=== PATIENT | female | born 1935 | race Caucasian/White ===

== ENCOUNTER 2017-02-07 22:35 | Emergency (ER) | payer MEDICARE ==
--- NOTE | 2017-02-07 23:02 | EDM.PDOC ---
ED HPI GENERAL MEDICAL PROBLEM - General Chief Complaint: General Stated Complaint: DIZZINESS Time Seen by Provider: 02/07/17 22:56 Source of Information: Reports: Patient History Limitations: Reports: No limitations - History of Present Illness Onset: today Onset Date: 02/07/17 Duration: Hour(s): (12), Waxing/waning Location: Reports: head Quality: Reports: Other (Patient had dizzyness off and on all day since her significant other was put in hospital with a PE.) Severity: mild Improves with: Reports: Immobilization Worsens with: Reports: Movement Context: Reports: Activity Associated Symptoms: Reports: denies other symptoms Other Treatments [employer]ICIAN: None - Related Data Allergies Allergy/AdvReac Type Severity Reaction Status Date / Time allopurinol Allergy Cannot Verified 01/26/14 18:11 Remember caffeine Allergy Cannot Verified 01/26/14 18:11 Remember chocolate flavor Allergy Cannot Verified 01/26/14 18:11 Remember procaine HCl [From Novocain] Allergy Cannot Verified 01/26/14 18:11 Remember Home Meds: Home Meds Acetaminophen [Tylenol Arthritis Pain] 650 mg PO DAILY 01/26/14 [History] Acetaminophen/Diphenhydramine [Acetaminophen-Diphenhyd 500-25] 1 each PO DAILY 01/26/14 [History] Albuterol [Ventolin HFA] 2 puff INH BID 01/26/14 [History] Aspirin [Adult Low Dose Aspirin EC] 81 mg PO DAILY 01/26/14 [History] Calcium Carbonate/Vitamin D3 [Calcium 600 + Vit D 400] 1 each PO DAILY 01/26/14 [History] Carboxymethylcell/Hypromellose [GenTeal 0.25-0.3% Gel Drops] 25 ml ASDIRECTED [History] Clopidogrel [Plavix] 75 mg PO DAILY 01/26/14 [History] Cyanocobalamin (Vitamin B12) [Vitamin B12] 1,000 mcg IJ 01/26/14 [History] Darifenacin [Enablex] 15 mg PO DAILY 01/26/14 [History] Fenofibric Acid (Choline) [Fenofibric Acid] 135 mg PO DAILY 01/26/14 [History] Fluticasone Propionate [Flonase] 16 gm NS DAILY 01/26/14 [History] Furosemide [Lasix] 20 mg PO DAILY 01/26/14 [History] Glimepiride [Amaryl] 2 mg PO BRK 01/26/14 [History] Insulin Detemir [Levemir] 80 unit SQ BEDTIME 01/26/14 [History] Levothyroxine 125 mcg PO ACBRK 01/26/14 [History] Trolamine Salicylate [Aspercreme] 1 applic TP QID 01/26/14 [History] amLODIPine [Norvasc] 10 mg PO BEDTIME 01/26/14 [History] atorvaSTATin [Lipitor] 80 mg PO BEDTIME 01/26/14 [History] Meclizine [Antivert] 25 mg PO Q6H PRN #60 tab.chew 02/08/17 [Rx] Sulfamethoxazole/Trimethoprim [Bactrim Ds Tablet] 1 each PO BID #14 tablet 02/08 [Rx] Social & Family History - Caffeine Use Caffeine Use: Reports: Coffee - Recreational Drug Use Recreational Drug Use: No ED ROS GENERAL - Review of Systems Review Of Systems: See Below Constitutional: Reports: other (dizzyness) Respiratory: Reports: No Symptoms GI/Abdominal: Reports: No symptoms : Reports: no symptoms Musculoskeletal: Reports: no symptoms Skin: Reports: no symptoms Neurological: Reports: Dizziness ED EXAM, GENERAL - Physical Exam Exam: See Below Exam Limited By: No limitations General Appearance: alert, WD/WN, no apparent distress Eye Exam: right eye: nystagmus, bilateral eye: EOMI (Right lateral nystagmus), normal fundi, normal inspection, PERRL Ears: normal external exam, normal canal, hearing grossly normal, normal TMs Ear Exam: bilateral ear: auricle normal, canal normal, TM normal Nose: normal inspection, normal mucosa, no blood Throat/Mouth: Normal inspection, Normal lips, Normal teeth, Normal gums, Normal oropharynx, Normal voice, No airway compromise Head: atraumatic, normocephalic Neck: normal inspection, supple, non-tender, full range of motion Respiratory/Chest: no respiratory distress, lungs clear, normal breath sounds, no accessory muscle use, chest non-tender Cardiovascular: normal peripheral pulses, regular rate, rhythm, no edema, no gallop, no JVD, no murmur, no rub Peripheral Pulses: 2+: posterior tibial (L), posterior tibial (R), dorsalis pedis (L), dorsalis pedis (R) GI/Abdominal: soft, non tender, no organomegaly Extremities: normal inspection, normal range of motion, non-tender, normal capillary refill, no pedal edema Neurological: alert, oriented, CN II-XII intact, normal cognition, normal gait, normal reflexes, no motor/sensory deficits Psychiatric: normal affect, normal mood Skin Exam: Warm, Dry, Intact, Normal color, No rash Lymphatic: no adenopathy EKG INTERPRETATION EKG Date: 02/07/17 Rhythm: NSR Candor: normal P-wave: present QRS: normal 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 She had her symptoms go away with the Antivert and she felt normal. Her labs did show a UTI which we treated with Bactrim DS one po bid x 7 days. She will follow up with her PCP this week if symptoms changes or worsens. Last Recorded V/S: Last Vital Signs Temp 36.6 C 02/07/17 22:35 Pulse Resp 18 02/07/17 22:35 BP 185/79 H 02/07/17 22:35 Pulse Ox 96 02/07/17 22:35 - Orders/Labs/Meds Orders: Active Orders 24 hr Category Date Time Status Meclizine [Antivert] Med 02/07/17 23:03 Active 25 mg PO DAILY PRN Medication Orders Meclizine HCl (Antivert) 25 mg PO DAILY PRN PRN Reason: dizzy Last Admin: 02/07/17 23:22 Dose: 25 mg Labs: Laboratory Tests 02/07/17 02/07/17 02/07/17 Range/Units 23:15 23:15 23:50 WBC 10.2 (4.5-12.0) X10-3/uL RBC 4.34 (3.23-5.20) x10(6)uL Hgb 13.1 (11.5-15.5) g/dL Hct 39.1 (30.0-51.3) % MCV 90.0 (80-96) fL MCH 30.3 (27.7-33.6) pg MCHC 33.6 (32.2-35.4) g/dL RDW 12.3 (11.5-15.5) % Plt Count 261 (125-369) X10(3)uL MPV 8.7 (7.4-10.4) fL Neut % (Auto) 63.9 (46-82) % Lymph % (Auto) 21.0 (13-37) % [place] % (Auto) 9.7 (4-12) % Eos % (Auto) 4 (1.0-5.0) % Baso % (Auto) 2 (0-2) % Neut # (Auto) 6.5 (1.6-8.3) # Lymph # (Auto) 2.1 (0.6-5.0) # [place] # (Auto) 1.0 (0.0-1.3) # Eos # (Auto) 0.4 (0.0-0.8) # Baso # (Auto) 0.2 (0.0-0.2) # Sodium 139 (135-145) mmol/L Potassium 3.6 (3.5-5.3) mmol/L Chloride 102 (100-110) mmol/L Carbon Dioxide 28 (23-29) mmol/L BUN 31 H (8-23) mg/dL Creatinine 1.0 (0.6-1.3) mg/dL Est Cr Clr Drug Dosing 39.90 mL/min Estimated GFR (MDRD) 53 L (>60) BUN/Creatinine Ratio 31.0 H (9-20) Glucose 273 H (80-116) mg/dL Calcium 9.9 (8.6-10.2) mg/dL Total Bilirubin 0.4 (0.1-1.3) mg/dL AST 21 (5-27) IU/L ALT 27 H D (14-26) IU/L Alkaline Phosphatase 66 (56-112) IU/L Total Protein 7.5 (6.0-8.0) g/dL Albumin 3.9 (3.2-4.6) g/dL Globulin 3.6 g/dL Albumin/Globulin Ratio 1.1 Urine Color Yellow (YELLOW) Urine Appearance Clear (CLEAR) Urine pH 5.0 (5.0-6.5) Ur Specific [place] 1.015 (1.010-1.025) Urine Protein 500 H (NEGATIVE) mg/dL Urine Glucose (UA) 50 H (NEGATIVE) mg/dL Urine Ketones Negative (NEGATIVE) mg/dL Urine Occult Blood Moderate H (NEGATIVE) Urine Nitrite Negative (NEGATIVE) Urine Bilirubin Negative (NEGATIVE) Urine Urobilinogen Normal (NEGATIVE) mg/dL Ur Leukocyte Esterase Small H (NEGATIVE) Urine RBC 0-5 (0) Urine WBC 0-5 (0) Ur Squamous Epith Cells Few H (NS,R,O) Urine Bacteria Rare H (NS) Meds: Medications Generic Name Dose Route Start Last Admin Trade Name Freq PRN Reason Stop Dose Admin Meclizine HCl 25 mg 02/07/17 23:03 02/07/17 23:22 Antivert PO 25 mg DAILY PRN Administration dizzy Departure - Departure Time of Disposition: 00:46 Disposition: Home, Self-Care 01 Clinical Impression: Vertigo Prescriptions: Meclizine [Antivert] 25 mg PO Q6H PRN #60 tab.chew PRN Reason: dizzyness Sulfamethoxazole/Trimethoprim [Bactrim Ds Tablet] 1 each PO BID #14 tablet Instructions: Urinary Frequency, Adult, Benign Positional Vertigo Referrals: Maricel Baum [employer] [Primary Care Provider] - Forms: ED Department Discharge - My Orders Last 24 Hours: My Active Orders 02/07/17 23:03 Meclizine [Antivert] 25 mg PO DAILY PRN - Assessment/Plan Last 24 Hours: My Active Orders 02/07/17 23:03 Meclizine [Antivert] 25 mg PO DAILY PRN
[2017-02-07] MEDS ORDERED: Meclizine 25 MG Tab PO PRN (23:03)
[2017-02-08 00:42] VITALS: BP 165/69
== END 2017-02-08 00:45 | disposition home or self-care (01) ==
LOC: FB.ED 22:35
DX: R42 Dizziness and giddiness (principal); Z88.8 Allergy status to other drugs, medicaments and biological substances; Z79.82 Long term (current) use of aspirin; Z79.4 Long term (current) use of insulin; Z79.899 Other long term (current) drug therapy
CPT/HCPCS: 36415; 80053; 81001; 85025; 99284; A9270; 99283

== ENCOUNTER 2019-06-20 09:49 | Inpatient (IN) | payer MEDICARE ==
--- NOTE | 2019-06-20 15:53 | PCM.HP.2 ---
H&P History of Present Illness - General Date of Service: 06/20/19 Admit Problem/Dx: Admission Diagnosis/Problem Admission Diagnosis/Problem Tongue carcinoma Source of Information: Patient, Old Records History Limitations: Reports: No Limitations - History of Present Illness Initial Comments - Free Text/Narative: This is 84-year-old female patient with a tongue cancer had a glosectomy. As she was hospitalized the note states she did have a pleural effusion and a pneumonia and was treated in the hospital. She says she is doing well now. She denies fevers, chills. She has some neck pain from a node resection on the right. She has a little bit of a cough and has low oxygen when she walks. The daughter states she was off her Lasix and that was part of the problem according to her. She denies chest pain. She is overall weak and here for PT/OT. Back Pain Score (Numeric/FACES): 6 - Related Data Allergies/Adverse Reactions: Allergies Allergy/AdvReac Type Severity Reaction Status Date / Time allopurinol Allergy Cannot Verified 06/20/19 14:05 Remember chocolate flavor Allergy Cannot Verified 06/20/19 14:05 Remember procaine HCl [From Novocain] Allergy Cannot Verified 06/20/19 14:05 Remember Home Medications: Home Meds Albuterol [Ventolin HFA] 1 - 2 puff INH Q4H PRN 01/26/14 [History] Fluticasone Propionate [Flonase] 2 spray NASBOTH DAILY 01/26/14 [History] Levothyroxine 125 mcg PO ACBRK 01/26/14 [History] Trolamine Salicylate [Aspercreme] 1 applic TP TID PRN 01/26/14 [History] amLODIPine [Norvasc] 10 mg PO DAILY 01/26/14 [History] Acetaminophen [Tylenol Extra Strength] 1,000 mg PO TID 06/20/19 [History] Acetaminophen/HYDROcodone [[place] 325-5 MG] 1 tab PO Q6H PRN 06/20/19 [History] Albuterol Sulfate 1.25 mg PO TID PRN 06/20/19 [History] Calcium Carbonate/Vitamin D3 [Calcium 600 + Vit D 200] 1 tab PO BID 06/20/19 [ History] Carboxymethylcellulose Sodium [Refresh Liquigel 1%] 1 drop EYEBOTH QID 06/20/19 [History] Cephalexin [Keflex] 250 mg PO DAILY 06/20/19 [History] Diclofenac Sodium [Voltaren] 2 gm TOP QID 06/20/19 [History] Furosemide [Lasix] 20 mg PO BID@08,16 06/20/19 [History] Gabapentin [Neurontin] 100 mg PO BID 06/20/19 [History] Insulin Glargine,Hum.Rec.Anlog [Jonah French] 30 units SUBCUT BEDTIME [History] Insulin Lispro [Humalog Kwikpen U-200] 5 unit SUBCUT ASDIRECTED PRN 06/20/19 [ History] Insulin Lispro [Humalog Kwikpen U-200] 10 units SUBCUT TIDMEALS 06/20/19 [ History] Levofloxacin [Levaquin] 750 mg PO Q48H 06/20/19 [History] Lidocaine 5% [Lidoderm 5%] 700 mg TOP BEDTIME 06/20/19 [History] Loperamide [Imodium AD] 2 mg PO ASDIRECTED PRN 06/20/19 [History] Losartan [Cozaar] 100 mg PO DAILY 06/20/19 [History] Lutein 20 mg PO DAILY 06/20/19 [History] Magnesium Hydroxide [Milk of Magnesia] 30 ml PO BEDTIME PRN 06/20/19 [History] Mirabegron [Myrbetriq] 50 mg PO DAILY 06/20/19 [History] Montelukast [Singulair] 10 mg PO DAILY 06/20/19 [History] PNV95/Ferrous Fumarate/FA [ Tablet] 1 tab PO DAILY 06/20/19 [History] Polyethylene Glycol 3350 [MiraLAX] 17 gm PO Q72H 06/20/19 [History] Ranitidine HCl [Ranitidine] 150 mg PO BID 06/20/19 [History] Sennosides/Docusate Sodium [Senna-S] 1 tab PO DAILY PRN 06/20/19 [History] atorvaSTATin [Lipitor] 40 mg PO BEDTIME 06/20/19 [History] tiZANidine [Zanaflex] 2 mg PO BEDTIME 06/20/19 [History] Past Medical History Cardiovascular History: Reports: High Cholesterol, Hypertension Respiratory History: Reports: Sleep Apnea, Other (See Below) Other Respiratory History: PLEURAL EFFUSION, PNEUMONIA Gastrointestinal History: Reports: GERD [employer]CH[employer]ICIAN History: Reports: Musculoskeletal History: Reports: RA Other Musculoskeletal History: RT INDEX FRACTURE, SPINAL ARTHRITIS Psychiatric History: Reports: Depression Endocrine/Metabolic History: Reports: Diabetes, Type II, Hypothyroidism, Obesity /BMI 30+ Oncologic (Cancer) History: Reports: Other (See Below) Other Oncologic History: TONGUE - Infectious Disease History Infectious Disease History: Reports: Scarlet Fever - Past Surgical History HEENT Surgical History: Reports: Cataract Surgery, Other (See Below) Other HEENT Surgeries/Procedures: BOTH EYES CATARACT SURGERY, TOUNGUE SURGERY AND LYMPH NODES 06/13/19 GI Surgical History: Reports: Appendectomy, Cholecystectomy Female Surgical History: Reports: Hysterectomy Social & Family History - Family History Family Medical History: Unobtainable - Tobacco Use Smoking Status *Q: Never Smoker - Caffeine Use Caffeine Use: Reports: Coffee, Soda - Recreational Drug Use Recreational Drug Use: No H&P Review of Systems - Review of Systems: Review Of Systems: See Below General: Reports: Weakness. Denies: Fever, Chills HEENT: Reports: Other (Tongue pain) Pulmonary: Reports: Cough, Sputum Cardiovascular: Reports: No Symptoms Gastrointestinal: Reports: No Symptoms Genitourinary: Reports: No Symptoms Musculoskeletal: Reports: No Symptoms Skin: Reports: No Symptoms Psychiatric: Reports: No Symptoms Neurological: Reports: No Symptoms Hematologic/Lymphatic: Reports: No Symptoms Immunologic: Reports: No Symptoms Exam - Exam Exam: See Below - Vital Signs Vital Signs: Last Vital Signs Temp 97.9 F 06/20/19 14:00 Pulse 82 06/20/19 14:00 Resp 22 H 06/20/19 14:00 BP 174/69 H 06/20/19 14:00 Pulse Ox 94 L 06/20/19 14:10 Weight: 219 lb - Exam General: Alert, Oriented, Cooperative HEENT: Posterior Pharynx Clear, TMs Clear, Other (Right tongue glosectomy) Neck: Supple, Trachea Midline, Other (Swelling right neck secondary to node dissection) Lungs: Clear to Auscultation, Normal Respiratory Effort. No: Crackles, Rales, Rhonchi Cardiovascular: Regular Rate, Regular Rhythm. No: Systolic Murmur GI/Abdominal Exam: Normal Bowel Sounds, Soft, Non-Tender, No Distention Back Exam: Normal Inspection, Full Range of Motion Extremities: Normal Inspection, No Pedal Edema Skin: Warm, Dry Neurological: Normal Speech, Normal Tone Neuro Extensive - Mental Status: Alert, Oriented x3, Normal Mood/Affect, Normal Cognition Psychiatric: Alert, Normal Affect, Normal Mood - Problem List (1) S/P glossectomy SNOMED Code(s): 491961830, 72031814, 392268328 ICD Code: Z90.49 - ACQUIRED ABSENCE OF OTHER SPECIFIED PARTS OF DIGESTIVE TRACT Status: Acute Current Visit: Yes (2) Physical deconditioning SNOMED Code(s): 39754781130341 ICD Code: R53.81 - OTHER MAL[place]ISE Status: Acute Current Visit: Yes (3) Pneumonia SNOMED Code(s): 231371612 ICD Code: J18.9 - PNEUMONIA, UNSPECIFIED ORGANISM Status: Acute Current Visit: Yes (4) Pleural effusion SNOMED Code(s): 42463432 ICD Code: J90 - PLEURAL EFFUSION, NOT ELSEWHERE CLASSIFIED Status: Acute Current Visit: Yes Problem List Initiated/Reviewed/Updated: Yes Orders Last 24hrs: Active Orders 24 hr Category Date Time Status Patient Status [ADT] Routine ADT 06/20/19 14:40 Active Accu Check [Blood Glucose Check, Bedside] [RC] BIDAC Care 06/20/19 14:44 Active Height and Weight [RC] WEEKLY Care 06/20/19 14:40 Active May Shower [RC] ASDIRECTED Care 06/20/19 14:39 Active Oxygen Therapy [RC] PRN Care 06/20/19 14:40 Active Up With Assistance [RC] ASDIRECTED Care 06/20/19 14:39 Active VTE/DVT Education [RC] Per Unit Routine Care 06/20/19 14:40 Active Vital Signs [RC] PER UNIT ROUTINE Care 06/20/19 14:40 Active OT Evaluation and Treatment [CONS] Routine Cons 06/20/19 14:39 Active PT Evaluation and Treatment [CONS] Routine Cons 06/20/19 14:39 Active Consistent Carbohydrate Diet [DIET] Diet 06/20/19 Lunch Active Resuscitation Status Routine Resus Stat 06/20/19 14:39 Ordered Assessment/Plan Comment:: 1. Admit to swing bed. 2. PT/OT. 3. Diabetic diet. 4. Continue her medications from [facility]. 5. Up with assist. 6 . O2 to keep sats greater than 90% 7. No labs
[2019-06-20] MEDS ORDERED: Albuterol 8 GM Inhaler INH PRN (15:54)
[2019-06-20] MEDS ORDERED: Insulin Lispro 100 Unit/ML 3 ML KwikPen SUBCUT PRN (15:54)
[2019-06-20] MEDS ORDERED: Trolamine Salicylate/Aloe Vera 10% Crm 85 GM Tube TOP PRN (15:54)
[2019-06-20] MEDS ORDERED: Loperamide 2 MG Cap PO PRN (15:54)
[2019-06-20] MEDS ORDERED: Magnesium Hydroxide 400 MG/5 ML Susp 30 ML Cup PO PRN (15:54)
[2019-06-20] MEDS ORDERED: Albuterol 0.083% 2.5 MG/3 ML Neb Soln INH PRN (15:54)
[2019-06-20] MEDS: Furosemide 20 MG Tab PO SCH (16:58)
[2019-06-20] MEDS: Acetaminophen 500 MG Tab PO SCH ×2 (16:58→21:26)
[2019-06-20] MEDS: Carboxymethylcellulose Sodium 1% Ophth Gel 15 ML Bottle EYEBOTH SCH ×2 (16:59→21:26)
[2019-06-20] MEDS: Diclofenac Sodium 1% Gel 100 GM Tube TOP SCH ×2 (16:59→21:27)
[2019-06-20] MEDS: Insulin Lispro 100 Unit/ML 3 ML KwikPen SUBCUT SCH (17:22)
[2019-06-20] MEDS: Gabapentin 100 MG Cap PO SCH (21:24)
[2019-06-20] MEDS: atorvaSTATin 40 MG Tab PO SCH (21:25)
[2019-06-20] MEDS: Calcium Carbonate 500 MG Tablet PO SCH (21:26)
[2019-06-20] MEDS: tiZANidine 4 MG Tab PO SCH (21:27)
[2019-06-20] MEDS: Famotidine 20 MG Tab PO SCH (21:28)
[2019-06-20] MEDS: Insulin Glargine,Human Rec. Analog 100 Units/ML 3 ML Pen SUBCUT SCH (21:34)
[2019-06-20] MEDS: Lidocaine 5% 700 MG Patch TOP SCH (21:41)
[2019-06-21] MEDS: Levothyroxine 125 MCG Tab PO SCH (06:52)
[2019-06-21] MEDS: Acetaminophen 500 MG Tab PO SCH ×3 (08:08→20:59)
[2019-06-21] MEDS: Furosemide 20 MG Tab PO SCH ×2 (08:11→16:06)
[2019-06-21] MEDS: Fluticasone Propionate Nasal Spray 16 GM Bottle NASBOTH SCH (08:12)
[2019-06-21] MEDS: Calcium Carbonate 500 MG Tablet PO SCH ×2 (08:12→21:03)
[2019-06-21] MEDS: Losartan 100 MG Tab PO SCH (08:12)
[2019-06-21] MEDS: amLODIPine 10 MG Tab PO SCH (08:12)
[2019-06-21] MEDS: Prenatal Multivitamin with Calcium/Folic Acid/Fe Fumarate Cap PO SCH (08:13)
[2019-06-21] MEDS: Famotidine 20 MG Tab PO SCH ×2 (08:13→20:57)
[2019-06-21] MEDS: Montelukast 10 MG Tab PO SCH (08:13)
[2019-06-21] MEDS: Mirabegron 25 MG Tab Extended Release PO SCH (08:13)
[2019-06-21] MEDS: Diclofenac Sodium 1% Gel 100 GM Tube TOP SCH ×4 (08:16→21:05)
[2019-06-21] MEDS: Insulin Lispro 100 Unit/ML 3 ML KwikPen SUBCUT SCH ×4 (08:16→19:03)
[2019-06-21] MEDS: Carboxymethylcellulose Sodium 1% Ophth Gel 15 ML Bottle EYEBOTH SCH ×4 (08:24→20:58)
[2019-06-21] MEDS: Gabapentin 100 MG Cap PO SCH ×2 (08:29→20:57)
[2019-06-21] MEDS: Levofloxacin 750 MG Tab PO SCH (10:15)
[2019-06-21] MEDS: Acetaminophen/HYDROcodone 325-5 MG Tab PO PRN (18:10)
[2019-06-21] MEDS: Lidocaine 5% 700 MG Patch TOP SCH (20:54)
[2019-06-21] MEDS: atorvaSTATin 40 MG Tab PO SCH (20:57)
[2019-06-21] MEDS: tiZANidine 4 MG Tab PO SCH (21:04)
[2019-06-21] MEDS: Insulin Glargine,Human Rec. Analog 100 Units/ML 3 ML Pen SUBCUT SCH (21:09)
[2019-06-22] MEDS: Acetaminophen/HYDROcodone 325-5 MG Tab PO PRN (03:01)
[2019-06-22] MEDS: Levothyroxine 125 MCG Tab PO SCH ×2 (05:30→08:00)
[2019-06-22] MEDS ORDERED: Insulin Lispro 100 Unit/ML 3 ML KwikPen SUBCUT SCH (08:00)
[2019-06-22] MEDS: Gabapentin 100 MG Cap PO SCH ×2 (08:20→21:00)
[2019-06-22] MEDS: Calcium Carbonate 500 MG Tablet PO SCH ×2 (08:21→21:08)
[2019-06-22] MEDS: Mirabegron 25 MG Tab Extended Release PO SCH (08:26)
[2019-06-22] MEDS: Losartan 100 MG Tab PO SCH (08:26)
[2019-06-22] MEDS: Prenatal Multivitamin with Calcium/Folic Acid/Fe Fumarate Cap PO SCH (08:26)
[2019-06-22] MEDS: Famotidine 20 MG Tab PO SCH ×2 (08:26→21:08)
[2019-06-22] MEDS: Furosemide 20 MG Tab PO SCH ×2 (08:26→17:49)
[2019-06-22] MEDS: Fluticasone Propionate Nasal Spray 16 GM Bottle NASBOTH SCH (08:27)
[2019-06-22] MEDS: Carboxymethylcellulose Sodium 1% Ophth Gel 15 ML Bottle EYEBOTH SCH ×4 (08:27→21:09)
[2019-06-22] MEDS: Montelukast 10 MG Tab PO SCH (08:27)
[2019-06-22] MEDS: Acetaminophen 500 MG Tab PO SCH ×3 (08:27→21:09)
[2019-06-22] MEDS: amLODIPine 10 MG Tab PO SCH (08:28)
[2019-06-22] MEDS: Diclofenac Sodium 1% Gel 100 GM Tube TOP SCH ×4 (08:29→21:10)
[2019-06-22] MEDS: Insulin Lispro 100 Unit/ML 3 ML KwikPen SUBCUT SCH ×3 (08:37→17:52)
[2019-06-22] MEDS ORDERED: Melatonin 3 MG Tab PO PRN (09:29)
[2019-06-22] MEDS: Lidocaine 5% 700 MG Patch TOP SCH (21:07)
[2019-06-22] MEDS: atorvaSTATin 40 MG Tab PO SCH (21:08)
[2019-06-22] MEDS: Insulin Glargine,Human Rec. Analog 100 Units/ML 3 ML Pen SUBCUT SCH (21:11)
[2019-06-22] MEDS: tiZANidine 4 MG Tab PO SCH (21:14)
[2019-06-23] MEDS: Acetaminophen/HYDROcodone 325-5 MG Tab PO PRN ×2 (09:41→17:03)
[2019-06-23] MEDS: Diclofenac Sodium 1% Gel 100 GM Tube TOP SCH ×4 (09:43→20:51)
[2019-06-23] MEDS: Gabapentin 100 MG Cap PO SCH ×2 (09:43→20:48)
[2019-06-23] MEDS: Furosemide 20 MG Tab PO SCH ×2 (09:44→16:56)
[2019-06-23] MEDS: Montelukast 10 MG Tab PO SCH (09:44)
[2019-06-23] MEDS: Levofloxacin 750 MG Tab PO SCH (09:44)
[2019-06-23] MEDS: Calcium Carbonate 500 MG Tablet PO SCH ×2 (09:45→20:48)
[2019-06-23] MEDS: Mirabegron 25 MG Tab Extended Release PO SCH (09:45)
[2019-06-23] MEDS: amLODIPine 10 MG Tab PO SCH (09:45)
[2019-06-23] MEDS: Prenatal Multivitamin with Calcium/Folic Acid/Fe Fumarate Cap PO SCH (09:46)
[2019-06-23] MEDS: Famotidine 20 MG Tab PO SCH ×2 (09:46→20:51)
[2019-06-23] MEDS: Fluticasone Propionate Nasal Spray 16 GM Bottle NASBOTH SCH (09:46)
[2019-06-23] MEDS: Carboxymethylcellulose Sodium 1% Ophth Gel 15 ML Bottle EYEBOTH SCH ×4 (09:46→20:51)
[2019-06-23] MEDS: Acetaminophen 500 MG Tab PO SCH ×3 (09:47→20:51)
[2019-06-23] MEDS: Insulin Lispro 100 Unit/ML 3 ML KwikPen SUBCUT SCH ×3 (09:49→18:26)
[2019-06-23] MEDS: Levothyroxine 125 MCG Tab PO SCH (09:52)
[2019-06-23] MEDS: Polyethylene Glycol 3350 Powder 17 GM Packet PO SCH (09:52)
[2019-06-23] MEDS: Losartan 100 MG Tab PO SCH (09:53)
[2019-06-23] MEDS: Lidocaine 5% 700 MG Patch TOP SCH (20:47)
[2019-06-23] MEDS: Insulin Glargine,Human Rec. Analog 100 Units/ML 3 ML Pen SUBCUT SCH (20:47)
[2019-06-23] MEDS: atorvaSTATin 40 MG Tab PO SCH (20:47)
[2019-06-23] MEDS: tiZANidine 4 MG Tab PO SCH (20:54)
[2019-06-24] MEDS: Acetaminophen/HYDROcodone 325-5 MG Tab PO PRN (08:37)
[2019-06-24] MEDS: Gabapentin 100 MG Cap PO SCH ×2 (08:37→20:05)
[2019-06-24] MEDS: Fluticasone Propionate Nasal Spray 16 GM Bottle NASBOTH SCH (08:38)
[2019-06-24] MEDS: Diclofenac Sodium 1% Gel 100 GM Tube TOP SCH ×4 (08:38→20:07)
[2019-06-24] MEDS: Calcium Carbonate 500 MG Tablet PO SCH ×2 (08:39→20:05)
[2019-06-24] MEDS: Montelukast 10 MG Tab PO SCH (08:39)
[2019-06-24] MEDS: amLODIPine 10 MG Tab PO SCH (08:39)
[2019-06-24] MEDS: Furosemide 20 MG Tab PO SCH ×2 (08:39→15:19)
[2019-06-24] MEDS: Mirabegron 25 MG Tab Extended Release PO SCH (08:39)
[2019-06-24] MEDS: Carboxymethylcellulose Sodium 1% Ophth Gel 15 ML Bottle EYEBOTH SCH ×4 (08:40→20:06)
[2019-06-24] MEDS: Prenatal Multivitamin with Calcium/Folic Acid/Fe Fumarate Cap PO SCH (08:40)
[2019-06-24] MEDS: Famotidine 20 MG Tab PO SCH ×2 (08:41→20:07)
[2019-06-24] MEDS: Acetaminophen 500 MG Tab PO SCH ×3 (08:41→20:06)
[2019-06-24] MEDS: Levothyroxine 125 MCG Tab PO SCH (08:42)
[2019-06-24] MEDS: Insulin Lispro 100 Unit/ML 3 ML KwikPen SUBCUT SCH ×3 (08:42→17:43)
[2019-06-24] MEDS: Losartan 100 MG Tab PO SCH (08:43)
[2019-06-24] MEDS: Insulin Glargine,Human Rec. Analog 100 Units/ML 3 ML Pen SUBCUT SCH (20:03)
[2019-06-24] MEDS: Lidocaine 5% 700 MG Patch TOP SCH (20:04)
[2019-06-24] MEDS: atorvaSTATin 40 MG Tab PO SCH (20:05)
[2019-06-24] MEDS: tiZANidine 4 MG Tab PO SCH (20:06)
[2019-06-25] MEDS: Levothyroxine 125 MCG Tab PO SCH (08:15)
[2019-06-25] MEDS: Insulin Lispro 100 Unit/ML 3 ML KwikPen SUBCUT SCH ×3 (08:16→18:30)
[2019-06-25] MEDS: Losartan 100 MG Tab PO SCH (08:19)
[2019-06-25] MEDS: Furosemide 20 MG Tab PO SCH ×2 (08:19→15:35)
[2019-06-25] MEDS: Fluticasone Propionate Nasal Spray 16 GM Bottle NASBOTH SCH (08:20)
[2019-06-25] MEDS: amLODIPine 10 MG Tab PO SCH (08:21)
[2019-06-25] MEDS: Gabapentin 100 MG Cap PO SCH ×2 (08:21→21:15)
[2019-06-25] MEDS: Mirabegron 25 MG Tab Extended Release PO SCH (08:21)
[2019-06-25] MEDS: Carboxymethylcellulose Sodium 1% Ophth Gel 15 ML Bottle EYEBOTH SCH ×4 (08:22→21:12)
[2019-06-25] MEDS: Prenatal Multivitamin with Calcium/Folic Acid/Fe Fumarate Cap PO SCH (08:22)
[2019-06-25] MEDS: Calcium Carbonate 500 MG Tablet PO SCH ×2 (08:22→21:11)
[2019-06-25] MEDS: Famotidine 20 MG Tab PO SCH ×2 (08:22→21:12)
[2019-06-25] MEDS: Acetaminophen 500 MG Tab PO SCH ×3 (08:23→21:11)
[2019-06-25] MEDS: Montelukast 10 MG Tab PO SCH (08:23)
[2019-06-25] MEDS: Diclofenac Sodium 1% Gel 100 GM Tube TOP SCH ×4 (08:24→21:06)
[2019-06-25] MEDS: Levofloxacin 750 MG Tab PO SCH (11:29)
[2019-06-25] MEDS ORDERED: Diphtheria,Pertussis(Acell),Tetanus Vaccine 0.5 ML SDV IM ONE (17:39)
[2019-06-25] MEDS: Lidocaine 5% 700 MG Patch TOP SCH (21:05)
[2019-06-25] MEDS: tiZANidine 4 MG Tab PO SCH (21:11)
[2019-06-25] MEDS: atorvaSTATin 40 MG Tab PO SCH (21:12)
[2019-06-25] MEDS: Insulin Glargine,Human Rec. Analog 100 Units/ML 3 ML Pen SUBCUT SCH (21:18)
[2019-06-26] MEDS: Levothyroxine 125 MCG Tab PO SCH ×2 (05:27→07:11)
[2019-06-26] MEDS: Polyethylene Glycol 3350 Powder 17 GM Packet PO SCH (08:22)
[2019-06-26] MEDS: Insulin Lispro 100 Unit/ML 3 ML KwikPen SUBCUT SCH ×3 (08:23→17:28)
[2019-06-26] MEDS: Furosemide 20 MG Tab PO SCH ×2 (08:23→16:34)
[2019-06-26] MEDS: Losartan 100 MG Tab PO SCH (08:24)
[2019-06-26] MEDS: Fluticasone Propionate Nasal Spray 16 GM Bottle NASBOTH SCH (08:25)
[2019-06-26] MEDS: Famotidine 20 MG Tab PO SCH ×2 (08:26→20:02)
[2019-06-26] MEDS: amLODIPine 10 MG Tab PO SCH (08:26)
[2019-06-26] MEDS: Mirabegron 25 MG Tab Extended Release PO SCH (08:26)
[2019-06-26] MEDS: Calcium Carbonate 500 MG Tablet PO SCH ×2 (08:26→20:02)
[2019-06-26] MEDS: Prenatal Multivitamin with Calcium/Folic Acid/Fe Fumarate Cap PO SCH (08:27)
[2019-06-26] MEDS: Montelukast 10 MG Tab PO SCH (08:27)
[2019-06-26] MEDS: Carboxymethylcellulose Sodium 1% Ophth Gel 15 ML Bottle EYEBOTH SCH ×4 (08:27→20:02)
[2019-06-26] MEDS: Acetaminophen 500 MG Tab PO SCH ×3 (08:27→20:01)
[2019-06-26] MEDS: Diclofenac Sodium 1% Gel 100 GM Tube TOP SCH ×4 (08:28→20:03)
[2019-06-26] MEDS: Gabapentin 100 MG Cap PO SCH ×2 (08:36→20:11)
[2019-06-26] MEDS: Lidocaine 5% 700 MG Patch TOP SCH (20:00)
[2019-06-26] MEDS: atorvaSTATin 40 MG Tab PO SCH (20:01)
[2019-06-26] MEDS: tiZANidine 4 MG Tab PO SCH (20:04)
[2019-06-26] MEDS: Insulin Glargine,Human Rec. Analog 100 Units/ML 3 ML Pen SUBCUT SCH (20:12)
[2019-06-27] MEDS: Acetaminophen/HYDROcodone 325-5 MG Tab PO PRN (00:50)
[2019-06-27] MEDS: Levothyroxine 125 MCG Tab PO SCH (07:33)
[2019-06-27] MEDS: Furosemide 20 MG Tab PO SCH (07:34)
[2019-06-27] MEDS: Insulin Lispro 100 Unit/ML 3 ML KwikPen SUBCUT SCH ×2 (08:17→12:02)
[2019-06-27] MEDS: Gabapentin 100 MG Cap PO SCH (08:17)
[2019-06-27] MEDS: Losartan 100 MG Tab PO SCH (08:18)
[2019-06-27] MEDS: Fluticasone Propionate Nasal Spray 16 GM Bottle NASBOTH SCH (08:19)
[2019-06-27] MEDS: Mirabegron 25 MG Tab Extended Release PO SCH (08:19)
[2019-06-27] MEDS: amLODIPine 10 MG Tab PO SCH (08:20)
[2019-06-27] MEDS: Famotidine 20 MG Tab PO SCH (08:20)
[2019-06-27] MEDS: Carboxymethylcellulose Sodium 1% Ophth Gel 15 ML Bottle EYEBOTH SCH ×2 (08:20→12:04)
[2019-06-27] MEDS: Prenatal Multivitamin with Calcium/Folic Acid/Fe Fumarate Cap PO SCH (08:20)
[2019-06-27] MEDS: Calcium Carbonate 500 MG Tablet PO SCH (08:20)
[2019-06-27] MEDS: Montelukast 10 MG Tab PO SCH (08:20)
[2019-06-27] MEDS: Diclofenac Sodium 1% Gel 100 GM Tube TOP SCH ×2 (08:21→12:03)
[2019-06-27] MEDS: Acetaminophen 500 MG Tab PO SCH (08:21)
[2019-06-27] MEDS ORDERED: Cephalexin 250 MG Cap PO SCH (09:00)
--- NOTE | 2019-06-27 09:11 | PCM.DCSUM1 ---
Discharge Summary - Hospital Course HPI Initial Comments: A 84-year-old female patient with a tongue cancer had a glossectomy. As she was hospitalized the note states she did have a pleural effusion and a pneumonia and was treated in the hospital. She says she is doing well now. She denies fevers, chills. She has some neck pain from a node resection on the right. She has a little bit of a cough and has low oxygen when she walks. The daughter states she was off her Lasix and that was part of the problem according to her. She denies chest pain. She is overall weak and here for PT/OT. Diagnosis: Stroke: No - Discharge Data Discharge Date: 06/27/19 Discharge Disposition: Home, W Home Health Agency Condition: Good - Referral to Home Health Date of Face to Face Encounter: 06/27/19 Reason for Homebound Status: tongue carcinoma s/p glossectomy, DM Primary Care Physician: Maricel Baum NP Skilled Need: Home Health with PT/OT services - Patient Summary/Data Consults: Consultations 06/20/19 14:39 OT Evaluation and Treatment [CONS] Routine Please Evaluate and Treat. OT Reason for Consult: ADL's This query below is only for informational purposes and is not editable. PT Evaluation and Treatment [CONS] Routine Please Evaluate and Treat. PT Reason for Consult: Ambulation This query below is only for informational purposes and is not editable. Hospital Course: Patient admitted for PT/OT she tolerated well, and 2 day notice was given by PT/ OT yesterday. Patient is up in room independent, able to do car transfer. She was weaned off oxygen by Tuesday. Her sugars were elevated in 200s fasting, increased her insulin back to home dose of 30 units a day, sugars started trending down to below 200. Will go home today at 1230. - Patient Instructions Diet: Diabetic Diet Activity: As Tolerated Showering/Bathing: May Shower Notify Provider of: Fever, Increased Pain, Nausea and/or Vomiting Other/Special Instructions: Follow up with Maricel Baum in 1 week. - Discharge Plan *PRESCRIPTION DRUG MONITORING PROGRAM REVIEWED*: No *COPY OF PRESCRIPTION DRUG MONITORING REPORT IN PATIENT RONALD: No Home Medications: Home Meds Albuterol [Ventolin HFA] 1 - 2 puff INH Q4H PRN 01/26/14 [History] Fluticasone Propionate [Flonase] 2 spray NASBOTH DAILY 01/26/14 [History] Levothyroxine 125 mcg PO ACBRK 01/26/14 [History] Trolamine Salicylate [Aspercreme] 1 applic TP TID PRN 01/26/14 [History] amLODIPine [Norvasc] 10 mg PO DAILY 01/26/14 [History] Acetaminophen [Tylenol Extra Strength] 1,000 mg PO TID 06/20/19 [History] Acetaminophen/HYDROcodone [[place] 325-5 MG] 1 tab PO Q6H PRN 06/20/19 [History] Albuterol Sulfate 1.25 mg PO TID PRN 06/20/19 [History] Calcium Carbonate/Vitamin D3 [Calcium 600 + Vit D 200] 1 tab PO BID 06/20/19 [ History] Carboxymethylcellulose Sodium [Refresh Liquigel 1%] 1 drop EYEBOTH QID 06/20/19 [History] Cephalexin [Keflex] 250 mg PO DAILY 06/20/19 [History] Diclofenac Sodium [Voltaren] 2 gm TOP QID 06/20/19 [History] Furosemide [Lasix] 20 mg PO BID@08,16 06/20/19 [History] Gabapentin [Neurontin] 100 mg PO BID 06/20/19 [History] Insulin Glargine,Hum.Rec.Anlog [Jonah French] 30 units SUBCUT BEDTIME [History] Insulin Lispro [Humalog Kwikpen U-200] 5 unit SUBCUT ASDIRECTED PRN 06/20/19 [ History] Insulin Lispro [Humalog Kwikpen U-200] 10 units SUBCUT TIDMEALS 06/20/19 [ History] Levofloxacin [Levaquin] 750 mg PO Q48H 06/20/19 [History] Lidocaine 5% [Lidoderm 5%] 700 mg TOP BEDTIME 06/20/19 [History] Loperamide [Imodium AD] 2 mg PO ASDIRECTED PRN 06/20/19 [History] Losartan [Cozaar] 100 mg PO DAILY 06/20/19 [History] Lutein 20 mg PO DAILY 06/20/19 [History] Magnesium Hydroxide [Milk of Magnesia] 30 ml PO BEDTIME PRN 06/20/19 [History] Mirabegron [Myrbetriq] 50 mg PO DAILY 06/20/19 [History] Montelukast [Singulair] 10 mg PO DAILY 06/20/19 [History] PNV95/Ferrous Fumarate/FA [ Tablet] 1 tab PO DAILY 06/20/19 [History] Polyethylene Glycol 3350 [MiraLAX] 17 gm PO Q72H 06/20/19 [History] Ranitidine HCl [Ranitidine] 150 mg PO BID 06/20/19 [History] Sennosides/Docusate Sodium [Senna-S] 1 tab PO DAILY PRN 06/20/19 [History] atorvaSTATin [Lipitor] 40 mg PO BEDTIME 06/20/19 [History] tiZANidine [Zanaflex] 2 mg PO BEDTIME 06/20/19 [History] Oxygen Therapy Mode: Room Air Patient Handouts: Glossectomy, Care After - Discharge Summary/Plan Comment DC Time >30 min.: Yes - Patient Data Vitals - Most Recent: Last Vital Signs Temp 36.8 C 06/27/19 08:00 Pulse 73 06/27/19 08:00 Resp 18 06/27/19 08:00 BP 160/68 H 06/27/19 08:20 Pulse Ox 96 06/26/19 10:24 Weight - Most Recent: 98.067 kg Lab Results - Last 24 hrs: Laboratory Results - last 24 hr 06/26/19 06/27/19 Range/Units 16:37 06:38 POC Glucose 333 H D 193 H D (80-116) mg/dL Med Orders - Current: Current Medications Acetaminophen (Tylenol Extra Strength) 1,000 mg PO TID [facility] Last Admin: 06/27/19 08:21 Dose: 1,000 mg Hydrocodone Bitart/Acetaminophen ([place] 325-5 Mg) 1 tab PO Q6H PRN PRN Reason: Pain Last Admin: 06/27/19 00:50 Dose: 1 tab Albuterol (Ventolin Hfa) 0 gm INH Q4H PRN PRN Reason: Shortness of Breath Albuterol (Proventil Neb Soln) 1.25 mg INH TID PRN PRN Reason: Shortness of Breath Amlodipine Besylate (Norvasc) 10 mg PO DAILY [facility] Last Admin: 06/27/19 08:20 Dose: 10 mg Artificial Tears (Refresh Liquigel 1%) 0 ml EYEBOTH QID [facility] Last Admin: 06/27/19 08:20 Dose: 1 drop Atorvastatin Calcium (Lipitor) 40 mg PO BEDTIME [facility] Last Admin: 06/26/19 20:01 Dose: 40 mg Calcium Carbonate/Glycine (Oyster Shell Calcium) 500 mg PO BID [facility] Last Admin: 06/27/19 08:20 Dose: 500 mg Cephalexin (Keflex) 250 mg PO DAILY [facility] Last Admin: 06/27/19 08:19 Dose: 250 mg Diclofenac Sodium (Voltaren 1% Gel) 2 gm TOP QID [facility] Last Admin: 06/27/19 08:21 Dose: 1 applic Famotidine (Pepcid) 20 mg PO BID [facility] Last Admin: 06/27/19 08:20 Dose: 20 mg Fluticasone Propionate (Flonase) 0 gm NASBOTH DAILY [facility] Last Admin: 06/27/19 08:19 Dose: 2 spray Furosemide (Lasix) 20 mg PO BID@08,16 [facility] Last Admin: 06/27/19 07:34 Dose: 20 mg Gabapentin (Neurontin) 100 mg PO BID [facility] Last Admin: 06/27/19 08:17 Dose: 100 mg Insulin Glargine (Lantus Solostar) 30 units SUBCUT BEDTIME [facility] Last Admin: 06/26/19 20:12 Dose: 30 units Insulin Human Lispro (Humalog) 5 unit SUBCUT ASDIRECTED PRN PRN Reason: HIGH CARB SNACKS Last Admin: 06/25/19 17:37 Dose: 5 units Insulin Human Lispro (Humalog) 5 unit SUBCUT TIDMEALS [facility] Last Admin: 06/27/19 08:17 Dose: 5 units Levothyroxine Sodium (Levothyroxine) 125 mcg PO ACBRK [facility] Last Admin: 06/27/19 07:33 Dose: 125 mcg Lidocaine (Lidoderm 5%) 700 mg TOP BEDTIME [facility] Last Admin: 06/26/19 20:00 Dose: 700 mg Loperamide HCl (Imodium) 2 mg PO ASDIRECTED PRN PRN Reason: Diarrhea Losartan Potassium (Cozaar) 100 mg PO DAILY [facility] Last Admin: 06/27/19 08:18 Dose: 100 mg Lutein (Lutein) 20 mg PO DAILY [facility] Last Admin: 06/27/19 08:19 Dose: 20 mg Magnesium Hydroxide (Milk Of Magnesia) 30 ml PO BEDTIME PRN PRN Reason: Constipation Last Admin: 06/25/19 18:45 Dose: 30 ml Melatonin (Melatonin) 6 mg PO BEDTIME PRN PRN Reason: Insomnia Mirabegron (Myrbetriq) 50 mg PO DAILY [facility] Last Admin: 06/27/19 08:19 Dose: 50 mg Miscellaneous Information (Remove Patch) 1 ea TRDERM DAILY [facility] Last Admin: 06/26/19 08:45 Dose: 1 ea Montelukast Sodium (Singulair) 10 mg PO DAILY [facility] Last Admin: 06/27/19 08:20 Dose: 10 mg Polyethylene Glycol (Miralax) 17 gm PO Q72H [facility] Last Admin: 06/26/19 08:22 Dose: 17 gm Multivit/Folic Acid/Iron (-U) 1 each PO DAILY [facility] Last Admin: 06/27/19 08:20 Dose: 1 each Senna/Docusate Sodium (Senna Plus) 1 tab PO DAILY PRN PRN Reason: Constipation Tizanidine HCl (Zanaflex) 2 mg PO BEDTIME [facility] Last Admin: 06/26/19 20:04 Dose: 2 mg Trolamine Salicylate (Aspercreme 10%) 0 gm TOP TID PRN PRN Reason: JOINT PAIN Discontinued Medications Diphtheria/Tetanus/Acell Pertussis (Adacel) 0.5 ml IM .ONCE ONE Stop: 06/25/19 17:40 Last Admin: 06/25/19 18:41 Dose: 0.5 ml Insulin Glargine (Lantus Solostar) 24 units SUBCUT BEDTIME [facility] Last Admin: 06/24/19 20:03 Dose: 24 unit Insulin Human Lispro (Humalog) 10 unit SUBCUT TIDMEALS [facility] Last Admin: 06/21/19 19:03 Dose: Not Given Insulin Human Lispro (Humalog) 5 unit SUBCUT TIDMEALS [facility] Levofloxacin (Levaquin) 750 mg PO Q48H [facility] Stop: 06/25/19 10:01 Last Admin: 06/25/19 11:29 Dose: 750 mg - Exam General: Reports: Alert, Oriented, Cooperative Neck: Reports: Trachea Midline, Other (Hematoma along incision site, non-tender , ecchymosis, Incision C/D/I) Lungs: Reports: Clear to Auscultation, Normal Respiratory Effort Cardiovascular: Reports: Regular Rate, Regular Rhythm GI/Abdominal Exam: Normal Bowel Sounds, Soft, Non-Tender, No Distention Extremities: Pedal Edema (trace, BLE teds on)
[2019-06-27 11:04] VITALS: BP 151/60; PULSE 70
== END 2019-06-27 12:58 | disposition home health service (06) | DRG 947 ==
LOC: FB.MS 13:39
PROVIDERS: ADMIT Family Medicine; ATTEND Family Medicine
DX: R53.1 Weakness (principal); J18.9 Pneumonia, unspecified organism; I50.33 Acute on chronic diastolic (congestive) heart failure; J96.01 Acute respiratory failure with hypoxia; J90 Pleural effusion, not elsewhere classified; I13.0 Hypertensive heart and chronic kidney disease with heart failure and stage 1 through stage 4 chronic kidney disease, or unspecified chronic kidney disease; I38 Endocarditis, valve unspecified; Z51.5 Encounter for palliative care; R53.81 Other malaise; M54.2 Cervicalgia; G47.30 Sleep apnea, unspecified; E78.00 Pure hypercholesterolemia, unspecified; K21.9 Gastro-esophageal reflux disease without esophagitis; M06.9 Rheumatoid arthritis, unspecified; E66.9 Obesity, unspecified; F32.9 Major depressive disorder, single episode, unspecified; E03.9 Hypothyroidism, unspecified; M46.90 Unspecified inflammatory spondylopathy, site unspecified; E11.3551 Type 2 diabetes mellitus with stable proliferative diabetic retinopathy, right eye; N18.3 Chronic kidney disease, stage 3 (moderate); M19.042 Primary osteoarthritis, left hand; M19.041 Primary osteoarthritis, right hand; E11.51 Type 2 diabetes mellitus with diabetic peripheral angiopathy without gangrene; E78.5 Hyperlipidemia, unspecified; J45.909 Unspecified asthma, uncomplicated; Z98.42 Cataract extraction status, left eye; Z98.41 Cataract extraction status, right eye; Z98.890 Other specified postprocedural states; Z90.49 Acquired absence of other specified parts of digestive tract; Z90.710 Acquired absence of both cervix and uterus; Z85.810 Personal history of malignant neoplasm of tongue; Z88.8 Allergy status to other drugs, medicaments and biological substances; Z91.02 Food additives allergy status; Z79.4 Long term (current) use of insulin; Z79.899 Other long term (current) drug therapy; Z87.01 Personal history of pneumonia (recurrent); Z99.81 Dependence on supplemental oxygen; Z79.891 Long term (current) use of opiate analgesic; Z68.38 Body mass index [BMI] 38.0-38.9, adult
CPT/HCPCS: 82962; 90471; 90715; 94150; 94760; 97110-GO; 97116-GP; 97161-GP; 97165-GO; 97530-GO; 97530-GP; 97535-GO; A9270-GY; J1815; J1815-GY

== ENCOUNTER 2020-09-21 15:31 | Inpatient (IN) | payer OTHER, MEDICARE ==
--- NOTE | 2020-09-21 16:07 | EDM.PDOC ---
ED HPI GENERAL MEDICAL PROBLEM - General Chief Complaint: Head Injury Stated Complaint: HEAD LACERATION Time Seen by Provider: 09/21/20 16:02 Source of Information: Reports: Patient History Limitations: Reports: No Limitations - History of Present Illness INITIAL COMMENTS - FREE TEXT/NARRATIVE: [place], pt tells me she was at her bathroom whn she felt her legs giving out, she fell hitting her head at door nob , pt not sure if she had LOC, pt has a scalp lac , denies any other injuries and denies any acute resp/CV/ neuro sx or any other medical concerns. - Related Data Allergies Allergy/AdvReac Type Severity Reaction Status Date / Time allopurinol Allergy Cannot Verified 06/20/19 16:20 Remember procaine HCl [From Novocain] Allergy Cannot Verified 06/20/19 16:20 Remember Home Meds: Home Meds Albuterol [Ventolin HFA] 1 - 2 puff INH Q4H PRN 01/26/14 [History] Fluticasone Propionate [Flonase] 2 spray NASBOTH DAILY 01/26/14 [History] Levothyroxine 125 mcg PO ACBRK 01/26/14 [History] Trolamine Salicylate [Aspercreme] 1 applic TP TID PRN 01/26/14 [History] amLODIPine [Norvasc] 10 mg PO DAILY 01/26/14 [History] Acetaminophen [Tylenol Extra Strength] 1,000 mg PO TID 06/20/19 [History] Acetaminophen/HYDROcodone [[place] 325-5 MG] 1 tab PO Q6H PRN 06/20/19 [History] Albuterol Sulfate 1.25 mg PO TID PRN 06/20/19 [History] Calcium Carbonate/Vitamin D3 [Calcium 600 + Vit D 200] 1 tab PO BID 06/20/19 [History] Carboxymethylcellulose Sodium [Refresh Liquigel 1%] 1 drop EYEBOTH QID 06/20/19 [History] Diclofenac Sodium [Voltaren] 2 gm TOP QID 06/20/19 [History] Furosemide [Lasix] 20 mg PO BID@08,16 06/20/19 [History] Gabapentin [Neurontin] 100 mg PO BID 06/20/19 [History] Insulin Glargine,Hum.Rec.Anlog [Jonah Solostar] 30 units SUBCUT BEDTIME 06/20/19 [History] Insulin Lispro [Humalog Kwikpen U-200] 5 unit SUBCUT ASDIRECTED PRN 06/20/19 [ History] Insulin Lispro [Humalog Kwikpen U-200] 10 units SUBCUT TIDMEALS 06/20/19 [History] Lidocaine 5% [Lidoderm 5%] 700 mg TOP BEDTIME 06/20/19 [History] Loperamide [Imodium AD] 2 mg PO ASDIRECTED PRN 06/20/19 [History] Losartan [Cozaar] 100 mg PO DAILY 06/20/19 [History] Lutein 20 mg PO DAILY 06/20/19 [History] Magnesium Hydroxide [Milk of Magnesia] 30 ml PO BEDTIME PRN 06/20/19 [History] Mirabegron [Myrbetriq] 50 mg PO DAILY 06/20/19 [History] Montelukast [Singulair] 10 mg PO DAILY 06/20/19 [History] Pnv No.95/Ferrous Fum/Folic AC [ Tablet] 1 tab PO DAILY 06/20/19 [History] Ranitidine HCl [Ranitidine] 150 mg PO BID 06/20/19 [History] Sennosides/Docusate Sodium [Senna-S] 1 tab PO DAILY PRN 06/20/19 [History] atorvaSTATin [Lipitor] 40 mg PO BEDTIME 06/20/19 [History] cephALEXin [Keflex] 250 mg PO DAILY 06/20/19 [History] levoFLOXacin [Levaquin] 750 mg PO Q48H 06/20/19 [History] polyethylene glycoL 3350 [MiraLAX] 17 gm PO Q72H 06/20/19 [History] tiZANidine [Zanaflex] 2 mg PO BEDTIME 06/20/19 [History] Past Medical History Cardiovascular History: Reports: High Cholesterol, Hypertension Respiratory History: Reports: Sleep Apnea, Other (See Below) Other Respiratory History: PLEURAL EFFUSION, PNEUMONIA Gastrointestinal History: Reports: GERD 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: Reports: Musculoskeletal History: Reports: RA Other Musculoskeletal History: RT INDEX FRACTURE, SPINAL ARTHRITIS Psychiatric History: Reports: Depression Endocrine/Metabolic History: Reports: Diabetes, Type II, Hypothyroidism, Obesity/BMI 30+ Oncologic (Cancer) History: Reports: Other (See Below) Other Oncologic History: TONGUE - Infectious Disease History Infectious Disease History: Reports: Scarlet Fever - Past Surgical History HEENT Surgical History: Reports: Cataract Surgery, Other (See Below) Other HEENT Surgeries/Procedures: BOTH EYES CATARACT SURGERY, TOUNGUE SURGERY AND LYMPH NODES 06/13/19 GI Surgical History: Reports: Appendectomy, Cholecystectomy Female Surgical History: Reports: Hysterectomy Social & Family History - Family History Family Medical History: Unobtainable - Caffeine Use Caffeine Use: Reports: Coffee, Soda ED ROS GENERAL - Review of Systems Review Of Systems: See Below Constitutional: Reports: No Symptoms Respiratory: Reports: No Symptoms Cardiovascular: Reports: No Symptoms GI/Abdominal: Reports: No Symptoms Neurological: Reports: No Symptoms ED EXAM, HEAD INJURY - Physical Exam Exam: See Below Exam Limited By: No Limitations Head: Scalp Lacerations, Other (2 cm scalp lac noted. at posterior side of her head. 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 pt is mildly hypoglycemic and this was corrected her with feeding. pt has accidental fall resulting in head injury and scalp lac , work up revealed no provocation etiology to her fall or intracranial injuries. EKG shows afib with controlled rate. pt is tolerating PO diet and ambulatory. usual wound care was explained , F/U in 5-6 days for stable removal. Dx scalp laceration. accidental fall. head injury. hypoglycemia. Last Recorded V/S: Last Vital Signs Temp 36.7 C 09/21/20 15:50 Pulse 79 09/21/20 15:50 Resp 16 09/21/20 15:50 BP 164/71 H 09/21/20 15:50 Pulse Ox 96 09/21/20 15:50 - Orders/Labs/Meds Orders: Active Orders 24 hr Category Date Time Status Head wo Cont [CT] Stat Exams 09/21/20 16:11 Taken Labs: Laboratory Tests 09/21/20 09/21/20 09/21/20 Range/Units 16:11 17:15 17:15 WBC 12.2 H (3.0-10.3) x10-3/uL RBC 4.04 (3.60-5.20) x10(6)uL Hgb 12.1 (11.4-15.5) g/dL Hct 37.0 (34.2-48.2) % MCV 91.5 (76.7-100.5) fL MCH 30.0 (23.9-33.9) pg MCHC 32.7 (31.9-34.8) g/dL RDW 13.0 (12.3-16.5) % Plt Count 270 (151-488) x10(3)uL MPV 8.4 (7.1-12.4) fL Neut % (Auto) 68.5 (30.8-76.2) % Lymph % (Auto) 21.5 (18.4-52.1) % Preston % (Auto) 8.5 (4.4-15.7) % Eos % (Auto) 0.8 (0.6-8.1) % Baso % (Auto) 0.7 (0.2-1.5) % Neut # (Auto) 8.4 H (1.5-6.3) x10-3/uL Lymph # (Auto) 2.6 (1.0-4.4) x10-3/uL Preston # (Auto) 1.0 (0.3-1.0) x10-3/uL Eos # (Auto) 0.1 (0.0-0.8) x10-3/uL Baso # (Auto) 0.1 (0.0-0.1) x10-3/uL Sodium 147 H (135-145) mmol/L Potassium 3.9 (3.5-5.3) mmol/L Chloride 108 (100-110) mmol/L Carbon Dioxide 29 (21-32) mmol/L BUN 58 H D (7-18) mg/dL Creatinine 1.9 H (0.55-1.02) mg/dL Est Cr Clr Drug Dosing 18.77 mL/min Estimated GFR (MDRD) 25 L (>60) BUN/Creatinine Ratio 30.5 H (9-20) Glucose 54 L D (80-116) mg/dL POC Glucose (74-100) mg/dL Calcium 11.4 H (8.6-10.2) mg/dL Total Bilirubin 0.3 (0.1-1.3) mg/dL AST 19 (5-25) IU/L ALT 25 (12-36) U/L Alkaline Phosphatase 53 L (56-112) IU/L Total Protein 7.4 (6.0-8.0) g/dL Albumin 3.6 (3.2-4.6) g/dL Globulin 3.8 g/dL Albumin/Globulin Ratio 1.0 Urine Color Yellow (YELLOW) Urine Appearance Clear (CLEAR) Urine pH 5.0 (5.0-6.5) Ur Specific [place] 1.010 (1.010-1.025) Urine Protein 100 H (NEGATIVE) mg/dL Urine Glucose (UA) Normal (NORMAL) mg/dL Urine Ketones Negative (NEGATIVE) mg/dL Urine Occult Blood Negative (NEGATIVE) Urine Nitrite Negative (NEGATIVE) Urine Bilirubin Negative (NEGATIVE) Urine Urobilinogen Normal (NEGATIVE) mg/dL Ur Leukocyte Esterase Negative (NEGATIVE) U Hyaline Cast (Auto) Few H (NS) Urine RBC 0-5 (0-5) Urine WBC 0-5 (0-5) Ur Squamous Epith Cells Occasional (NS,R,O) Urine Bacteria Few H (NS) 09/21/20 Range/Units 19:01 WBC (3.0-10.3) x10-3/uL RBC (3.60-5.20) x10(6)uL Hgb (11.4-15.5) g/dL Hct (34.2-48.2) % MCV (76.7-100.5) fL MCH (23.9-33.9) pg MCHC (31.9-34.8) g/dL RDW (12.3-16.5) % Plt Count (151-488) x10(3)uL MPV (7.1-12.4) fL Neut % (Auto) (30.8-76.2) % Lymph % (Auto) (18.4-52.1) % Preston % (Auto) (4.4-15.7) % Eos % (Auto) (0.6-8.1) % Baso % (Auto) (0.2-1.5) % Neut # (Auto) (1.5-6.3) x10-3/uL Lymph # (Auto) (1.0-4.4) x10-3/uL Preston # (Auto) (0.3-1.0) x10-3/uL Eos # (Auto) (0.0-0.8) x10-3/uL Baso # (Auto) (0.0-0.1) x10-3/uL Sodium (135-145) mmol/L Potassium (3.5-5.3) mmol/L Chloride (100-110) mmol/L Carbon Dioxide (21-32) mmol/L BUN (7-18) mg/dL Creatinine (0.55-1.02) mg/dL Est Cr Clr Drug Dosing mL/min Estimated GFR (MDRD) (>60) BUN/Creatinine Ratio (9-20) Glucose (80-116) mg/dL POC Glucose 123 H (74-100) mg/dL Calcium (8.6-10.2) mg/dL Total Bilirubin (0.1-1.3) mg/dL AST (5-25) IU/L ALT (12-36) U/L Alkaline Phosphatase (56-112) IU/L Total Protein (6.0-8.0) g/dL Albumin (3.2-4.6) g/dL Globulin g/dL Albumin/Globulin Ratio Urine Color (YELLOW) Urine Appearance (CLEAR) Urine pH (5.0-6.5) Ur Specific [place] (1.010-1.025) Urine Protein (NEGATIVE) mg/dL Urine Glucose (UA) (NORMAL) mg/dL Urine Ketones (NEGATIVE) mg/dL Urine Occult Blood (NEGATIVE) Urine Nitrite (NEGATIVE) Urine Bilirubin (NEGATIVE) Urine Urobilinogen (NEGATIVE) mg/dL Ur Leukocyte Esterase (NEGATIVE) U Hyaline Cast (Auto) (NS) Urine RBC (0-5) Urine WBC (0-5) Ur Squamous Epith Cells (NS,R,O) Urine Bacteria (NS) Departure - Departure Time of Disposition: 19:10 Disposition: Home, Self-Care 01 Clinical Impression: Scalp laceration - Discharge Information Referrals: Maricel Baum, DESIGN ENGINEERING SPECIALIST [Primary Care Provider] - Forms: ED Department Discharge Sepsis Event Note (ED) - Evaluation Sepsis Screening Result: No Definite Risk - Focused Exam Vital Signs: Vital Signs Temp Pulse Resp BP Pulse Ox 09/21/20 15:50 36.7 C 79 16 164/71 H 96 - My Orders Last 24 Hours: My Active Orders 09/21/20 16:11 Head wo Cont [CT] Stat - Assessment/Plan Last 24 Hours: My Active Orders 09/21/20 16:11 Head wo Cont [CT] Stat
[2020-09-21] MEDS ORDERED: Ondansetron 4 MG/2 ML SDV IV PRN (19:53)
[2020-09-21] MEDS ORDERED: 50% Dextrose in Water 50 ML Syringe IVPUSH PRN ×2 (20:11→21:03)
[2020-09-21] MEDS ORDERED: Glucagon,Human Recombinant 1 MG Vial IM PRN ×2 (20:11→21:03)
[2020-09-21] MEDS ORDERED: Enoxaparin 40 MG/0.4 ML Syringe SUBCUT SCH (20:15)
[2020-09-21] MEDS ORDERED: SENNOSIDES PO PRN (20:54)
[2020-09-21] MEDS ORDERED: Magnesium Hydroxide 400 MG/5 ML Susp 30 ML Cup PO PRN (20:54)
[2020-09-21] MEDS ORDERED: Loperamide 2 MG Cap PO PRN (20:54)
[2020-09-21] MEDS ORDERED: Meclizine 25 MG Tab PO PRN (20:54)
[2020-09-21] MEDS ORDERED: ALBUTEROL SULFATE INH PRN (20:54)
[2020-09-21] MEDS ORDERED: INSULIN GLARGINE HUM REC ANLOG 65 UNIT SQ SCH (21:00)
[2020-09-21] MEDS ORDERED: VITAMIN D3 PO SCH (21:00)
[2020-09-21] MEDS ORDERED: Polyethylene Glycol 3350 Powder 17 GM Packet PO SCH (21:00)
[2020-09-21] MEDS ORDERED: [UNRECOGNIZED DRUG - OTHER] SQ SCH (21:00)
[2020-09-21] MEDS ORDERED: HYPROMELLOSE EYEBOTH SCH (21:00)
[2020-09-21] MEDS ORDERED: Insulin Lispro 100 Unit/ML 3 ML KwikPen SUBCUT SCH ×2 (21:00→21:15)
[2020-09-21] MEDS ORDERED: CALCIUM CARBONATE PO SCH (21:00)
[2020-09-21] MEDS ORDERED: Famotidine 20 MG Tab PO SCH (21:00)
[2020-09-21] MEDS ORDERED: [UNRECOGNIZED DRUG - OTHER] PO SCH (21:00)
[2020-09-21] MEDS ORDERED: Albuterol 8 GM Inhaler INH PRN (21:18)
[2020-09-21] MEDS ORDERED: Sennosides 8.6 MG Tab PO PRN ×2 (21:33→21:34)
[2020-09-21] MEDS: Acetaminophen 500 MG Tab PO SCH (21:39)
[2020-09-21] MEDS: Sodium Chloride 0.9% 1,000 ML IV SCH (21:39)
[2020-09-21] MEDS: Calcium Carbonate 500 MG Tablet PO SCH (21:39)
[2020-09-21] MEDS: Gabapentin 100 MG Cap PO SCH (21:39)
[2020-09-21] MEDS ORDERED: Lidocaine 4% 1 each Patch TOP SCH ×2 (22:15→22:30)
[2020-09-21] MEDS: Cephalexin 250 MG Cap PO SCH (22:31)
[2020-09-21] MEDS ORDERED: Sodium Chloride 0.9% 10 ML Syringe FLUSH PRN (22:40)
[2020-09-22] MEDS: Sodium Chloride 0.9% 1,000 ML IV SCH ×2 (05:21→14:33)
[2020-09-22] MEDS ORDERED: Levothyroxine 125 MCG Tab ONE (05:29)
[2020-09-22] MEDS ORDERED: Insulin Glargine,Human Rec. Analog 100 Units/ML 3 ML Pen SUBCUT SCH ×3 (06:00→09:00)
[2020-09-22] MEDS ORDERED: Levothyroxine 125 MCG Tab PO SCH ×2 (07:30→09:00)
[2020-09-22] MEDS ORDERED: Hypromellose 0.3% Ophth Soln 15 ML Bottle EYEBOTH SCH (09:00)
[2020-09-22] MEDS ORDERED: Non-Formulary Medication 1 Each (Lidocaine 5% [Lidoderm 5%] 1 PATCH) TRDERM SCH (09:00)
[2020-09-22] MEDS ORDERED: Hypromellose 0.3% Ophth Soln 15 ML Bottle EYEBOTH ONE (09:00)
[2020-09-22] MEDS ORDERED: Non-Formulary Medication 1 Each (Lutein [Lutein] 20 MG) PO SCH (09:00)
[2020-09-22] MEDS ORDERED: Trolamine Salicylate/Aloe Vera 10% Crm 85 GM Tube TOP SCH (09:00)
[2020-09-22] MEDS ORDERED: [UNRECOGNIZED DRUG - REMARK] PO SCH (09:00)
--- NOTE | 2020-09-22 09:12 | PCM.HP.2 ---
H&P History of Present Illness - General Date of Service: 09/22/20 Admit Problem/Dx: Admission Diagnosis/Problem Admission Diagnosis/Problem Acute kidney injury Source of Information: Patient, EMS Notes Reviewed - History of Present Illness Initial Comments - Free Text/Narative: Vania presented to ER yesterday after fall in her bathroom at [facility], went down and hit her head on doorknob, doesn't know if she lost consciousness or not, just went down. Doesn't remember if she lost her balance. This is her second fall. She sustained a laceration to left parietal scalp that was repaired with jaren in ER. She has been having decreased appetite and drinking at [facility], progressive weakness, she has been taking her usual insulin doses, her sugar was 56 last night here. She takes 65 units of Toujeo at bedtime, Humalog 27 units at breakfast & lunch and 25 units at dinner per her medication list at [facility]. Normally she uses her front wheel walker, is independent in her room, goes to dining room for meals, does her own ADLs per patient. Denies any fevers, chills, cough, shortness of breath, chest pain, nausea, vomiting or diarrhea. She has been a little constipated and states her back hurts from laying in the bed this morning. Her CT head in ER showed no acute fracture, acute brain injury or hemorrhage. Labs WBC was 12.2, BUN & Cr elevated at 58, 1.9 respectively. Covid was negative. She has required standing lift here to get her up. Left Mid-Anterior Knee Pain Score (Numeric/FACES): 5 - Related Data Allergies/Adverse Reactions: Allergies Allergy/AdvReac Type Severity Reaction Status Date / Time allopurinol Allergy Cannot Verified 06/20/19 16:20 Remember procaine HCl [From Novocain] Allergy Cannot Verified 06/20/19 16:20 Remember Home Medications: Home Meds Acetaminophen [Tylenol Extra Strength] 500 mg PO TID 09/21/20 [History] Albuterol Sulfate [Proair Digihaler] 1 puff INH DAILY PRN 09/21/20 [History] Calcium Carbonate/Vitamin D3 [Calcium 500 mg-Vit D3 600 Unit] 1 tab PO BID 09/21/20 [History] Diclofenac Sodium [Voltaren 1% Gel] 1 applic TOP QID 09/21/20 [History] Famotidine [Pepcid] 20 mg PO BID 09/21/20 [History] Furosemide [Lasix] 40 mg PO BID 09/21/20 [History] Gabapentin [Neurontin] 1 cap PO BID 09/21/20 [History] Insulin Glargine,Hum.Rec.Anlog [Toujeo Solostar] 65 unit SQ BEDTIME 09/21/20 [History] Lidocaine 5% [Lidoderm 5%] 1 patch TRDERM DAILY 09/21/20 [History] Loperamide [Imodium] 2 mg PO QID PRN 09/21/20 [History] Losartan Potassium 100 mg PO DAILY 09/21/20 [History] Lutein 20 mg PO DAILY 09/21/20 [History] Magnesium Hydroxide [Milk of Magnesia] 15 ml PO DAILY PRN 09/21/20 [History] Meclizine [Antivert] 25 mg PO Q6H PRN 09/21/20 [History] Mirabegron [Myrbetriq] 25 mg PO DAILY 09/21/20 [History] Montelukast Sodium 10 mg PO DAILY 09/21/20 [History] Pnv No.95/Ferrous Fum/Folic AC [ Caplet] 1 each PO DAILY 09/21/20 [History] amLODIPine Besylate [Norvasc] 10 mg PO DAILY 09/21/20 [History] cephALEXin [Keflex] 250 mg PO DAILY@20 09/21/20 [History] polyethylene glycoL 3350 [MiraLAX] 17 gm PO Q72H 09/21/20 [History] Carboxymethylcell/Hypromellose [GenTeal Moderate to Severe Ophth Gel] 1 drop EYEBOTH QID 09/22/20 [History] Insulin Lispro [Humalog Kwikpen U-200] 25 units SQ DAILY@1700 09/22/20 [History] Insulin Lispro [Humalog Kwikpen U-200] 27 units SQ DAILY@0800,1100 09/22/20 [History] Isosorbide Mononitrate [Imdur] 30 mg PO BEDTIME 09/22/20 [History] Levothyroxine 125 mcg PO DAILY@1200 09/22/20 [History] Sennosides/Docusate Sodium [Senna-S 8.6-50 mg Tablet] 1 tab PO DAILY PRN 09/22/20 [History] Trolamine Salicylate/Aloe Vera [Aspercreme 10% Cream] 1 applic TOP DAILY 09/22/20 [History] Past Medical History Cardiovascular History: Reports: High Cholesterol, Hypertension Respiratory History: Reports: Sleep Apnea, Other (See Below) Other Respiratory History: PLEURAL EFFUSION, PNEUMONIA Gastrointestinal History: Reports: GERD 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 Psychiatric History: Reports: Depression Endocrine/Metabolic History: Reports: Diabetes, Type II, Hypothyroidism, Obesity/BMI 30+ Oncologic (Cancer) History: Reports: Other (See Below) Other Oncologic History: TONGUE - Infectious Disease History Infectious Disease History: Reports: Scarlet Fever - Past Surgical History HEENT Surgical History: Reports: Cataract Surgery, Other (See Below) Other HEENT Surgeries/Procedures: BOTH EYES CATARACT SURGERY, TOUNGUE SURGERY AND LYMPH NODES 06/13/19 GI Surgical History: Reports: Appendectomy, Cholecystectomy Female Surgical History: Reports: Hysterectomy Social & Family History - Family History Family Medical History: No Pertinent Family History - Tobacco Use Tobacco Use Status *Q: Unknown Ever Used Tobacco Used Tobacco, but Quit: Yes Month/Year Tobacco Last Used: unable to remember. Tobacco Use Comment: states that she smoked when she was on her teenage years. Second Hand Smoke Exposure: No - Caffeine Use Caffeine Use: Reports: Coffee - Recreational Drug Use Recreational Drug Use: No H&P Review of Systems - Review of Systems: Review Of Systems: Comprehensive ROS is negative, except as noted in HPI. Exam - Exam Exam: See Below - Vital Signs Vital Signs: Last Vital Signs Temp 98.0 F 09/22/20 04:00 Pulse 66 09/22/20 04:00 Resp 16 09/22/20 04:00 BP 161/53 H 09/22/20 04:00 Pulse Ox 95 09/22/20 04:00 Weight: 209 lb 2 oz - Exam General: Alert, Oriented, Cooperative. No: Mild Distress HEENT: PERRLA, Conjunctiva Clear, EOMI, Mucosa Moist & [place], Other (Laceration with jaren to left parietal scalp). No: Hearing Intact (decreased) Neck: Trachea Midline Lungs: Clear to Auscultation, Normal Respiratory Effort, Decreased Breath Sounds (bases). No: Crackles, Wheezing Cardiovascular: Regular Rate, Irregular Rhythm GI/Abdominal Exam: Normal Bowel Sounds, Soft, Non-Tender, No Distention (Female) Exam: Deferred Rectal (Female) Exam: Deferred Extremities: Pedal Edema (trace up to bilateral shins) Peripheral Pulses: 2+: Radial (L), Radial (R) Skin: Wound (Left parietal scalp) Neurological: Normal Speech Neuro Extensive - Mental Status: Normal Mood/Affect - Patient Data Lab Results Last 24 hrs: Laboratory Results - last 24 hr 09/21/20 09/21/20 09/21/20 Range/Units 16:11 17:15 17:15 WBC 12.2 H (3.0-10.3) x10-3/uL RBC 4.04 (3.60-5.20) x10(6)uL Hgb 12.1 (11.4-15.5) g/dL Hct 37.0 (34.2-48.2) % MCV 91.5 (76.7-100.5) fL MCH 30.0 (23.9-33.9) pg MCHC 32.7 (31.9-34.8) g/dL RDW 13.0 (12.3-16.5) % Plt Count 270 (151-488) x10(3)uL MPV 8.4 (7.1-12.4) fL Neut % (Auto) 68.5 (30.8-76.2) % Lymph % (Auto) 21.5 (18.4-52.1) % Kaufman % (Auto) 8.5 (4.4-15.7) % Eos % (Auto) 0.8 (0.6-8.1) % Baso % (Auto) 0.7 (0.2-1.5) % Neut # (Auto) 8.4 H (1.5-6.3) x10-3/uL Lymph # (Auto) 2.6 (1.0-4.4) x10-3/uL Kaufman # (Auto) 1.0 (0.3-1.0) x10-3/uL Eos # (Auto) 0.1 (0.0-0.8) x10-3/uL Baso # (Auto) 0.1 (0.0-0.1) x10-3/uL Sodium 147 H (135-145) mmol/L Potassium 3.9 (3.5-5.3) mmol/L Chloride 108 (100-110) mmol/L Carbon Dioxide 29 (21-32) mmol/L BUN 58 H D (7-18) mg/dL Creatinine 1.9 H (0.55-1.02) mg/dL Est Cr Clr Drug Dosing 18.77 mL/min Estimated GFR (MDRD) 25 L (>60) BUN/Creatinine Ratio 30.5 H (9-20) Glucose 54 L D (80-116) mg/dL POC Glucose (74-100) mg/dL Calcium 11.4 H (8.6-10.2) mg/dL Total Bilirubin 0.3 (0.1-1.3) mg/dL AST 19 (5-25) IU/L ALT 25 (12-36) U/L Alkaline Phosphatase 53 L (56-112) IU/L Total Protein 7.4 (6.0-8.0) g/dL Albumin 3.6 (3.2-4.6) g/dL Globulin 3.8 g/dL Albumin/Globulin Ratio 1.0 TSH, Ultra Sensitive (0.36-3.74) IU/mL Urine Color Yellow (YELLOW) Urine Appearance Clear (CLEAR) Urine pH 5.0 (5.0-6.5) Ur Specific [place] 1.010 (1.010-1.025) Urine Protein 100 H (NEGATIVE) mg/dL Urine Glucose (UA) Normal (NORMAL) mg/dL Urine Ketones Negative (NEGATIVE) mg/dL Urine Occult Blood Negative (NEGATIVE) Urine Nitrite Negative (NEGATIVE) Urine Bilirubin Negative (NEGATIVE) Urine Urobilinogen Normal (NEGATIVE) mg/dL Ur Leukocyte Esterase Negative (NEGATIVE) U Hyaline Cast (Auto) Few H (NS) Urine RBC 0-5 (0-5) Urine WBC 0-5 (0-5) Ur Squamous Epith Cells Occasional (NS,R,O) Urine Bacteria Few H (NS) SARS-CoV-2 RNA (MARK) (NEGATIVE) 09/21/20 09/21/20 09/22/20 Range/Units 19:01 19:49 06:30 WBC (3.0-10.3) x10-3/uL RBC (3.60-5.20) x10(6)uL Hgb (11.4-15.5) g/dL Hct (34.2-48.2) % MCV (76.7-100.5) fL MCH (23.9-33.9) pg MCHC (31.9-34.8) g/dL RDW (12.3-16.5) % Plt Count (151-488) x10(3)uL MPV (7.1-12.4) fL Neut % (Auto) (30.8-76.2) % Lymph % (Auto) (18.4-52.1) % Kaufman % (Auto) (4.4-15.7) % Eos % (Auto) (0.6-8.1) % Baso % (Auto) (0.2-1.5) % Neut # (Auto) (1.5-6.3) x10-3/uL Lymph # (Auto) (1.0-4.4) x10-3/uL Kaufman # (Auto) (0.3-1.0) x10-3/uL Eos # (Auto) (0.0-0.8) x10-3/uL Baso # (Auto) (0.0-0.1) x10-3/uL Sodium 145 (135-145) mmol/L Potassium 3.8 (3.5-5.3) mmol/L Chloride 109 (100-110) mmol/L Carbon Dioxide 28 (21-32) mmol/L BUN 52 H (7-18) mg/dL Creatinine 1.5 H (0.55-1.02) mg/dL Est Cr Clr Drug Dosing 24.74 mL/min Estimated GFR (MDRD) 33 L (>60) BUN/Creatinine Ratio 34.7 H (9-20) Glucose 118 H (80-116) mg/dL POC Glucose 123 H (74-100) mg/dL Calcium 10.3 H (8.6-10.2) mg/dL Total Bilirubin (0.1-1.3) mg/dL AST (5-25) IU/L ALT (12-36) U/L Alkaline Phosphatase (56-112) IU/L Total Protein (6.0-8.0) g/dL Albumin (3.2-4.6) g/dL Globulin g/dL Albumin/Globulin Ratio TSH, Ultra Sensitive (0.36-3.74) IU/mL Urine Color (YELLOW) Urine Appearance (CLEAR) Urine pH (5.0-6.5) Ur Specific [place] (1.010-1.025) Urine Protein (NEGATIVE) mg/dL Urine Glucose (UA) (NORMAL) mg/dL Urine Ketones (NEGATIVE) mg/dL Urine Occult Blood (NEGATIVE) Urine Nitrite (NEGATIVE) Urine Bilirubin (NEGATIVE) Urine Urobilinogen (NEGATIVE) mg/dL Ur Leukocyte Esterase (NEGATIVE) U Hyaline Cast (Auto) (NS) Urine RBC (0-5) Urine WBC (0-5) Ur Squamous Epith Cells (NS,R,O) Urine Bacteria (NS) SARS-CoV-2 RNA (MARK) Negative (NEGATIVE) 09/22/20 09/22/20 Range/Units 06:30 06:30 WBC (3.0-10.3) x10-3/uL RBC (3.60-5.20) x10(6)uL Hgb (11.4-15.5) g/dL Hct (34.2-48.2) % MCV (76.7-100.5) fL MCH (23.9-33.9) pg MCHC (31.9-34.8) g/dL RDW (12.3-16.5) % Plt Count (151-488) x10(3)uL MPV (7.1-12.4) fL Neut % (Auto) (30.8-76.2) % Lymph % (Auto) (18.4-52.1) % Kaufman % (Auto) (4.4-15.7) % Eos % (Auto) (0.6-8.1) % Baso % (Auto) (0.2-1.5) % Neut # (Auto) (1.5-6.3) x10-3/uL Lymph # (Auto) (1.0-4.4) x10-3/uL Kaufman # (Auto) (0.3-1.0) x10-3/uL Eos # (Auto) (0.0-0.8) x10-3/uL Baso # (Auto) (0.0-0.1) x10-3/uL Sodium (135-145) mmol/L Potassium (3.5-5.3) mmol/L Chloride (100-110) mmol/L Carbon Dioxide (21-32) mmol/L BUN (7-18) mg/dL Creatinine (0.55-1.02) mg/dL Est Cr Clr Drug Dosing mL/min Estimated GFR (MDRD) (>60) BUN/Creatinine Ratio (9-20) Glucose (80-116) mg/dL POC Glucose 106 H (74-100) mg/dL Calcium (8.6-10.2) mg/dL Total Bilirubin (0.1-1.3) mg/dL AST (5-25) IU/L ALT (12-36) U/L Alkaline Phosphatase (56-112) IU/L Total Protein (6.0-8.0) g/dL Albumin (3.2-4.6) g/dL Globulin g/dL Albumin/Globulin Ratio TSH, Ultra Sensitive 0.44 (0.36-3.74) IU/mL Urine Color (YELLOW) Urine Appearance (CLEAR) Urine pH (5.0-6.5) Ur Specific [place] (1.010-1.025) Urine Protein (NEGATIVE) mg/dL Urine Glucose (UA) (NORMAL) mg/dL Urine Ketones (NEGATIVE) mg/dL Urine Occult Blood (NEGATIVE) Urine Nitrite (NEGATIVE) Urine Bilirubin (NEGATIVE) Urine Urobilinogen (NEGATIVE) mg/dL Ur Leukocyte Esterase (NEGATIVE) U Hyaline Cast (Auto) (NS) Urine RBC (0-5) Urine WBC (0-5) Ur Squamous Epith Cells (NS,R,O) Urine Bacteria (NS) SARS-CoV-2 RNA (MARK) (NEGATIVE) Result Diagrams: 09/21/20 17:15 09/22/20 06:30 Sepsis Event Note - Evaluation Sepsis Screening Result: No Definite Risk - Focused Exam Vital Signs: Vital Signs Temp Pulse Resp BP Pulse Ox 09/22/20 04:00 98.0 F 66 16 161/53 H 95 09/22/20 01:00 99.3 F 66 16 161/51 H 100 09/21/20 21:10 97.6 F 75 16 180/58 H 99 *Q Meaningful Use (ADM) - VTE *Q VTE Mechanical Contraindications *Q: At Risk for Falls - VTE Risk Assess *Q Each Risk Factor Represents 1 Point: Obesity ( BMI > 25 kg/m2) Total Score 1 Point Risk Factors: 1 Each Risk Factor Represents 2 Points: None Total Score 2 Point Risk Factors: 0 Each Risk Factor Represents 3 Points: Age 75 Years or Greater Total Score 3 Point Risk Factors: 3 Each Risk Factor Represents 5 Points: None Total Score 5 Point Risk Factors: 0 Venous Thromboembolism Risk Factor Score *Q: 4 - Problem List (1) Scalp laceration SNOMED Code(s): 884780000 ICD Code: S01.01XA - LACERATION WITHOUT FOREIGN BODY OF SCALP, INITIAL ENCOUNTER Status: Acute Current Visit: Yes (2) Falls frequently SNOMED Code(s): 177272058 ICD Code: R29.6 - REPEATED FALLS Status: Acute Current Visit: Yes (3) Generalized weakness SNOMED Code(s): 38361271 ICD Code: R53.1 - WEAKNESS Status: Acute Current Visit: Yes (4) Physical deconditioning SNOMED Code(s): 40049047249217 ICD Code: R53.81 - OTHER MALAISE Status: Acute Current Visit: No (5) Dehydration SNOMED Code(s): 05608386 ICD Code: E86.0 - DEHYDRATION Status: Acute Current Visit: Yes (6) Diabetes SNOMED Code(s): 97684715 ICD Code: E11.9 - TYPE 2 DIABETES MELLITUS WITHOUT COMPLICATIONS Status: Chronic Current Visit: Yes Qualifiers: Diabetes mellitus type: type 2 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 (7) Atrial fibrillation SNOMED Code(s): 56632015 ICD Code: I48.91 - UNSPECIFIED ATRIAL FIBRILLATION Status: Chronic Current Visit: Yes Problem List Initiated/Reviewed/Updated: Yes Orders Last 24hrs: Active Orders 24 hr Category Date Time Status Patient Status [ADT] Routine ADT 09/21/20 19:53 Active Blood Glucose Check, Bedside [RC] 07,11,17 Care 09/21/20 19:53 Active Oxygen Therapy [RC] PRN Care 09/21/20 19:53 Active Pulse Oximetry [RC] PRN Care 09/21/20 19:57 Active Up With Assistance [RC] ASDIRECTED Care 09/21/20 19:53 Active VTE/DVT Education [RC] Per Unit Routine Care 09/21/20 19:53 Active Vital Signs [RC] 08,12,16,20,00,04 Care 09/21/20 19:53 Active OT Evaluation and Treatment [CONS] Routine Cons 09/22/20 08:55 Ordered PT Evaluation and Treatment [CONS] Routine Cons 09/21/20 19:53 Active Consistent Carbohydrate Diet [DIET] Diet 09/22/20 Breakfast Active Heart Healthy Diet [DIET] Diet 09/22/20 Breakfast Ordered Head wo Cont [CT] Stat Exams 09/21/20 16:11 Taken Acetaminophen [Tylenol Extra Strength] Med 09/21/20 21:00 Active 500 mg PO TID Albuterol [Ventolin HFA] Med 09/21/20 21:18 Active 0 gm INH DAILY PRN Calcium Carbonate [Oyster Shell Calcium] Med 09/21/20 21:30 Active 500 mg PO BID Carboxymethylcell/Hypromellose [GenTeal Moderate to Med 09/22/20 09:00 Ordered Severe Ophth Gel] 1 drop EYEBOTH QID Dextrose 50% in Water Med 09/21/20 21:03 Active 50 ml IVPUSH ASDIRECTED PRN Docusate Sodium/Sennosides [Senna Plus] Med 09/22/20 08:31 Active 1 tab PO DAILY PRN Enoxaparin [Lovenox] Med 09/22/20 21:00 Active 30 mg SUBCUT Q24H Famotidine [Pepcid] Med 09/23/20 21:00 Active 20 mg PO Q48H Gabapentin [Neurontin] Med 09/21/20 21:00 Active 100 mg PO BID Glucagon,Human Recombinant [GlucaGen] Med 09/21/20 21:03 Active 1 mg IM ASDIRECTED PRN Hypromellose [GenTeal Mild to Moderate Ophth Soln] Med 09/22/20 09:00 Active 0 ml EYEBOTH QID Insulin Glarg,Human.Rec.Analog [LantUS Solostar] Med 09/22/20 21:00 Hold 35 units SUBCUT BEDTIME Insulin Lispro [HumaLOG] Med 09/22/20 12:00 Hold See Protocol SUBCUT TIDMEALS Isosorbide Mononitrate [Imdur] Med 09/22/20 21:00 Active 30 mg PO BEDTIME Levothyroxine Med 09/23/20 12:00 Active 125 mcg PO DAILY@1200 Lidocaine 4% [Aspercreme 4%] Med 09/21/20 22:30 Active 1 each TOP DAILY@1999 Loperamide [Imodium] Med 09/21/20 20:54 Active 2 mg PO QID PRN Losartan [Cozaar] Med 09/22/20 09:00 Active 100 mg PO DAILY Lutein Med 09/22/20 09:00 Active 20 mg PO DAILY Magnesium Hydroxide [Milk of Magnesia] Med 09/21/20 20:54 Active 15 ml PO DAILY PRN Meclizine [Antivert] Med 09/21/20 20:54 Active 25 mg PO Q6H PRN Mirabegron [Myrbetriq] Med 09/22/20 09:00 Active 25 mg PO DAILY Montelukast [Singulair] Med 09/22/20 09:00 Active 10 mg PO DAILY Ondansetron [Zofran] Med 09/21/20 19:53 Active 4 mg IV Q4H PRN Vit/FA/Fe Fumarate [-U] Med 09/22/20 09:00 Active 1 each PO DAILY Remove Patch Med 09/22/20 08:00 Active 1 ea TRDERM DAILY@0800 Sodium Chloride 0.9% [Normal Saline] 1,000 ml Med 09/21/20 20:30 Active IV ASDIRECTED Sodium Chloride 0.9% [Saline Flush] Med 09/21/20 22:40 Active 10 ml FLUSH ASDIRECTED PRN Trolamine Salicylate/Aloe Vera [Aspercreme 10%] Med 09/22/20 09:00 Active 0 gm TOP DAILY amLODIPine [Norvasc] Med 09/22/20 09:00 Active 10 mg PO DAILY cephALEXin [Keflex] Med 09/21/20 22:02 Active 250 mg PO DAILY@20 polyethylene glycoL 3350 [MiraLAX] Med 09/21/20 21:00 Active 17 gm PO Q72H Sequential Compression Device [OM.PC] Per Unit Routine Oth 09/21/20 19:58 Ordered Resuscitation Status Routine Resus Stat 09/21/20 19:53 Ordered Medication Orders Acetaminophen (Tylenol Extra Strength) 500 mg PO TID [facility] Last Admin: 09/21/20 21:39 Dose: 500 mg Documented by: FREDERIC Albuterol (Ventolin Hfa) 0 gm INH DAILY PRN PRN Reason: Wheezing Amlodipine Besylate (Norvasc) 10 mg PO DAILY [facility] Artificial Tears (Genteal Mild To Moderate Ophth Soln) 0 ml EYEBOTH QID [facility] Calcium Carbonate/Glycine (Oyster Shell Calcium) 500 mg PO BID [facility] Last Admin: 09/21/20 21:39 Dose: 500 mg Documented by: FREDERIC Carboxymethylcellu Sod/Hypromellose (Genteal Moderate To Severe Ophth Gel) 0 ml EYEBOTH QID [facility] Cephalexin (Keflex) 250 mg PO DAILY@20 [facility] Last Admin: 09/21/20 22:31 Dose: 250 mg Documented by: FREDERIC Dextrose/Water (Dextrose 50% In Water) 50 ml IVPUSH ASDIRECTED PRN PRN Reason: Hypoglycemia Enoxaparin Sodium (Lovenox) 30 mg SUBCUT Q24H [facility] Famotidine (Pepcid) 20 mg PO Q48H [facility] Gabapentin (Neurontin) 100 mg PO BID [facility] Last Admin: 09/21/20 21:39 Dose: 100 mg Documented by: FREDERIC Glucagon (Glucagen) 1 mg IM ASDIRECTED PRN PRN Reason: Hypoglycemia Sodium Chloride (Normal Saline) 1,000 mls @ 100 mls/hr IV ASDIRECTED [facility] Last Admin: 09/22/20 05:21 Dose: 125 mls/hr Documented by: Infusion: 09/22/20 05:21 Dose: 125 mls/hr Documented by: Admin: 09/21/20 21:39 Dose: 125 mls/hr Documented by: FREDERIC Insulin Glargine (Lantus Solostar) 35 units SUBCUT BEDTIME [facility] Insulin Human Lispro (Humalog) 0 unit SUBCUT TIDMEALS [facility]; Protocol Isosorbide Mononitrate (Imdur) 30 mg PO BEDTIME [facility] Levothyroxine Sodium (Levothyroxine) 125 mcg PO DAILY@1200 [facility] Lidocaine (Aspercreme 4%) 1 each TOP DAILY@1999 [facility] Last Admin: 09/21/20 22:36 Dose: 1 each Documented by: FREDERIC Loperamide HCl (Imodium) 2 mg PO QID PRN PRN Reason: Diarrhea Losartan Potassium (Cozaar) 100 mg PO DAILY [facility] Lutein (Lutein) 20 mg PO DAILY [facility] Magnesium Hydroxide (Milk Of Magnesia) 15 ml PO DAILY PRN PRN Reason: Constipation Meclizine HCl (Antivert) 25 mg PO Q6H PRN PRN Reason: Dizziness Mirabegron (Myrbetriq) 25 mg PO DAILY [facility] Miscellaneous Information (Remove Patch) 1 ea TRDERM DAILY@0800 [facility] Montelukast Sodium (Singulair) 10 mg PO DAILY [facility] Ondansetron HCl (Zofran) 4 mg IV Q4H PRN PRN Reason: Nausea/Vomiting Polyethylene Glycol (Miralax) 17 gm PO Q72H [facility] Last Admin: 09/21/20 21:44 Dose: 17 gm Documented by: FREDERIC Multivit/Folic Acid/Iron (-U) 1 each PO DAILY [facility] Senna/Docusate Sodium (Senna Plus) 1 tab PO DAILY PRN PRN Reason: CONSTIPATION Sodium Chloride (Saline Flush) 10 ml FLUSH ASDIRECTED PRN PRN Reason: flush Last Admin: 09/21/20 21:39 Dose: 10 ml Documented by: FREDERIC Trolamine Salicylate (Aspercreme 10%) 0 gm TOP DAILY [facility] Assessment/Plan Comment:: 1. Admit for dehydration, fall, ALFRED, DM, Atrial fib, weakness. 2. Dehydration/ALFRED: NS at 100 ml/hr. Recheck labs tomorrow. 3. DM: she had hypoglycemic episode on arrival, only 118 this morning, will half her Lantus(formulary substitution for Toujeo) to 35 units at bedtime and do low dose sliding scale for meals until we can see her daily insulin requirements and adjust accordingly. 4. Diet: Consistent carb diet. Accuchecks qid&ac. 5. Continue home medications. 6. Weakness/falls: PT/OT evaluate & treat. 7. CODE STATUS: DNR/DNI. 8. Discharge planning: she is requiring standing lift at this time, she was independent in her room, [facility] does not have lifts so would need to get her stronger and back to her baseline so she would have a safe discharge. - Mortality Measure Prognosis:: Good
[2020-09-22] MEDS: Montelukast 10 MG Tab PO SCH (09:17)
[2020-09-22] MEDS: Mirabegron 25 MG Tab Extended Release PO SCH (09:17)
[2020-09-22] MEDS: Calcium Carbonate 500 MG Tablet PO SCH ×2 (09:17→20:01)
[2020-09-22] MEDS: Prenatal Multivitamin with Calcium/Folic Acid/Fe Fumarate Cap PO SCH (09:18)
[2020-09-22] MEDS: amLODIPine 10 MG Tab PO SCH (09:18)
[2020-09-22] MEDS: Losartan 100 MG Tab PO SCH (09:18)
[2020-09-22] MEDS: Acetaminophen 500 MG Tab PO SCH ×3 (09:19→20:01)
[2020-09-22] MEDS: Carboxymethylcellulose/Hypromellose Ophth Gel 15 ML Bottle EYEBOTH SCH ×4 (09:36→20:01)
[2020-09-22] MEDS: Gabapentin 100 MG Cap PO SCH ×2 (09:39→20:01)
[2020-09-22] MEDS: Trolamine Salicylate/Aloe Vera 10% Crm 85 GM Tube TOP SCH (09:56)
[2020-09-22] MEDS ORDERED: Nystatin Topical Powder 15 GM Bottle TOP SCH (10:15)
[2020-09-22] MEDS ORDERED: Insulin Lispro 100 Unit/ML 3 ML KwikPen SUBCUT ONE (12:48)
[2020-09-22] MEDS: Insulin Lispro 100 Unit/ML 3 ML KwikPen SUBCUT SCH ×2 (12:53→17:38)
[2020-09-22] MEDS ORDERED: Insulin Glargine,Human Rec. Analog 100 Units/ML 3 ML Pen SUBCUT ONE (19:56)
[2020-09-22] MEDS ORDERED: Cephalexin 250 MG Cap PO SCH (20:00)
[2020-09-22] MEDS: Isosorbide Mononitrate 30 MG Tab.ER PO SCH (20:01)
[2020-09-22] MEDS: Cephalexin 250 MG Cap PO SCH (20:01)
[2020-09-22] MEDS: Lidocaine 4% 1 each Patch TOP SCH (20:02)
[2020-09-22] MEDS: Enoxaparin 30 MG/0.3 ML Syringe SUBCUT SCH (20:02)
[2020-09-22] MEDS: Nystatin Topical Powder 15 GM Bottle TOP SCH (20:03)
[2020-09-22] MEDS: Insulin Glargine,Human Rec. Analog 100 Units/ML 3 ML Pen SUBCUT SCH (20:03)
[2020-09-22] MEDS ORDERED: Lidocaine 4% 1 each Patch TOP SCH (21:00)
[2020-09-23] MEDS: Sodium Chloride 0.9% 1,000 ML IV SCH (00:36)
[2020-09-23] MEDS: Insulin Lispro 100 Unit/ML 3 ML KwikPen SUBCUT SCH ×3 (08:50→17:21)
[2020-09-23] MEDS: Trolamine Salicylate/Aloe Vera 10% Crm 85 GM Tube TOP SCH (09:11)
[2020-09-23] MEDS: Losartan 100 MG Tab PO SCH (09:12)
[2020-09-23] MEDS: Carboxymethylcellulose/Hypromellose Ophth Gel 15 ML Bottle EYEBOTH SCH ×4 (09:13→20:39)
[2020-09-23] MEDS: Mirabegron 25 MG Tab Extended Release PO SCH (09:13)
[2020-09-23] MEDS: Prenatal Multivitamin with Calcium/Folic Acid/Fe Fumarate Cap PO SCH (09:14)
[2020-09-23] MEDS: amLODIPine 10 MG Tab PO SCH (09:14)
[2020-09-23] MEDS: Gabapentin 100 MG Cap PO SCH ×2 (09:14→20:39)
[2020-09-23] MEDS: Calcium Carbonate 500 MG Tablet PO SCH ×2 (09:14→20:39)
[2020-09-23] MEDS: Nystatin Topical Powder 15 GM Bottle TOP SCH ×2 (09:14→20:43)
[2020-09-23] MEDS: Acetaminophen 500 MG Tab PO SCH ×3 (09:15→20:39)
[2020-09-23] MEDS: Montelukast 10 MG Tab PO SCH (09:15)
--- NOTE | 2020-09-23 09:55 | PCM.PN ---
- General Info Date of Service: 09/23/20 Subjective Update: Vania confused today, doesn't remember if she ate all her supper last night or not. Ate 100% yesterday for breakfast & dinner but only 5% for lunch. Blood sugars 123, 106, 234, 156, 98. Had 3 units of Sliding scale yesterday total with 30 units of Lantus at bedtime, this morning did not have any sliding scale given with BS 98. Her home dose of daily insulin was 144 units with meals & bedtime not counting any sliding scale. Drinking and eating well. No complaints of knee or back pain. Denies any headaches. - Patient Data Vitals - Most Recent: Last Vital Signs Temp 97.8 F 09/23/20 04:00 Pulse 62 09/23/20 04:00 Resp 17 09/23/20 04:00 BP 150/54 H 09/23/20 09:14 Pulse Ox 96 09/23/20 04:00 Weight - Most Recent: 209 lb 2 oz I&O - Last 24 Hours: Intake & Output 09/22/20 09/23/20 09/23/20 22:59 06:59 14:59 Intake Total 790 795 Balance 790 795 Lab Results Last 24 Hours: Laboratory Results - last 24 hr 09/22/20 09/22/20 09/23/20 Range/Units 11:29 17:26 05:56 POC Glucose 234 H 156 H 98 (74-100) mg/dL Med Orders - Current: Current Medications Acetaminophen (Tylenol Extra Strength) 500 mg PO TID [facility] Last Admin: 09/23/20 09:15 Dose: 500 mg Documented by: Albuterol (Ventolin Hfa) 0 gm INH DAILY PRN PRN Reason: Wheezing Amlodipine Besylate (Norvasc) 10 mg PO DAILY [facility] Last Admin: 09/23/20 09:14 Dose: 10 mg Documented by: Calcium Carbonate/Glycine (Oyster Shell Calcium) 500 mg PO BID [facility] Last Admin: 09/23/20 09:14 Dose: 500 mg Documented by: Carboxymethylcellu Sod/Hypromellose (Genteal Moderate To Severe Ophth Gel) 0 ml EYEBOTH QID [facility] Last Admin: 09/23/20 09:13 Dose: 1 drop Documented by: Cephalexin (Keflex) 250 mg PO DAILY@20 [facility] Last Admin: 09/22/20 20:01 Dose: 250 mg Documented by: Dextrose/Water (Dextrose 50% In Water) 50 ml IVPUSH ASDIRECTED PRN PRN Reason: Hypoglycemia Enoxaparin Sodium (Lovenox) 30 mg SUBCUT Q24H [facility] Last Admin: 09/22/20 20:02 Dose: 30 mg Documented by: Famotidine (Pepcid) 20 mg PO Q48H [facility] Gabapentin (Neurontin) 100 mg PO BID [facility] Last Admin: 09/23/20 09:14 Dose: 100 mg Documented by: Glucagon (Glucagen) 1 mg IM ASDIRECTED PRN PRN Reason: Hypoglycemia Insulin Glargine (Lantus Solostar) 30 units SUBCUT BEDTIME [facility] Last Admin: 09/22/20 20:03 Dose: 30 units Documented by: Insulin Human Lispro (Humalog) 0 unit SUBCUT TIDMEALS [facility]; Protocol Last Admin: 09/23/20 08:50 Dose: Not Given Documented by: Isosorbide Mononitrate (Imdur) 30 mg PO BEDTIME [facility] Last Admin: 09/22/20 20:01 Dose: 30 mg Documented by: Levothyroxine Sodium (Levothyroxine) 125 mcg PO DAILY@1200 [facility] Lidocaine (Aspercreme 4%) 1 each TOP DAILY@2100 [facility] Last Admin: 09/22/20 20:02 Dose: 1 each Documented by: Loperamide HCl (Imodium) 2 mg PO QID PRN PRN Reason: Diarrhea Losartan Potassium (Cozaar) 100 mg PO DAILY [facility] Last Admin: 09/23/20 09:12 Dose: 100 mg Documented by: Lutein (Lutein) 20 mg PO DAILY [facility] Last Admin: 09/23/20 09:13 Dose: 20 mg Documented by: Magnesium Hydroxide (Milk Of Magnesia) 15 ml PO DAILY PRN PRN Reason: Constipation Meclizine HCl (Antivert) 25 mg PO Q6H PRN PRN Reason: Dizziness Mirabegron (Myrbetriq) 25 mg PO DAILY [facility] Last Admin: 09/23/20 09:13 Dose: 25 mg Documented by: Miscellaneous Information (Remove Patch) 1 ea TRDERM DAILY@0800 [facility] Last Admin: 09/23/20 08:10 Dose: 1 ea Documented by: Montelukast Sodium (Singulair) 10 mg PO DAILY [facility] Last Admin: 09/23/20 09:15 Dose: 10 mg Documented by: Nystatin (Nystop) 1 gm TOP BID [facility] Last Admin: 09/23/20 09:14 Dose: 1 applic Documented by: Ondansetron HCl (Zofran) 4 mg IV Q4H PRN PRN Reason: Nausea/Vomiting Polyethylene Glycol (Miralax) 17 gm PO Q72H [facility] Last Admin: 09/21/20 21:44 Dose: 17 gm Documented by: Multivit/Folic Acid/Iron (-U) 1 each PO DAILY [facility] Last Admin: 09/23/20 09:14 Dose: 1 each Documented by: Senna/Docusate Sodium (Senna Plus) 1 tab PO DAILY PRN PRN Reason: CONSTIPATION Sodium Chloride (Saline Flush) 10 ml FLUSH ASDIRECTED PRN PRN Reason: flush Last Admin: 09/21/20 21:39 Dose: 10 ml Documented by: Trolamine Salicylate (Aspercreme 10%) 0 gm TOP DAILY [facility] Last Admin: 09/23/20 09:11 Dose: 1 applic Documented by: Discontinued Medications Artificial Tears (Genteal Mild To Moderate Ophth Soln) 0 ml EYEBOTH QID [facility] Last Admin: 09/22/20 15:01 Dose: Not Given Documented by: Cephalexin (Keflex) 250 mg PO DAILY@20 [facility] Dextrose/Water (Dextrose 50% In Water) 50 ml IVPUSH ASDIRECTED PRN PRN Reason: Hypoglycemia Enoxaparin Sodium (Lovenox) 40 mg SUBCUT Q24H [facility] Last Admin: 09/21/20 21:38 Dose: 40 mg Documented by: Famotidine (Pepcid) 20 mg PO BID [facility] Last Admin: 09/21/20 21:39 Dose: 20 mg Documented by: Glucagon (Glucagen) 1 mg IM ASDIRECTED PRN PRN Reason: Hypoglycemia Sodium Chloride (Normal Saline) 1,000 mls @ 100 mls/hr IV ASDIRECTED [facility] Last Admin: 09/23/20 00:36 Dose: 100 mls/hr Documented by: Insulin Glargine (Lantus Solostar) 65 units SUBCUT QAM [facility] Insulin Glargine (Lantus Solostar) 65 units SUBCUT DAILY [facility] Insulin Human Lispro (Humalog) 27 unit SUBCUT TID [facility]; Protocol Last Admin: 09/22/20 01:57 Dose: Not Given Documented by: Insulin Human Lispro (Humalog) 27 unit SUBCUT TIDMEALS [facility]; Protocol Last Admin: 09/21/20 21:40 Dose: Not Given Documented by: Levothyroxine Sodium (Levothyroxine) 125 mcg PO DAILY [facility] Levothyroxine Sodium (Levothyroxine) 125 mcg PO ACBREAKFAST [facility] Last Admin: 09/22/20 06:32 Dose: 125 mcg Documented by: Levothyroxine Sodium (Levothyroxine) Confirm Administered Dose 125 mcg .ROUTE .STK-MED ONE Stop: 09/22/20 05:30 Last Admin: 09/22/20 06:23 Dose: Not Given Documented by: Lidocaine (Aspercreme 4%) 1 each TOP DAILY [facility] Lidocaine (Aspercreme 4%) 1 each TOP DAILY@1999 [facility] Last Admin: 09/21/20 22:36 Dose: 1 each Documented by: Lidocaine (Aspercreme 4%) 2 each TOP DAILY@2099 [facility] Non-Formulary Medication (Albuterol Sulfate [Proair Digihaler]) 1 puff INH DAILY PRN PRN Reason: Wheezing Non-Formulary Medication (Calcium Carbonate/Vitamin D3 [Calcium 500 Mg-Vit D3 600 Unit]) 1 tab PO BID [facility] Last Admin: 09/22/20 01:56 Dose: Not Given Documented by: Non-Formulary Medication (Hypromellose [Genteal Mild]) 25 ml EYEBOTH QID [facility] Last Admin: 09/22/20 01:58 Dose: Not Given Documented by: Non-Formulary Medication (Insulin Glargine,Hum.Rec.Anlog [Jonah French]) 65 unit SQ BEDTIME [facility] Last Admin: 09/21/20 21:38 Dose: Not Given Documented by: Non-Formulary Medication (Lidocaine 5% [Lidoderm 5%]) 1 patch TRDERM DAILY [facility] Non-Formulary Medication (Lutein [Lutein]) 20 mg PO DAILY [facility] Non-Formulary Medication (Pnv No.95/Ferrous Fum/Folic Ac [ Caplet]) 1 each PO DAILY [facility] Non-Formulary Medication (Sennosides [Senna]) 1 cap PO DAILY PRN PRN Reason: Constipation Nystatin (Nystop) 1 gm TOP BID [facility] Last Admin: 09/22/20 13:00 Dose: 1 applic Documented by: Senbailee (Senna) 8.6 mg PO DAILY PRN PRN Reason: Constipation - Exam General: Alert, Oriented (person, place but not time), Cooperative, No Acute Distress Lungs: Clear to Auscultation, Normal Respiratory Effort, Decreased Breath Sounds (bases). No: Crackles, Wheezing Cardiovascular: Regular Rate, Irregular Rhythm GI/Abdominal Exam: Normal Bowel Sounds, Soft, Non-Tender, No Distention Sepsis Event Note - Evaluation Sepsis Screening Result: No Definite Risk - Focused Exam Vital Signs: Vital Signs Temp Pulse Resp BP BP Pulse Ox 09/23/20 09:14 150/54 H 09/23/20 09:12 150/54 H 09/23/20 04:00 97.8 F 62 17 156/63 H 96 09/23/20 00:00 98.1 F 62 16 162/60 H 96 - Problem List & Annotations (1) Scalp laceration SNOMED Code(s): 529420453 Code(s): S01.01XA - LACERATION WITHOUT FOREIGN BODY OF SCALP, INITIAL ENCOUNTER Status: Acute Current Visit: Yes (2) Falls frequently SNOMED Code(s): 030631626 Code(s): R29.6 - REPEATED FALLS Status: Acute Current Visit: Yes (3) Generalized weakness SNOMED Code(s): 81341882 Code(s): R53.1 - WEAKNESS Status: Acute Current Visit: Yes (4) Physical deconditioning SNOMED Code(s): 74239981192814 Code(s): R53.81 - OTHER MALAISE Status: Acute Current Visit: No (5) Dehydration SNOMED Code(s): 16681150 Code(s): E86.0 - DEHYDRATION Status: Resolved Current Visit: Yes (6) Diabetes SNOMED Code(s): 81525444 Code(s): E11.9 - TYPE 2 DIABETES MELLITUS WITHOUT COMPLICATIONS Status: Chronic Current Visit: Yes Qualifiers: Diabetes mellitus type: type 2 Diabetes mellitus 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 (7) Atrial fibrillation SNOMED Code(s): 83410486 Code(s): I48.91 - UNSPECIFIED ATRIAL FIBRILLATION Status: Chronic Current Visit: Yes - Problem List Review Problem List Initiated/Reviewed/Updated: Yes - My Orders Last 24 Hours: My Active Orders 09/22/20 08:55 OT Evaluation and Treatment [CONS] Routine 09/22/20 09:00 Carboxymethylcell/Hypromellose [GenTeal Moderate to Severe Ophth Gel] 0 ml EYEBOTH QID 09/22/20 09:16 TAMARA Hose [Antiembolic Hose] [OM.PC] Routine 09/22/20 10:43 Nystatin [Nystop] 1 gm TOP BID 09/22/20 12:00 Insulin Lispro [HumaLOG] See Protocol SUBCUT TIDMEALS 09/22/20 21:00 Insulin Glarg,Human.Rec.Analog [LantUS Solostar] 30 units SUBCUT BEDTIME Lidocaine 4% [Aspercreme 4%] 1 each TOP DAILY@2100 09/23/20 09:16 Convert IV to Peripheral Lock [Convert IV to Saline Lock] [OM.PC] Routine 09/23/20 12:00 Levothyroxine 125 mcg PO DAILY@1200 09/24/20 06:00 BASIC METABOLIC PANEL,BMP [CHEM] Routine CBC WITH AUTO DIFF [HEME] Routine - Plan Plan:: 1. Dehydration/ALFRED: Saline lock. Recheck labs tomorrow. 2. DM: Lantus 30 units at bedtime, sliding scale insulin for meals. Will adjust her home dose based on her average requirements here. 3. Diet: Consistent carb diet. Accuchecks qid&ac. 4. Continue home medications. 5. Weakness/falls: PT/OT recommended swing bed for further strengthening.
[2020-09-23] MEDS: Levothyroxine 125 MCG Tab PO SCH (12:10)
[2020-09-23] MEDS: Isosorbide Mononitrate 30 MG Tab.ER PO SCH (20:39)
[2020-09-23] MEDS: Cephalexin 250 MG Cap PO SCH (20:39)
[2020-09-23] MEDS: Lidocaine 4% 1 each Patch TOP SCH (20:40)
[2020-09-23] MEDS: Enoxaparin 30 MG/0.3 ML Syringe SUBCUT SCH (20:40)
[2020-09-23] MEDS: Insulin Glargine,Human Rec. Analog 100 Units/ML 3 ML Pen SUBCUT SCH (20:41)
[2020-09-23] MEDS ORDERED: Famotidine 20 MG Tab PO SCH (21:00)
[2020-09-24] MEDS ORDERED: Lactated Ringers 1,000 ML IV SCH (07:45)
[2020-09-24] MEDS: Insulin Lispro 100 Unit/ML 3 ML KwikPen SUBCUT SCH ×2 (08:16→12:10)
[2020-09-24] MEDS: Nystatin Topical Powder 15 GM Bottle TOP SCH (08:17)
[2020-09-24] MEDS: Carboxymethylcellulose/Hypromellose Ophth Gel 15 ML Bottle EYEBOTH SCH ×2 (08:17→12:12)
[2020-09-24] MEDS: Trolamine Salicylate/Aloe Vera 10% Crm 85 GM Tube TOP SCH (08:17)
[2020-09-24] MEDS: Calcium Carbonate 500 MG Tablet PO SCH (08:18)
[2020-09-24] MEDS: Montelukast 10 MG Tab PO SCH (08:18)
[2020-09-24] MEDS: Prenatal Multivitamin with Calcium/Folic Acid/Fe Fumarate Cap PO SCH (08:18)
[2020-09-24] MEDS: Gabapentin 100 MG Cap PO SCH (08:18)
[2020-09-24] MEDS: Mirabegron 25 MG Tab Extended Release PO SCH (08:18)
[2020-09-24] MEDS: Losartan 100 MG Tab PO SCH (08:18)
[2020-09-24] MEDS: amLODIPine 10 MG Tab PO SCH (08:18)
[2020-09-24] MEDS: Acetaminophen 500 MG Tab PO SCH ×2 (08:18→13:09)
[2020-09-24] MEDS: Levothyroxine 125 MCG Tab PO SCH (12:10)
[2020-09-24 13:09] VITALS: BP 150/47; PULSE 72
--- NOTE | 2020-09-24 14:02 | PCM.DCSUM1 ---
Discharge Summary - Hospital Course HPI Initial Comments: Vania presented to ER yesterday after fall in her bathroom at [facility], went down and hit her head on doorknob, doesn't know if she lost consciousness or not, just went down. Doesn't remember if she lost her balance. This is her second fall. She sustained a laceration to left parietal scalp that was repaired with jaren in ER. She has been having decreased appetite and drinking at [facility], progressive weakness, she has been taking her usual insulin doses, her sugar was 56 last night here. She takes 65 units of Toujeo at bedtime, Humalog 27 units at breakfast & lunch and 25 units at dinner per her medication list at [facility]. Normally she uses her front wheel walker, is independent in her room, goes to dining room for meals, does her own ADLs per patient. Denies any fevers, chills, cough, shortness of breath, chest pain, nausea, vomiting or diarrhea. She has been a little constipated and states her back hurts from laying in the bed this morning. Her CT head in ER showed no acute fracture, acute brain injury or hemorrhage. Labs WBC was 12.2, BUN & Cr elevated at 58, 1.9 respectively. Covid was negative. She has required standing lift here to get her up. - Discharge Data Discharge Date: 09/24/20 Discharge Disposition: DC/Tfer W/I Hosp To Swing 61 Condition: Fair - Referral to Home Health Primary Care Physician: Maricel Baum NP - Discharge Diagnosis/Problem(s) (1) Scalp laceration SNOMED Code(s): 692917570 ICD Code: S01.01XA - LACERATION WITHOUT FOREIGN BODY OF SCALP, INITIAL ENCOUNTER Status: Acute (2) Falls frequently SNOMED Code(s): 625793511 ICD Code: R29.6 - REPEATED FALLS Status: Acute (3) Generalized weakness SNOMED Code(s): 01273171 ICD Code: R53.1 - WEAKNESS Status: Acute (4) Physical deconditioning SNOMED Code(s): 47298211893720 ICD Code: R53.81 - OTHER MALAISE Status: Acute (5) Dehydration SNOMED Code(s): 53931314 ICD Code: E86.0 - DEHYDRATION Status: Resolved (6) Diabetes SNOMED Code(s): 43590578 ICD Code: E11.9 - TYPE 2 DIABETES MELLITUS WITHOUT COMPLICATIONS Status: Chronic Qualifiers: Diabetes mellitus type: type 2 Diabetes mellitus terminal operations manager insulin use: with detention use (7) Atrial fibrillation SNOMED Code(s): 66212744 ICD Code: I48.91 - UNSPECIFIED ATRIAL FIBRILLATION Status: Chronic - Patient Summary/Data Consults: Consultations 09/21/20 19:53 PT Evaluation and Treatment [CONS] Routine Please Evaluate and Treat. PT Reason for Consult: Ambulation This query below is only for informational purposes and is not editable. 09/22/20 08:55 OT Evaluation and Treatment [CONS] Routine Please Evaluate and Treat. OT Reason for Consult: ADL's This query below is only for informational purposes and is not editable. Admission Diagnosis/Problem: Acute kidney injury Hospital Course: Vania admitted for head trauma, fall, ALFRED and dehydration. Started on IV fluids at admission, discontinue yesterday as she was eating and drinking well. Labs this morning sodium is elevated and WBC with no source of infection. Received 1 liter of LR today. Her blood sugars are well controlled on Lantus 30 units at bedtime and low dose sliding scale Humalog. PT/OT evaluated and recommended swing bed admission for strengthening and ADLs. Family did report that they have noticed more cognitive decline over the past year. [facility] memory unit admission is on hold due to Covid infections in their residents. - Patient Instructions Diet: Diabetic Diet Other/Special Instructions: swingbed transfer - Discharge Plan *PRESCRIPTION DRUG MONITORING PROGRAM REVIEWED*: Not Applicable *COPY OF PRESCRIPTION DRUG MONITORING REPORT IN PATIENT RONALD: Not Applicable Home Medications: Home Meds Acetaminophen [Tylenol Extra Strength] 500 mg PO TID 09/21/20 [History] Albuterol Sulfate [Proair Digihaler] 1 puff INH DAILY PRN 09/21/20 [History] Calcium Carbonate/Vitamin D3 [Calcium 500 mg-Vit D3 600 Unit] 1 tab PO BID 09/21/20 [History] Diclofenac Sodium [Voltaren 1% Gel] 1 applic TOP QID 09/21/20 [History] Famotidine [Pepcid] 20 mg PO BID 09/21/20 [History] Furosemide [Lasix] 40 mg PO BID 09/21/20 [History] Gabapentin [Neurontin] 1 cap PO BID 09/21/20 [History] Insulin Glargine,Hum.Rec.Anlog [Jonah Villaltabebalidia] 65 unit SQ BEDTIME 09/21/20 [History] Lidocaine 5% [Lidoderm 5%] 2 patch TRDERM BEDTIME 09/21/20 [History] Loperamide [Imodium] 2 mg PO QID PRN 09/21/20 [History] Losartan Potassium 100 mg PO DAILY 09/21/20 [History] Lutein 20 mg PO DAILY 09/21/20 [History] Magnesium Hydroxide [Milk of Magnesia] 15 ml PO DAILY PRN 09/21/20 [History] Meclizine [Antivert] 25 mg PO Q6H PRN 09/21/20 [History] Mirabegron [Myrbetriq] 25 mg PO DAILY 09/21/20 [History] Montelukast Sodium 10 mg PO DAILY 09/21/20 [History] Pnv No.95/Ferrous Fum/Folic AC [ Caplet] 1 each PO DAILY 09/21/20 [History] amLODIPine Besylate [Norvasc] 10 mg PO DAILY 09/21/20 [History] cephALEXin [Keflex] 250 mg PO DAILY@20 09/21/20 [History] polyethylene glycoL 3350 [MiraLAX] 17 gm PO Q72H 09/21/20 [History] Carboxymethylcell/Hypromellose [GenTeal Moderate to Severe Ophth Gel] 1 drop EYEBOTH QID 09/22/20 [History] Insulin Lispro [Humalog Kwikpen U-200] 25 units SQ DAILY@1700 09/22/20 [History] Insulin Lispro [Humalog Kwikpen U-200] 27 units SQ DAILY@0800,1100 09/22/20 [History] Isosorbide Mononitrate [Imdur] 30 mg PO BEDTIME 09/22/20 [History] Levothyroxine 125 mcg PO DAILY@1200 09/22/20 [History] Sennosides/Docusate Sodium [Senna-S 8.6-50 mg Tablet] 1 tab PO DAILY PRN 09/22/20 [History] Trolamine Salicylate/Aloe Vera [Aspercreme 10% Cream] 1 applic TOP DAILY 09/22/20 [History] Oxygen Therapy Mode: Room Air Patient Handouts: Fall Prevention in Hospitals, Adult, Venous Thromboembolism Prevention, Diabetes Mellitus and Nutrition, Adult Forms: ED Department Discharge Referrals: Maricel Baum RECORD CLERK [Primary Care Provider] - - Discharge Summary/Plan Comment DC Time >30 min.: No - General Info Date of Service: 09/24/20 Subjective Update: Feeling okay this morning, eating her breakfast. No complaints of pain anywhere. Her blood sugars yesterday were 156, 98, 178, 117, 108. No sliding scale insulin given yesterday, 2 units today. No cough, shortness of breath, diarrhea, dysuria. No fevers. - Patient Data Vitals - Most Recent: Last Vital Signs Temp 98.2 F 09/24/20 12:00 Pulse 72 09/24/20 12:00 Resp 16 09/24/20 12:00 BP 150/47 H 09/24/20 12:00 Pulse Ox 100 09/24/20 12:00 Weight - Most Recent: 209 lb 2 oz Lab Results - Last 24 hrs: Laboratory Results - last 24 hr 09/23/20 09/24/20 09/24/20 Range/Units 17:19 06:20 06:20 WBC 12.8 H (3.0-10.3) x10-3/uL RBC 3.47 L (3.60-5.20) x10(6)uL Hgb 10.2 L (11.4-15.5) g/dL Hct 31.5 L (34.2-48.2) % MCV 90.7 (76.7-100.5) fL MCH 29.4 (23.9-33.9) pg MCHC 32.4 (31.9-34.8) g/dL RDW 12.8 (12.3-16.5) % Plt Count 240 (151-488) x10(3)uL MPV 8.4 (7.1-12.4) fL Neut % (Auto) 64.2 (30.8-76.2) % Lymph % (Auto) 22.4 (18.4-52.1) % Dougherty % (Auto) 9.6 (4.4-15.7) % Eos % (Auto) 3.1 (0.6-8.1) % Baso % (Auto) 0.7 (0.2-1.5) % Neut # (Auto) 8.2 H (1.5-6.3) x10-3/uL Lymph # (Auto) 2.9 (1.0-4.4) x10-3/uL Dougherty # (Auto) 1.2 H (0.3-1.0) x10-3/uL Eos # (Auto) 0.4 (0.0-0.8) x10-3/uL Baso # (Auto) 0.1 (0.0-0.1) x10-3/uL Sodium 146 H (135-145) mmol/L Potassium 3.7 (3.5-5.3) mmol/L Chloride 110 (100-110) mmol/L Carbon Dioxide 25 (21-32) mmol/L BUN 29 H D (7-18) mg/dL Creatinine 1.1 H (0.55-1.02) mg/dL Est Cr Clr Drug Dosing 33.73 mL/min Estimated GFR (MDRD) 47 L (>60) BUN/Creatinine Ratio 26.4 H (9-20) Glucose 108 (80-116) mg/dL POC Glucose 117 H (74-100) mg/dL Calcium 9.8 (8.6-10.2) mg/dL Med Orders - Current: Current Medications Discontinued Medications Acetaminophen (Tylenol Extra Strength) 500 mg PO TID [facility] Last Admin: 09/24/20 13:09 Dose: 500 mg Documented by: Albuterol (Ventolin Hfa) 0 gm INH DAILY PRN PRN Reason: Wheezing Amlodipine Besylate (Norvasc) 10 mg PO DAILY [facility] Last Admin: 09/24/20 08:18 Dose: 10 mg Documented by: Artificial Tears (Genteal Mild To Moderate Ophth Soln) 0 ml EYEBOTH QID [facility] Last Admin: 09/22/20 15:01 Dose: Not Given Documented by: Calcium Carbonate/Glycine (Oyster Shell Calcium) 500 mg PO BID [facility] Last Admin: 09/24/20 08:18 Dose: 500 mg Documented by: Carboxymethylcellu Sod/Hypromellose (Genteal Moderate To Severe Ophth Gel) 0 ml EYEBOTH QID [facility] Last Admin: 09/24/20 12:12 Dose: 1 drop Documented by: Cephalexin (Keflex) 250 mg PO DAILY@20 [facility] Cephalexin (Keflex) 250 mg PO DAILY@20 [facility] Last Admin: 12/15/20 20:39 Dose: 250 mg Documented by: Dextrose/Water (Dextrose 50% In Water) 50 ml IVPUSH ASDIRECTED PRN PRN Reason: Hypoglycemia Dextrose/Water (Dextrose 50% In Water) 50 ml IVPUSH ASDIRECTED PRN PRN Reason: Hypoglycemia Enoxaparin Sodium (Lovenox) 40 mg SUBCUT Q24H [facility] Last Admin: 09/21/20 21:38 Dose: 40 mg Documented by: Enoxaparin Sodium (Lovenox) 30 mg SUBCUT Q24H [facility] Last Admin: 09/23/20 20:40 Dose: 30 mg Documented by: Famotidine (Pepcid) 20 mg PO BID [facility] Last Admin: 09/21/20 21:39 Dose: 20 mg Documented by: Famotidine (Pepcid) 20 mg PO Q48H [facility] Last Admin: 09/23/20 20:39 Dose: 20 mg Documented by: Gabapentin (Neurontin) 100 mg PO BID [facility] Last Admin: 09/24/20 08:18 Dose: 100 mg Documented by: Glucagon (Glucagen) 1 mg IM ASDIRECTED PRN PRN Reason: Hypoglycemia Glucagon (Glucagen) 1 mg IM ASDIRECTED PRN PRN Reason: Hypoglycemia Sodium Chloride (Normal Saline) 1,000 mls @ 100 mls/hr IV ASDIRECTED [facility] Last Admin: 09/23/20 00:36 Dose: 100 mls/hr Documented by: Lactated Ringer's (Ringers, Lactated) 1,000 mls @ 100 mls/hr IV ASDIRECTED [facility] Stop: 09/24/20 17:44 Last Admin: 09/24/20 08:16 Dose: 100 mls/hr Documented by: Insulin Glargine (Lantus Solostar) 65 units SUBCUT QAM [facility] Insulin Glargine (Lantus Solostar) 65 units SUBCUT DAILY [facility] Insulin Glargine (Lantus Solostar) 30 units SUBCUT BEDTIME [facility] Last Admin: 09/23/20 20:41 Dose: 30 units Documented by: Insulin Human Lispro (Humalog) 27 unit SUBCUT TID [facility]; Protocol Last Admin: 09/22/20 01:57 Dose: Not Given Documented by: Insulin Human Lispro (Humalog) 27 unit SUBCUT TIDMEALS [facility]; Protocol Last Admin: 09/21/20 21:40 Dose: Not Given Documented by: Insulin Human Lispro (Humalog) 0 unit SUBCUT TIDMEALS [facility]; Protocol Last Admin: 09/24/20 12:10 Dose: 2 units Documented by: Isosorbide Mononitrate (Imdur) 30 mg PO BEDTIME [facility] Last Admin: 09/23/20 20:39 Dose: 30 mg Documented by: Levothyroxine Sodium (Levothyroxine) 125 mcg PO DAILY [facility] Levothyroxine Sodium (Levothyroxine) 125 mcg PO ACBREAKFAST [facility] Last Admin: 09/22/20 06:32 Dose: 125 mcg Documented by: Levothyroxine Sodium (Levothyroxine) Confirm Administered Dose 125 mcg .ROUTE .[facility] Stop: 09/22/20 05:30 Last Admin: 09/22/20 06:23 Dose: Not Given Documented by: Levothyroxine Sodium (Levothyroxine) 125 mcg PO DAILY@1200 [facility] Last Admin: 09/24/20 12:10 Dose: 125 mcg Documented by: Lidocaine (Aspercreme 4%) 1 each TOP DAILY [facility] Lidocaine (Aspercreme 4%) 1 each TOP DAILY@1999 [facility] Last Admin: 09/21/20 22:36 Dose: 1 each Documented by: Lidocaine (Aspercreme 4%) 2 each TOP DAILY@2100 [facility] Lidocaine (Aspercreme 4%) 1 each TOP DAILY@2100 [facility] Last Admin: 09/23/20 20:40 Dose: 1 each Documented by: Loperamide HCl (Imodium) 2 mg PO QID PRN PRN Reason: Diarrhea Losartan Potassium (Cozaar) 100 mg PO DAILY [facility] Last Admin: 09/24/20 08:18 Dose: 100 mg Documented by: Lutein (Lutein) 20 mg PO DAILY [facility] Last Admin: 09/24/20 08:18 Dose: 20 mg Documented by: Magnesium Hydroxide (Milk Of Magnesia) 15 ml PO DAILY PRN PRN Reason: Constipation Meclizine HCl (Antivert) 25 mg PO Q6H PRN PRN Reason: Dizziness Mirabegron (Myrbetriq) 25 mg PO DAILY [facility] Last Admin: 09/24/20 08:18 Dose: 25 mg Documented by: Miscellaneous Information (Remove Patch) 1 ea TRDERM DAILY@0800 [facility] Last Admin: 09/24/20 08:16 Dose: 1 ea Documented by: Montelukast Sodium (Singulair) 10 mg PO DAILY [facility] Last Admin: 09/24/20 08:18 Dose: 10 mg Documented by: Non-Formulary Medication (Albuterol Sulfate [Proair Digihaler]) 1 puff INH DAILY PRN PRN Reason: Wheezing Non-Formulary Medication (Calcium Carbonate/Vitamin D3 [Calcium 500 Mg-Vit D3 600 Unit]) 1 tab PO BID [facility] Last Admin: 09/22/20 01:56 Dose: Not Given Documented by: Non-Formulary Medication (Hypromellose [Genteal Mild]) 25 ml EYEBOTH QID [facility] Last Admin: 09/22/20 01:58 Dose: Not Given Documented by: Non-Formulary Medication (Insulin Glargine,Hum.Rec.Anlog [Jonah French]) 65 unit SQ BEDTIME [facility] Last Admin: 09/21/20 21:38 Dose: Not Given Documented by: Non-Formulary Medication (Lidocaine 5% [Lidoderm 5%]) 1 patch TRDERM DAILY [facility] Non-Formulary Medication (Lutein [Lutein]) 20 mg PO DAILY [facility] Non-Formulary Medication (Pnv No.95/Ferrous Fum/Folic Ac [ Caplet]) 1 each PO DAILY [facility] Non-Formulary Medication (Sennosides [Senna]) 1 cap PO DAILY PRN PRN Reason: Constipation Nystatin (Nystop) 1 gm TOP BID [facility] Last Admin: 09/22/20 13:00 Dose: 1 applic Documented by: Nystatin (Nystop) 1 gm TOP BID [facility] Last Admin: 09/24/20 08:17 Dose: 1 applic Documented by: Ondansetron HCl (Zofran) 4 mg IV Q4H PRN PRN Reason: Nausea/Vomiting Polyethylene Glycol (Miralax) 17 gm PO Q72H [facility] Last Admin: 09/21/20 21:44 Dose: 17 gm Documented by: Multivit/Folic Acid/Iron (-U) 1 each PO DAILY [facility] Last Admin: 09/24/20 08:18 Dose: 1 each Documented by: Senna (Senna) 8.6 mg PO DAILY PRN PRN Reason: Constipation Senna/Docusate Sodium (Senna Plus) 1 tab PO DAILY PRN PRN Reason: CONSTIPATION Sodium Chloride (Saline Flush) 10 ml FLUSH ASDIRECTED PRN PRN Reason: flush Last Admin: 09/21/20 21:39 Dose: 10 ml Documented by: Trolamine Salicylate (Aspercreme 10%) 0 gm TOP DAILY [facility] Last Admin: 09/24/20 08:17 Dose: 1 applic Documented by: - Exam General: Reports: Alert, Oriented (person, place), Cooperative, No Acute Distress Lungs: Reports: Clear to Auscultation, Normal Respiratory Effort, Decreased Breath Sounds (bases) Cardiovascular: Reports: Regular Rate, Regular Rhythm, Murmurs (4th Intercostal space left sternal border.) GI/Abdominal Exam: Normal Bowel Sounds, Soft, Non-Tender, No Distention *Q Meaningful Use (DIS) - VTE *Q VTE Mechanical Contraindications *Q: At Risk for Falls
== END 2020-09-24 13:45 | disposition swing bed (61) | DRG 683 ==
LOC: FB.ED 15:31 → FB.MS 20:35
PROVIDERS: ADMIT Emergency Medicine; ATTEND Family Medicine
DX: N17.9 Acute kidney failure, unspecified (principal); I48.20 Chronic atrial fibrillation, unspecified; S01.01XA Laceration without foreign body of scalp, initial encounter; E86.0 Dehydration; G47.30 Sleep apnea, unspecified; E78.00 Pure hypercholesterolemia, unspecified; I10 Essential (primary) hypertension; Z66 Do not resuscitate; K21.9 Gastro-esophageal reflux disease without esophagitis; E66.9 Obesity, unspecified; E03.9 Hypothyroidism, unspecified; F32.9 Major depressive disorder, single episode, unspecified; E11.649 Type 2 diabetes mellitus with hypoglycemia without coma; Z20.828 Contact with and (suspected) exposure to other viral communicable diseases; Z88.8 Allergy status to other drugs, medicaments and biological substances; Z79.4 Long term (current) use of insulin; Z79.890 Hormone replacement therapy; Z79.899 Other long term (current) drug therapy; Z87.01 Personal history of pneumonia (recurrent); Z90.49 Acquired absence of other specified parts of digestive tract; Z90.710 Acquired absence of both cervix and uterus; Z98.49 Cataract extraction status, unspecified eye; W01.10XA Fall on same level from slipping, tripping and stumbling with subsequent striking against unspecified object, initial encounter; Y92.002 Bathroom of unspecified non-institutional (private) residence as the place of occurrence of the external cause
CPT/HCPCS: 12001; 12011; 36415; 70450; 80048; 80053; 81001; 82962; 84443; 85025; 93005; 93010; 97116-GP; 97161-GP; 97165-GO; 97530-GO; 97530-GP; 97535-GO; 99282; 99284-25; A9270-GY; J1650; J1815; J1815-GY; J7030; J7120; U0002

== ENCOUNTER 2020-09-24 08:15 | Inpatient (IN) | payer MEDICARE ==
[2020-09-24] MEDS ORDERED: Loperamide 2 MG Cap PO PRN (14:07)
[2020-09-24] MEDS ORDERED: Magnesium Hydroxide 400 MG/5 ML Susp 30 ML Cup PO PRN (14:07)
[2020-09-24] MEDS ORDERED: Meclizine 25 MG Tab PO PRN (14:07)
[2020-09-24] MEDS ORDERED: Glucagon,Human Recombinant 1 MG Vial IM PRN (14:10)
--- NOTE | 2020-09-24 14:13 | PCM.HP.2 ---
H&P History of Present Illness - General Date of Service: 09/24/20 Admit Problem/Dx: Admission Diagnosis/Problem Admission Diagnosis/Problem Fall - History of Present Illness Initial Comments - Free Text/Narative: ACUTE CARE HPI: Vania presented to ER yesterday after fall [facility], went down and hit her head on doorknob, doesn't know if she lost consciousness or not, just went down. Doesn't remember if she lost her balance. This is her second fall. She sustained a laceration to left parietal scalp that was repaired with jaren in ER. She has been having decreased appetite and drinking at [facility], progressive weakness, she has been taking her usual insulin doses, her sugar was 56 last night here. She takes 65 units of Toujeo at bedtime, Humalog 27 units at breakfast & lunch and 25 units at dinner per her medication list at [facility]. Normally she uses her front wheel walker, is independent in her room, goes to dining room for meals, does her own ADLs per patient. Denies any fevers, chills, cough, shortness of breath, chest pain, nausea, vomiting or diarrhea. She has been a little constipated and states her back hurts from laying in the bed this morning. Her CT head in ER showed no acute fracture, acute brain injury or hemorrhage. Labs WBC was 12.2, BUN & Cr elevated at 58, 1.9 respectively. Covid was negative. She has required standing lift here to get her up. ACUTE CARE COURSE: Vania admitted for head trauma, fall, ALFRED and dehydration. Started on IV fluids at admission, discontinue yesterday as she was eating and drinking well. Labs this morning sodium is elevated and WBC with no source of infection. Received 1 liter of LR today. Her blood sugars are well controlled on Lantus 30 units at bedtime and low dose sliding scale Humalog. PT/OT evaluated and recommended swing bed admission for strengthening and ADLs. Family did report that they have noticed more cognitive decline over the past year. [facility] memory unit admission is on hold due to Covid infections in their residents. - Related Data Allergies/Adverse Reactions: Allergies Allergy/AdvReac Type Severity Reaction Status Date / Time allopurinol Allergy Cannot Verified 06/20/19 16:20 Remember procaine HCl [From Novocain] Allergy Cannot Verified 06/20/19 16:20 Remember Home Medications: Home Meds Acetaminophen [Tylenol Extra Strength] 500 mg PO TID 09/21/20 [History] Albuterol Sulfate [Proair Digihaler] 1 puff INH DAILY PRN 09/21/20 [History] Calcium Carbonate/Vitamin D3 [Calcium 500 mg-Vit D3 600 Unit] 1 tab PO BID 09/21/20 [History] Diclofenac Sodium [Voltaren 1% Gel] 1 applic TOP QID 09/21/20 [History] Famotidine [Pepcid] 20 mg PO BID 09/21/20 [History] Furosemide [Lasix] 40 mg PO BID 09/21/20 [History] Gabapentin [Neurontin] 1 cap PO BID 09/21/20 [History] Insulin Glargine,Hum.Rec.Anlog [Toualtaf Solostlidia] 65 unit SQ BEDTIME 09/21/20 [History] Lidocaine 5% [Lidoderm 5%] 2 patch TRDERM BEDTIME 09/21/20 [History] Loperamide [Imodium] 2 mg PO QID PRN 09/21/20 [History] Losartan Potassium 100 mg PO DAILY 09/21/20 [History] Lutein 20 mg PO DAILY 09/21/20 [History] Magnesium Hydroxide [Milk of Magnesia] 15 ml PO DAILY PRN 09/21/20 [History] Meclizine [Antivert] 25 mg PO Q6H PRN 09/21/20 [History] Mirabegron [Myrbetriq] 25 mg PO DAILY 09/21/20 [History] Montelukast Sodium 10 mg PO DAILY 09/21/20 [History] Pnv No.95/Ferrous Fum/Folic AC [ Caplet] 1 each PO DAILY 09/21/20 [History] amLODIPine Besylate [Norvasc] 10 mg PO DAILY 09/21/20 [History] cephALEXin [Keflex] 250 mg PO DAILY@20 09/21/20 [History] polyethylene glycoL 3350 [MiraLAX] 17 gm PO Q72H 09/21/20 [History] Carboxymethylcell/Hypromellose [GenTeal Moderate to Severe Ophth Gel] 1 drop EYEBOTH QID 09/22/20 [History] Insulin Lispro [Humalog Kwikpen U-200] 25 units SQ DAILY@1700 09/22/20 [History] Insulin Lispro [Humalog Kwikpen U-200] 27 units SQ DAILY@0800,1100 09/22/20 [History] Isosorbide Mononitrate [Imdur] 30 mg PO BEDTIME 09/22/20 [History] Levothyroxine 125 mcg PO DAILY@1200 09/22/20 [History] Sennosides/Docusate Sodium [Senna-S 8.6-50 mg Tablet] 1 tab PO DAILY PRN 09/22/20 [History] Trolamine Salicylate/Aloe Vera [Aspercreme 10% Cream] 1 applic TOP DAILY 09/22/20 [History] Past Medical History Cardiovascular History: Reports: High Cholesterol, Hypertension Respiratory History: Reports: Sleep Apnea, Other (See Below) Other Respiratory History: PLEURAL EFFUSION, PNEUMONIA Gastrointestinal History: Reports: GERD 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 Psychiatric History: Reports: Depression Endocrine/Metabolic History: Reports: Diabetes, Type II, Hypothyroidism, Obesity/BMI 30+ Oncologic (Cancer) History: Reports: Other (See Below) Other Oncologic History: TONGUE - Infectious Disease History Infectious Disease History: Reports: Scarlet Fever - Past Surgical History HEENT Surgical History: Reports: Cataract Surgery, Other (See Below) Other HEENT Surgeries/Procedures: BOTH EYES CATARACT SURGERY, TOUNGUE SURGERY AND LYMPH NODES 06/13/19 GI Surgical History: Reports: Appendectomy, Cholecystectomy Female Surgical History: Reports: Hysterectomy Social & Family History - Family History Family Medical History: No Pertinent Family History - Tobacco Use Tobacco Use Status *Q: Former Tobacco User Used Tobacco, but Quit: Yes Month/Year Tobacco Last Used: 1949 - Caffeine Use Caffeine Use: Reports: Coffee - Recreational Drug Use Recreational Drug Use: No H&P Review of Systems - Review of Systems: Review Of Systems: See Below General: Reports: Weakness. Denies: Fever, Chills HEENT: Reports: No Symptoms Pulmonary: Reports: No Symptoms Cardiovascular: Reports: No Symptoms Gastrointestinal: Reports: No Symptoms Genitourinary: Reports: No Symptoms Musculoskeletal: Reports: No Symptoms Skin: Reports: Wound Psychiatric: Reports: Confusion Neurological: Denies: Trouble Speaking Hematologic/Lymphatic: Reports: No Symptoms Immunologic: Reports: No Symptoms Exam - Exam Exam: See Below - Vital Signs Vital Signs: Last Vital Signs Temp 98.8 F 09/24/20 14:03 Pulse 70 09/24/20 14:03 Resp 16 09/24/20 14:03 BP 153/57 H 09/24/20 14:03 Pulse Ox 96 09/24/20 14:03 Weight: 209 lb - Exam General: Alert, Oriented (person, place), Cooperative HEENT: PERRLA, Conjunctiva Clear, EACs Clear, Mucosa Moist & [place] Lungs: Clear to Auscultation, Normal Respiratory Effort, Decreased Breath Sounds (in bases). No: Crackles, Wheezing Cardiovascular: Regular Rate, Regular Rhythm, Diastolic Murmur (4th Intercostal space left sternal border) GI/Abdominal Exam: Normal Bowel Sounds, Soft, Non-Tender, No Distention Sepsis Event Note - Focused Exam Vital Signs: Vital Signs Temp Pulse Resp BP Pulse Ox 09/24/20 14:03 98.8 F 70 16 153/57 H 96 *Q Meaningful Use (ADM) - VTE *Q VTE Mechanical Contraindications *Q: At Risk for Falls - VTE Risk Assess *Q Each Risk Factor Represents 1 Point: Obesity ( BMI > 25 kg/m2) Total Score 1 Point Risk Factors: 1 - Problem List (1) Falls frequently SNOMED Code(s): 358212215 ICD Code: R29.6 - REPEATED FALLS Status: Acute Current Visit: No (2) Generalized weakness SNOMED Code(s): 24640123 ICD Code: R53.1 - WEAKNESS Status: Acute Current Visit: No (3) Physical deconditioning SNOMED Code(s): 54176862597004 ICD Code: R53.81 - OTHER MALAISE Status: Acute Current Visit: No (4) Scalp laceration SNOMED Code(s): 607797323 ICD Code: S01.01XA - LACERATION WITHOUT FOREIGN BODY OF SCALP, INITIAL ENCOUNTER Status: Acute Current Visit: No (5) Atrial fibrillation SNOMED Code(s): 83103183 ICD Code: I48.91 - UNSPECIFIED ATRIAL FIBRILLATION Status: Chronic Current Visit: No (6) Diabetes SNOMED Code(s): 52052863 ICD Code: E11.9 - TYPE 2 DIABETES MELLITUS WITHOUT COMPLICATIONS Status: Chronic Current Visit: No Qualifiers: Diabetes mellitus type: type 2 Diabetes mellitus mcc insulin use: 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 Problem List Initiated/Reviewed/Updated: Yes Orders Last 24hrs: Active Orders 24 hr Category Date Time Status Patient Status [ADT] Routine ADT 09/24/20 14:03 Active Blood Glucose Check, Bedside [RC] QIDACANDBED Care 09/24/20 14:03 Active Height and Weight [RC] WEEKLY Care 09/24/20 14:03 Active Oxygen Therapy [RC] .PRN Care 09/24/20 14:03 Active Up With Assistance [RC] ASDIRECTED Care 09/24/20 14:03 Active Up to Chair [RC] ASDIRECTED Care 09/24/20 14:03 Active VTE/DVT Education [RC] Per Unit Routine Care 09/24/20 14:03 Active Vital Signs [RC] 08 Care 09/24/20 14:03 Active OT Evaluation and Treatment [CONS] Routine Cons 09/24/20 14:03 Active PT Evaluation and Treatment [CONS] Routine Cons 09/24/20 14:03 Active Consistent Carbohydrate Diet [DIET] Diet 09/24/20 Dinner Active Acetaminophen [Tylenol Extra Strength] Med 09/24/20 21:00 Ordered 500 mg PO TID Albuterol Sulfate [Proair Digihaler] Med 09/24/20 14:07 Ordered 1 puff INH DAILY PRN Calcium Carbonate/Vitamin D3 [Calcium 500 mg-Vit D3 600 Med 09/24/20 21:00 O rdered Unit] 1 tab PO BID Carboxymethylcell/Hypromellose [GenTeal Moderate to Med 09/24/20 17:00 Ordered Severe Ophth Gel] DOSE ml EYEBOTH QID Diclofenac Sodium [Voltaren 1% Gel] Med 09/24/20 17:00 Ordered DOSE gm TOP QID Docusate Sodium/Sennosides [Senna Plus] Med 09/24/20 14:07 Ordered 1 tab PO DAILY PRN Enoxaparin [Lovenox] Med 09/24/20 14:15 Ordered 40 mg SUBCUT Q24H Famotidine [Pepcid] Med 09/24/20 21:00 Ordered 20 mg PO BID Furosemide [Lasix] Med 09/24/20 21:00 Ordered 40 mg PO BID Gabapentin [Neurontin] Med 09/24/20 21:00 Ordered DOSE mg PO BID Glucagon,Human Recombinant [GlucaGen] Med 09/24/20 14:10 Ordered 1 mg IM ASDIRECTED PRN Insulin Glarg,Human.Rec.Analog [LantUS Solostar] Med 09/24/20 21:00 Ordered 30 units SUBCUT BEDTIME Insulin Lispro [HumaLOG] Med 09/24/20 14:10 Ordered See Protocol SUBCUT TIDMEALS PRN Isosorbide Mononitrate [Imdur] Med 09/24/20 21:00 Ordered 30 mg PO BEDTIME Levothyroxine Med 09/25/20 12:00 Ordered 125 mcg PO DAILY@1200 Lidocaine 5% [Lidoderm 5%] Med 09/24/20 21:00 Ordered 2 patch TRDERM BEDTIME Loperamide [Imodium] Med 09/24/20 14:07 Ordered 2 mg PO QID PRN Losartan [Cozaar] Med 09/25/20 09:00 Ordered 100 mg PO DAILY Lutein [Lutein] Med 09/25/20 09:00 Ordered 20 mg PO DAILY Magnesium Hydroxide [Milk of Magnesia] Med 09/24/20 14:07 Ordered 15 ml PO DAILY PRN Meclizine [Antivert] Med 09/24/20 14:07 Ordered 25 mg PO Q6H PRN Mirabegron [Myrbetriq] Med 09/25/20 09:00 Ordered 25 mg PO DAILY Montelukast [Singulair] Med 09/25/20 09:00 Ordered 10 mg PO DAILY Pnv No.95/Ferrous Fum/Folic AC [ Caplet] Med 09/25/20 09:00 Ordered 1 each PO DAILY Trolamine Salicylate/Aloe Vera [Aspercreme 10% Cream] Med 09/25/20 09:00 Ordered 1 applic TOP DAILY amLODIPine [Norvasc] Med 09/25/20 09:00 Ordered 10 mg PO DAILY cephALEXin [Keflex] Med 09/24/20 20:00 Ordered 250 mg PO DAILY@20 polyethylene glycoL 3350 [MiraLAX] Med 09/24/20 14:15 Ordered 17 gm PO Q72H Antiembolic Hose [OM.PC] Per Unit Routine Oth 09/24/20 14:06 Ordered Resuscitation Status Routine Resus Stat 09/24/20 14:03 Ordered Medication Orders Acetaminophen (Tylenol Extra Strength) 500 mg PO TID [facility] Amlodipine Besylate (Norvasc) 10 mg PO DAILY [facility] Carboxymethylcellu Sod/Hypromellose (Genteal Moderate To Severe Ophth Gel) ml EYEBOTH QID [facility] Cephalexin (Keflex) 250 mg PO DAILY@20 [facility] Diclofenac Sodium (Voltaren 1% Gel) gm TOP QID [facility] Enoxaparin Sodium (Lovenox) 40 mg SUBCUT Q24H [facility] Famotidine (Pepcid) 20 mg PO BID [facility] Furosemide (Lasix) 40 mg PO BID [facility] Gabapentin (Neurontin) mg PO BID [facility] Glucagon (Glucagen) 1 mg IM ASDIRECTED PRN PRN Reason: Hypoglycemia Insulin Glargine (Lantus Solostar) 30 units SUBCUT BEDTIME [facility] Insulin Human Lispro (Humalog) 0 unit SUBCUT TIDMEALS PRN; Protocol PRN Reason: Hypoglycemia Isosorbide Mononitrate (Imdur) 30 mg PO BEDTIME [facility] Levothyroxine Sodium (Levothyroxine) 125 mcg PO DAILY@1200 [facility] Loperamide HCl (Imodium) 2 mg PO QID PRN PRN Reason: Diarrhea Losartan Potassium (Cozaar) 100 mg PO DAILY [facility] Magnesium Hydroxide (Milk Of Magnesia) 15 ml PO DAILY PRN PRN Reason: Constipation Meclizine HCl (Antivert) 25 mg PO Q6H PRN PRN Reason: Dizziness Mirabegron (Myrbetriq) 25 mg PO DAILY [facility] Montelukast Sodium (Singulair) 10 mg PO DAILY [facility] Non-Formulary Medication (Albuterol Sulfate [Proair Digihaler]) 1 puff INH DAILY PRN PRN Reason: Wheezing Non-Formulary Medication (Calcium Carbonate/Vitamin D3 [Calcium 500 Mg-Vit D3 600 Unit]) 1 tab PO BID [facility] Non-Formulary Medication (Lidocaine 5% [Lidoderm 5%]) 2 patch TRDERM BEDTIME [facility] Non-Formulary Medication (Lutein [Lutein]) 20 mg PO DAILY [facility] Non-Formulary Medication (Pnv No.95/Ferrous Fum/Folic Ac [ Caplet]) 1 each PO DAILY [facility] Non-Formulary Medication (Trolamine Salicylate/Aloe Vera [Aspercreme 10% Cream]) 1 applic TOP DAILY [facility] Polyethylene Glycol (Miralax) 17 gm PO Q72H [facility] Senna/Docusate Sodium (Senna Plus) 1 tab PO DAILY PRN PRN Reason: Constipation Assessment/Plan Comment:: 1. Admit to swing bed for PT/OT services. 2. DM: Lantus 30 units at bedtime, Humalog low dose sliding scale TID. Accuchecks qidac&bed 3. DIET: Consistent carb. 4. Resume home medications. 5. DVT: Lovenox 40 SQ daily, TEDs on BLE 6. CODE STATUS: DNR/DNI - Mortality Measure Prognosis:: Good
[2020-09-24] MEDS ORDERED: Albuterol 8 GM Inhaler INH PRN (14:24)
[2020-09-24] MEDS ORDERED: Trolamine Salicylate/Aloe Vera 10% Crm 85 GM Tube TOP PRN (14:42)
[2020-09-24] MEDS ORDERED: Aluminum Hydroxide/Magnesium Hydroxide Susp 30 ML Cup PO PRN (16:54)
[2020-09-24] MEDS ORDERED: Diclofenac Sodium 1% Gel 100 GM Tube TOP SCH (17:00)
[2020-09-24] MEDS: Hypromellose 0.3% Ophth Soln 15 ML Bottle EYEBOTH SCH ×2 (17:04→21:10)
[2020-09-24] MEDS: Insulin Lispro 100 Unit/ML 3 ML KwikPen SUBCUT SCH (17:51)
[2020-09-24] MEDS ORDERED: Lactated Ringers 1,000 ML IV SCH (18:30)
[2020-09-24] MEDS ORDERED: Furosemide 40 MG/4 ML VIAL IVPUSH ONE (20:30)
[2020-09-24] MEDS: Ondansetron 4 MG Tab.DIS PO PRN (20:48)
[2020-09-24] MEDS: Isosorbide Mononitrate 30 MG Tab.ER PO SCH (20:50)
[2020-09-24] MEDS: Sodium Chloride 0.9% 10 ML Syringe FLUSH PRN ×2 (20:55→20:59)
[2020-09-24] MEDS: Insulin Glargine,Human Rec. Analog 100 Units/ML 3 ML Pen SUBCUT SCH (20:55)
[2020-09-24] MEDS ORDERED: Polyethylene Glycol 3350 Powder 17 GM Packet PO SCH (21:00)
[2020-09-24] MEDS: Cephalexin 250 MG Cap PO SCH (21:06)
[2020-09-24] MEDS: Lidocaine 4% 1 each Patch TOP SCH (21:09)
[2020-09-24] MEDS: Gabapentin 100 MG Cap PO SCH (21:11)
[2020-09-24] MEDS: Calcium Carbonate 500 MG Tablet PO SCH (21:12)
[2020-09-24] MEDS: Acetaminophen 500 MG Tab PO SCH (21:13)
[2020-09-24] MEDS: Famotidine 20 MG Tab PO SCH (21:14)
[2020-09-24] MEDS: Nystatin Topical Powder 15 GM Bottle TOP SCH (21:15)
[2020-09-24] MEDS: Enoxaparin 40 MG/0.4 ML Syringe SUBCUT SCH (21:16)
--- NOTE | 2020-09-25 08:31 | PCM.PN ---
- General Info Date of Service: 09/25/20 Subjective Update: Yesterday afternoon after she was changed to swing bed, she had episode of vomiting, then around 1999 she desaturated down to 79%, blood pressure was elevated. IVF were discontinued, Lasix given, Oxygen weaned down to 2L this morning, at 99%. WBC for this morning showed elevated at 16.0. Most likely aspirated yesterday with vomiting episode. No nausea or vomiting since. States she does not have any abdominal pain, a little short of breath. Wants breakfast this morning. - Patient Data Vitals - Most Recent: Last Vital Signs Temp 98.8 F 09/25/20 04:00 Pulse 67 09/25/20 04:00 Resp 24 H 09/25/20 04:00 BP 156/56 H 09/25/20 04:00 Pulse Ox 99 09/25/20 04:00 Weight - Most Recent: 209 lb I&O - Last 24 Hours: Intake & Output 09/24/20 09/25/20 09/25/20 22:59 06:59 14:59 Intake Total 1140 Balance 1140 Lab Results Last 24 Hours: Laboratory Results - last 24 hr 09/24/20 09/25/20 09/25/20 Range/Units 20:37 06:35 06:35 WBC 16.0 H (3.0-10.3) x10-3/uL RBC 3.51 L (3.60-5.20) x10(6)uL Hgb 10.5 L (11.4-15.5) g/dL Hct 31.8 L (34.2-48.2) % MCV 90.5 (76.7-100.5) fL MCH 29.8 (23.9-33.9) pg MCHC 32.9 (31.9-34.8) g/dL RDW 13.2 (12.3-16.5) % Plt Count 271 (151-488) x10(3)uL MPV 8.3 (7.1-12.4) fL Neut % (Auto) 69.8 (30.8-76.2) % Lymph % (Auto) 17.6 L (18.4-52.1) % [place] % (Auto) 11.4 (4.4-15.7) % Eos % (Auto) 0.3 L (0.6-8.1) % Baso % (Auto) 0.9 (0.2-1.5) % Neut # (Auto) 11.2 H (1.5-6.3) x10-3/uL Lymph # (Auto) 2.8 (1.0-4.4) x10-3/uL [place] # (Auto) 1.8 H (0.3-1.0) x10-3/uL Eos # (Auto) 0.0 (0.0-0.8) x10-3/uL Baso # (Auto) 0.1 (0.0-0.1) x10-3/uL Sodium 147 H (135-145) mmol/L Potassium 4.0 (3.5-5.3) mmol/L Chloride 109 (100-110) mmol/L Carbon Dioxide 28 (21-32) mmol/L BUN 30 H (7-18) mg/dL Creatinine 1.6 H (0.55-1.02) mg/dL Est Cr Clr Drug Dosing 22.29 mL/min Estimated GFR (MDRD) 30 L (>60) BUN/Creatinine Ratio 18.8 (9-20) Glucose 152 H (80-116) mg/dL POC Glucose 196 H (74-100) mg/dL Calcium 10.1 (8.6-10.2) mg/dL Med Orders - Current: Current Medications Acetaminophen (Tylenol Extra Strength) 500 mg PO TID [facility] Last Admin: 09/24/20 21:13 Dose: 500 mg Documented by: Al Hydroxide/Mg Hydroxide (Mag-Al Susp) 30 ml PO Q4H PRN PRN Reason: Dyspepsia Last Admin: 09/24/20 17:04 Dose: 30 ml Documented by: Albuterol (Ventolin Hfa) 1 gm INH DAILY PRN PRN Reason: Wheezing Amlodipine Besylate (Norvasc) 10 mg PO DAILY [facility] Artificial Tears (Genteal Mild To Moderate Ophth Soln) 0 ml EYEBOTH QID [facility] Last Admin: 09/24/20 21:10 Dose: 1 drop Documented by: Calcium Carbonate/Glycine (Oyster Shell Calcium) 500 mg PO BID [facility] Last Admin: 09/24/20 21:12 Dose: Not Given Documented by: Cephalexin (Keflex) 250 mg PO DAILY@20 [facility] Last Admin: 09/24/20 21:06 Dose: 250 mg Documented by: Enoxaparin Sodium (Lovenox) 40 mg SUBCUT Q24H [facility] Last Admin: 09/24/20 21:16 Dose: 40 mg Documented by: Famotidine (Pepcid) 20 mg PO BEDTIME [facility] Last Admin: 09/24/20 21:14 Dose: 20 mg Documented by: Furosemide (Lasix) 40 mg PO BIDDIURETIC [facility] Gabapentin (Neurontin) 100 mg PO BID [facility] Last Admin: 09/24/20 21:11 Dose: 100 mg Documented by: Glucagon (Glucagen) 1 mg IM ASDIRECTED PRN PRN Reason: Hypoglycemia Insulin Glargine (Lantus Solostar) 30 units SUBCUT BEDTIME [facility] Last Admin: 09/24/20 20:55 Dose: 30 units Documented by: Insulin Human Lispro (Humalog) 0 unit SUBCUT TIDMEALS [facility]; Protocol Last Admin: 09/24/20 17:51 Dose: 1 unit Documented by: Isosorbide Mononitrate (Imdur) 30 mg PO BEDTIME [facility] Last Admin: 09/24/20 20:50 Dose: 30 mg Documented by: Levothyroxine Sodium (Levothyroxine) 125 mcg PO DAILY@1200 [facility] Lidocaine (Aspercreme 4%) 1 each TOP BEDTIME [facility] Last Admin: 09/24/20 21:09 Dose: 1 each Documented by: Loperamide HCl (Imodium) 2 mg PO QID PRN PRN Reason: Diarrhea Losartan Potassium (Cozaar) 100 mg PO DAILY [facility] Lutein (Lutein) 20 mg PO DAILY [facility] Magnesium Hydroxide (Milk Of Magnesia) 15 ml PO DAILY PRN PRN Reason: Constipation Meclizine HCl (Antivert) 25 mg PO Q6H PRN PRN Reason: Dizziness Mirabegron (Myrbetriq) 25 mg PO DAILY [facility] Miscellaneous Information (Remove Patch) 1 ea TRDERM DAILY [facility] Montelukast Sodium (Singulair) 10 mg PO DAILY [facility] Nystatin (Nystop) 0 gm TOP BID [facility] Last Admin: 09/24/20 21:15 Dose: 1 applic Documented by: Ondansetron HCl (Zofran Odt) 4 mg PO Q6H PRN PRN Reason: Nausea/Vomiting Last Admin: 09/24/20 20:48 Dose: 4 mg Documented by: Polyethylene Glycol (Miralax) 17 gm PO Q72H [facility] Last Admin: 09/24/20 21:11 Dose: Not Given Documented by: Multivit/Folic Acid/Iron (-U) 1 each PO DAILY [facility] Senna/Docusate Sodium (Senna Plus) 1 tab PO DAILY PRN PRN Reason: Constipation Sodium Chloride (Saline Flush) 10 ml FLUSH ASDIRECTED PRN PRN Reason: Keep Vein Open Last Admin: 09/24/20 20:59 Dose: 10 ml Documented by: Trolamine Salicylate (Aspercreme 10%) 0 gm TOP DAILY PRN PRN Reason: JOINT PAIN Discontinued Medications Furosemide (Lasix) 40 mg PO DAILY [facility] Furosemide (Lasix) 40 mg IVPUSH NOW ONE Stop: 09/24/20 20:31 Last Admin: 09/24/20 20:54 Dose: 40 mg Documented by: Lactated Ringer's (Ringers, Lactated) 1,000 mls @ 75 mls/hr IV ASDIRECTED [facility] Last Admin: 09/24/20 18:32 Dose: 75 mls/hr Documented by: - Exam Quality Assessment: Supplemental Oxygen General: Alert, Oriented (person, place), Cooperative, No Acute Distress Lungs: Normal Respiratory Effort, Decreased Breath Sounds (bibasilar), Crackles (occasional fine crackles on right). No: Wheezing Cardiovascular: Regular Rate, Irregular Rhythm, Murmurs GI/Abdominal Exam: Normal Bowel Sounds, Soft, Non-Tender, No Distention Sepsis Event Note - Evaluation Sepsis Screening Result: No Definite Risk - Focused Exam Vital Signs: Vital Signs Temp Pulse Resp BP BP Pulse Ox 09/25/20 04:00 98.8 F 67 24 H 156/56 H 99 09/25/20 02:00 24 H 09/25/20 00:00 98.9 F 75 155/53 H 09/24/20 21:30 80 32 H 172/37 H 91 L 09/24/20 21:15 91 198/55 H 92 L 09/24/20 21:10 80 186/70 H 94 L 09/24/20 21:00 79 201/49 H 95 09/24/20 20:55 96 09/24/20 20:50 197/67 H 09/24/20 20:40 85 36 H 197/67 H 91 L - Problem List & Annotations (1) Hypoxia SNOMED Code(s): 521831225 Code(s): R09.02 - HYPOXEMIA Status: Acute Current Visit: Yes Annota tion/Comment:: episode of vomiting, elevated wbc today, CXR ordered. Possible aspiration. (2) Falls frequently SNOMED Code(s): 501790669 Code(s): R29.6 - REPEATED FALLS Status: Acute Current Visit: No (3) Generalized weakness SNOMED Code(s): 28395151 Code(s): R53.1 - WEAKNESS Status: Acute Current Visit: No (4) Physical deconditioning SNOMED Code(s): 41830874797455 Code(s): R53.81 - OTHER MALAISE Status: Acute Current Visit: No (5) Scalp laceration SNOMED Code(s): 560615799 Code(s): S01.01XA - LACERATION WITHOUT FOREIGN BODY OF SCALP, INITIAL ENCOUNTER Status: Acute Current Visit: No (6) Atrial fibrillation SNOMED Code(s): 99200824 Code(s): I48.91 - UNSPECIFIED ATRIAL FIBRILLATION Status: Chronic Current Visit: No (7) Diabetes SNOMED Code(s): 36407095 Code(s): E11.9 - TYPE 2 DIABETES MELLITUS WITHOUT COMPLICATIONS Status: Chronic Current Visit: No Qualifiers: Diabetes mellitus type: type 2 Diabetes mellitus custodial insulin 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 - Problem List Review Problem List Initiated/Reviewed/Updated: Yes - My Orders Last 24 Hours: My Active Orders 09/24/20 14:03 Patient Status [ADT] Routine Blood Glucose Check, Bedside [RC] QIDACANDBED Height and Weight [RC] .tue Oxygen Therapy [RC] .PRN Up With Assistance [RC] ASDIRECTED Up to Chair [RC] ASDIRECTED VTE/DVT Education [RC] Per Unit Routine Vital Signs [RC] 08 OT Evaluation and Treatment [CONS] Routine PT Evaluation and Treatment [CONS] Routine Resuscitation Status Routine 09/24/20 14:06 Antiembolic Hose [OM.PC] Per Unit Routine 09/24/20 14:07 Docusate Sodium/Sennosides [Senna Plus] 1 tab PO DAILY PRN Loperamide [Imodium] 2 mg PO QID PRN Magnesium Hydroxide [Milk of Magnesia] 15 ml PO DAILY PRN Meclizine [Antivert] 25 mg PO Q6H PRN 09/24/20 14:10 Glucagon,Human Recombinant [GlucaGen] 1 mg IM ASDIRECTED PRN 09/24/20 14:24 Albuterol [Ventolin HFA] 1 gm INH DAILY PRN 09/24/20 14:42 Trolamine Salicylate/Aloe Vera [Aspercreme 10%] 0 gm TOP DAILY PRN 09/24/20 Dinner Consistent Carbohydrate Diet [DIET] 09/24/20 16:54 Alum Hydroxide/Mag Hydroxide [Mag-Al Susp] 30 ml PO Q4H PRN 09/24/20 17:00 Hypromellose [GenTeal Mild to Moderate Ophth Soln] 0 ml EYEBOTH QID 09/24/20 18:00 Insulin Lispro [HumaLOG] See Protocol SUBCUT TIDMEALS 09/24/20 18:27 Sodium Chloride 0.9% [Saline Flush] 10 ml FLUSH ASDIRECTED PRN Saline Lock Insert [OM.PC] Routine 09/24/20 20:00 cephALEXin [Keflex] 250 mg PO DAILY@20 09/24/20 20:15 Ondansetron [Zofran ODT] 4 mg PO Q6H PRN 09/24/20 21:00 Acetaminophen [Tylenol Extra Strength] 500 mg PO TID Calcium Carbonate [Oyster Shell Calcium] 500 mg PO BID Enoxaparin [Lovenox] 40 mg SUBCUT Q24H Famotidine [Pepcid] 20 mg PO BEDTIME Gabapentin [Neurontin] 100 mg PO BID Insulin Glarg,Human.Rec.Analog [LantUS Solostar] 30 units SUBCUT BEDTIME Isosorbide Mononitrate [Imdur] 30 mg PO BEDTIME Lidocaine 4% [Aspercreme 4%] 1 each TOP BEDTIME Nystatin [Nystop] 0 gm TOP BID polyethylene glycoL 3350 [MiraLAX] 17 gm PO Q72H 09/25/20 07:54 CXR [Chest 2V] [CR] Routine 09/25/20 08:00 Furosemide [Lasix] 40 mg PO BIDDIURETIC 09/25/20 09:00 Losartan [Cozaar] 100 mg PO DAILY Lutein 20 mg PO DAILY Mirabegron [Myrbetriq] 25 mg PO DAILY Montelukast [Singulair] 10 mg PO DAILY Vit/FA/Fe Fumarate [-U] 1 each PO DAILY Remove Patch 1 ea TRDERM DAILY amLODIPine [Norvasc] 10 mg PO DAILY 09/25/20 12:00 Levothyroxine 125 mcg PO DAILY@1200 - Plan Plan:: 1. Possible aspiration event yesterday with hypoxia: CXR this am, WBC 16.0, given Lasix 40 extra dose last night, changed Lasix back to bid dosing. 2. DM: Lantus 30 units at bedtime, Humalog low dose sliding scale TID. Accuchecks qidac&bed 3. Weakness/falls: PT/OT.
[2020-09-25] MEDS: Insulin Lispro 100 Unit/ML 3 ML KwikPen SUBCUT SCH ×3 (08:46→18:36)
[2020-09-25] MEDS: Losartan 100 MG Tab PO SCH (08:48)
[2020-09-25] MEDS: Furosemide 40 MG Tab PO SCH ×2 (08:48→14:01)
[2020-09-25] MEDS: Hypromellose 0.3% Ophth Soln 15 ML Bottle EYEBOTH SCH ×4 (08:49→21:23)
[2020-09-25] MEDS: Mirabegron 25 MG Tab Extended Release PO SCH (08:50)
[2020-09-25] MEDS: amLODIPine 10 MG Tab PO SCH (08:50)
[2020-09-25] MEDS: Prenatal Multivitamin with Calcium/Folic Acid/Fe Fumarate Cap PO SCH (08:50)
[2020-09-25] MEDS: Calcium Carbonate 500 MG Tablet PO SCH ×2 (08:50→21:20)
[2020-09-25] MEDS: Montelukast 10 MG Tab PO SCH (08:51)
[2020-09-25] MEDS: Acetaminophen 500 MG Tab PO SCH ×3 (08:52→21:20)
[2020-09-25] MEDS: Nystatin Topical Powder 15 GM Bottle TOP SCH ×2 (08:52→21:20)
[2020-09-25] MEDS: Gabapentin 100 MG Cap PO SCH ×2 (08:53→21:23)
[2020-09-25] MEDS ORDERED: Furosemide 40 MG Tab PO SCH (09:00)
[2020-09-25] MEDS: Ondansetron 4 MG Tab.DIS PO PRN (10:07)
[2020-09-25] MEDS ORDERED: Furosemide 40 MG/4 ML VIAL IVPUSH ONE (10:14)
[2020-09-25] MEDS: Amoxicillin/Clavulanate K 500-125 MG Tab PO SCH ×2 (10:45→21:19)
--- NOTE | 2020-09-25 10:48 | CR ---
INDICATION: Elevated white blood count, hypoxia, question pneumonia versus CHF. CHEST ONE VIEW: An AP upright view of the chest was obtained 09/25/20 and compared with 12/10/12 and 06/21/13. The heart appears to be near the upper limits of normal in size. The aorta is tortuous with calcification in the arch. Fairly extensive infiltration is noted in the right upper and lower lung field, more prominent in the mid lung field area, also suggested to some degree on the left in the lower lung field infrahilar and basilar areas. Findings may be on the basis of pneumonia. No definite evidence of CHF is identified. Would suggest full inspiration PA and lateral views of the chest for further evaluation, when clinically possible. MTDD
[2020-09-25] MEDS: Levothyroxine 125 MCG Tab PO SCH (12:05)
[2020-09-25] MEDS: Isosorbide Mononitrate 30 MG Tab.ER PO SCH (21:19)
[2020-09-25] MEDS: Cephalexin 250 MG Cap PO SCH (21:19)
[2020-09-25] MEDS: Lidocaine 4% 1 each Patch TOP SCH (21:20)
[2020-09-25] MEDS: Famotidine 20 MG Tab PO SCH (21:20)
[2020-09-25] MEDS: Enoxaparin 40 MG/0.4 ML Syringe SUBCUT SCH (21:21)
[2020-09-25] MEDS: Insulin Glargine,Human Rec. Analog 100 Units/ML 3 ML Pen SUBCUT SCH (21:25)
[2020-09-26] MEDS: Montelukast 10 MG Tab PO SCH (08:06)
[2020-09-26] MEDS: Prenatal Multivitamin with Calcium/Folic Acid/Fe Fumarate Cap PO SCH (08:06)
[2020-09-26] MEDS: Amoxicillin/Clavulanate K 500-125 MG Tab PO SCH ×2 (08:06→20:00)
[2020-09-26] MEDS: Furosemide 40 MG Tab PO SCH ×2 (08:08→14:29)
[2020-09-26] MEDS: Mirabegron 25 MG Tab Extended Release PO SCH (08:08)
[2020-09-26] MEDS: Losartan 100 MG Tab PO SCH (08:08)
[2020-09-26] MEDS: amLODIPine 10 MG Tab PO SCH (08:09)
[2020-09-26] MEDS: Hypromellose 0.3% Ophth Soln 15 ML Bottle EYEBOTH SCH ×4 (08:09→20:01)
[2020-09-26] MEDS: Nystatin Topical Powder 15 GM Bottle TOP SCH ×2 (08:10→20:02)
[2020-09-26] MEDS: Calcium Carbonate 500 MG Tablet PO SCH ×2 (08:10→20:04)
[2020-09-26] MEDS: Acetaminophen 500 MG Tab PO SCH ×3 (08:11→20:05)
[2020-09-26] MEDS: Gabapentin 100 MG Cap PO SCH ×2 (08:13→20:07)
[2020-09-26] MEDS: Insulin Lispro 100 Unit/ML 3 ML KwikPen SUBCUT SCH ×3 (08:14→18:14)
[2020-09-26] MEDS: Levothyroxine 125 MCG Tab PO SCH (12:48)
[2020-09-26] MEDS: Cephalexin 250 MG Cap PO SCH (19:57)
[2020-09-26] MEDS: Lidocaine 4% 1 each Patch TOP SCH (19:59)
[2020-09-26] MEDS: Enoxaparin 40 MG/0.4 ML Syringe SUBCUT SCH (20:02)
[2020-09-26] MEDS: Isosorbide Mononitrate 30 MG Tab.ER PO SCH (20:04)
[2020-09-26] MEDS: Famotidine 20 MG Tab PO SCH (20:04)
[2020-09-26] MEDS: Insulin Glargine,Human Rec. Analog 100 Units/ML 3 ML Pen SUBCUT SCH (20:07)
[2020-09-27] MEDS ORDERED: Furosemide 40 MG/4 ML VIAL IVPUSH ONE (05:22)
[2020-09-27] MEDS: Sodium Chloride 0.9% 10 ML Syringe FLUSH PRN ×3 (05:28→06:20)
[2020-09-27] MEDS ORDERED: Aspirin 81 MG Tab.Chew PO STA (05:41)
[2020-09-27] MEDS ORDERED: Morphine 2 MG/ML SYRINGE IVPUSH ONE (05:41)
[2020-09-27] MEDS ORDERED: Diltiazem 25 MG/5 ML SDV IVPUSH ONE ×2 (05:45→06:13)
[2020-09-27] MEDS ORDERED: Metolazone 5 MG Tab PO ONE (06:07)
[2020-09-27 08:20] VITALS: BP 137/47; PULSE 87
--- NOTE | 2020-09-29 09:05 | DISCH ---
DISCHARGE DATE: 09/27/2020 REASON FOR ADMISSION: Weakness, frequent falls, physical deconditioning, atrial fibrillation, type 2 diabetes. DISCHARGE DIAGNOSES: Congestive heart failure, possible pneumonia, acute renal failure. BRIEF HISTORY: This is an 85-year-old who was admitted to swing bed for strengthening. Over the last 2 days however, she became hypoxic, short of breath. Initially given some Lasix, but did not seem to improve. This morning, she went into acute respiratory failure and was admitted to ICU. take care of in the ICU. I spent less than 30 minutes in the discharge of the patient. /[id number] LUNA/ALLIE
--- NOTE | 2020-09-29 10:58 | CR ---
INDICATION: Chest pain. CHEST ONE VIEW: Portable AP upright view of the chest was obtained 09/27/20 and compared with 06/21/13 and 09/25/20. Increasing infiltration is noted bilaterally, most severe in the upper middle lung field on the right and throughout the left lung including the left lung base. The appearance could be on the basis of acute pulmonary edema, although a process such as COVID-19 pneumonia would be a consideration. This is especially true since the heart did not appear enlarged. The aorta is calcified and tortuous. Exogenous obesity is noted. IMPRESSION: Increasing severity of bilateral pneumonia process such as COVID-19 would be a consideration. Acute pulmonary edema could be present in a patient with an acute MN and CHF or noncardiac cause of pulmonary edema. MTDD
== END 2020-09-27 08:59 | disposition critical access hospital (66) | DRG 947 ==
LOC: FB.MS 13:46 → UNDODISIN 09-27 05:59
PROVIDERS: ADMIT Family Medicine; ATTEND Family Medicine
DX: R53.81 Other malaise (principal); J18.9 Pneumonia, unspecified organism; J96.01 Acute respiratory failure with hypoxia; N17.9 Acute kidney failure, unspecified; R53.1 Weakness; I11.0 Hypertensive heart disease with heart failure; I50.9 Heart failure, unspecified; I48.91 Unspecified atrial fibrillation; Z66 Do not resuscitate; E78.00 Pure hypercholesterolemia, unspecified; G47.30 Sleep apnea, unspecified; K21.9 Gastro-esophageal reflux disease without esophagitis; F32.9 Major depressive disorder, single episode, unspecified; E66.9 Obesity, unspecified; E11.9 Type 2 diabetes mellitus without complications; E03.9 Hypothyroidism, unspecified; Z88.8 Allergy status to other drugs, medicaments and biological substances; Z79.4 Long term (current) use of insulin; Z79.890 Hormone replacement therapy; Z79.899 Other long term (current) drug therapy; Z87.891 Personal history of nicotine dependence; Z98.49 Cataract extraction status, unspecified eye; Z90.49 Acquired absence of other specified parts of digestive tract; Z68.35 Body mass index [BMI] 35.0-35.9, adult
CPT/HCPCS: 36415; 71045; 80048; 82962; 83880; 84484; 85025; 93005; 94760; 97110-GP; 97116-GP; 97530-GO; 97530-GP; 97535-GO; A9270-GY; J1650; J1815; J1815-GY; J1940; J2270; J3490; J7120

== ENCOUNTER 2020-09-27 06:00 | Inpatient (IN) | payer MEDICARE ==
[2020-09-27] MEDS ORDERED: 50% Dextrose in Water 50 ML Syringe IVPUSH PRN (09:15)
[2020-09-27] MEDS ORDERED: Glucagon,Human Recombinant 1 MG Vial IM PRN (09:15)
[2020-09-27] MEDS ORDERED: Albuterol/Ipratropium 3.0-0.5 MG/3 ML Neb Soln INH PRN (09:15)
[2020-09-27] MEDS: Furosemide 40 MG/4 ML VIAL IVPUSH SCH ×2 (09:27→21:03)
--- NOTE | 2020-09-27 09:30 | PCM.HP.2 ---
H&P History of Present Illness - General Date of Service: 09/27/20 Admit Problem/Dx: Admission Diagnosis/Problem Admission Diagnosis/Problem CHF, Congestive heart failure Source of Information: Patient History Limitations: Reports: Respiratory Distress - History of Present Illness Initial Comments - Free Text/Narative: Vania was admitted to ICU last night because of respiratory failure. She needed non-invasive ventilatory support, after having shortness of breath and hypoxia. She had presented to the ER. Days ago with dehydration, falls and UTI. She was treated with IV fluids and went into failure needing some Lasix. She had improved enough to go to swing bed but while in swing bed she developed difficulty breathing needing initially oxygenation now ventilatory support. She did not complain of any chest pain fever or cough. No nausea or vomiting. She has a history of type 2 DM, congestive heart failure atrial fibrillation, previously stable. - Related Data Allergies/Adverse Reactions: Allergies Allergy/AdvReac Type Severity Reaction Status Date / Time allopurinol Allergy Cannot Verified 06/20/19 16:20 Remember procaine HCl [From Novocain] Allergy Cannot Verified 06/20/19 16:20 Remember Home Medications: Home Meds Acetaminophen [Tylenol Extra Strength] 500 mg PO TID 09/21/20 [History] Albuterol Sulfate [Proair Digihaler] 1 puff INH DAILY PRN 09/21/20 [History] Calcium Carbonate/Vitamin D3 [Calcium 500 mg-Vit D3 600 Unit] 1 tab PO BID 09/21/20 [History] Diclofenac Sodium [Voltaren 1% Gel] 1 applic TOP QID 09/21/20 [History] Famotidine [Pepcid] 20 mg PO BID 09/21/20 [History] Furosemide [Lasix] 40 mg PO BID 09/21/20 [History] Gabapentin [Neurontin] 1 cap PO BID 09/21/20 [History] Insulin Glargine,Hum.Rec.Anlog [Jonah French] 65 unit SQ BEDTIME 09/21/20 [History] Lidocaine 5% [Lidoderm 5%] 2 patch TRDERM BEDTIME 09/21/20 [History] Loperamide [Imodium] 2 mg PO QID PRN 09/21/20 [History] Losartan Potassium 100 mg PO DAILY 09/21/20 [History] Lutein 20 mg PO DAILY 09/21/20 [History] Magnesium Hydroxide [Milk of Magnesia] 15 ml PO DAILY PRN 09/21/20 [History] Meclizine [Antivert] 25 mg PO Q6H PRN 09/21/20 [History] Mirabegron [Myrbetriq] 25 mg PO DAILY 09/21/20 [History] Montelukast Sodium 10 mg PO DAILY 09/21/20 [History] Pnv No.95/Ferrous Fum/Folic AC [ Caplet] 1 each PO DAILY 09/21/20 [History] amLODIPine Besylate [Norvasc] 10 mg PO DAILY 09/21/20 [History] cephALEXin [Keflex] 250 mg PO DAILY@20 09/21/20 [History] polyethylene glycoL 3350 [MiraLAX] 17 gm PO Q72H 09/21/20 [History] Carboxymethylcell/Hypromellose [GenTeal Moderate to Severe Ophth Gel] 1 drop EYEBOTH QID 09/22/20 [History] Insulin Lispro [Humalog Kwikpen U-200] 25 units SQ DAILY@1700 09/22/20 [History] Insulin Lispro [Humalog Kwikpen U-200] 27 units SQ DAILY@0800,1100 09/22/20 [History] Isosorbide Mononitrate [Imdur] 30 mg PO BEDTIME 09/22/20 [History] Levothyroxine 125 mcg PO DAILY@1200 09/22/20 [History] Sennosides/Docusate Sodium [Senna-S 8.6-50 mg Tablet] 1 tab PO DAILY PRN 09/22/20 [History] Trolamine Salicylate/Aloe Vera [Aspercreme 10% Cream] 1 applic TOP DAILY 09/22/20 [History] Past Medical History Cardiovascular History: Reports: High Cholesterol, Hypertension Respiratory History: Reports: Sleep Apnea, Other (See Below) Other Respiratory History: PLEURAL EFFUSION, PNEUMONIA Gastrointestinal History: Reports: GERD 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 Psychiatric History: Reports: Depression Endocrine/Metabolic History: Reports: Diabetes, Type II, Hypothyroidism, Obesity/BMI 30+ Oncologic (Cancer) History: Reports: Other (See Below) Other Oncologic History: TONGUE - Infectious Disease History Infectious Disease History: Reports: Scarlet Fever - Past Surgical History HEENT Surgical History: Reports: Cataract Surgery, Other (See Below) Other HEENT Surgeries/Procedures: BOTH EYES CATARACT SURGERY, TOUNGUE SURGERY AND LYMPH NODES 06/13/19 GI Surgical History: Reports: Appendectomy, Cholecystectomy Female Surgical History: Reports: Hysterectomy Social & Family History - Family History Family Medical History: No Pertinent Family History - Caffeine Use Caffeine Use: Reports: Coffee H&P Review of Systems - Review of Systems: Review Of Systems: Comprehensive ROS is negative, except as noted in HPI. Exam - Exam Exam: See Below - Exam Quality Assessment: Supplemental Oxygen General: Alert, Cooperative, Mild Distress HEENT: PERRLA Neck: Supple Lungs: Crackles, Rales Cardiovascular: Irregular Rhythm, Tachycardia GI/Abdominal Exam: Normal Bowel Sounds, Soft Extremities: Normal Inspection, No Pedal Edema Skin: Warm Neurological: Cranial Nerves Intact Neuro Extensive - Mental Status: Alert Neuro Extensive - Motor, Sensory, Reflexes: CN II-XII Intact Psychiatric: Alert #1 Interpretation Rhythm: A-Fib - Problem List (1) CHF (congestive heart failure) SNOMED Code(s): 79829655 ICD Code: I50.9 - HEART FAILURE, UNSPECIFIED Status: Acute Current Visit: Yes Qualifiers: Heart failure type: combined systolic and diastolic (2) NSTEMI (non-ST elevated myocardial infarction) SNOMED Code(s): 85881716 ICD Code: I21.4 - NON-ST ELEVATION (NSTEMI) MYOCARDIAL INFARCTION Status: Acute Current Visit: Yes (3) CKD (chronic kidney disease) SNOMED Code(s): 080472259 ICD Code: N18.9 - CHRONIC KIDNEY DISEASE, UNSPECIFIED Status: Chronic Current Visit: Yes Qualifiers: Chronic kidney disease stage: stage 3 (moderate) (4) Falls frequently SNOMED Code(s): 644526137 ICD Code: R29.6 - REPEATED FALLS Status: Acute Current Visit: No (5) Generalized weakness SNOMED Code(s): 36537440 ICD Code: R53.1 - WEAKNESS Status: Acute Current Visit: No (6) Physical deconditioning SNOMED Code(s): 31056370453314 ICD Code: R53.81 - OTHER MALAISE Status: Acute Current Visit: No (7) Atrial fibrillation SNOMED Code(s): 82265095 ICD Code: I48.91 - UNSPECIFIED ATRIAL FIBRILLATION Status: Chronic Current Visit: No Qualifiers: Atrial fibrillation type: paroxysmal Qualified Code(s): I48.0 - Paroxysmal atrial fibrillation (8) Diabetes SNOMED Code(s): 93380651 ICD Code: E11.9 - TYPE 2 DIABETES MELLITUS WITHOUT COMPLICATIONS Status: Chronic Current Visit: No Qualifiers: Diabetes mellitus type: type 2 Problem List Initiated/Reviewed/Updated: Yes Orders Last 24hrs: Active Orders 24 hr Category Date Time Status Patient Status [ADT] Routine ADT 09/27/20 09:15 Ordered Blood Glucose Check, Bedside [RC] TIDMEALS Care 09/27/20 09:15 Ordered Cardiac Monitoring [RC] CONTINUOUS Care 09/27/20 09:16 Ordered EKG Documentation Completion [RC] ASDIRECTED Care 09/27/20 09:18 Ordered Height and Weight [RC] DAILY Care 09/27/20 09:15 Ordered Intake and Output [RC] QSHIFT Care 09/27/20 09:16 Ordered Oxygen Therapy [RC] PRN Care 09/27/20 09:15 Ordered RT Aerosol Therapy [RC] ASDIRECTED Care 09/27/20 09:18 Ordered Up With Assistance [RC] ASDIRECTED Care 09/27/20 09:15 Ordered VTE/DVT Education [RC] Per Unit Routine Care 09/27/20 09:15 Ordered Vital Signs [RC] Q4H Care 09/27/20 09:15 Ordered Consistent Carbohydrate Diet [DIET] Diet 09/27/20 Breakfast Ordered CBC WITH AUTO DIFF [HEME] AM Lab 09/28/20 05:11 Ordered COMPREHENSIVE METABOLIC PN,CMP [CHEM] AM Lab 09/28/20 05:11 Ordered PRO B-TYPE NATRIUR PEPT,BNPPRO [CHEM] DAILY Lab 09/28/20 05:11 Ordered PRO B-TYPE NATRIUR PEPT,BNPPRO [CHEM] DAILY Lab 09/29/20 05:11 Ordered PRO B-TYPE NATRIUR PEPT,BNPPRO [CHEM] DAILY Lab 09/30/20 05:11 Ordered TROPONIN I [CHEM] AM Lab 09/28/20 05:11 Ordered Albuterol/Ipratropium [DuoNeb 3.0-0.5 MG/3 ML] Med 09/27/20 09:15 Ordered 3 ml INH ONETIME PRN Dextrose 50% in Water Med 09/27/20 09:15 Ordered 50 ml IVPUSH ASDIRECTED PRN Enoxaparin [Lovenox] Med 09/27/20 09:15 Ordered 30 mg SUBCUT Q24H Furosemide [Lasix] Med 09/27/20 09:15 Ordered 40 mg IVPUSH BID Glucagon,Human Recombinant [GlucaGen] Med 09/27/20 09:15 Ordered 1 mg IM ASDIRECTED PRN Insulin Lispro [HumaLOG] Med 09/27/20 12:00 Ordered See Protocol SUBCUT TIDMEALS Morphine Med 09/27/20 09:15 Ordered 2 mg IVPUSH Q2H PRN Piperacillin/Tazobactam [Zosyn] 3.375 gm Med 09/27/20 09:30 Ordered Sodium Chloride 0.9% [Normal Saline] 50 ml IV Q6H Resuscitation Status Routine Resus Stat 09/27/20 09:15 Ordered EKG 12 Lead [EK] Routine Ther 09/27/20 09:15 Ordered Medication Orders Albuterol/Ipratropium (Duoneb 3.0-0.5 Mg/3 Ml) 3 ml INH ONETIME PRN PRN Reason: Shortness Of Breath/wheezing Dextrose/Water (Dextrose 50% In Water) 50 ml IVPUSH ASDIRECTED PRN PRN Reason: Hypoglycemia Enoxaparin Sodium (Lovenox) 30 mg SUBCUT Q24H [facility] Furosemide (Lasix) 40 mg IVPUSH BID [facility] Glucagon (Glucagen) 1 mg IM ASDIRECTED PRN PRN Reason: Hypoglycemia Piperacillin Sod/Tazobactam (Sod 3.375 gm/ Sodium Chloride) 50 mls @ 100 mls/hr IV Q6H [facility] Insulin Human Lispro (Humalog) 0 unit SUBCUT TIDMEALS [facility]; Protocol Morphine Sulfate (Morphine) 2 mg IVPUSH Q2H PRN PRN Reason: Pain (severe 7-10) Assessment/Plan Comment:: Admit to ICU on BiPaP. Lasix 40 mg IV BID. IV Zosyn empirically. ASA. Labs in AM
[2020-09-27] MEDS: Enoxaparin 30 MG/0.3 ML Syringe SUBCUT SCH (09:53)
[2020-09-27] MEDS ORDERED: Piperacillin/Tazobactam 3.375 GM in Sodium Chloride 0.9% 50 ML IV ONE (10:00)
[2020-09-27] MEDS: Insulin Lispro 100 Unit/ML 3 ML KwikPen SUBCUT SCH ×2 (12:05→18:28)
[2020-09-27] MEDS: Piperacillin/Tazobactam 3.375 GM in Sodium Chloride 0.9% 50 ML IV SCH ×2 (17:04→22:36)
[2020-09-27] MEDS: Acetaminophen 325 MG Tab PO PRN (17:16)
[2020-09-27] MEDS: Sodium Chloride 0.9% 10 ML Syringe FLUSH PRN (17:45)
[2020-09-27] MEDS ORDERED: Vancomycin/Dextrose 5%-Water 1 GM in Premix Bag 1 BAG IV SCH (18:45)
[2020-09-27] MEDS: Nitroglycerin/D5W 25 MG/250 ML BOTTLE IV SCH (18:49)
[2020-09-27] MEDS ORDERED: Sodium Chloride 0.9% 1,000 ML IV SCH (19:00)
[2020-09-27] MEDS ORDERED: Magnesium Hydroxide 400 MG/5 ML Susp 30 ML Cup PO PRN (20:44)
[2020-09-27] MEDS ORDERED: Sodium Chloride 0.9% 250 ML IV SCH (20:45)
[2020-09-27] MEDS: Morphine 2 MG/ML SYRINGE IVPUSH PRN (20:59)
[2020-09-28] MEDS: Morphine 2 MG/ML SYRINGE IVPUSH PRN ×2 (02:55→08:34)
[2020-09-28] MEDS: Sodium Chloride 0.9% 10 ML Syringe FLUSH PRN ×2 (02:56→08:55)
[2020-09-28] MEDS: Piperacillin/Tazobactam 3.375 GM in Sodium Chloride 0.9% 50 ML IV SCH ×2 (03:22→09:44)
[2020-09-28] MEDS: Insulin Lispro 100 Unit/ML 3 ML KwikPen SUBCUT SCH ×2 (08:30→13:12)
[2020-09-28] MEDS: Furosemide 40 MG/4 ML VIAL IVPUSH SCH (08:51)
[2020-09-28] MEDS: Enoxaparin 30 MG/0.3 ML Syringe SUBCUT SCH (08:52)
[2020-09-28] MEDS: Acetaminophen 325 MG Tab PO PRN (08:54)
[2020-09-28] MEDS ORDERED: Metoprolol Tartrate 5 MG/5 ML SDV IVPUSH ONE (09:02)
[2020-09-28] MEDS ORDERED: Metolazone 5 MG Tab PO ONE (09:03)
[2020-09-28] MEDS ORDERED: Ticagrelor 90 MG Tab PO ONE (09:03)
--- NOTE | 2020-09-28 09:03 | PCM.PN ---
- General Info Date of Service: 09/28/20 Subjective Update: Over night,patient remained on non-rebreather mask. Still running a low grade fever.Good urine output over night on Nitro drip. Functional Status: Reports: Tolerating Diet. Denies: Pain Controlled - Review of Systems HEENT: Reports: No Symptoms Pulmonary: Reports: Shortness of Breath Cardiovascular: Reports: No Symptoms Gastrointestinal: Reports: No Symptoms Genitourinary: Reports: No Symptoms - Patient Data Vitals - Most Recent: Last Vital Signs Temp 99 F 09/28/20 04:00 Pulse 79 09/28/20 06:05 Resp 26 H 09/28/20 06:05 BP 154/55 H 09/28/20 06:05 Pulse Ox 94 L 09/28/20 06:05 Weight - Most Recent: 97.069 kg I&O - Last 24 Hours: Intake & Output 09/27/20 09/28/20 09/28/20 22:59 06:59 14:59 Intake Total 480 305 273 Output Total 275 925 Balance 205 -620 273 Lab Results Last 24 Hours: Laboratory Results - last 24 hr 09/27/20 09/27/20 09/27/20 Range/Units 11:33 13:45 13:45 WBC (3.0-10.3) x10-3/uL RBC (3.60-5.20) x10(6)uL Hgb (11.4-15.5) g/dL Hct (34.2-48.2) % MCV (76.7-100.5) fL MCH (23.9-33.9) pg MCHC (31.9-34.8) g/dL RDW (12.3-16.5) % Plt Count (151-488) x10(3)uL MPV (7.1-12.4) fL Add Manual Diff Neutrophils % (Manual) (46-82) % Band Neutrophils % (0-6) % Lymphocytes % (Manual) (13-37) % Monocytes % (Manual) (4-12) % Eosinophils % (Manual) (0-5) % Sodium (135-145) mmol/L Potassium (3.5-5.3) mmol/L Chloride (100-110) mmol/L Carbon Dioxide (21-32) mmol/L BUN (7-18) mg/dL Creatinine (0.55-1.02) mg/dL Est Cr Clr Drug Dosing mL/min Estimated GFR (MDRD) (>60) BUN/Creatinine Ratio (9-20) Glucose (80-116) mg/dL POC Glucose 214 H (74-100) mg/dL Lactic Acid 2.0 (0.4-2.0) mmol/L Calcium (8.6-10.2) mg/dL Total Bilirubin (0.1-1.3) mg/dL AST (5-25) IU/L ALT (12-36) U/L Alkaline Phosphatase (56-112) IU/L Troponin I (4.0-60.3) pg/mL C-Reactive Protein 35.2 H* (0.5-0.9) mg/dL NT-Pro-B Natriuret Pep (<=450) pg/mL Total Protein (6.0-8.0) g/dL Albumin (3.2-4.6) g/dL Globulin g/dL Albumin/Globulin Ratio SARS-CoV-2 RNA (MARK) (NEGATIVE) 09/27/20 09/27/20 09/28/20 Range/Units 17:15 19:19 05:46 WBC (3.0-10.3) x10-3/uL RBC (3.60-5.20) x10(6)uL Hgb (11.4-15.5) g/dL Hct (34.2-48.2) % MCV (76.7-100.5) fL MCH (23.9-33.9) pg MCHC (31.9-34.8) g/dL RDW (12.3-16.5) % Plt Count (151-488) x10(3)uL MPV (7.1-12.4) fL Add Manual Diff Neutrophils % (Manual) (46-82) % Band Neutrophils % (0-6) % Lymphocytes % (Manual) (13-37) % Monocytes % (Manual) (4-12) % Eosinophils % (Manual) (0-5) % Sodium (135-145) mmol/L Potassium (3.5-5.3) mmol/L Chloride (100-110) mmol/L Carbon Dioxide (21-32) mmol/L BUN (7-18) mg/dL Creatinine (0.55-1.02) mg/dL Est Cr Clr Drug Dosing mL/min Estimated GFR (MDRD) (>60) BUN/Creatinine Ratio (9-20) Glucose (80-116) mg/dL POC Glucose 197 H 210 H (74-100) mg/dL Lactic Acid (0.4-2.0) mmol/L Calcium (8.6-10.2) mg/dL Total Bilirubin (0.1-1.3) mg/dL AST (5-25) IU/L ALT (12-36) U/L Alkaline Phosphatase (56-112) IU/L Troponin I (4.0-60.3) pg/mL C-Reactive Protein (0.5-0.9) mg/dL NT-Pro-B Natriuret Pep (<=450) pg/mL Total Protein (6.0-8.0) g/dL Albumin (3.2-4.6) g/dL Globulin g/dL Albumin/Globulin Ratio SARS-CoV-2 RNA (MARK) Negative (NEGATIVE) 09/28/20 09/28/20 09/28/20 Range/Units 06:30 06:30 06:30 WBC 17.3 H (3.0-10.3) x10-3/uL RBC 3.22 L (3.60-5.20) x10(6)uL Hgb 9.4 L (11.4-15.5) g/dL Hct 29.4 L (34.2-48.2) % MCV 91.2 (76.7-100.5) fL MCH 29.1 (23.9-33.9) pg MCHC 31.9 (31.9-34.8) g/dL RDW 12.8 (12.3-16.5) % Plt Count 266 (151-488) x10(3)uL MPV 8.8 (7.1-12.4) fL Add Manual Diff Yes Neutrophils % (Manual) 78 (46-82) % Band Neutrophils % 1 (0-6) % Lymphocytes % (Manual) 12 L (13-37) % Monocytes % (Manual) 8 (4-12) % Eosinophils % (Manual) 1 (0-5) % Sodium 144 (135-145) mmol/L Potassium 3.7 (3.5-5.3) mmol/L Chloride 105 (100-110) mmol/L Carbon Dioxide 27 (21-32) mmol/L BUN 49 H D (7-18) mg/dL Creatinine 2.3 H* (0.55-1.02) mg/dL Est Cr Clr Drug Dosing 15.51 mL/min Estimated GFR (MDRD) 20 L (>60) BUN/Creatinine Ratio 21.3 H (9-20) Glucose 220 H D (80-116) mg/dL POC Glucose (74-100) mg/dL Lactic Acid (0.4-2.0) mmol/L Calcium 9.3 (8.6-10.2) mg/dL Total Bilirubin 0.7 (0.1-1.3) mg/dL AST 76 H D (5-25) IU/L ALT 36 D (12-36) U/L Alkaline Phosphatase 55 L (56-112) IU/L Troponin I 13803.7 H* (4.0-60.3) pg/mL C-Reactive Protein (0.5-0.9) mg/dL NT-Pro-B Natriuret Pep 16779 H* (<=450) pg/mL Total Protein 6.2 (6.0-8.0) g/dL Albumin 2.1 L (3.2-4.6) g/dL Globulin 4.1 g/dL Albumin/Globulin Ratio 0.5 SARS-CoV-2 RNA (MARK) (NEGATIVE) Med Orders - Current: Current Medications Acetaminophen (Tylenol) 650 mg PO Q4H PRN PRN Reason: Fever Last Admin: 09/28/20 08:54 Dose: 650 mg Documented by: Albuterol/Ipratropium (Duoneb 3.0-0.5 Mg/3 Ml) 3 ml INH ONETIME PRN PRN Reason: Shortness Of Breath/wheezing Last Admin: 09/27/20 09:53 Dose: 3 ml Documented by: Dextrose/Water (Dextrose 50% In Water) 50 ml IVPUSH ASDIRECTED PRN PRN Reason: Hypoglycemia Enoxaparin Sodium (Lovenox) 30 mg SUBCUT Q24H [facility] Last Admin: 09/28/20 08:52 Dose: 30 mg Documented by: Furosemide (Lasix) 40 mg IVPUSH BID [facility] Last Admin: 09/28/20 08:51 Dose: 40 mg Documented by: Glucagon (Glucagen) 1 mg IM ASDIRECTED PRN PRN Reason: Hypoglycemia Piperacillin Sod/Tazobactam (Sod 3.375 gm/ Sodium Chloride) 50 mls @ 100 mls/hr IV Q6H [facility] Last Admin: 09/28/20 03:22 Dose: 100 mls/hr Documented by: Nitroglycerin/Dextrose (Nitroglycerin 25 Mg/D5w 250 Ml) 25 mg in 250 mls @ 6 mls/hr IV TITRATE [facility]; Protocol Last Titration: 09/28/20 03:06 Dose: 10 mcg/min, 6 mls/hr Documented by: Vancomycin HCl 1 gm/ Premix 200 mls @ 200 mls/hr IV Q12H [facility] Sodium Chloride (Normal Saline) 1,000 mls @ 20 mls/hr IV ASDIRECTED [facility] Last Admin: 09/27/20 18:50 Dose: 20 mls/hr Documented by: Sodium Chloride (Normal Saline) 250 mls @ 30 mls/hr IV ASDIRECTED [facility] Last Admin: 09/27/20 20:54 Dose: 30 mls/hr Documented by: Insulin Human Lispro (Humalog) 0 unit SUBCUT TIDMEALS [facility]; Protocol Last Admin: 09/28/20 08:30 Dose: 2 units Documented by: Magnesium Hydroxide (Milk Of Magnesia) 30 ml PO DAILY PRN PRN Reason: Constipation Last Admin: 09/27/20 21:28 Dose: 30 ml Documented by: Morphine Sulfate (Morphine) 2 mg IVPUSH Q2H PRN PRN Reason: Pain (severe 7-10) Last Admin: 09/28/20 08:34 Dose: 2 mg Documented by: Sodium Chloride (Saline Flush) 10 ml FLUSH ASDIRECTED PRN PRN Reason: Keep Vein Open Last Admin: 09/28/20 08:55 Dose: 10 ml Documented by: Discontinued Medications Piperacillin Sod/Tazobactam (Sod 3.375 gm/ Sodium Chloride) 50 mls @ 100 mls/hr IV ONETIME ONE Stop: 09/27/20 10:29 Last Admin: 09/27/20 09:54 Dose: 100 mls/hr Documented by: Vancomycin HCl 1.5 gm/ Premix 300 mls @ 300 mls/hr IV ONETIME ONE Stop: 09/27/20 20:29 Last Admin: 09/27/20 20:49 Dose: 300 mls/hr Documented by: - Exam Quality Assessment: Supplemental Oxygen General: Alert, Oriented HEENT: Pupils Equal Neck: Supple Lungs: Crackles, Rales. No: Normal Respiratory Effort GI/Abdominal Exam: Soft Sepsis Event Note - Evaluation Sepsis Screening Result: Severe Sepsis Risk - Focused Exam Vital Signs: Vital Signs Temp Pulse Resp BP Pulse Ox 09/28/20 06:05 79 26 H 154/55 H 94 L 09/28/20 05:00 81 26 H 154/52 H 92 L 09/28/20 04:00 99 F 81 26 H 158/53 H 92 L 09/28/20 03:00 83 26 H 167/64 H 94 L 09/28/20 02:00 99 F 81 26 H 148/48 H 93 L 09/28/20 01:00 76 28 H 152/53 H 94 L 09/28/20 00:00 99 F 78 28 H 150/53 H 91 L 09/27/20 23:00 79 20 143/52 H 96 09/27/20 22:00 99.4 F 78 20 150/54 H 93 L - Problem List & Annotations (1) NSTEMI (non-ST elevated myocardial infarction) SNOMED Code(s): 21913405 Code(s): I21.4 - NON-ST ELEVATION (NSTEMI) MYOCARDIAL INFARCTION Status: Acute Current Visit: Yes (2) CHF (congestive heart failure) SNOMED Code(s): 24244309 Code(s): I50.9 - HEART FAILURE, UNSPECIFIED Status: Acute Current Visit: Yes Qualifiers: Heart failure type: combined systolic and diastolic (3) CKD (chronic kidney disease) SNOMED Code(s): 807695083 Code(s): N18.9 - CHRONIC KIDNEY DISEASE, UNSPECIFIED Status: Chronic Current Visit: Yes Qualifiers: Chronic kidney disease stage: stage 3 (moderate) (4) Falls frequently SNOMED Code(s): 774266535 Code(s): R29.6 - REPEATED FALLS Status: Acute Current Visit: No (5) Generalized weakness SNOMED Code(s): 97263555 Code(s): R53.1 - WEAKNESS Status: Acute Current Visit: No (6) Physical deconditioning SNOMED Code(s): 79015979120071 Code(s): R53.81 - OTHER MALAISE Status: Acute Current Visit: No (7) Atrial fibrillation SNOMED Code(s): 76825932 Code(s): I48.91 - UNSPECIFIED ATRIAL FIBRILLATION Status: Chronic Current Visit: No Qualifiers: Atrial fibrillation type: paroxysmal Qualified Code(s): I48.0 - Paroxysmal atrial fibrillation (8) Diabetes SNOMED Code(s): 19981041 Code(s): E11.9 - TYPE 2 DIABETES MELLITUS WITHOUT COMPLICATIONS Status: Chronic Current Visit: No Qualifiers: Diabetes mellitus type: type 2 (9) Fever SNOMED Code(s): 944876623 Code(s): R50.9 - FEVER, UNSPECIFIED Status: Acute Current Visit: Yes Qualifiers: Fever type: unspecified Qualified Code(s): R50.9 - Fever, unspecified - Problem List Review Problem List Initiated/Reviewed/Updated: Yes - My Orders Last 24 Hours: My Active Orders 09/27/20 09:00 BIPAP Adult [RT BiPAP/CPAP] [RC] ASDIRECTED 09/27/20 09:15 Patient Status [ADT] Routine Blood Glucose Check, Bedside [RC] TIDMEALS Height and Weight [RC] DAILY Oxygen Therapy [RC] PRN Up With Assistance [RC] ASDIRECTED VTE/DVT Education [RC] Per Unit Routine Vital Signs [RC] Q4H Albuterol/Ipratropium [DuoNeb 3.0-0.5 MG/3 ML] 3 ml INH ONETIME PRN Dextrose 50% in Water 50 ml IVPUSH ASDIRECTED PRN Enoxaparin [Lovenox] 30 mg SUBCUT Q24H Furosemide [Lasix] 40 mg IVPUSH BID Glucagon,Human Recombinant [GlucaGen] 1 mg IM ASDIRECTED PRN Morphine 2 mg IVPUSH Q2H PRN Resuscitation Status Routine EKG 12 Lead [EK] Routine 09/27/20 09:16 Cardiac Monitoring [RC] CONTINUOUS Intake and Output [RC] 06,14,22 09/27/20 09:18 RT Aerosol Therapy [RC] ASDIRECTED 09/27/20 11:43 Sodium Chloride 0.9% [Saline Flush] 10 ml FLUSH ASDIRECTED PRN 09/27/20 12:00 Insulin Lispro [HumaLOG] See Protocol SUBCUT TIDMEALS 09/27/20 13:45 CULTURE BLOOD [BC] Routine 09/27/20 16:00 Piperacillin/Tazobactam [Zosyn] 3.375 gm Sodium Chloride 0.9% [Normal Saline] 50 ml IV Q6H 09/27/20 16:59 Acetaminophen [TylenoL] 650 mg PO Q4H PRN 09/27/20 18:30 Nitroglycerin/D5W [Nitroglycerin 25 MG/D5W 250 ML] 25 mg in 250 ml IV TITRATE 09/27/20 18:45 Vancomycin/Dextrose 5%-Water [Vancomycin 1 GM/200 ML in D5W] 1 gm Premix Bag 1 bag IV Q12H 09/27/20 19:00 Sodium Chloride 0.9% [Normal Saline] 1,000 ml IV ASDIRECTED 09/27/20 20:44 Magnesium Hydroxide [Milk of Magnesia] 30 ml PO DAILY PRN 09/27/20 20:45 Sodium Chloride 0.9% [Normal Saline] 250 ml IV ASDIRECTED 09/29/20 05:11 PRO B-TYPE NATRIUR PEPT,BNPPRO [CHEM] DAILY 09/30/20 05:11 PRO B-TYPE NATRIUR PEPT,BNPPRO [CHEM] DAILY - Plan Plan:: Patient is stable,but needing high oxygen support. On two antibiotics,Zosyn and Vanco. Kidney showing some failure. Trop very high. I spoke with daughter about option of transfer,and will discuss with family.
[2020-09-28] MEDS: Nitroglycerin/D5W 25 MG/250 ML BOTTLE IV SCH (11:06)
--- NOTE | 2020-09-29 09:05 | DISCH ---
DISCHARGE DATE: 09/28/2020 REASON FOR ADMISSION: Respiratory failure. DISCHARGE DIAGNOSES: 1. Congestive heart failure. 2. [id number] myocardial infarction. 3. Pneumonia. BRIEF HISTORY: This is an 85-year-old female admitted in respiratory failure to ICU, initially on BiPAP. The x-ray showed fluid overload and she was treated for pulmonary edema. EKG was nondiagnostic, but BNP and troponin were markedly elevated. She also started running a fever and accordingly we started some empiric antibiotics as we waited for blood cultures. The family after discussion would like to be transferred to a higher level facility for cardiology consultation and this was completed today. I spent more than 35 minutes in the transfer process and Dr. Donato accepted her for admission at [facility]. /[id number] LUNA/ALLIE
[2020-09-30 04:44] VITALS: BP 142/45; PULSE 80
== END 2020-09-28 10:58 | DRG 280 ==
LOC: FB.ICU 06:00
PROVIDERS: ADMIT Family Medicine; ATTEND Family Medicine
PROC: 5A09457 Assistance with Respiratory Ventilation, 24-96 Consecutive Hours, Continuous Positive Airway Pressure (ICD-10-PCS; principal; 2020-09-27)
DX: I13.0 Hypertensive heart and chronic kidney disease with heart failure and stage 1 through stage 4 chronic kidney disease, or unspecified chronic kidney disease (principal); I21.4 Non-ST elevation (NSTEMI) myocardial infarction; J18.9 Pneumonia, unspecified organism; I50.41 Acute combined systolic (congestive) and diastolic (congestive) heart failure; I48.91 Unspecified atrial fibrillation; E78.00 Pure hypercholesterolemia, unspecified; G47.30 Sleep apnea, unspecified; K21.9 Gastro-esophageal reflux disease without esophagitis; M47.9 Spondylosis, unspecified; F32.9 Major depressive disorder, single episode, unspecified; R41.3 Other amnesia; E03.9 Hypothyroidism, unspecified; E66.9 Obesity, unspecified; I11.0 Hypertensive heart disease with heart failure; E11.22 Type 2 diabetes mellitus with diabetic chronic kidney disease; N18.30 Chronic kidney disease, stage 3 unspecified; R29.6 Repeated falls; I48.0 Paroxysmal atrial fibrillation; Z88.8 Allergy status to other drugs, medicaments and biological substances; Z79.4 Long term (current) use of insulin; Z79.899 Other long term (current) drug therapy; Z79.890 Hormone replacement therapy; Z87.01 Personal history of pneumonia (recurrent); Z85.810 Personal history of malignant neoplasm of tongue; Z90.49 Acquired absence of other specified parts of digestive tract; Z98.41 Cataract extraction status, right eye; Z98.42 Cataract extraction status, left eye; Z98.890 Other specified postprocedural states; Z79.82 Long term (current) use of aspirin; Z20.828 Contact with and (suspected) exposure to other viral communicable diseases
CPT/HCPCS: 36415; 80053; 82962; 83605; 83880; 84484; 85025; 86140; 87040; 93005; 94640; 94660; A9270-GY; J1650; J1815; J1940; J2270; J2543; J3370; J3490; J7030; J7050; J7620-GY; U0002

== ENCOUNTER 2020-10-07 08:00 | Inpatient (IN) | payer MEDICARE ==
[2020-10-07] MEDS ORDERED: Meclizine 25 MG Tab PO PRN (14:30)
[2020-10-07] MEDS ORDERED: Magnesium Hydroxide 400 MG/5 ML Susp 30 ML Cup PO PRN (14:30)
[2020-10-07] MEDS ORDERED: Glucagon,Human Recombinant 1 MG Vial IM PRN (14:30)
[2020-10-07] MEDS ORDERED: Loperamide 2 MG Cap PO PRN (14:30)
[2020-10-07] MEDS ORDERED: 50% Dextrose in Water 50 ML Syringe IVPUSH PRN (14:30)
[2020-10-07] MEDS ORDERED: Albuterol 8 GM Inhaler INH PRN (14:30)
[2020-10-07] MEDS ORDERED: Albuterol 0.083% 2.5 MG/3 ML Neb Soln INH PRN (15:07)
[2020-10-07] MEDS ORDERED: Trolamine Salicylate/Aloe Vera 10% Crm 85 GM Tube TOP PRN (15:16)
--- NOTE | 2020-10-07 15:25 | PCM.HP.2 ---
H&P History of Present Illness - General Date of Service: 10/07/20 Admit Problem/Dx: Admission Diagnosis/Problem Admission Diagnosis/Problem Weakness Source of Information: Patient, Old Records History Limitations: Reports: No Limitations - History of Present Illness Initial Comments - Free Text/Narative: Vania is a 85-year-old female admitted today from [facility]. She was sent over there a few days ago,from here, due to non-ST elevation [place], acute systolic congestive heart failure, pneumonia, chronic atrial fibrillation, and essential hypertension. She also has type 2 diabetes and stage III chronic kidney disease. She was treated with IV antibiotics, Lasix and medically managed for a acute coronary syndrome. She still too weak to return home, and is being admitted 38 and physical therapy. - Related Data Allergies/Adverse Reactions: Allergies Allergy/AdvReac Type Severity Reaction Status Date / Time allopurinol Allergy Cannot Verified 06/20/19 16:20 Remember procaine HCl [From Novocain] Allergy Cannot Verified 06/20/19 16:20 Remember Home Medications: Home Meds Calcium Carbonate/Vitamin D3 [Calcium 500 mg-Vit D3 600 Unit] 1 tab PO BID 09/21/20 [History] Famotidine [Pepcid] 20 mg PO BID 09/21/20 [History] Gabapentin [Neurontin] 1 cap PO BID 09/21/20 [History] Loperamide [Imodium] 2 mg PO QID PRN 09/21/20 [History] Losartan Potassium 100 mg PO DAILY 09/21/20 [History] Meclizine [Antivert] 25 mg PO Q6H PRN 09/21/20 [History] Mirabegron [Myrbetriq] 25 mg PO DAILY 09/21/20 [History] Pnv No.95/Ferrous Fum/Folic AC [ Caplet] 1 each PO DAILY 09/21/20 [History] amLODIPine Besylate [Norvasc] 10 mg PO DAILY 09/21/20 [History] Isosorbide Mononitrate [Imdur] 30 mg PO BEDTIME 09/22/20 [History] Levothyroxine 125 mcg PO DAILY@1200 09/22/20 [History] Sennosides/Docusate Sodium [Senna-S 8.6-50 mg Tablet] 1 tab PO DAILY PRN 09/22/20 [History] Albuterol Sulfate 3 ml PO TID PRN 10/07/20 [History] Albuterol Sulfate [Albuterol Sulfate Hfa] 1 - 2 puff PO Q4H PRN 10/07/20 [History] Allopurinol [Zyloprim] 50 mg PO DAILY 10/07/20 [History] Aspirin 81 mg PO DAILY 10/07/20 [History] Carboxymethylcellulose Sodium [Refresh Liquigel 1%] 1 drop EYEBOTH QID 10/07/20 [History] Diclofenac Sodium [Voltaren 1% Gel] 4 g TOP QID PRN 10/07/20 [History] Furosemide 40 mg PO DAILY 10/07/20 [History] Insulin Aspart [NovoLOG] 15 units SQ TIDMEALS 10/07/20 [History] Insulin Glarg,Human.Rec.Analog [Lantus Solostar] 45 units SQ BEDTIME 10/07/20 [History] Lidocaine 5% [Lidoderm 5%] 700 mg TOP BEDTIME 10/07/20 [History] Magnesium Hydroxide [Milk of Magnesia] 30 ml PO BEDTIME PRN 10/07/20 [History] Metoprolol Succinate 25 mg PO DAILY 10/07/20 [History] Montelukast [Singulair] 10 mg PO BEDTIME 10/07/20 [History] Trolamine Salicylate/Aloe Vera [Aspercreme 10% Cream] 1 applic TOP QID PRN 10/07/20 [History] atorvaSTATin [Lipitor] 10 mg PO WITHDINNER 10/07/20 [History] polyethylene glycoL 3350 [Miralax] 17 g PO DAILY 10/07/20 [History] predniSONE 40 mg PO DAILY 10/07/20 [History] Past Medical History Cardiovascular History: Reports: High Cholesterol, Hypertension Respiratory History: Reports: Sleep Apnea, Other (See Below) Other Respiratory History: PLEURAL EFFUSION, PNEUMONIA Gastrointestinal History: Reports: GERD [employer] History: Reports: Musculoskeletal History: Reports: RA Other Musculoskeletal History: RT INDEX FRACTURE, SPINAL ARTHRITIS Neurological History: Reports: Other (See Below) Other Neuro History: hx of memory loss. Psychiatric History: Reports: Depression Endocrine/Metabolic History: Reports: Diabetes, Type II, Hypothyroidism, Obesity/BMI 30+ Oncologic (Cancer) History: Reports: Other (See Below) Other Oncologic History: TONGUE - Infectious Disease History Infectious Disease History: Reports: Scarlet Fever - Past Surgical History HEENT Surgical History: Reports: Cataract Surgery, Other (See Below) Other HEENT Surgeries/Procedures: BOTH EYES CATARACT SURGERY, TOUNGUE SURGERY AND LYMPH NODES 06/13/19 GI Surgical History: Reports: Appendectomy, Cholecystectomy Female Surgical History: Reports: Hysterectomy Social & Family History - Family History Family Medical History: No Pertinent Family History - Caffeine Use Caffeine Use: Reports: Coffee - Recreational Drug Use Recreational Drug Use: No H&P Review of Systems - Review of Systems: Review Of Systems: Comprehensive ROS is negative, except as noted in HPI. Exam - Exam Exam: See Below - Vital Signs Vital Signs: Last Vital Signs Temp Pulse 59 L 10/07/20 13:39 Resp BP 140/42 L 10/07/20 13:39 Pulse Ox 99 10/07/20 13:39 Weight: 90.809 kg - Exam General: Alert, Oriented, 4 HEENT: PERRLA, Hearing Intact, Mucosa Moist & [place], Nares Patent, Normal Nasal Septum, Posterior Pharynx Clear, Conjunctiva Clear, EOMI, EACs Clear, TMs Clear Neck: Supple, Trachea Midline, 2 Lungs: Clear to Auscultation, Normal Respiratory Effort Cardiovascular: Regular Rate, Regular Rhythm GI/Abdominal Exam: Normal Bowel Sounds, Soft, Non-Tender, No Organomegaly, No Distention, No Abnormal Bruit, No Mass, Pelvis Stable (Female) Exam: Deferred Rectal (Female) Exam: Deferred Back Exam: Normal Inspection, Full Range of Motion, NT Extremities: Normal Inspection, Normal Range of Motion, Non-Tender, No Pedal Edema, Normal Capillary Refill Skin: Warm, Dry, Intact Neurological: Cranial Nerves Intact, Reflexes Equal Bilateral Neuro Extensive - Mental Status: Alert, Oriented x3, Normal Mood/Affect, Normal Cognition Neuro Extensive - Motor, Sensory, Reflexes: CN II-XII Intact, Normal Gait, Normal Reflexes Psychiatric: Alert, Normal Affect, Normal Mood Sepsis Event Note - Focused Exam Vital Signs: Vital Signs Pulse BP Pulse Ox 10/07/20 13:39 59 L 140/42 L 99 - Problem List (1) Generalized weakness SNOMED Code(s): 26188239 ICD Code: R53.1 - WEAKNESS Status: Acute Current Visit: No (2) CAD (coronary artery disease) SNOMED Code(s): 54930516 ICD Code: I25.10 - ATHSCL HEART DISEASE OF [place] CORONARY ARTERY W/O ANG PCTRS Status: Acute Current Visit: Yes Qualifiers: Coronary Disease-Associated Artery/Lesion type: [place] artery [place] vs. t ransplanted heart: [place] heart (3) Pneumonia SNOMED Code(s): 178452415 ICD Code: J18.9 - PNEUMONIA, UNSPECIFIED ORGANISM Status: Acute Current Visit: Yes Qualifiers: Pneumonia type: due to unspecified organism (4) GERD (gastroesophageal reflux disease) SNOMED Code(s): 806755110 ICD Code: K21.9 - GASTRO-ESOPHAGEAL REFLUX DISEASE WITHOUT ESOPHAGITIS Status: Acute Current Visit: Yes Qualifiers: Esophagitis presence: without esophagitis Qualified Code(s): K21.9 - Gastro-esophageal reflux disease without esophagitis (5) Hypothyroidism SNOMED Code(s): 37310678 ICD Code: E03.9 - HYPOTHYROIDISM, UNSPECIFIED Status: Acute Current Visit: Yes Qualifiers: Hypothyroidism type: due to medication Qualified Code(s): E03.2 - Hypothyroidism due to medicaments and other exogenous substances (6) Falls frequently SNOMED Code(s): 265921362 ICD Code: R29.6 - REPEATED FALLS Status: Acute Current Visit: No (7) Atrial fibrillation SNOMED Code(s): 78295596 ICD Code: I48.91 - UNSPECIFIED ATRIAL FIBRILLATION Status: Chronic Current Visit: No Qualifiers: (8) CKD (chronic kidney disease) SNOMED Code(s): 535902282 ICD Code: N18.9 - CHRONIC KIDNEY DISEASE, UNSPECIFIED Status: Chronic Current Visit: No Qualifiers: Chronic kidney disease stage: stage 3 (moderate) (9) Diabetes SNOMED Code(s): 09791603 ICD Code: E11.9 - TYPE 2 DIABETES MELLITUS WITHOUT COMPLICATIONS Status: Chronic Current Visit: No Qualifiers: Chronic kidney disease stage: stage 3 (moderate) (10) Memory disturbance SNOMED Code(s): 901011191 ICD Code: R41.3 - OTHER AMNESIA Status: Acute Current Visit: Yes Problem List Initiated/Reviewed/Updated: Yes Orders Last 24hrs: Active Orders 24 hr Category Date Time Status Patient Status [ADT] Routine ADT 10/07/20 14:28 Active Accu Check [Blood Glucose Check, Bedside] [RC] TIDMEALS Care 10/07/20 15:20 Ordered Height and Weight [RC] WEEKLY Care 10/07/20 14:28 Active Oxygen Therapy [RC] PRN Care 10/07/20 14:28 Active RT Post Treatment Assessment [RC] Click to Edit Care 10/07/20 14:33 Active Up With Assistance [RC] ASDIRECTED Care 10/07/20 14:28 Active VTE/DVT Education [RC] Per Unit Routine Care 10/07/20 14:28 Active Vital Signs [RC] PER UNIT ROUTINE Care 10/07/20 14:28 Active OT Evaluation and Treatment [CONS] Routine Cons 10/07/20 14:28 Active PT Evaluation and Treatment [CONS] Routine Cons 10/07/20 14:28 Active Regular Diet [DIET] Diet 10/07/20 Breakfast Active Albuterol [Proventil Neb Soln] Med 10/07/20 15:07 Active 2.5 mg INH TID PRN Albuterol [Ventolin HFA] Med 10/07/20 14:30 Active 0 gm INH Q4H PRN Aspirin Med 10/08/20 09:00 Active 81 mg PO DAILY Calcium Carbonate [Oyster Shell Calcium] Med 10/07/20 21:00 Active 500 mg PO BID Carboxymethylcellulose Sodium [Refresh Liquigel 1%] Med 10/07/20 17:00 Active 0 ml EYEBOTH QID Dextrose 50% in Water Med 10/07/20 14:30 Active 50 ml IVPUSH ASDIRECTED PRN Diclofenac Sodium [Voltaren 1% Gel] Med 10/07/20 17:00 Active 4 gm TOP QID PRN Docusate Sodium/Sennosides [Senna Plus] Med 10/07/20 14:30 Active 1 tab PO DAILY PRN Famotidine [Pepcid] Med 10/07/20 21:00 Active 20 mg PO BID Furosemide [Lasix] Med 10/08/20 09:00 Active 40 mg PO DAILY Gabapentin [Neurontin] Med 10/07/20 21:00 Active 100 mg PO BID Glucagon,Human Recombinant [GlucaGen] Med 10/07/20 14:30 Active 1 mg IM ASDIRECTED PRN Insulin Glarg,Human.Rec.Analog [LantUS Solostar] Med 10/07/20 21:00 Active 45 units SUBCUT BEDTIME Insulin Lispro [HumaLOG] Med 10/07/20 18:00 Active 15 unit SUBCUT TIDMEALS Isosorbide Mononitrate [Imdur] Med 10/07/20 21:00 Active 30 mg PO BEDTIME Levothyroxine Med 10/08/20 12:00 Active 125 mcg PO DAILY@1200 Lidocaine 4% [Aspercreme 4%] Med 10/07/20 21:00 Active 1 each TOP BEDTIME Loperamide [Imodium] Med 10/07/20 14:30 Active 2 mg PO QID PRN Losartan [Cozaar] Med 10/08/20 09:00 Active 100 mg PO DAILY Magnesium Hydroxide [Milk of Magnesia] Med 10/07/20 14:30 Active 30 ml PO BEDTIME PRN Meclizine [Antivert] Med 10/07/20 14:30 Active 25 mg PO Q6H PRN Metoprolol Succinate [Toprol XL] Med 10/08/20 09:00 Active 25 mg PO DAILY Mirabegron [Myrbetriq] Med 10/08/20 09:00 Active 25 mg PO DAILY Montelukast [Singulair] Med 10/07/20 21:00 Active 10 mg PO BEDTIME Vit/FA/Fe Fumarate [-U] Med 10/08/20 09:00 Active 1 each PO DAILY Remove Patch Med 10/08/20 09:00 Active 1 ea TRDERM DAILY Trolamine Salicylate/Aloe Vera [Aspercreme 10%] Med 10/07/20 15:16 Active 0 gm TOP QID PRN allopurinoL [Zyloprim] Med 10/08/20 09:00 Active 50 mg PO DAILY amLODIPine [Norvasc] Med 10/08/20 09:00 Active 10 mg PO DAILY atorvaSTATin [Lipitor] Med 10/07/20 18:00 Active 10 mg PO WITHDINNER polyethylene glycoL 3350 [MiraLAX] Med 10/08/20 09:00 Active 17 gm PO DAILY predniSONE Med 10/08/20 09:00 Active 40 mg PO DAILY Resuscitation Status Routine Resus Stat 10/07/20 14:28 Ordered Medication Orders Albuterol (Proventil Neb Soln) 2.5 mg INH TID PRN PRN Reason: Shortness of Breath Albuterol (Ventolin Hfa) 0 gm INH Q4H PRN PRN Reason: Shortness of Breath Allopurinol (Zyloprim) 50 mg PO DAILY [facility] Amlodipine Besylate (Norvasc) 10 mg PO DAILY [facility] Artificial Tears (Refresh Liquigel 1%) 0 ml EYEBOTH QID [facility] Aspirin (Aspirin) 81 mg PO DAILY [facility] Atorvastatin Calcium (Lipitor) 10 mg PO WITHDINNER [facility] Calcium Carbonate/Glycine (Oyster Shell Calcium) 500 mg PO BID [facility] Dextrose/Water (Dextrose 50% In Water) 50 ml IVPUSH ASDIRECTED PRN PRN Reason: Hypoglycemia Diclofenac Sodium (Voltaren 1% Gel) 4 gm TOP QID PRN PRN Reason: PAIN Famotidine (Pepcid) 20 mg PO BID [facility] Furosemide (Lasix) 40 mg PO DAILY [facility] Gabapentin (Neurontin) 100 mg PO BID [facility] Glucagon (Glucagen) 1 mg IM ASDIRECTED PRN PRN Reason: Hypoglycemia Insulin Glargine (Lantus Solostar) 45 units SUBCUT BEDTIME [facility] Insulin Human Lispro (Humalog) 15 unit SUBCUT TIDMEALS [facility] Isosorbide Mononitrate (Imdur) 30 mg PO BEDTIME [facility] Levothyroxine Sodium (Levothyroxine) 125 mcg PO DAILY@1200 [facility] Lidocaine (Aspercreme 4%) 1 each TOP BEDTIME [facility] Loperamide HCl (Imodium) 2 mg PO QID PRN PRN Reason: Diarrhea Losartan Potassium (Cozaar) 100 mg PO DAILY [facility] Magnesium Hydroxide (Milk Of Magnesia) 30 ml PO BEDTIME PRN PRN Reason: Constipation Meclizine HCl (Antivert) 25 mg PO Q6H PRN PRN Reason: Dizziness Metoprolol Succinate (Toprol Xl) 25 mg PO DAILY [facility] Mirabegron (Myrbetriq) 25 mg PO DAILY [facility] Miscellaneous Information (Remove Patch) 1 ea TRDERM DAILY [facility] Montelukast Sodium (Singulair) 10 mg PO BEDTIME [facility] Polyethylene Glycol (Miralax) 17 gm PO DAILY [facility] Prednisone (Prednisone) 40 mg PO DAILY [facility] Stop: 10/08/20 10:59 Multivit/Folic Acid/Iron (-U) 1 each PO DAILY [facility] Senna/Docusate Sodium (Senna Plus) 1 tab PO DAILY PRN PRN Reason: Constipation Trolamine Salicylate (Aspercreme 10%) 0 gm TOP QID PRN PRN Reason: PAIN Assessment/Plan Comment:: Admit to swing bed, consult with physical and occupational therapy. Resume home medications. Manage hyperglycemia with sliding scale insulin.
[2020-10-07] MEDS ORDERED: Diclofenac Sodium 1% Gel 100 GM Tube TOP PRN (17:00)
[2020-10-07] MEDS: atorvaSTATin 10 MG Tab PO SCH (17:19)
[2020-10-07] MEDS: Carboxymethylcellulose Sodium 1% Ophth Gel 15 ML Bottle EYEBOTH SCH ×2 (17:19→20:45)
[2020-10-07] MEDS ORDERED: Insulin Lispro 100 Unit/ML 3 ML KwikPen SUBCUT ONE (18:16)
[2020-10-07] MEDS: Insulin Lispro 100 Unit/ML 3 ML KwikPen SUBCUT SCH (18:21)
[2020-10-07] MEDS: Gabapentin 100 MG Cap PO SCH (20:43)
[2020-10-07] MEDS: Lidocaine 4% 1 each Patch TOP SCH (20:43)
[2020-10-07] MEDS: Famotidine 20 MG Tab PO SCH (20:44)
[2020-10-07] MEDS: Calcium Carbonate 500 MG Tablet PO SCH (20:44)
[2020-10-07] MEDS: Montelukast 10 MG Tab PO SCH (20:46)
[2020-10-07] MEDS: Isosorbide Mononitrate 30 MG Tab.ER PO SCH (20:48)
[2020-10-07] MEDS ORDERED: Insulin Glargine,Human Rec. Analog 100 Units/ML 3 ML Pen SUBCUT ONE (20:51)
[2020-10-07] MEDS: Insulin Glargine,Human Rec. Analog 100 Units/ML 3 ML Pen SUBCUT SCH (20:53)
[2020-10-08] MEDS: Insulin Lispro 100 Unit/ML 3 ML KwikPen SUBCUT SCH ×3 (07:50→18:14)
[2020-10-08] MEDS: Allopurinol 100 MG Tab PO SCH (08:35)
[2020-10-08] MEDS: Aspirin 81 MG Tab.Chew PO SCH (08:35)
[2020-10-08] MEDS: Mirabegron 25 MG Tab Extended Release PO SCH (08:35)
[2020-10-08] MEDS: Furosemide 40 MG Tab PO SCH (08:36)
[2020-10-08] MEDS: Famotidine 20 MG Tab PO SCH ×2 (08:36→20:30)
[2020-10-08] MEDS: Polyethylene Glycol 3350 Powder 17 GM Packet PO SCH (08:36)
[2020-10-08] MEDS: Metoprolol Succinate 25 MG Tab.ER PO SCH (08:36)
[2020-10-08] MEDS: Calcium Carbonate 500 MG Tablet PO SCH ×2 (08:36→20:30)
[2020-10-08] MEDS: amLODIPine 10 MG Tab PO SCH (08:36)
[2020-10-08] MEDS: Losartan 100 MG Tab PO SCH (08:37)
[2020-10-08] MEDS: Prenatal Multivitamin with Calcium/Folic Acid/Fe Fumarate Cap PO SCH (08:37)
[2020-10-08] MEDS: Carboxymethylcellulose Sodium 1% Ophth Gel 15 ML Bottle EYEBOTH SCH ×4 (08:38→20:31)
[2020-10-08] MEDS: Gabapentin 100 MG Cap PO SCH ×2 (08:39→20:30)
[2020-10-08] MEDS ORDERED: predniSONE 20 MG Tab PO SCH (09:00)
[2020-10-08] MEDS: Levothyroxine 125 MCG Tab PO SCH (12:12)
[2020-10-08] MEDS: atorvaSTATin 10 MG Tab PO SCH (18:13)
[2020-10-08] MEDS: Lidocaine 4% 1 each Patch TOP SCH (20:29)
[2020-10-08] MEDS: Melatonin 3 MG Tab PO SCH (20:30)
[2020-10-08] MEDS: Isosorbide Mononitrate 30 MG Tab.ER PO SCH (20:31)
[2020-10-08] MEDS: Montelukast 10 MG Tab PO SCH (20:31)
[2020-10-08] MEDS: Insulin Glargine,Human Rec. Analog 100 Units/ML 3 ML Pen SUBCUT SCH (20:32)
[2020-10-09] MEDS: Insulin Lispro 100 Unit/ML 3 ML KwikPen SUBCUT SCH ×3 (08:46→17:56)
[2020-10-09] MEDS: Gabapentin 100 MG Cap PO SCH ×2 (08:52→20:06)
[2020-10-09] MEDS: Furosemide 40 MG Tab PO SCH (08:52)
[2020-10-09] MEDS: Prenatal Multivitamin with Calcium/Folic Acid/Fe Fumarate Cap PO SCH (08:52)
[2020-10-09] MEDS: Aspirin 81 MG Tab.Chew PO SCH (08:52)
[2020-10-09] MEDS: Calcium Carbonate 500 MG Tablet PO SCH ×2 (08:52→20:02)
[2020-10-09] MEDS: amLODIPine 10 MG Tab PO SCH (08:53)
[2020-10-09] MEDS: Carboxymethylcellulose Sodium 1% Ophth Gel 15 ML Bottle EYEBOTH SCH ×6 (08:53→20:01)
[2020-10-09] MEDS: Famotidine 20 MG Tab PO SCH ×2 (08:53→20:03)
[2020-10-09] MEDS: Polyethylene Glycol 3350 Powder 17 GM Packet PO SCH (08:53)
[2020-10-09] MEDS: Mirabegron 25 MG Tab Extended Release PO SCH (08:53)
[2020-10-09] MEDS: Allopurinol 100 MG Tab PO SCH (08:54)
[2020-10-09] MEDS: Metoprolol Succinate 25 MG Tab.ER PO SCH (08:54)
[2020-10-09] MEDS: Losartan 100 MG Tab PO SCH (08:54)
[2020-10-09] MEDS: Levothyroxine 125 MCG Tab PO SCH (11:55)
[2020-10-09] MEDS: atorvaSTATin 10 MG Tab PO SCH (18:00)
[2020-10-09] MEDS: Lidocaine 4% 1 each Patch TOP SCH (19:59)
[2020-10-09] MEDS: Melatonin 3 MG Tab PO SCH (20:00)
[2020-10-09] MEDS: Montelukast 10 MG Tab PO SCH (20:01)
[2020-10-09] MEDS: Insulin Glargine,Human Rec. Analog 100 Units/ML 3 ML Pen SUBCUT SCH (20:07)
[2020-10-09] MEDS: Isosorbide Mononitrate 30 MG Tab.ER PO SCH (20:11)
[2020-10-10] MEDS: Insulin Lispro 100 Unit/ML 3 ML KwikPen SUBCUT SCH ×3 (09:11→18:10)
[2020-10-10] MEDS: amLODIPine 10 MG Tab PO SCH (09:16)
[2020-10-10] MEDS: Furosemide 40 MG Tab PO SCH (09:16)
[2020-10-10] MEDS: Aspirin 81 MG Tab.Chew PO SCH (09:16)
[2020-10-10] MEDS: Losartan 100 MG Tab PO SCH (09:16)
[2020-10-10] MEDS: Mirabegron 25 MG Tab Extended Release PO SCH (09:16)
[2020-10-10] MEDS: Metoprolol Succinate 25 MG Tab.ER PO SCH (09:16)
[2020-10-10] MEDS: Prenatal Multivitamin with Calcium/Folic Acid/Fe Fumarate Cap PO SCH (09:16)
[2020-10-10] MEDS: Calcium Carbonate 500 MG Tablet PO SCH ×2 (09:16→20:08)
[2020-10-10] MEDS: Polyethylene Glycol 3350 Powder 17 GM Packet PO SCH (09:16)
[2020-10-10] MEDS: Famotidine 20 MG Tab PO SCH ×2 (09:16→20:08)
[2020-10-10] MEDS: Allopurinol 100 MG Tab PO SCH (09:17)
[2020-10-10] MEDS: Carboxymethylcellulose Sodium 1% Ophth Gel 15 ML Bottle EYEBOTH SCH ×4 (09:17→20:06)
[2020-10-10] MEDS: Gabapentin 100 MG Cap PO SCH ×2 (09:23→20:14)
[2020-10-10] MEDS: Levothyroxine 125 MCG Tab PO SCH (11:50)
[2020-10-10] MEDS: atorvaSTATin 10 MG Tab PO SCH (18:10)
[2020-10-10] MEDS: Isosorbide Mononitrate 30 MG Tab.ER PO SCH (20:07)
[2020-10-10] MEDS: Melatonin 3 MG Tab PO SCH (20:08)
[2020-10-10] MEDS: Montelukast 10 MG Tab PO SCH (20:08)
[2020-10-10] MEDS: Lidocaine 4% 1 each Patch TOP SCH (20:09)
[2020-10-10] MEDS: Insulin Glargine,Human Rec. Analog 100 Units/ML 3 ML Pen SUBCUT SCH (20:14)
[2020-10-11] MEDS: Insulin Lispro 100 Unit/ML 3 ML KwikPen SUBCUT SCH ×3 (08:55→17:01)
[2020-10-11] MEDS: Aspirin 81 MG Tab.Chew PO SCH (08:58)
[2020-10-11] MEDS: Losartan 100 MG Tab PO SCH (08:58)
[2020-10-11] MEDS: Furosemide 40 MG Tab PO SCH (08:59)
[2020-10-11] MEDS: Mirabegron 25 MG Tab Extended Release PO SCH (08:59)
[2020-10-11] MEDS: Gabapentin 100 MG Cap PO SCH ×2 (09:02→20:36)
[2020-10-11] MEDS: Polyethylene Glycol 3350 Powder 17 GM Packet PO SCH (09:03)
[2020-10-11] MEDS: Calcium Carbonate 500 MG Tablet PO SCH ×2 (09:03→20:36)
[2020-10-11] MEDS: Famotidine 20 MG Tab PO SCH ×2 (09:03→20:36)
[2020-10-11] MEDS: amLODIPine 10 MG Tab PO SCH (09:03)
[2020-10-11] MEDS: Carboxymethylcellulose Sodium 1% Ophth Gel 15 ML Bottle EYEBOTH SCH ×4 (09:04→20:41)
[2020-10-11] MEDS: Prenatal Multivitamin with Calcium/Folic Acid/Fe Fumarate Cap PO SCH (09:04)
[2020-10-11] MEDS: Metoprolol Succinate 25 MG Tab.ER PO SCH (09:05)
[2020-10-11] MEDS: Allopurinol 100 MG Tab PO SCH (09:05)
[2020-10-11] MEDS: Levothyroxine 125 MCG Tab PO SCH (12:13)
[2020-10-11] MEDS: atorvaSTATin 10 MG Tab PO SCH (17:00)
[2020-10-11] MEDS: Isosorbide Mononitrate 30 MG Tab.ER PO SCH (20:36)
[2020-10-11] MEDS: Melatonin 3 MG Tab PO SCH (20:37)
[2020-10-11] MEDS: Montelukast 10 MG Tab PO SCH (20:37)
[2020-10-11] MEDS: Insulin Glargine,Human Rec. Analog 100 Units/ML 3 ML Pen SUBCUT SCH (20:37)
[2020-10-11] MEDS: Lidocaine 4% 1 each Patch TOP SCH (20:41)
[2020-10-12] MEDS: Allopurinol 100 MG Tab PO SCH (08:04)
[2020-10-12] MEDS: Aspirin 81 MG Tab.Chew PO SCH (08:06)
[2020-10-12] MEDS: Insulin Lispro 100 Unit/ML 3 ML KwikPen SUBCUT SCH ×3 (08:07→17:07)
[2020-10-12] MEDS: Losartan 100 MG Tab PO SCH (08:14)
[2020-10-12] MEDS: amLODIPine 10 MG Tab PO SCH (08:14)
[2020-10-12] MEDS: Mirabegron 25 MG Tab Extended Release PO SCH (08:15)
[2020-10-12] MEDS: Polyethylene Glycol 3350 Powder 17 GM Packet PO SCH (08:16)
[2020-10-12] MEDS: Carboxymethylcellulose Sodium 1% Ophth Gel 15 ML Bottle EYEBOTH SCH ×4 (08:16→20:06)
[2020-10-12] MEDS: Furosemide 40 MG Tab PO SCH (08:17)
[2020-10-12] MEDS: Calcium Carbonate 500 MG Tablet PO SCH ×2 (08:17→20:05)
[2020-10-12] MEDS: Famotidine 20 MG Tab PO SCH ×2 (08:18→20:05)
[2020-10-12] MEDS: Prenatal Multivitamin with Calcium/Folic Acid/Fe Fumarate Cap PO SCH (08:18)
[2020-10-12] MEDS: Metoprolol Succinate 25 MG Tab.ER PO SCH (08:19)
--- NOTE | 2020-10-12 08:24 | PCM.PN ---
- General Info Date of Service: 10/12/20 Admission Dx/Problem (Free Text): This 85-year-old female patient has no concerns. She denies fevers, chills, sore throat, chest pain, shortness breath or leg swelling. - Patient Data Vitals - Most Recent: Last Vital Signs Temp 98.8 F 10/11/20 08:00 Pulse 63 10/11/20 09:05 Resp 18 10/11/20 08:00 BP 149/56 H 10/12/20 08:14 Pulse Ox 98 10/11/20 08:00 Orthostatic Blood Pressure [ 152/57 Sitting] Orthostatic Blood Pressure [ 140/46 Supine] Weight - Most Recent: 199 lb 3.2 oz Lab Results Last 24 Hours: Laboratory Results - last 24 hr 10/11/20 10/11/20 Range/Units 11:26 15:35 POC Glucose 242 H 155 H (74-100) mg/dL Med Orders - Current: Current Medications Albuterol (Proventil Neb Soln) 2.5 mg INH TID PRN PRN Reason: Shortness of Breath Albuterol (Ventolin Hfa) 0 gm INH Q4H PRN PRN Reason: Shortness of Breath Allopurinol (Zyloprim) 50 mg PO DAILY [facility] Last Admin: 10/12/20 08:04 Dose: 50 mg Documented by: Amlodipine Besylate (Norvasc) 10 mg PO DAILY [facility] Last Admin: 10/12/20 08:14 Dose: 10 mg Documented by: Artificial Tears (Refresh Liquigel 1%) 0 ml EYEBOTH QID [facility] Last Admin: 10/12/20 08:16 Dose: 1 drop Documented by: Aspirin (Aspirin) 81 mg PO DAILY [facility] Last Admin: 10/12/20 08:06 Dose: 81 mg Documented by: Atorvastatin Calcium (Lipitor) 10 mg PO WITHDINNER [facility] Last Admin: 10/11/20 17:00 Dose: 10 mg Documented by: Calcium Carbonate/Glycine (Oyster Shell Calcium) 500 mg PO BID [facility] Last Admin: 10/12/20 08:17 Dose: 500 mg Documented by: Dextrose/Water (Dextrose 50% In Water) 50 ml IVPUSH ASDIRECTED PRN PRN Reason: Hypoglycemia Diclofenac Sodium (Voltaren 1% Gel) 4 gm TOP QID PRN PRN Reason: PAIN Famotidine (Pepcid) 20 mg PO BID [facility] Last Admin: 10/12/20 08:18 Dose: 20 mg Documented by: Furosemide (Lasix) 40 mg PO DAILY [facility] Last Admin: 10/12/20 08:17 Dose: 40 mg Documented by: Gabapentin (Neurontin) 100 mg PO BID [facility] Last Admin: 10/11/20 20:36 Dose: 100 mg Documented by: Glucagon (Glucagen) 1 mg IM ASDIRECTED PRN PRN Reason: Hypoglycemia Insulin Glargine (Lantus Solostar) 45 units SUBCUT BEDTIME [facility] Last Admin: 10/11/20 20:37 Dose: 45 units Documented by: Insulin Human Lispro (Humalog) 15 unit SUBCUT TIDMEALS [facility] Last Admin: 10/12/20 08:07 Dose: 15 units Documented by: Isosorbide Mononitrate (Imdur) 30 mg PO BEDTIME [facility] Last Admin: 10/11/20 20:36 Dose: 30 mg Documented by: Levothyroxine Sodium (Levothyroxine) 125 mcg PO DAILY@1200 [facility] Last Admin: 10/11/20 12:13 Dose: 125 mcg Documented by: Lidocaine (Aspercreme 4%) 1 each TOP BEDTIME [facility] Last Admin: 10/11/20 20:41 Dose: 1 each Documented by: Loperamide HCl (Imodium) 2 mg PO QID PRN PRN Reason: Diarrhea Losartan Potassium (Cozaar) 100 mg PO DAILY [facility] Last Admin: 10/12/20 08:14 Dose: 100 mg Documented by: Magnesium Hydroxide (Milk Of Magnesia) 30 ml PO BEDTIME PRN PRN Reason: Constipation Meclizine HCl (Antivert) 25 mg PO Q6H PRN PRN Reason: Dizziness Melatonin (Melatonin) 9 mg PO BEDTIME [facility] Last Admin: 10/11/20 20:37 Dose: 9 mg Documented by: Metoprolol Succinate (Toprol Xl) 25 mg PO DAILY [facility] Last Admin: 10/11/20 09:05 Dose: 25 mg Documented by: Mirabegron (Myrbetriq) 25 mg PO DAILY [facility] Last Admin: 10/12/20 08:15 Dose: 25 mg Documented by: Miscellaneous Information (Remove Patch) 1 ea TRDERM DAILY [facility] Last Admin: 10/12/20 08:04 Dose: 1 ea Documented by: Montelukast Sodium (Singulair) 10 mg PO BEDTIME [facility] Last Admin: 10/11/20 20:37 Dose: 10 mg Documented by: Polyethylene Glycol (Miralax) 17 gm PO DAILY [facility] Last Admin: 10/12/20 08:16 Dose: 17 gm Documented by: Multivit/Folic Acid/Iron (-U) 1 each PO DAILY [facility] Last Admin: 10/12/20 08:18 Dose: 1 each Documented by: Senna/Docusate Sodium (Senna Plus) 1 tab PO DAILY PRN PRN Reason: Constipation Trolamine Salicylate (Aspercreme 10%) 0 gm TOP QID PRN PRN Reason: PAIN Discontinued Medications Calcium Carbonate/Glycine (Oyster Shell Calcium) 500 mg PO BID [facility] Last Admin: 10/08/20 08:36 Dose: 500 mg Documented by: Prednisone (Prednisone) 40 mg PO DAILY [facility] Stop: 10/08/20 10:59 Last Admin: 10/08/20 08:37 Dose: 40 mg Documented by: - Exam General: Alert, Cooperative Lungs: Clear to Auscultation, Normal Respiratory Effort Cardiovascular: Regular Rate, Regular Rhythm, No Murmurs Extremities: No Pedal Edema Psy/Mental Status: Alert, Normal Mood Sepsis Event Note - Evaluation Sepsis Screening Result: No Definite Risk - Focused Exam Vital Signs: Vital Signs BP 10/12/20 08:14 149/56 H 10/11/20 20:36 159/59 H - Problem List & Annotations (1) CAD (coronary artery disease) SNOMED Code(s): 13109463 Code(s): I25.10 - ATHSCL HEART DISEASE OF [place] CORONARY ARTERY W/O ANG PCTRS Status: Acute Current Visit: Yes Qualifiers: Coronary Disease-Associated Artery/Lesion type: [place] artery [place] vs. transplanted heart: [place] heart (2) GERD (gastroesophageal reflux disease) SNOMED Code(s): 519875191 Code(s): K21.9 - GASTRO-ESOPHAGEAL REFLUX DISEASE WITHOUT ESOPHAGITIS Status: Acute Current Visit: Yes Qualifiers: Esophagitis presence: without esophagitis Qualified Code(s): K21.9 - Gastro-esophageal reflux disease without esophagitis (3) CHF (congestive heart failure) SNOMED Code(s): 25586486 Code(s): I50.9 - HEART FAILURE, UNSPECIFIED Status: Acute Current Visit: No Qualifiers: Heart failure type: combined systolic and diastolic (4) Falls frequently SNOMED Code(s): 838984994 Code(s): R29.6 - REPEATED FALLS Status: Acute Current Visit: No (5) Generalized weakness SNOMED Code(s): 15658092 Code(s): R53.1 - WEAKNESS Status: Acute Current Visit: No (6) NSTEMI (non-ST elevated myocardial infarction) SNOMED Code(s): 16672930 Code(s): I21.4 - NON-ST ELEVATION (NSTEMI) MYOCARDIAL INFARCTION Status: Acute Current Visit: No (7) Atrial fibrillation SNOMED Code(s): 48303117 Code(s): I48.91 - UNSPECIFIED ATRIAL FIBRILLATION Status: Chronic Current Visit: No Qualifiers: (8) CKD (chronic kidney disease) SNOMED Code(s): 868095354 Code(s): N18.9 - CHRONIC KIDNEY DISEASE, UNSPECIFIED Status: Chronic Current Visit: No Qualifiers: Chronic kidney disease stage: stage 3 (moderate) (9) Diabetes SNOMED Code(s): 61282131 Code(s): E11.9 - TYPE 2 DIABETES MELLITUS WITHOUT COMPLICATIONS Status: Chronic Current Visit: No Qualifiers: Chronic kidney disease stage: stage 3 (moderate) - Problem List Review Problem List Initiated/Reviewed/Updated: Yes - Plan Plan:: Continue current care. In the orders states she was placed on a sliding scale insulin but in the orders she was place on insulin 3 times a day and her blood sugars are doing well so no changes.
[2020-10-12] MEDS: Gabapentin 100 MG Cap PO SCH ×2 (08:27→20:06)
[2020-10-12] MEDS: Levothyroxine 125 MCG Tab PO SCH (12:45)
[2020-10-12] MEDS: atorvaSTATin 10 MG Tab PO SCH (17:04)
[2020-10-12] MEDS: Isosorbide Mononitrate 30 MG Tab.ER PO SCH (20:05)
[2020-10-12] MEDS: Melatonin 3 MG Tab PO SCH (20:05)
[2020-10-12] MEDS: Lidocaine 4% 1 each Patch TOP SCH (20:06)
[2020-10-12] MEDS: Montelukast 10 MG Tab PO SCH (20:06)
[2020-10-12] MEDS: Insulin Glargine,Human Rec. Analog 100 Units/ML 3 ML Pen SUBCUT SCH (20:08)
[2020-10-13] MEDS: Insulin Lispro 100 Unit/ML 3 ML KwikPen SUBCUT SCH ×3 (08:24→17:28)
[2020-10-13] MEDS: Losartan 100 MG Tab PO SCH (08:24)
[2020-10-13] MEDS: Aspirin 81 MG Tab.Chew PO SCH (08:24)
[2020-10-13] MEDS: Furosemide 40 MG Tab PO SCH (08:25)
[2020-10-13] MEDS: Prenatal Multivitamin with Calcium/Folic Acid/Fe Fumarate Cap PO SCH (08:26)
[2020-10-13] MEDS: Mirabegron 25 MG Tab Extended Release PO SCH (08:26)
[2020-10-13] MEDS: Calcium Carbonate 500 MG Tablet PO SCH ×2 (08:26→20:28)
[2020-10-13] MEDS: amLODIPine 10 MG Tab PO SCH (08:26)
[2020-10-13] MEDS: Allopurinol 100 MG Tab PO SCH (08:26)
[2020-10-13] MEDS: Carboxymethylcellulose Sodium 1% Ophth Gel 15 ML Bottle EYEBOTH SCH ×4 (08:27→20:28)
[2020-10-13] MEDS: Metoprolol Succinate 25 MG Tab.ER PO SCH (08:27)
[2020-10-13] MEDS: Famotidine 20 MG Tab PO SCH ×2 (08:27→20:28)
[2020-10-13] MEDS: Polyethylene Glycol 3350 Powder 17 GM Packet PO SCH (08:28)
[2020-10-13] MEDS: Gabapentin 100 MG Cap PO SCH ×2 (08:30→20:26)
[2020-10-13] MEDS: Levothyroxine 125 MCG Tab PO SCH (11:31)
[2020-10-13] MEDS: atorvaSTATin 10 MG Tab PO SCH (17:28)
[2020-10-13] MEDS ORDERED: Insulin Glargine,Human Rec. Analog 100 Units/ML 3 ML Pen SUBCUT ONE (20:21)
[2020-10-13] MEDS: Lidocaine 4% 1 each Patch TOP SCH (20:26)
[2020-10-13] MEDS: Melatonin 3 MG Tab PO SCH (20:27)
[2020-10-13] MEDS: Isosorbide Mononitrate 30 MG Tab.ER PO SCH (20:27)
[2020-10-13] MEDS: Montelukast 10 MG Tab PO SCH (20:29)
[2020-10-13] MEDS: Insulin Glargine,Human Rec. Analog 100 Units/ML 3 ML Pen SUBCUT SCH (20:30)
[2020-10-14] MEDS: Aspirin 81 MG Tab.Chew PO SCH (08:01)
[2020-10-14] MEDS: Gabapentin 100 MG Cap PO SCH ×2 (08:01→20:46)
[2020-10-14] MEDS: Insulin Lispro 100 Unit/ML 3 ML KwikPen SUBCUT SCH ×3 (08:01→17:36)
[2020-10-14] MEDS: Carboxymethylcellulose Sodium 1% Ophth Gel 15 ML Bottle EYEBOTH SCH ×4 (08:01→20:47)
[2020-10-14] MEDS: Losartan 100 MG Tab PO SCH (08:02)
[2020-10-14] MEDS: Furosemide 40 MG Tab PO SCH (08:02)
[2020-10-14] MEDS: Polyethylene Glycol 3350 Powder 17 GM Packet PO SCH (08:03)
[2020-10-14] MEDS: Calcium Carbonate 500 MG Tablet PO SCH ×2 (08:04→20:47)
[2020-10-14] MEDS: Mirabegron 25 MG Tab Extended Release PO SCH (08:04)
[2020-10-14] MEDS: amLODIPine 10 MG Tab PO SCH (08:04)
[2020-10-14] MEDS: Famotidine 20 MG Tab PO SCH ×2 (08:05→20:47)
[2020-10-14] MEDS: Prenatal Multivitamin with Calcium/Folic Acid/Fe Fumarate Cap PO SCH (08:05)
[2020-10-14] MEDS: Metoprolol Succinate 25 MG Tab.ER PO SCH (08:06)
[2020-10-14] MEDS: Allopurinol 100 MG Tab PO SCH (08:06)
[2020-10-14] MEDS: Levothyroxine 125 MCG Tab PO SCH (11:25)
[2020-10-14] MEDS: atorvaSTATin 10 MG Tab PO SCH (17:36)
[2020-10-14] MEDS: Montelukast 10 MG Tab PO SCH (20:46)
[2020-10-14] MEDS: Isosorbide Mononitrate 30 MG Tab.ER PO SCH (20:47)
[2020-10-14] MEDS: Melatonin 3 MG Tab PO SCH (20:47)
[2020-10-14] MEDS: Lidocaine 4% 1 each Patch TOP SCH (20:48)
[2020-10-14] MEDS: Insulin Glargine,Human Rec. Analog 100 Units/ML 3 ML Pen SUBCUT SCH (21:28)
[2020-10-15] MEDS: Insulin Lispro 100 Unit/ML 3 ML KwikPen SUBCUT SCH ×3 (08:06→17:58)
[2020-10-15] MEDS: Aspirin 81 MG Tab.Chew PO SCH (09:03)
[2020-10-15] MEDS: Losartan 100 MG Tab PO SCH (09:04)
[2020-10-15] MEDS: Furosemide 40 MG Tab PO SCH (09:05)
[2020-10-15] MEDS: Gabapentin 100 MG Cap PO SCH ×2 (09:05→20:05)
[2020-10-15] MEDS: amLODIPine 10 MG Tab PO SCH (09:05)
[2020-10-15] MEDS: Mirabegron 25 MG Tab Extended Release PO SCH (09:05)
[2020-10-15] MEDS: Polyethylene Glycol 3350 Powder 17 GM Packet PO SCH (09:05)
[2020-10-15] MEDS: Calcium Carbonate 500 MG Tablet PO SCH ×2 (09:06→20:05)
[2020-10-15] MEDS: Metoprolol Succinate 25 MG Tab.ER PO SCH (09:06)
[2020-10-15] MEDS: Prenatal Multivitamin with Calcium/Folic Acid/Fe Fumarate Cap PO SCH (09:06)
[2020-10-15] MEDS: Carboxymethylcellulose Sodium 1% Ophth Gel 15 ML Bottle EYEBOTH SCH ×4 (09:06→20:05)
[2020-10-15] MEDS: Famotidine 20 MG Tab PO SCH ×2 (09:06→20:05)
[2020-10-15] MEDS: Allopurinol 100 MG Tab PO SCH (09:07)
[2020-10-15] MEDS: Levothyroxine 125 MCG Tab PO SCH (11:41)
[2020-10-15] MEDS: atorvaSTATin 10 MG Tab PO SCH (18:00)
[2020-10-15] MEDS: Lidocaine 4% 1 each Patch TOP SCH (20:04)
[2020-10-15] MEDS: Melatonin 3 MG Tab PO SCH (20:05)
[2020-10-15] MEDS: Montelukast 10 MG Tab PO SCH (20:05)
[2020-10-15] MEDS: Isosorbide Mononitrate 30 MG Tab.ER PO SCH (20:05)
[2020-10-15] MEDS: Insulin Glargine,Human Rec. Analog 100 Units/ML 3 ML Pen SUBCUT SCH (20:09)
[2020-10-16] MEDS: Insulin Lispro 100 Unit/ML 3 ML KwikPen SUBCUT SCH ×3 (08:32→17:21)
[2020-10-16] MEDS: Losartan 100 MG Tab PO SCH (10:02)
[2020-10-16] MEDS: Aspirin 81 MG Tab.Chew PO SCH (10:02)
[2020-10-16] MEDS: Gabapentin 100 MG Cap PO SCH ×2 (10:03→20:04)
[2020-10-16] MEDS: Furosemide 40 MG Tab PO SCH (10:03)
[2020-10-16] MEDS: amLODIPine 10 MG Tab PO SCH (10:03)
[2020-10-16] MEDS: Mirabegron 25 MG Tab Extended Release PO SCH (10:03)
[2020-10-16] MEDS: Allopurinol 100 MG Tab PO SCH (10:04)
[2020-10-16] MEDS: Calcium Carbonate 500 MG Tablet PO SCH ×2 (10:04→20:03)
[2020-10-16] MEDS: Metoprolol Succinate 25 MG Tab.ER PO SCH (10:04)
[2020-10-16] MEDS: Famotidine 20 MG Tab PO SCH ×2 (10:04→20:03)
[2020-10-16] MEDS: Prenatal Multivitamin with Calcium/Folic Acid/Fe Fumarate Cap PO SCH (10:04)
[2020-10-16] MEDS: Carboxymethylcellulose Sodium 1% Ophth Gel 15 ML Bottle EYEBOTH SCH ×4 (10:04→20:04)
[2020-10-16] MEDS: Polyethylene Glycol 3350 Powder 17 GM Packet PO SCH (10:06)
[2020-10-16] MEDS: Levothyroxine 125 MCG Tab PO SCH (11:58)
[2020-10-16] MEDS: atorvaSTATin 10 MG Tab PO SCH (17:20)
[2020-10-16] MEDS: Lidocaine 4% 1 each Patch TOP SCH (20:00)
[2020-10-16] MEDS: Insulin Glargine,Human Rec. Analog 100 Units/ML 3 ML Pen SUBCUT SCH (20:00)
[2020-10-16] MEDS: Isosorbide Mononitrate 30 MG Tab.ER PO SCH (20:01)
[2020-10-16] MEDS: Melatonin 3 MG Tab PO SCH (20:03)
[2020-10-16] MEDS: Montelukast 10 MG Tab PO SCH (20:04)
[2020-10-17] MEDS: Insulin Lispro 100 Unit/ML 3 ML KwikPen SUBCUT SCH ×3 (08:37→18:01)
[2020-10-17] MEDS: Polyethylene Glycol 3350 Powder 17 GM Packet PO SCH (08:38)
[2020-10-17] MEDS: Gabapentin 100 MG Cap PO SCH ×2 (08:38→20:02)
[2020-10-17] MEDS: Mirabegron 25 MG Tab Extended Release PO SCH (08:38)
[2020-10-17] MEDS: Prenatal Multivitamin with Calcium/Folic Acid/Fe Fumarate Cap PO SCH (08:39)
[2020-10-17] MEDS: Calcium Carbonate 500 MG Tablet PO SCH ×2 (08:39→20:04)
[2020-10-17] MEDS: Famotidine 20 MG Tab PO SCH ×2 (08:39→20:03)
[2020-10-17] MEDS: Aspirin 81 MG Tab.Chew PO SCH (08:40)
[2020-10-17] MEDS: Metoprolol Succinate 25 MG Tab.ER PO SCH (08:42)
[2020-10-17] MEDS: Carboxymethylcellulose Sodium 1% Ophth Gel 15 ML Bottle EYEBOTH SCH ×4 (08:43→20:09)
[2020-10-17] MEDS: Allopurinol 100 MG Tab PO SCH (08:43)
[2020-10-17] MEDS: Furosemide 40 MG Tab PO SCH (08:44)
[2020-10-17] MEDS: Losartan 100 MG Tab PO SCH (08:44)
[2020-10-17] MEDS: amLODIPine 10 MG Tab PO SCH (08:44)
[2020-10-17] MEDS: Levothyroxine 125 MCG Tab PO SCH (11:39)
[2020-10-17] MEDS: atorvaSTATin 10 MG Tab PO SCH (18:02)
[2020-10-17] MEDS: Lidocaine 4% 1 each Patch TOP SCH (20:01)
[2020-10-17] MEDS: Montelukast 10 MG Tab PO SCH (20:02)
[2020-10-17] MEDS: Isosorbide Mononitrate 30 MG Tab.ER PO SCH (20:03)
[2020-10-17] MEDS: Melatonin 3 MG Tab PO SCH (20:04)
[2020-10-17] MEDS: Insulin Glargine,Human Rec. Analog 100 Units/ML 3 ML Pen SUBCUT SCH (20:05)
[2020-10-18] MEDS: Insulin Lispro 100 Unit/ML 3 ML KwikPen SUBCUT SCH ×3 (08:09→17:58)
[2020-10-18] MEDS: Aspirin 81 MG Tab.Chew PO SCH (08:09)
[2020-10-18] MEDS: Calcium Carbonate 500 MG Tablet PO SCH ×2 (08:09→20:47)
[2020-10-18] MEDS: Gabapentin 100 MG Cap PO SCH ×2 (08:09→20:50)
[2020-10-18] MEDS: Mirabegron 25 MG Tab Extended Release PO SCH (08:11)
[2020-10-18] MEDS: Carboxymethylcellulose Sodium 1% Ophth Gel 15 ML Bottle EYEBOTH SCH ×4 (08:11→20:42)
[2020-10-18] MEDS: Famotidine 20 MG Tab PO SCH ×2 (08:11→20:46)
[2020-10-18] MEDS: Prenatal Multivitamin with Calcium/Folic Acid/Fe Fumarate Cap PO SCH (08:11)
[2020-10-18] MEDS: Allopurinol 100 MG Tab PO SCH (08:11)
[2020-10-18] MEDS: Polyethylene Glycol 3350 Powder 17 GM Packet PO SCH (08:13)
[2020-10-18] MEDS: Losartan 100 MG Tab PO SCH (09:21)
[2020-10-18] MEDS: Metoprolol Succinate 25 MG Tab.ER PO SCH (09:21)
[2020-10-18] MEDS: Furosemide 40 MG Tab PO SCH (09:21)
[2020-10-18] MEDS: amLODIPine 5 MG Tab PO SCH (09:21)
[2020-10-18] MEDS: Levothyroxine 125 MCG Tab PO SCH (12:55)
[2020-10-18] MEDS ORDERED: Insulin Lispro 100 Unit/ML 3 ML KwikPen SUBCUT ONE (17:57)
[2020-10-18] MEDS: atorvaSTATin 10 MG Tab PO SCH (18:00)
[2020-10-18] MEDS: Lidocaine 4% 1 each Patch TOP SCH (20:44)
[2020-10-18] MEDS: Isosorbide Mononitrate 30 MG Tab.ER PO SCH (20:46)
[2020-10-18] MEDS: Montelukast 10 MG Tab PO SCH (20:46)
[2020-10-18] MEDS: Melatonin 3 MG Tab PO SCH (20:47)
[2020-10-18] MEDS: Insulin Glargine,Human Rec. Analog 100 Units/ML 3 ML Pen SUBCUT SCH (20:52)
[2020-10-19] MEDS: Polyethylene Glycol 3350 Powder 17 GM Packet PO SCH (08:31)
[2020-10-19] MEDS: Insulin Lispro 100 Unit/ML 3 ML KwikPen SUBCUT SCH ×3 (08:31→18:26)
[2020-10-19] MEDS: Aspirin 81 MG Tab.Chew PO SCH (08:31)
[2020-10-19] MEDS: Prenatal Multivitamin with Calcium/Folic Acid/Fe Fumarate Cap PO SCH (08:32)
[2020-10-19] MEDS: Mirabegron 25 MG Tab Extended Release PO SCH (08:32)
[2020-10-19] MEDS: Carboxymethylcellulose Sodium 1% Ophth Gel 15 ML Bottle EYEBOTH SCH ×4 (08:32→21:11)
[2020-10-19] MEDS: Gabapentin 100 MG Cap PO SCH ×2 (08:32→21:13)
[2020-10-19] MEDS: Allopurinol 100 MG Tab PO SCH (08:32)
[2020-10-19] MEDS: Famotidine 20 MG Tab PO SCH ×2 (08:33→21:11)
[2020-10-19] MEDS: Calcium Carbonate 500 MG Tablet PO SCH ×2 (08:33→21:11)
[2020-10-19] MEDS: Metoprolol Succinate 25 MG Tab.ER PO SCH (09:28)
[2020-10-19] MEDS: Furosemide 40 MG Tab PO SCH (09:28)
[2020-10-19] MEDS: amLODIPine 5 MG Tab PO SCH (09:29)
[2020-10-19] MEDS: Losartan 50 MG Tab PO SCH (11:32)
[2020-10-19] MEDS: Levothyroxine 125 MCG Tab PO SCH (11:33)
[2020-10-19] MEDS: Losartan 100 MG Tab PO SCH (13:22)
[2020-10-19] MEDS: atorvaSTATin 10 MG Tab PO SCH (18:27)
[2020-10-19] MEDS ORDERED: Glucagon,Human Recombinant 1 MG Vial IM PRN (20:07)
[2020-10-19] MEDS ORDERED: 50% Dextrose in Water 50 ML Syringe IVPUSH PRN (20:07)
[2020-10-19] MEDS ORDERED: Insulin Glargine,Human Rec. Analog 100 Units/ML 3 ML Pen SUBCUT SCH (21:00)
[2020-10-19] MEDS ORDERED: Isosorbide Mononitrate 30 MG Tab.ER PO SCH (21:00)
[2020-10-19] MEDS: Lidocaine 4% 1 each Patch TOP SCH (21:10)
[2020-10-19] MEDS: Montelukast 10 MG Tab PO SCH (21:13)
[2020-10-19] MEDS: Melatonin 3 MG Tab PO SCH (21:13)
[2020-10-20] MEDS: Polyethylene Glycol 3350 Powder 17 GM Packet PO SCH (08:36)
[2020-10-20] MEDS: Insulin Lispro 100 Unit/ML 3 ML KwikPen SUBCUT SCH (08:36)
[2020-10-20] MEDS: Gabapentin 100 MG Cap PO SCH (08:37)
[2020-10-20] MEDS: amLODIPine 5 MG Tab PO SCH (08:37)
[2020-10-20] MEDS: Losartan 50 MG Tab PO SCH (08:37)
[2020-10-20] MEDS: Famotidine 20 MG Tab PO SCH (08:37)
[2020-10-20] MEDS: Prenatal Multivitamin with Calcium/Folic Acid/Fe Fumarate Cap PO SCH (08:37)
[2020-10-20] MEDS: Aspirin 81 MG Tab.Chew PO SCH (08:37)
[2020-10-20] MEDS: Mirabegron 25 MG Tab Extended Release PO SCH (08:38)
[2020-10-20] MEDS: Calcium Carbonate 500 MG Tablet PO SCH (08:38)
[2020-10-20] MEDS: Carboxymethylcellulose Sodium 1% Ophth Gel 15 ML Bottle EYEBOTH SCH (08:38)
[2020-10-20] MEDS: Allopurinol 100 MG Tab PO SCH (08:38)
[2020-10-20] MEDS: Furosemide 40 MG Tab PO SCH (08:38)
[2020-10-20 08:39] VITALS: BP 133/47
[2020-10-20] MEDS ORDERED: Losartan 50 MG Tab PO SCH (09:00)
[2020-10-20] MEDS ORDERED: Tuberculin, PPD 5 Units/0.1 ML 1 ML MDV IDERM ONE (09:00)
--- NOTE | 2020-10-20 09:10 | PCM.DCSUM1 ---
Discharge Summary - Hospital Course HPI Initial Comments: Vania is a 85-year-old female admitted today from [facility]. She was sent over there a few days ago,from here, due to non-ST elevation VT, acute systolic congestive heart failure, pneumonia, chronic atrial fibrillation, and essential hypertension. She also has type 2 diabetes and stage III chronic kidney disease. She was treated with IV antibiotics, Lasix and medically managed for a acute coronary syndrome. She still too weak to return home, and is being admitted 40 and physical therapy Diagnosis: Stroke: No - Discharge Data Discharge Date: 10/20/20 Discharge Disposition: DC/Tfer to SNF 03 Condition: Good - Referral to Home Health Date of Face to Face Encounter: 10/20/20 Reason for Homebound Status: halfway Primary Care Physician: Maricel Baum NP Skilled Need: restorative therapy, cardiac rehab, [place] [facility] - Patient Summary/Data Consults: Consultations 10/07/20 14:28 OT Evaluation and Treatment [CONS] Routine Please Evaluate and Treat. OT Reason for Consult: Strengthening This query below is only for informational purposes and is not editable. PT Evaluation and Treatment [CONS] Routine Please Evaluate and Treat. PT Reason for Consult: Strengthening This query below is only for informational purposes and is not editable. Hospital Course: Vania has been progressing well with therapy, please see their notes for details. She was changed from sliding scale to tid mealtime insulin, Lantus decreased to 25 units at bedtime, sugars have been well controlled, 139 this morning. Her diastolic blood pressure has been low in the 30s, with systolic in the 130s, amlodipine was decreased to 5 mg, Metoprolol and Imdur was decreased to 12.5 mg and 15 mg respectively which brought her pulse up to 50s and diastolic up into the 40s so these two medications were both discontinued. PCP will need to continue to monitor and adjust as needed. Will be discharged to [facility] with [place] [facility], restorative therapy, cardiac rehab. Prednisone 40 mg was discontinued on Oct 08. - Patient Instructions Diet: Diabetic Diet Activity: As Tolerated Notify Provider of: Fever, Increased Pain, Nausea and/or Vomiting Other/Special Instructions: Transfer to [facility]. Follow up with PCP in 1-2 weeks. - Discharge Plan *PRESCRIPTION DRUG MONITORING PROGRAM REVIEWED*: Not Applicable *COPY OF PRESCRIPTION DRUG MONITORING REPORT IN PATIENT RONALD: Not Applicable Prescriptions/Med Rec: Insulin Glarg,Human.Rec.Analog [Lantus Solostar] 25 units SUBCUT BEDTIME #1 box Melatonin 9 mg PO BEDTIME #30 tablet amLODIPine [Norvasc] 5 mg PO DAILY 30 Days #30 tablet Home Medications: Home Meds Calcium Carbonate/Vitamin D3 [Calcium 500 mg-Vit D3 600 Unit] 1 tab PO BID 09/21/20 [History] Famotidine [Pepcid] 20 mg PO BID 09/21/20 [History] Gabapentin [Neurontin] 1 cap PO BID 09/21/20 [History] Loperamide [Imodium] 2 mg PO QID PRN 09/21/20 [History] Losartan Potassium 100 mg PO DAILY 09/21/20 [History] Meclizine [Antivert] 25 mg PO Q6H PRN 09/21/20 [History] Mirabegron [Myrbetriq] 25 mg PO DAILY 09/21/20 [History] Pnv No.95/Ferrous Fum/Folic AC [ Caplet] 1 each PO DAILY 09/21/20 [History] Levothyroxine 125 mcg PO DAILY@1200 09/22/20 [History] Sennosides/Docusate Sodium [Senna-S 8.6-50 mg Tablet] 1 tab PO DAILY PRN 09/22/20 [History] Albuterol Sulfate 3 ml PO TID PRN 10/07/20 [History] Albuterol Sulfate [Albuterol Sulfate Hfa] 1 - 2 puff PO Q4H PRN 10/07/20 [History] Allopurinol [Zyloprim] 50 mg PO DAILY 10/07/20 [History] Aspirin 81 mg PO DAILY 10/07/20 [History] Carboxymethylcellulose Sodium [Refresh Liquigel 1%] 1 drop EYEBOTH QID 10/07/20 [History] Diclofenac Sodium [Voltaren 1% Gel] 4 g TOP QID PRN 10/07/20 [History] Furosemide 40 mg PO DAILY 10/07/20 [History] Insulin Aspart [NovoLOG] 15 units SQ TIDMEALS 10/07/20 [History] Lidocaine 5% [Lidoderm 5%] 700 mg TOP BEDTIME 10/07/20 [History] Magnesium Hydroxide [Milk of Magnesia] 30 ml PO BEDTIME PRN 10/07/20 [History] Montelukast [Singulair] 10 mg PO BEDTIME 10/07/20 [History] Trolamine Salicylate/Aloe Vera [Aspercreme 10% Cream] 1 applic TOP QID PRN 10/07/20 [History] atorvaSTATin [Lipitor] 10 mg PO WITHDINNER 10/07/20 [History] polyethylene glycoL 3350 [Miralax] 17 g PO DAILY 10/07/20 [History] Insulin Glarg,Human.Rec.Analog [Lantus Solostar] 25 units SUBCUT BEDTIME #1 box 10/20/20 [Rx] Melatonin 9 mg PO BEDTIME #30 tablet 10/20/20 [Rx] Remove Patch 1 ea TRDERM DAILY each 10/20/20 [Rx] amLODIPine [Norvasc] 5 mg PO DAILY 30 Days #30 tablet 10/20/20 [Rx] Oxygen Therapy Mode: Room Air - Discharge Summary/Plan Comment DC Time >30 min.: No - General Info Date of Service: 10/20/20 Subjective Update: Vania states she feels fine, not sure if she had a bowel movement or not. No fevers, dizziness, chest pain, shortness of breath or edema. Lantus was decreased to 25 units last night, BS this morning was 139. Blood pressure and pulse improved but still diastolic is low and pulse in 50s. - Patient Data Vitals - Most Recent: Last Vital Signs Temp 97.5 F 10/19/20 07:58 Pulse 65 10/19/20 09:28 Resp 18 10/19/20 07:58 BP 133/47 L 10/20/20 08:37 Pulse Ox 96 10/19/20 07:58 Orthostatic Blood Pressure [ 152/57 Sitting] Orthostatic Blood Pressure [ 140/46 Supine] Weight - Most Recent: 201 lb 6.4 oz Lab Results - Last 24 hrs: Laboratory Results - last 24 hr 10/19/20 10/19/20 10/19/20 Range/Units 05:06 11:28 17:35 POC Glucose 161 H 180 H 134 H (74-100) mg/dL 10/20/20 Range/Units 05:16 POC Glucose 139 H (74-100) mg/dL Med Orders - Current: Current Medications Albuterol (Proventil Neb Soln) 2.5 mg INH TID PRN PRN Reason: Shortness of Breath Albuterol (Ventolin Hfa) 0 gm INH Q4H PRN PRN Reason: Shortness of Breath Allopurinol (Zyloprim) 50 mg PO DAILY [facility] Last Admin: 10/20/20 08:38 Dose: 50 mg Documented by: Amlodipine Besylate (Norvasc) 5 mg PO DAILY [facility] Last Admin: 10/20/20 08:37 Dose: 5 mg Documented by: Artificial Tears (Refresh Liquigel 1%) 0 ml EYEBOTH QID [facility] Last Admin: 10/20/20 08:38 Dose: 1 drop Documented by: Aspirin (Aspirin) 81 mg PO DAILY [facility] Last Admin: 10/20/20 08:37 Dose: 81 mg Documented by: Atorvastatin Calcium (Lipitor) 10 mg PO WITHDINNER [facility] Last Admin: 10/19/20 18:27 Dose: 10 mg Documented by: Calcium Carbonate/Glycine (Oyster Shell Calcium) 500 mg PO BID [facility] Last Admin: 10/20/20 08:38 Dose: 500 mg Documented by: Dextrose/Water (Dextrose 50% In Water) 50 ml IVPUSH ASDIRECTED PRN PRN Reason: Hypoglycemia Diclofenac Sodium (Voltaren 1% Gel) 4 gm TOP QID PRN PRN Reason: PAIN Famotidine (Pepcid) 20 mg PO BID [facility] Last Admin: 10/20/20 08:37 Dose: 20 mg Documented by: Furosemide (Lasix) 40 mg PO DAILY [facility] Last Admin: 10/20/20 08:38 Dose: 40 mg Documented by: Gabapentin (Neurontin) 100 mg PO BID [facility] Last Admin: 10/20/20 08:37 Dose: 100 mg Documented by: Glucagon (Glucagen) 1 mg IM ASDIRECTED PRN PRN Reason: Hypoglycemia Insulin Glargine (Lantus Solostar) 25 units SUBCUT BEDTIME [facility] Insulin Human Lispro (Humalog) 15 unit SUBCUT TIDMEALS [facility] Last Admin: 10/20/20 08:36 Dose: 15 units Documented by: Levothyroxine Sodium (Levothyroxine) 125 mcg PO DAILY@1200 [facility] Last Admin: 10/19/20 11:33 Dose: 125 mcg Documented by: Lidocaine (Aspercreme 4%) 1 each TOP BEDTIME [facility] Last Admin: 10/19/20 21:10 Dose: 1 each Documented by: Loperamide HCl (Imodium) 2 mg PO QID PRN PRN Reason: Diarrhea Losartan Potassium (Cozaar) 50 mg PO DAILY [facility] Last Admin: 10/20/20 08:37 Dose: 50 mg Documented by: Magnesium Hydroxide (Milk Of Magnesia) 30 ml PO BEDTIME PRN PRN Reason: Constipation Last Admin: 10/12/20 12:45 Dose: 30 ml Documented by: Meclizine HCl (Antivert) 25 mg PO Q6H PRN PRN Reason: Dizziness Melatonin (Melatonin) 9 mg PO BEDTIME [facility] Last Admin: 10/19/20 21:13 Dose: 9 mg Documented by: Mirabegron (Myrbetriq) 25 mg PO DAILY [facility] Last Admin: 10/20/20 08:38 Dose: 25 mg Documented by: Miscellaneous Information (Remove Patch) 1 ea TRDERM DAILY [facility] Last Admin: 10/20/20 08:38 Dose: 1 ea Documented by: Montelukast Sodium (Singulair) 10 mg PO BEDTIME [facility] Last Admin: 10/19/20 21:13 Dose: 10 mg Documented by: Polyethylene Glycol (Miralax) 17 gm PO DAILY [facility] Last Admin: 10/20/20 08:36 Dose: 17 gm Documented by: Multivit/Folic Acid/Iron (-U) 1 each PO DAILY [facility] Last Admin: 10/20/20 08:37 Dose: 1 each Documented by: Senna/Docusate Sodium (Senna Plus) 1 tab PO DAILY PRN PRN Reason: Constipation Trolamine Salicylate (Aspercreme 10%) 0 gm TOP QID PRN PRN Reason: PAIN Discontinued Medications Amlodipine Besylate (Norvasc) 10 mg PO DAILY [facility] Last Admin: 10/17/20 08:44 Dose: Not Given Documented by: Calcium Carbonate/Glycine (Oyster Shell Calcium) 500 mg PO BID [facility] Last Admin: 10/08/20 08:36 Dose: 500 mg Documented by: Dextrose/Water (Dextrose 50% In Water) 50 ml IVPUSH ASDIRECTED PRN PRN Reason: Hypoglycemia Glucagon (Glucagen) 1 mg IM ASDIRECTED PRN PRN Reason: Hypoglycemia Insulin Glargine (Lantus Solostar) 45 units SUBCUT BEDTIME [facility] Last Admin: 10/18/20 20:52 Dose: 45 units Documented by: Insulin Glargine (Lantus Solostar) 300 units SUBCUT .STK-MED ONE Stop: 10/07/20 20:52 Insulin Glargine (Lantus Solostar) 25 units SUBCUT BEDTIME [facility] Stop: 10/19/20 23:59 Last Admin: 10/19/20 21:15 Dose: 25 units Documented by: Insulin Glargine (Lantus Solostar) 45 units SUBCUT BEDTIME [facility] Insulin Human Lispro (Humalog) 300 unit SUBCUT .STK-MED ONE Stop: 10/07/20 18:17 Isosorbide Mononitrate (Imdur) 30 mg PO BEDTIME [facility] Last Admin: 10/18/20 20:46 Dose: 30 mg Documented by: Isosorbide Mononitrate (Imdur) 15 mg PO BEDTIME [facility] Last Admin: 10/19/20 21:19 Dose: 15 mg Documented by: Losartan Potassium (Cozaar) 100 mg PO DAILY [facility] Last Admin: 10/19/20 13:22 Dose: Not Given Documented by: Losartan Potassium (Cozaar) 50 mg PO DAILY [facility] Metoprolol Succinate (Toprol Xl) 25 mg PO DAILY [facility] Last Admin: 10/17/20 08:42 Dose: Not Given Documented by: Metoprolol Succinate (Toprol Xl) 12.5 mg PO DAILY [facility] Last Admin: 10/19/20 09:28 Dose: 12.5 mg Documented by: Prednisone (Prednisone) 40 mg PO DAILY [facility] Stop: 10/08/20 10:59 Last Admin: 10/08/20 08:37 Dose: 40 mg Documented by: Tuberculin PPD (Aplisol) 5 unit IDERM ONETIME ONE Stop: 10/20/20 09:01 - Exam General: Reports: Alert, Oriented, Cooperative, No Acute Distress Lungs: Reports: Clear to Auscultation, Normal Respiratory Effort Cardiovascular: Reports: Regular Rate, Regular Rhythm GI/Abdominal Exam: Normal Bowel Sounds, Soft, Non-Tender, No Distention Extremities: No Pedal Edema Skin: Reports: Warm, Dry, Intact
[2020-10-20 09:25] VITALS: PULSE 55
[2020-10-20] MEDS ORDERED: Insulin Glargine,Human Rec. Analog 100 Units/ML 3 ML Pen SUBCUT SCH ×3 (21:00)
== END 2020-10-20 10:50 | DRG 947 ==
LOC: FB.MS 12:21
PROVIDERS: ADMIT Family Medicine; ATTEND Family Medicine
DX: R53.1 Weakness (principal); I21.4 Non-ST elevation (NSTEMI) myocardial infarction; J18.9 Pneumonia, unspecified organism; I48.20 Chronic atrial fibrillation, unspecified; I13.0 Hypertensive heart and chronic kidney disease with heart failure and stage 1 through stage 4 chronic kidney disease, or unspecified chronic kidney disease; I50.42 Chronic combined systolic (congestive) and diastolic (congestive) heart failure; E78.00 Pure hypercholesterolemia, unspecified; G47.30 Sleep apnea, unspecified; K21.9 Gastro-esophageal reflux disease without esophagitis; M06.9 Rheumatoid arthritis, unspecified; F32.9 Major depressive disorder, single episode, unspecified; E66.9 Obesity, unspecified; I25.10 Atherosclerotic heart disease of native coronary artery without angina pectoris; E03.2 Hypothyroidism due to medicaments and other exogenous substances; R29.6 Repeated falls; N18.30 Chronic kidney disease, stage 3 unspecified; R41.3 Other amnesia; E11.22 Type 2 diabetes mellitus with diabetic chronic kidney disease; Z88.8 Allergy status to other drugs, medicaments and biological substances; Z79.890 Hormone replacement therapy; Z79.4 Long term (current) use of insulin; Z79.82 Long term (current) use of aspirin; Z79.899 Other long term (current) drug therapy; Z90.49 Acquired absence of other specified parts of digestive tract; Z90.710 Acquired absence of both cervix and uterus; Z98.49 Cataract extraction status, unspecified eye; Z68.33 Body mass index [BMI] 33.0-33.9, adult
CPT/HCPCS: 36415; 82947; 82962; 86580; 94150; 97110-GO; 97112-GP; 97116-GP; 97161-GP; 97165-GO; 97530-GO; 97530-GP; 97535-GO; 97542-GO; A9270-GY; J1815; J1815-GY; J7512

== ENCOUNTER 2020-11-12 13:55 | Emergency (ER) | payer MEDICARE ==
[2020-11-12] MEDS ORDERED: Sodium Chloride 0.9% 10 ML Syringe FLUSH PRN (14:05)
[2020-11-12] MEDS ORDERED: Sodium Chloride 0.9% 1,000 ML IV SCH ×2 (14:15→14:30)
--- NOTE | 2020-11-12 16:13 | CR ---
CHEST ONE VIEW INDICATION: Dyspnea. An AP upright portable view of the chest 11/12/2020 was compared with 09/27/2020 and 09/25/2020. The heart remains normal in size allowing for the AP positioning. The aorta is tortuous with calcification in the arch and descending portion. A definite active infiltrate or effusion was not identified. Findings do not strongly suggest COPD. There is evidence of exogenous obesity. IMPRESSION: 1. No definite acute process. 2. ASD aorta. 3. Exogenous obesity. MTDD
--- NOTE | 2020-11-12 17:08 | EDM.PDOC ---
ED HPI GENERAL MEDICAL PROBLEM - General Chief Complaint: Neuro Symptoms/Deficits Stated Complaint: [facility]S Time Seen by Provider: 11/12/20 14:00 Source of Information: Reports: Patient History Limitations: Reports: No Limitations - History of Present Illness INITIAL COMMENTS - FREE TEXT/NARRATIVE: Patient presented to the ED from the [facility] because of weakness, lethargy. Labs were drawn yesterday and today which showed hypercalcemia. There is no N/V/D, no changes in bowel movements or urinary symptoms.Denies having fever,chills, cough or cold. 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 - Related Data Allergies Allergy/AdvReac Type Severity Reaction Status Date / Time procaine HCl [From Novocain] Allergy Cannot Verified 10/17/20 10:41 Remember Home Meds: Home Meds Calcium Carbonate/Vitamin D3 [Calcium 500 mg-Vit D3 600 Unit] 1 tab PO BID 09/21/20 [History] Famotidine [Pepcid] 20 mg PO BID 09/21/20 [History] Gabapentin [Neurontin] 1 cap PO BID 09/21/20 [History] Loperamide [Imodium] 2 mg PO QID PRN 09/21/20 [History] Losartan Potassium 100 mg PO DAILY 09/21/20 [History] Meclizine [Antivert] 25 mg PO Q6H PRN 09/21/20 [History] Mirabegron [Myrbetriq] 25 mg PO DAILY 09/21/20 [History] Pnv No.95/Ferrous Fum/Folic AC [ Caplet] 1 each PO DAILY 09/21/20 [History] Levothyroxine 125 mcg PO DAILY@1200 09/22/20 [History] Sennosides/Docusate Sodium [Senna-S 8.6-50 mg Tablet] 1 tab PO DAILY PRN [History] Albuterol Sulfate 3 ml PO TID PRN 10/07/20 [History] Albuterol Sulfate [Albuterol Sulfate Hfa] 1 - 2 puff PO Q4H PRN 10/07/20 [History] Allopurinol [Zyloprim] 50 mg PO DAILY 10/07/20 [History] Aspirin 81 mg PO DAILY 10/07/20 [History] Carboxymethylcellulose Sodium [Refresh Liquigel 1%] 1 drop EYEBOTH QID 10/07/20 [History] Diclofenac Sodium [Voltaren 1% Gel] 4 g TOP QID PRN 10/07/20 [History] Furosemide 40 mg PO DAILY 10/07/20 [History] Insulin Aspart [NovoLOG] 15 units SQ TIDMEALS 10/07/20 [History] Lidocaine 5% [Lidoderm 5%] 700 mg TOP BEDTIME 10/07/20 [History] Magnesium Hydroxide [Milk of Magnesia] 30 ml PO BEDTIME PRN 10/07/20 [History] Montelukast [Singulair] 10 mg PO BEDTIME 10/07/20 [History] Trolamine Salicylate/Aloe Vera [Aspercreme 10% Cream] 1 applic TOP QID PRN 10/07/20 [History] atorvaSTATin [Lipitor] 10 mg PO WITHDINNER 10/07/20 [History] polyethylene glycoL 3350 [Miralax] 17 g PO DAILY 10/07/20 [History] Insulin Glarg,Human.Rec.Analog [Lantus Solostar] 25 units SUBCUT BEDTIME #1 box 10/20/20 [Rx] Melatonin 9 mg PO BEDTIME #30 tablet 10/20/20 [Rx] Remove Patch 1 ea TRDERM DAILY each 10/20/20 [Rx] amLODIPine [Norvasc] 5 mg PO DAILY 30 Days #30 tablet 10/20/20 [Rx] Past Medical History HEENT History: Reports: Other (See Below) Other HEENT History: dry eye syndrome Cardiovascular History: Reports: Afib, Heart Failure, High Cholesterol, Hypertension, [place], Pulmonary Hypertension Respiratory History: Reports: Asthma, Sleep Apnea, Other (See Below) Other Respiratory History: Pleural effusion. Pneumonia. 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 Spinal arthritis. Neurological History: Reports: Other (See Below) Other Neuro History: History of memory loss. Psychiatric History: Reports: Dementia, Depression Endocrine/Metabolic History: Reports: Diabetes, Type II, Hypothyroidism, Obesity/BMI 30+ Oncologic (Cancer) History: Reports: Other (See Below) Other Oncologic History: Tongue. Dermatologic History: Reports: Decubitus Ulcer Other Dermatologic History: stage II ulcer to L heel & coccyx - Infectious Disease History Infectious Disease History: Reports: Scarlet Fever - Past Surgical History Head Surgeries/Procedures: Reports: None HEENT Surgical History: Reports: Cataract Surgery, Other (See Below) Other HEENT Surgeries/Procedures: BOTH EYES CATARACT SURGERY, TOUNGUE SURGERY AND LYMPH NODES 06/13/19 GI Surgical History: Reports: Appendectomy, Cholecystectomy Female Surgical History: Reports: Hysterectomy Social & Family History - Family History Family Medical History: No Pertinent Family History - Tobacco Use Tobacco Use Status *Q: Unknown Ever Used Tobacco - Caffeine Use Caffeine Use: Reports: Coffee - Recreational Drug Use Recreational Drug Use: No ED ROS GENERAL - Review of Systems Review Of Systems: See Below Constitutional: Reports: No Symptoms HEENT: Reports: No Symptoms Respiratory: Reports: No Symptoms Cardiovascular: Reports: No Symptoms Endocrine: Reports: No Symptoms GI/Abdominal: Reports: No Symptoms : Reports: No Symptoms Musculoskeletal: Reports: No Symptoms Skin: Reports: No Symptoms Psychiatric: Reports: No Symptoms Hematologic/Lymphatic: Reports: No Symptoms ED EXAM, GENERAL - Physical Exam Exam: See Below Exam Limited By: No Limitations General Appearance: Alert, No Apparent Distress Ears: Normal External Exam, Normal Canal Nose: Normal Inspection, Normal Mucosa Throat/Mouth: Normal Inspection, Normal Lips, Normal Teeth Head: Atraumatic, Normocephalic Neck: Normal Inspection, Supple, Non-Tender, Full Range of Motion Respiratory/Chest: No Respiratory Distress, Lungs Clear, Normal Breath Sounds Cardiovascular: Normal Peripheral Pulses, Regular Rate, Rhythm, No Edema, No Gallop GI/Abdominal: Normal Bowel Sounds, Soft, Non-Tender, No Organomegaly Back Exam: Normal Inspection, Full Range of Motion Extremities: Normal Inspection, Normal Range of Motion, Non-Tender Neurological: Alert, Oriented, CN II-XII Intact, Normal Cognition Psychiatric: Normal Affect, Normal Mood Skin Exam: Warm, Dry, Intact Course - Vital Signs Text/Narrative:: Labs/EKG/Head CT from the [place] was reviewed. All labs are within her baseline except the Calcium. CXR-neg NS 1 L in 2 hours Last Recorded V/S: Last Vital Signs Temp 35.7 C L 11/12/20 13:55 Pulse 64 11/12/20 16:21 Resp 18 11/12/20 16:21 BP 171/70 H 11/12/20 16:21 Pulse Ox 96 11/12/20 16:21 - Orders/Labs/Meds Orders: Active Orders 24 hr Category Date Time Status BASIC METABOLIC PANEL,BMP [CHEM] Stat Lab 11/12/20 16:45 Ordered Sodium Chloride 0.9% [Normal Saline] 1,000 ml Med 11/12/20 14:30 Active IV ASDIRECTED Sodium Chloride 0.9% [Saline Flush] Med 11/12/20 14:05 Active 10 ml FLUSH ASDIRECTED PRN Saline Lock Insert [OM.PC] Routine Oth 11/12/20 14:05 Ordered EKG 12 Lead [EK] Routine Ther 11/12/20 14:05 Stop Req Medication Orders Sodium Chloride (Normal Saline) 1,000 mls @ 500 mls/hr IV ASDIRECTED BENITO Last Admin: 11/12/20 14:40 Dose: 500 mls/hr Documented by: SURJIT Sodium Chloride (Saline Flush) 10 ml FLUSH ASDIRECTED PRN PRN Reason: Keep Vein Open Last Admin: 11/12/20 14:40 Dose: 10 ml Documented by: SURJIT Labs: Laboratory Tests 11/12/20 11/12/20 11/12/20 Range/Units 14:25 14:25 14:25 WBC 10.1 (3.0-10.3) x10-3/uL RBC 3.81 (3.60-5.20) x10(6)uL Hgb 11.3 L (11.4-15.5) g/dL Hct 35.0 (34.2-48.2) % MCV 92.0 (76.7-100.5) fL MCH 29.6 (23.9-33.9) pg MCHC 32.2 (31.9-34.8) g/dL RDW 13.2 (12.3-16.5) % Plt Count 335 (151-488) x10(3)uL MPV 8.2 (7.1-12.4) fL Neut % (Auto) 57.0 (30.8-76.2) % Lymph % (Auto) 27.0 (18.4-52.1) % [place] % (Auto) 9.9 (4.4-15.7) % Eos % (Auto) 5.1 (0.6-8.1) % Baso % (Auto) 1.0 (0.2-1.5) % Neut # (Auto) 5.8 (1.5-6.3) x10-3/uL Lymph # (Auto) 2.7 (1.0-4.4) x10-3/uL [place] # (Auto) 1.0 (0.3-1.0) x10-3/uL Eos # (Auto) 0.5 (0.0-0.8) x10-3/uL Baso # (Auto) 0.1 (0.0-0.1) x10-3/uL Sodium 140 (135-145) mmol/L Potassium 3.8 (3.5-5.3) mmol/L Chloride 101 (100-110) mmol/L Carbon Dioxide 31 (21-32) mmol/L BUN 54 H (7-18) mg/dL Creatinine 2.0 H* (0.55-1.02) mg/dL Est Cr Clr Drug Dosing TNP Estimated GFR (MDRD) 24 L (>60) BUN/Creatinine Ratio 27.0 H (9-20) Glucose 331 H D (80-116) mg/dL Calcium 12.1 H (8.6-10.2) mg/dL Total Bilirubin 0.2 (0.1-1.3) mg/dL AST 13 (5-25) IU/L ALT 21 (12-36) U/L Alkaline Phosphatase 95 (56-112) IU/L Troponin I 44.6 (4.0-60.3) pg/mL NT-Pro-B Natriuret Pep 1209 H* (<=450) pg/mL Total Protein 6.8 (6.0-8.0) g/dL Albumin 3.0 L (3.2-4.6) g/dL Globulin 3.8 g/dL Albumin/Globulin Ratio 0.8 TSH, Ultra Sensitive (0.36-3.74) IU/mL 11/12/20 Range/Units 14:25 WBC (3.0-10.3) x10-3/uL RBC (3.60-5.20) x10(6)uL Hgb (11.4-15.5) g/dL Hct (34.2-48.2) % MCV (76.7-100.5) fL MCH (23.9-33.9) pg MCHC (31.9-34.8) g/dL RDW (12.3-16.5) % Plt Count (151-488) x10(3)uL MPV (7.1-12.4) fL Neut % (Auto) (30.8-76.2) % Lymph % (Auto) (18.4-52.1) % [place] % (Auto) (4.4-15.7) % Eos % (Auto) (0.6-8.1) % Baso % (Auto) (0.2-1.5) % Neut # (Auto) (1.5-6.3) x10-3/uL Lymph # (Auto) (1.0-4.4) x10-3/uL [place] # (Auto) (0.3-1.0) x10-3/uL Eos # (Auto) (0.0-0.8) x10-3/uL Baso # (Auto) (0.0-0.1) x10-3/uL Sodium (135-145) mmol/L Potassium (3.5-5.3) mmol/L Chloride (100-110) mmol/L Carbon Dioxide (21-32) mmol/L BUN (7-18) mg/dL Creatinine (0.55-1.02) mg/dL Est Cr Clr Drug Dosing Estimated GFR (MDRD) (>60) BUN/Creatinine Ratio (9-20) Glucose (80-116) mg/dL Calcium (8.6-10.2) mg/dL Total Bilirubin (0.1-1.3) mg/dL AST (5-25) IU/L ALT (12-36) U/L Alkaline Phosphatase (56-112) IU/L Troponin I (4.0-60.3) pg/mL NT-Pro-B Natriuret Pep (<=450) pg/mL Total Protein (6.0-8.0) g/dL Albumin (3.2-4.6) g/dL Globulin g/dL Albumin/Globulin Ratio TSH, Ultra Sensitive 5.11 H (0.36-3.74) IU/mL Meds: Medications Generic Name Dose Route Start Last Admin Trade Name Freq PRN Reason Stop Dose Admin Sodium Chloride 1,000 mls @ 500 mls/hr 11/12/20 14:30 11/12/20 14:40 Normal Saline IV 500 mls/hr ASDIRECTED BENITO Administration Sodium Chloride 10 ml 11/12/20 14:05 11/12/20 14:40 Saline Flush FLUSH 10 ml ASDIRECTED PRN Administration Keep Vein Open Discontinued Medications Generic Name Dose Route Start Last Admin Trade Name Stephenie PRN Reason Stop Dose Admin Sodium Chloride 1,000 mls @ 100 mls/hr 11/12/20 14:15 Normal Saline IV ASDIRECTED BENITO Departure - Departure Time of Disposition: 17:30 Disposition: Home, Self-Care 01 Condition: Good Clinical Impression: Dehydration, Hypercalcemia - Discharge Information Instructions: Hypercalcemia, Dehydration, Elderly, [id number] 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] - Forms: ED Department Discharge Additional Instructions: Please read discharge instructions on dehydration and hypercalcemia Do not take you furosemide for 3 days(-Tuesday) then resume on Tuesday Drink at least a liter of fluid a day Follow up as needed Sepsis Event Note (ED) - Evaluation Sepsis Screening Result: No Definite Risk - Focused Exam Vital Signs: Vital Signs Temp Pulse Resp BP Pulse Ox 11/12/20 16:21 64 18 171/70 H 96 11/12/20 15:21 62 18 151/71 H 99 11/12/20 14:20 60 18 144/61 H 99 11/12/20 13:55 35.7 C L 61 20 149/54 H 99 - My Orders Last 24 Hours: My Active Orders 11/12/20 14:05 Sodium Chloride 0.9% [Saline Flush] 10 ml FLUSH ASDIRECTED PRN Saline Lock Insert [OM.PC] Routine EKG 12 Lead [EK] Routine 11/12/20 14:30 Sodium Chloride 0.9% [Normal Saline] 1,000 ml IV ASDIRECTED 11/12/20 16:45 BASIC METABOLIC PANEL,BMP [CHEM] Stat - Assessment/Plan Last 24 Hours: My Active Orders 11/12/20 14:05 Sodium Chloride 0.9% [Saline Flush] 10 ml FLUSH ASDIRECTED PRN Saline Lock Insert [OM.PC] Routine EKG 12 Lead [EK] Routine 11/12/20 14:30 Sodium Chloride 0.9% [Normal Saline] 1,000 ml IV ASDIRECTED 11/12/20 16:45 BASIC METABOLIC PANEL,BMP [CHEM] Stat
[2020-11-12 19:28] VITALS: BP 162/72; PULSE 62
== END 2020-11-12 17:33 | disposition home or self-care (01) ==
LOC: FB.ED 13:55
DX: E86.0 Dehydration (principal); E83.52 Hypercalcemia; I13.0 Hypertensive heart and chronic kidney disease with heart failure and stage 1 through stage 4 chronic kidney disease, or unspecified chronic kidney disease; E11.22 Type 2 diabetes mellitus with diabetic chronic kidney disease; N18.9 Chronic kidney disease, unspecified; I50.9 Heart failure, unspecified; I48.91 Unspecified atrial fibrillation; E78.00 Pure hypercholesterolemia, unspecified; J45.909 Unspecified asthma, uncomplicated; K21.9 Gastro-esophageal reflux disease without esophagitis; M06.9 Rheumatoid arthritis, unspecified; E03.9 Hypothyroidism, unspecified; E66.9 Obesity, unspecified; Z68.34 Body mass index [BMI] 34.0-34.9, adult; Z88.8 Allergy status to other drugs, medicaments and biological substances; Z79.899 Other long term (current) drug therapy; Z79.82 Long term (current) use of aspirin; Z79.4 Long term (current) use of insulin
CPT/HCPCS: 36415; 71045; 80048; 80053; 83880; 84443; 84484; 85025; 99284; 99285; J7030

== ENCOUNTER 2021-03-06 03:42 | Inpatient (IN) | payer MEDICARE ==
--- NOTE | 2021-03-06 04:38 | EDM.PDOC ---
ED HPI GENERAL MEDICAL PROBLEM - General Chief Complaint: Chest Pain Stated Complaint: CHEST PAIN Time Seen by Provider: 03/06/21 04:00 Source of Information: Reports: Patient, Jail Records History Limitations: Reports: Altered Mental Status - History of Present Illness INITIAL COMMENTS - FREE TEXT/NARRATIVE: c/o abd and chest and neck pain pt awoke in night 24h ago and had nonspecific chest discomfort that resolved with milk she awoke again during the night at 2:30a this morning, had c/o discomfort in abd under ribs on left and right, again given milk, belched, abd pain went away, then had brief c/o pain in mid chest, on 3rd assessment pt had c/o neck pain prompting nurse at [facility] to send pt to ED pt with h/o NSTEMI 4m ago is DNR/DNI, w/c bound, nonambulatory pleasant and talkative here, no c/o in ED EKG on arrival with SR, rate 83, LVH that is old, AWMI that is old, o acute ST or ischemic changes later pt was in afib on monitor with same rate SH: says she has 6 children, 2 living prior labs: A1C 8.7 from 8d ago, up from 7.6 from 4m ago CRP 35.2 from 5m ago BNP 1142 from 3m ago, baseline BUN/creat 53/1.0 with GFR 25 from 3m ago, baseline 29/1.1 with GFR 33 from 5m ago hgb 11.3 from 3m ago, baseline alb 3.0 from 3m ago, was 3.6 from 5m ago WBC 25.8 from 5m ago, was 10.1 from 3m ago vaccines: has had COVID vax, neg COVID test 4d ago PMH: CV: NSTEMI, hyperlipidemia, afib, hf, pul htn GI: GERD NEURO: mild cognitive impairmet ORTHO: nonambulatory, gout RENQAL: CKD PUL: JULIA ENDOC: hypothyroid, DM2 mid chest Pain Score (Numeric/FACES): 2 - Related Data Allergies Allergy/AdvReac Type Severity Reaction Status Date / Time procaine HCl [From Novocain] Allergy Cannot Verified 10/17/20 10:41 Remember Home Meds: Home Meds Famotidine [Pepcid] 20 mg PO BID 09/21/20 [History] Gabapentin [Neurontin] 100 mg PO BID 09/21/20 [History] Losartan Potassium 100 mg PO DAILY 09/21/20 [History] Levothyroxine 125 mcg PO DAILY@1200 09/22/20 [History] Aspirin 81 mg PO DAILY 10/07/20 [History] Carboxymethylcellulose Sodium [Refresh Liquigel 1%] 1 drop EYEBOTH QID 10/07/20 [History] Diclofenac Sodium [Voltaren 1% Gel] 4 g TOP QID PRN 10/07/20 [History] allopurinoL [Zyloprim] 50 mg PO DAILY 10/07/20 [History] atorvaSTATin [Lipitor] 10 mg PO WITHDINNER 10/07/20 [History] polyethylene glycoL 3350 [Miralax] 17 g PO DAILY 10/07/20 [History] amLODIPine [Norvasc] 5 mg PO DAILY 30 Days #30 tablet 10/20/20 [Rx] Acetaminophen [Tylenol Extra Strength] 1,000 mg PO BID 03/06/21 [History] Estradiol Acetate [Femring] 10 mcg VG BEDTIME 03/06/21 [History] Ferrous Sulfate 324 mg PO DAILY 03/06/21 [History] Furosemide [Lasix] 20 mg PO DAILY 03/06/21 [History] Insulin Glarg,Human.Rec.Analog [Lantus Solostar] 25 unit SUBCUT BEDTIME 03/06/21 [History] Insulin Lispro [HumaLOG] 10 unit SQ ASDIRECTED PRN 03/06/21 [History] Insulin Lispro [HumaLOG] 28 unit SQ 1700 03/06/21 [History] Insulin Lispro [HumaLOG] 30 unit SQ 1100 03/06/21 [History] Insulin Lispro [HumaLOG] 44 unit SQ 0800 03/06/21 [History] Past Medical History HEENT History: Reports: Other (See Below) Other HEENT History: dry eye syndrome Cardiovascular History: Reports: Afib, Heart Failure, High Cholesterol, Hypertension, NC Respiratory History: Reports: Sleep Apnea, Other (See Below) Other Respiratory History: Pleural effusion. Pneumonia. Gastrointestinal History: Reports: GERD Genitourinary History: Reports: Chronic Renal Insuffiency, Urinary Incontinence HISTOPATH TECH History: Reports: Musculoskeletal History: Reports: RA Other Musculoskeletal History: Right index finger fracture. Spinal arthritis. Neurological History: Reports: Other (See Below) Other Neuro History: History of memory loss. Psychiatric History: Reports: Depression Endocrine/Metabolic History: Reports: Diabetes, Type II, Hypothyroidism, Obesity/BMI 30+ Oncologic (Cancer) History: Reports: Other (See Below) Other Oncologic History: Tongue. Dermatologic History: Reports: Decubitus Ulcer Other Dermatologic History: stage II ulcer to L heel & coccyx - Infectious Disease History Infectious Disease History: Reports: Scarlet Fever - Past Surgical History Head Surgeries/Procedures: Reports: None HEENT Surgical History: Reports: Cataract Surgery, Other (See Below) Other HEENT Surgeries/Procedures: BOTH EYES CATARACT SURGERY, TOUNGUE SURGERY AND LYMPH NODES 06/13/19 GI Surgical History: Reports: Appendectomy, Cholecystectomy Female Surgical History: Reports: Hysterectomy Social & Family History - Family History Family Medical History: No Pertinent Family History - Tobacco Use Tobacco Use Status *Q: Never Tobacco User - Caffeine Use Caffeine Use: Reports: Coffee ED ROS GENERAL - Review of Systems Review Of Systems: See Below Constitutional: Reports: No Symptoms HEENT: Reports: No Symptoms Respiratory: Reports: No Symptoms. Denies: Shortness of Breath, Cough Cardiovascular: Reports: Chest Pain Endocrine: Reports: No Symptoms GI/Abdominal: Reports: Abdominal Pain. Denies: Nausea, Vomiting : Reports: No Symptoms Musculoskeletal: Reports: No Symptoms Skin: Reports: No Symptoms Neurological: Reports: Other (memory issues). Denies: Dizziness, Headache, Change in Speech Psychiatric: Reports: No Symptoms Hematologic/Lymphatic: Reports: No Symptoms Immunologic: Reports: No Symptoms ED EXAM, GENERAL - Physical Exam Exam: See Below Exam Limited By: No Limitations General Appearance: Alert, WD/WN, No Apparent Distress, Other (pleasant, alert, talkative, good eye contact, cheerful, nonill, NAD, not sure if she is in [place] or [place], knows she is at the [facility], not sure of president, says it is not Obama) Eye Exam: Bilateral Eye: EOMI Ears: Hearing Grossly Normal Nose: Normal Inspection Throat/Mouth: Normal Inspection Head: Atraumatic Neck: Normal Inspection, Supple. No: Lymphadenopathy (R), Lymphadenopathy (L) Respiratory/Chest: Lungs Clear, Normal Breath Sounds, No Accessory Muscle Use Cardiovascular: Regular Rate, Rhythm, Other (2/6 SAVANNA at [facility], quiet precordium) GI/Abdominal: Normal Bowel Sounds, Soft, Non-Tender, No Distention Back Exam: Normal Inspection, Full Range of Motion Extremities: Other (dec'd turgor UEs b/l, 2+ pretib edema, 1+ thigh edema) Neurological: Alert, CN II-XII Intact, No Motor/Sensory Deficits Psychiatric: Normal Affect, Normal Mood Skin Exam: Warm, Dry, Intact, Normal Color, No Rash Lymphatic: No Adenopathy #1 Interpretation EKG Date: 03/06/21 Time: 03:46 Rhythm: NSR P-Wave: Present ST-T: Normal Comparison: No Change (c/w 09-27-20, no change, no ischemia, no ST changes) Course - Vital Signs Last Recorded V/S: Last Vital Signs Temp 36.6 C 03/06/21 03:42 Pulse 83 03/06/21 03:42 Resp 22 H 03/06/21 03:42 BP 157/55 H 03/06/21 03:42 Pulse Ox 90 L 03/06/21 03:42 - Orders/Labs/Meds Orders: Active Orders 24 hr Category Date Time Status Admission Status [Patient Status] [ADT] Routine ADT 03/06/21 05:51 Ordered EKG Documentation Completion [RC] ASDIRECTED Care 03/06/21 04:28 Active Insert Urinary Catheter [OM.PC] Q24H Care 03/06/21 05:00 Ordered Chest 1V Frontal [CR] Stat Exams 03/06/21 04:27 Ordered CULTURE URINE [RM] Stat Lab 03/06/21 04:35 Received EKG 12 Lead [EK] Routine Ther 03/06/21 04:27 Ordered Labs: Laboratory Tests 03/06/21 03/06/21 03/06/21 Range/Units 04:35 04:45 04:45 WBC 20.4 H (3.0-10.3) x10-3/uL RBC 3.75 (3.60-5.20) x10(6)uL Hgb 11.1 L (11.4-15.5) g/dL Hct 34.7 (34.2-48.2) % MCV 92.3 (76.7-100.5) fL MCH 29.6 (23.9-33.9) pg MCHC 32.0 (31.9-34.8) g/dL RDW 13.5 (12.3-16.5) % Plt Count 340 (151-488) x10(3)uL MPV 8.0 (7.1-12.4) fL Neut % (Auto) 76.6 H (30.8-76.2) % Lymph % (Auto) 12.0 L (18.4-52.1) % [place] % (Auto) 8.3 (4.4-15.7) % Eos % (Auto) 2.4 (0.6-8.1) % Baso % (Auto) 0.7 (0.2-1.5) % Neut # (Auto) 15.6 H (1.5-6.3) x10-3/uL Lymph # (Auto) 2.5 (1.0-4.4) x10-3/uL [place] # (Auto) 1.7 H (0.3-1.0) x10-3/uL Eos # (Auto) 0.5 (0.0-0.8) x10-3/uL Baso # (Auto) 0.1 (0.0-0.1) x10-3/uL Sodium 141 (135-145) mmol/L Potassium 4.9 (3.5-5.3) mmol/L Chloride 105 (100-110) mmol/L Carbon Dioxide 24 (21-32) mmol/L BUN 49 H (7-18) mg/dL Creatinine 1.8 H (0.55-1.02) mg/dL Est Cr Clr Drug Dosing 19.81 mL/min Estimated GFR (MDRD) 27 L (>60) BUN/Creatinine Ratio 27.2 H (9-20) Glucose 280 H (80-116) mg/dL Calcium 8.4 L D (8.6-10.2) mg/dL Total Bilirubin 0.3 (0.1-1.3) mg/dL AST 16 D (5-25) IU/L ALT 34 D (12-36) U/L Alkaline Phosphatase 96 (56-112) IU/L Troponin I (4.0-60.3) pg/mL C-Reactive Protein (0.5-0.9) mg/dL NT-Pro-B Natriuret Pep (<=450) pg/mL Total Protein 7.0 (6.0-8.0) g/dL Albumin 2.9 L (3.2-4.6) g/dL Globulin 4.1 g/dL Albumin/Globulin Ratio 0.7 Urine Color Yellow (YELLOW) Urine Appearance Cloudy (CLEAR) Urine pH 5.0 (5.0-6.5) Ur Specific [place] 1.015 (1.010-1.025) Urine Protein 500 H (NEGATIVE) mg/dL Urine Glucose (UA) 250 H (NORMAL) mg/dL Urine Ketones 15 H (NEGATIVE) mg/dL Urine Occult Blood Large H (NEGATIVE) Urine Nitrite Negative (NEGATIVE) Urine Bilirubin Negative (NEGATIVE) Urine Urobilinogen Normal (NEGATIVE) mg/dL Ur Leukocyte Esterase Large H (NEGATIVE) Urine RBC 10-20 H (0-5) Urine WBC >100 H (0-5) Ur Squamous Epith Cells Rare (NS,R,O) Urine Bacteria Moderate H (NS) 03/06/21 Range/Units 04:45 WBC (3.0-10.3) x10-3/uL RBC (3.60-5.20) x10(6)uL Hgb (11.4-15.5) g/dL Hct (34.2-48.2) % MCV (76.7-100.5) fL MCH (23.9-33.9) pg MCHC (31.9-34.8) g/dL RDW (12.3-16.5) % Plt Count (151-488) x10(3)uL MPV (7.1-12.4) fL Neut % (Auto) (30.8-76.2) % Lymph % (Auto) (18.4-52.1) % [place] % (Auto) (4.4-15.7) % Eos % (Auto) (0.6-8.1) % Baso % (Auto) (0.2-1.5) % Neut # (Auto) (1.5-6.3) x10-3/uL Lymph # (Auto) (1.0-4.4) x10-3/uL [place] # (Auto) (0.3-1.0) x10-3/uL Eos # (Auto) (0.0-0.8) x10-3/uL Baso # (Auto) (0.0-0.1) x10-3/uL Sodium (135-145) mmol/L Potassium (3.5-5.3) mmol/L Chloride (100-110) mmol/L Carbon Dioxide (21-32) mmol/L BUN (7-18) mg/dL Creatinine (0.55-1.02) mg/dL Est Cr Clr Drug Dosing mL/min Estimated GFR (MDRD) (>60) BUN/Creatinine Ratio (9-20) Glucose (80-116) mg/dL Calcium (8.6-10.2) mg/dL Total Bilirubin (0.1-1.3) mg/dL AST (5-25) IU/L ALT (12-36) U/L Alkaline Phosphatase (56-112) IU/L Troponin I 36.2 (4.0-60.3) pg/mL C-Reactive Protein 0.9 (0.5-0.9) mg/dL NT-Pro-B Natriuret Pep 1494 H* (<=450) pg/mL Total Protein (6.0-8.0) g/dL Albumin (3.2-4.6) g/dL Globulin g/dL Albumin/Globulin Ratio Urine Color (YELLOW) Urine Appearance (CLEAR) Urine pH (5.0-6.5) Ur Specific [place] (1.010-1.025) Urine Protein (NEGATIVE) mg/dL Urine Glucose (UA) (NORMAL) mg/dL Urine Ketones (NEGATIVE) mg/dL Urine Occult Blood (NEGATIVE) Urine Nitrite (NEGATIVE) Urine Bilirubin (NEGATIVE) Urine Urobilinogen (NEGATIVE) mg/dL Ur Leukocyte Esterase (NEGATIVE) Urine RBC (0-5) Urine WBC (0-5) Ur Squamous Epith Cells (NS,R,O) Urine Bacteria (NS) - Re-Assessments/Exams Free Text/Narrative Re-Assessment/Exam: 03/06/21 06:00 CxR 1v on prelim ED read with pul edema b/l that is new c/w 3m ago, fluid in fissure on R that is new, small b/ll pleural effusions, no discrete infiltrate pt reports that she has been coughing CPAP mask is broken and pt has declined to use it, d/w dtr who prefers pt to use it (if willing, which pt has not been in the past), d/w Jam[facility] nurse at [facility], pt was 92% on RA on arrival, did improve to 100% on RA when she was talking and animated, however probably is declining into mid to upper 80s at night in the care home, contributing to her restless and sxs at night will increase furosemide from 20 mg/d to 40 mg/d, however it may be a challenge to mobilize fluid as her skin turgor is dec'd while her LE and pul edema is inc'd, BUN/creat/BNP are all unchanged, fortunately with normal LFTs and no evidence of passive liver congestion glu 280 and A1C has been increasing, may do better with fluid balance with improved controlled of DM pt and dtr agreeable for admission UC pending BC not obtained as CRP is wnl and pt without evidence of sepsis Departure - Departure Time of Disposition: 05:53 Disposition: Admitted As Inpatient 66 Condition: Good Clinical Impression: Acute exacerbation of congestive heart failure, Pulmonary edema, Chest pain, rule out acute myocardial infarction, Urinary tract infection, Leukocytosis, Left shift, Diabetes mellitus with hyperglycemia, DNR (do not resuscitate), Hypoalbuminemia, Chronic renal failure Referrals: Eron Petersen MD [Primary Care Provider] - Forms: ED Department Discharge Sepsis Event Note (ED) - Evaluation Sepsis Screening Result: No Definite Risk - Focused Exam Vital Signs: Vital Signs Temp Pulse Resp BP Pulse Ox 03/06/21 03:42 36.6 C 83 22 H 157/55 H 90 L - My Orders Last 24 Hours: My Active Orders 03/06/21 04:27 Chest 1V Frontal [CR] Stat EKG 12 Lead [EK] Routine 03/06/21 04:28 EKG Documentation Completion [RC] ASDIRECTED 03/06/21 04:35 CULTURE URINE [RM] Stat 03/06/21 05:00 Insert Urinary Catheter [OM.PC] Q24H 03/06/21 05:51 Admission Status [Patient Status] [ADT] Routine - Assessment/Plan Last 24 Hours: My Active Orders 03/06/21 04:27 Chest 1V Frontal [CR] Stat EKG 12 Lead [EK] Routine 03/06/21 04:28 EKG Documentation Completion [RC] ASDIRECTED 03/06/21 04:35 CULTURE URINE [RM] Stat 03/06/21 05:00 Insert Urinary Catheter [OM.PC] Q24H 03/06/21 05:51 Admission Status [Patient Status] [ADT] Routine
[2021-03-06] MEDS ORDERED: cefTRIAXone 2 GM Vial IVPUSH ONE (06:00)
[2021-03-06] MEDS ORDERED: Acetaminophen 325 MG Tab PO PRN (06:08)
[2021-03-06] MEDS ORDERED: Ondansetron 4 MG/2 ML SDV IV PRN (06:08)
[2021-03-06] MEDS ORDERED: Magnesium Hydroxide 400 MG/5 ML Susp 30 ML Cup PO PRN (06:08)
[2021-03-06] MEDS ORDERED: Furosemide 20 MG/2 ML VIAL IVPUSH ONE (06:15)
[2021-03-06] MEDS ORDERED: 50% Dextrose in Water 50 ML Syringe IVPUSH PRN (06:21)
[2021-03-06] MEDS ORDERED: Glucagon,Human Recombinant 1 MG Vial IM PRN (06:21)
[2021-03-06] MEDS: Enoxaparin 30 MG/0.3 ML Syringe SUBCUT SCH (06:36)
[2021-03-06] MEDS: Aspirin 81 MG Tab.Chew PO SCH (08:38)
[2021-03-06] MEDS: Polyethylene Glycol 3350 Powder 17 GM Packet PO SCH (08:39)
[2021-03-06] MEDS: amLODIPine 5 MG Tab PO SCH (08:39)
[2021-03-06] MEDS: Ferrous Sulfate 325 MG Tab PO SCH (08:39)
[2021-03-06] MEDS: Gabapentin 100 MG Cap PO SCH ×2 (08:39→22:28)
[2021-03-06] MEDS: Furosemide 40 MG Tab PO SCH (08:39)
[2021-03-06] MEDS: Losartan 100 MG Tab PO SCH (08:39)
[2021-03-06] MEDS: Acetaminophen 500 MG Tab PO SCH ×2 (08:40→22:20)
[2021-03-06] MEDS: Allopurinol 100 MG Tab PO SCH (08:40)
[2021-03-06] MEDS: Carboxymethylcellulose Sodium 1% Ophth Gel 15 ML Bottle EYEBOTH SCH ×4 (08:40→22:19)
--- NOTE | 2021-03-06 08:55 | PCM.HP.2 ---
H&P History of Present Illness - General Date of Service: 03/06/21 Admit Problem/Dx: Admission Diagnosis/Problem Admission Diagnosis/Problem Heart failure Source of Information: Patient, Provider History Limitations: Reports: No Limitations - History of Present Illness Initial Comments - Free Text/Narative: 85-year-old female from the snf. She presented to the ED with nonspecific chest pain, dysuria and frequency. She has a history of a non-ST elevation VA 3 months ago. She also has type 2 diabetes, and a history of congestive heart failure. She denies any systemic symptoms of fever chills or shortness of breath. This morning she appears comfortable and denies any chest pain. In the ED, a chest x-ray revealed mild pulmonary edema, and UA was positive for a urinary tract infection. She is admitted for treatment of the same. Middle Back Pain Score (Numeric/FACES): 5 mid chest Pain Score (Numeric/FACES): 2 - Related Data Allergies/Adverse Reactions: Allergies Allergy/AdvReac Type Severity Reaction Status Date / Time procaine HCl [From Novocain] Allergy Cannot Verified 10/17/20 10:41 Remember Home Medications: Home Meds Famotidine [Pepcid] 20 mg PO BID 09/21/20 [History] Gabapentin [Neurontin] 100 mg PO BID 09/21/20 [History] Losartan Potassium 100 mg PO DAILY 09/21/20 [History] Levothyroxine 125 mcg PO DAILY 09/22/20 [History] Aspirin 81 mg PO DAILY 10/07/20 [History] Carboxymethylcellulose Sodium [Refresh Liquigel 1%] 1 drop EYEBOTH QID 10/07/20 [History] Diclofenac Sodium [Voltaren 1% Gel] 2 g TOP TID PRN 10/07/20 [History] allopurinoL [Zyloprim] 50 mg PO DAILY 10/07/20 [History] atorvaSTATin [Lipitor] 10 mg PO WITHDINNER 10/07/20 [History] polyethylene glycoL 3350 [Miralax] 17 g PO DAILY 10/07/20 [History] amLODIPine [Norvasc] 5 mg PO DAILY 30 Days #30 tablet 10/20/20 [Rx] Acetaminophen [Tylenol Extra Strength] 1,000 mg PO BID 03/06/21 [History] Estradiol Acetate [Femring] 10 mcg TUT@2100 03/06/21 [History] Ferrous Sulfate 324 mg PO DAILY 03/06/21 [History] Furosemide [Lasix] 20 mg PO DAILY 03/06/21 [History] Insulin Glarg,Human.Rec.Analog [Lantus Solostar] 25 unit SUBCUT BEDTIME 03/06/21 [History] Insulin Lispro [HumaLOG] 10 unit SQ ASDIRECTED PRN 03/06/21 [History] Insulin Lispro [HumaLOG] 28 unit SQ 1700 03/06/21 [History] Insulin Lispro [HumaLOG] 30 unit SQ 1100 03/06/21 [History] Insulin Lispro [HumaLOG] 44 unit SQ 0800 03/06/21 [History] Past Medical History HEENT History: Reports: Other (See Below) Other HEENT History: dry eye syndrome Cardiovascular History: Reports: Afib, Heart Failure, High Cholesterol, Hypertension, [place] Respiratory History: Reports: Sleep Apnea, Other (See Below) Other Respiratory History: Pleural effusion. Pneumonia. 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 Spinal arthritis. Neurological History: Reports: Other (See Below) Other Neuro History: History of memory loss. Psychiatric History: Reports: Depression Endocrine/Metabolic History: Reports: Diabetes, Type II, Hypothyroidism, Obesity/BMI 30+ Oncologic (Cancer) History: Reports: Other (See Below) Other Oncologic History: Tongue. Dermatologic History: Reports: Decubitus Ulcer Other Dermatologic History: stage II ulcer to L heel & coccyx - Infectious Disease History Infectious Disease History: Reports: Scarlet Fever - Past Surgical History Head Surgeries/Procedures: Reports: None HEENT Surgical History: Reports: Cataract Surgery, Other (See Below) Other HEENT Surgeries/Procedures: BOTH EYES CATARACT SURGERY, TOUNGUE SURGERY AND LYMPH NODES 06/13/19 GI Surgical History: Reports: Appendectomy, Cholecystectomy Female Surgical History: Reports: Hysterectomy Social & Family History - Family History Family Medical History: No Pertinent Family History - Tobacco Use Tobacco Use Status *Q: Former Tobacco User Used Tobacco, but Quit: No Second Hand Smoke Exposure: No - Caffeine Use Caffeine Use: Reports: None - Recreational Drug Use Recreational Drug Use: No H&P Review of Systems - Review of Systems: Review Of Systems: Comprehensive ROS is negative, except as noted in HPI. Exam - Exam Exam: See Below - Vital Signs Vital Signs: Last Vital Signs Temp 97.2 F 03/06/21 08:00 Pulse 72 03/06/21 08:00 Resp 18 03/06/21 08:00 BP 170/51 H 03/06/21 08:39 Pulse Ox 99 03/06/21 08:00 Weight: 96.417 kg - Exam Quality Assessment: No: Supplemental Oxygen General: Alert, Oriented HEENT: PERRLA Neck: Supple Lungs: Rales Cardiovascular: Regular Rate GI/Abdominal Exam: Normal Bowel Sounds, Soft, Non-Tender (Female) Exam: Normal External Exam Rectal (Female) Exam: Deferred Back Exam: Normal Inspection Extremities: Normal Inspection, No Pedal Edema Skin: Warm Neurological: Cranial Nerves Intact Neuro Extensive - Mental Status: Alert, Oriented x3 Psychiatric: Alert, Normal Affect - Patient Data Lab Results Last 24 hrs: Laboratory Results - last 24 hr 03/06/21 03/06/21 03/06/21 Range/Units 04:35 04:45 04:45 WBC 20.4 H (3.0-10.3) x10-3/uL RBC 3.75 (3.60-5.20) x10(6)uL Hgb 11.1 L (11.4-15.5) g/dL Hct 34.7 (34.2-48.2) % MCV 92.3 (76.7-100.5) fL MCH 29.6 (23.9-33.9) pg MCHC 32.0 (31.9-34.8) g/dL RDW 13.5 (12.3-16.5) % Plt Count 340 (151-488) x10(3)uL MPV 8.0 (7.1-12.4) fL Neut % (Auto) 76.6 H (30.8-76.2) % Lymph % (Auto) 12.0 L (18.4-52.1) % [place] % (Auto) 8.3 (4.4-15.7) % Eos % (Auto) 2.4 (0.6-8.1) % Baso % (Auto) 0.7 (0.2-1.5) % Neut # (Auto) 15.6 H (1.5-6.3) x10-3/uL Lymph # (Auto) 2.5 (1.0-4.4) x10-3/uL [place] # (Auto) 1.7 H (0.3-1.0) x10-3/uL Eos # (Auto) 0.5 (0.0-0.8) x10-3/uL Baso # (Auto) 0.1 (0.0-0.1) x10-3/uL Sodium 141 (135-145) mmol/L Potassium 4.9 (3.5-5.3) mmol/L Chloride 105 (100-110) mmol/L Carbon Dioxide 24 (21-32) mmol/L BUN 49 H (7-18) mg/dL Creatinine 1.8 H (0.55-1.02) mg/dL Est Cr Clr Drug Dosing 19.81 mL/min Estimated GFR (MDRD) 27 L (>60) BUN/Creatinine Ratio 27.2 H (9-20) Glucose 280 H (80-116) mg/dL Calcium 8.4 L D (8.6-10.2) mg/dL Total Bilirubin 0.3 (0.1-1.3) mg/dL AST 16 D (5-25) IU/L ALT 34 D (12-36) U/L Alkaline Phosphatase 96 (56-112) IU/L Troponin I (4.0-60.3) pg/mL C-Reactive Protein (0.5-0.9) mg/dL NT-Pro-B Natriuret Pep (<=450) pg/mL Total Protein 7.0 (6.0-8.0) g/dL Albumin 2.9 L (3.2-4.6) g/dL Globulin 4.1 g/dL Albumin/Globulin Ratio 0.7 Urine Color Yellow (YELLOW) Urine Appearance Cloudy (CLEAR) Urine pH 5.0 (5.0-6.5) Ur Specific [place] 1.015 (1.010-1.025) Urine Protein 500 H (NEGATIVE) mg/dL Urine Glucose (UA) 250 H (NORMAL) mg/dL Urine Ketones 15 H (NEGATIVE) mg/dL Urine Occult Blood Large H (NEGATIVE) Urine Nitrite Negative (NEGATIVE) Urine Bilirubin Negative (NEGATIVE) Urine Urobilinogen Normal (NEGATIVE) mg/dL Ur Leukocyte Esterase Large H (NEGATIVE) Urine RBC 10-20 H (0-5) Urine WBC >100 H (0-5) Ur Squamous Epith Cells Rare (NS,R,O) Urine Bacteria Moderate H (NS) 03/06/21 Range/Units 04:45 WBC (3.0-10.3) x10-3/uL RBC (3.60-5.20) x10(6)uL Hgb (11.4-15.5) g/dL Hct (34.2-48.2) % MCV (76.7-100.5) fL MCH (23.9-33.9) pg MCHC (31.9-34.8) g/dL RDW (12.3-16.5) % Plt Count (151-488) x10(3)uL MPV (7.1-12.4) fL Neut % (Auto) (30.8-76.2) % Lymph % (Auto) (18.4-52.1) % [place] % (Auto) (4.4-15.7) % Eos % (Auto) (0.6-8.1) % Baso % (Auto) (0.2-1.5) % Neut # (Auto) (1.5-6.3) x10-3/uL Lymph # (Auto) (1.0-4.4) x10-3/uL [place] # (Auto) (0.3-1.0) x10-3/uL Eos # (Auto) (0.0-0.8) x10-3/uL Baso # (Auto) (0.0-0.1) x10-3/uL Sodium (135-145) mmol/L Potassium (3.5-5.3) mmol/L Chloride (100-110) mmol/L Carbon Dioxide (21-32) mmol/L BUN (7-18) mg/dL Creatinine (0.55-1.02) mg/dL Est Cr Clr Drug Dosing mL/min Estimated GFR (MDRD) (>60) BUN/Creatinine Ratio (9-20) Glucose (80-116) mg/dL Calcium (8.6-10.2) mg/dL Total Bilirubin (0.1-1.3) mg/dL AST (5-25) IU/L ALT (12-36) U/L Alkaline Phosphatase (56-112) IU/L Troponin I 36.2 (4.0-60.3) pg/mL C-Reactive Protein 0.9 (0.5-0.9) mg/dL NT-Pro-B Natriuret Pep 1494 H* (<=450) pg/mL Total Protein (6.0-8.0) g/dL Albumin (3.2-4.6) g/dL Globulin g/dL Albumin/Globulin Ratio Urine Color (YELLOW) Urine Appearance (CLEAR) Urine pH (5.0-6.5) Ur Specific [place] (1.010-1.025) Urine Protein (NEGATIVE) mg/dL Urine Glucose (UA) (NORMAL) mg/dL Urine Ketones (NEGATIVE) mg/dL Urine Occult Blood (NEGATIVE) Urine Nitrite (NEGATIVE) Urine Bilirubin (NEGATIVE) Urine Urobilinogen (NEGATIVE) mg/dL Ur Leukocyte Esterase (NEGATIVE) Urine RBC (0-5) Urine WBC (0-5) Ur Squamous Epith Cells (NS,R,O) Urine Bacteria (NS) Result Diagrams: 03/06/21 04:45 03/06/21 04:45 Sepsis Event Note - Evaluation Sepsis Screening Result: No Definite Risk - Focused Exam Vital Signs: Vital Signs Temp Pulse Resp BP BP BP Pulse Ox 03/06/21 08:39 170/51 H 03/06/21 08:00 97.2 F 72 18 170/51 H 99 03/06/21 06:33 03/06/21 06:30 98.5 F 78 20 147/81 H 98 03/06/21 06:20 97.8 F 73 18 148/52 H 98 03/06/21 06:09 99 03/06/21 03:42 97.8 F 83 22 H 157/55 H 90 L Pulse Ox 03/06/21 08:39 03/06/21 08:00 03/06/21 06:33 99 03/06/21 06:30 03/06/21 06:20 03/06/21 06:09 03/06/21 03:42 - Problem List (1) Acute exacerbation of congestive heart failure SNOMED Code(s): 627433705, 70391874281200 ICD Code: I50.9 - HEART FAILURE, UNSPECIFIED Status: Acute Current Visit: Yes Qualifiers: Heart failure type: systolic Qualified Code(s): I50.23 - Acute on chronic systolic (congestive) heart failure (2) Chest pain, rule out acute myocardial infarction SNOMED Code(s): 39904886 ICD Code: R07.9 - CHEST PAIN, UNSPECIFIED Status: Acute Current Visit: Yes (3) Chronic renal failure SNOMED Code(s): 01642927 ICD Code: N18.9 - CHRONIC KIDNEY DISEASE, UNSPECIFIED Status: Chronic Current Visit: Yes (4) Diabetes mellitus with hyperglycemia SNOMED Code(s): 43243069, 917158261 ICD Code: E11.65 - TYPE 2 DIABETES MELLITUS WITH HYPERGLYCEMIA Status: Acute Current Visit: Yes Qualifiers: Diabetes mellitus type: type 2 (5) Urinary tract infection SNOMED Code(s): 43799417 ICD Code: N39.0 - URINARY TRACT INFECTION, SITE NOT SPECIFIED Status: Acute Current Visit: Yes Qualifiers: Urinary tract infection type: acute cystitis (6) Atrial fibrillation SNOMED Code(s): 36138910 ICD Code: I48.91 - UNSPECIFIED ATRIAL FIBRILLATION Status: Chronic C urrent Visit: No Qualifiers: Atrial fibrillation type: paroxysmal Problem List Initiated/Reviewed/Updated: Yes Orders Last 24hrs: Active Orders 24 hr Category Date Time Status Admission Status [Patient Status] [ADT] Routine ADT 03/06/21 05:51 Active Blood Glucose Check, Bedside [RC] QIDACANDBED Care 03/06/21 06:08 Active Diabetes Education [RC] Click to Edit Care 03/06/21 06:11 Active Height and Weight [RC] 06 Care 03/06/21 06:08 Active Insert Urinary Catheter [OM.PC] Q24H Care 03/06/21 05:00 Ordered Oxygen Therapy [RC] PRN Care 03/06/21 06:08 Active Pulse Oximetry [RC] CONTINUOUS Care 03/06/21 06:09 Active Up With Assistance [RC] ASDIRECTED Care 03/06/21 06:08 Active VTE/DVT Education [RC] Per Unit Routine Care 03/06/21 06:08 Active Vital Signs [RC] 08,12,16,20,00,04 Care 03/06/21 06:08 Active 2 Gram Sodium Diet [DIET] Diet 03/06/21 Breakfast Active Consistent Carbohydrate Diet [DIET] Diet 03/06/21 Breakfast Active Chest 1V Frontal [CR] Stat Exams 03/06/21 04:27 Taken BASIC METABOLIC PANEL,BMP [CHEM] DAILY Lab 03/07/21 06:13 Ordered CBC WITH AUTO DIFF [HEME] DAILY Lab 03/07/21 06:15 Ordered CULTURE URINE [RM] Stat Lab 03/06/21 04:35 Received PRO B-TYPE NATRIUR PEPT,BNPPRO [CHEM] DAILY Lab 03/07/21 05:11 Ordered TROPONIN I [CHEM] AM Lab 03/07/21 05:11 Ordered TROPONIN I [CHEM] Routine Lab 03/06/21 11:00 Ordered Acetaminophen [TylenoL] Med 03/06/21 06:08 Active 650 mg PO Q4H PRN Acetaminophen [Tylenol Extra Strength] Med 03/06/21 09:00 Active 1,000 mg PO BID Aspirin Med 03/06/21 09:00 Active 81 mg PO DAILY Carboxymethylcellulose Sodium [Refresh Liquigel 1%] Med 03/06/21 09:00 Active 0 ml EYEBOTH QID Dextrose 50% in Water Med 03/06/21 06:21 Active 50 ml IVPUSH ASDIRECTED PRN Enoxaparin [Lovenox] Med 03/06/21 06:30 Active 30 mg SUBCUT Q24H Estradiol Acetate [Femring] Med 03/10/21 21:00 Pending 10 mcg .XX TuTh@2100 Famotidine [Pepcid] Med 03/06/21 09:00 Pending 20 mg PO BID Ferrous Sulfate Med 03/06/21 09:00 Active 325 mg PO DAILY Furosemide [Lasix] Med 03/06/21 09:00 Active 40 mg PO DAILY Gabapentin [Neurontin] Med 03/06/21 09:00 Active 100 mg PO BID Glucagon,Human Recombinant [GlucaGen] Med 03/06/21 06:21 Active 1 mg IM ASDIRECTED PRN Insulin Glarg,Human.Rec.Analog [LantUS Solostar] Med 03/06/21 21:00 Pending 50 units SUBCUT BEDTIME Levothyroxine Med 03/06/21 12:00 Active 125 mcg PO DAILY@1200 Losartan [Cozaar] Med 03/06/21 09:00 Active 100 mg PO DAILY Magnesium Hydroxide [Milk of Magnesia] Med 03/06/21 06:08 Active 30 ml PO Q12H PRN Ondansetron [Zofran] Med 03/06/21 06:08 Active 4 mg IV Q4H PRN allopurinoL [Zyloprim] Med 03/06/21 09:00 Active 50 mg PO DAILY amLODIPine [Norvasc] Med 03/06/21 09:00 Active 5 mg PO DAILY atorvaSTATin [Lipitor] Med 03/06/21 18:00 Active 10 mg PO WITHDINNER cefTRIAXone [Rocephin] Med 03/07/21 06:30 Active 1 gm IVPUSH Q24H polyethylene glycoL 3350 [MiraLAX] Med 03/06/21 09:00 Active 17 gm PO DAILY Glucose Management Sub Q Reflex [OM.PC] Click to Edit Oth 03/06/21 06:08 Ordered Resuscitation Status Routine Resus Stat 03/06/21 06:08 Ordered EKG 12 Lead [EK] Routine Ther 03/06/21 04:27 Ordered Medication Orders Acetaminophen (Acetaminophen 325 Mg Tab) 650 mg PO Q4H PRN PRN Reason: Pain (Mild 1-3)/fever Acetaminophen (Acetaminophen 500 Mg Tab) 1,000 mg PO BID [facility] Last Admin: 03/06/21 08:40 Dose: 1,000 mg Documented by: EDDA Allopurinol (Allopurinol 100 Mg Tab) 50 mg PO DAILY [facility] Last Admin: 03/06/21 08:40 Dose: 50 mg Documented by: EDDA Amlodipine Besylate (Amlodipine 5 Mg Tab) 5 mg PO DAILY [facility] Last Admin: 03/06/21 08:39 Dose: 5 mg Documented by: EDDA Artificial Tears (Carboxymethylcellulose Sodium 1% Ophth Gel 15 Ml Bottle) 0 ml EYEBOTH QID [facility] Last Admin: 03/06/21 08:40 Dose: 1 drop Documented by: EDDA Aspirin (Aspirin 81 Mg Tab.Chew) 81 mg PO DAILY [facility] Last Admin: 03/06/21 08:38 Dose: 81 mg Documented by: EDDA Atorvastatin Calcium (Atorvastatin 10 Mg Tab) 10 mg PO WITHDINNER [facility] Ceftriaxone Sodium (Ceftriaxone 1 Gm Vial) 1 gm IVPUSH Q24H [facility] Dextrose/Water (50% Dextrose In Water 50 Ml Syringe) 50 ml IVPUSH ASDIRECTED PRN PRN Reason: Hypoglycemia Enoxaparin Sodium (Enoxaparin 30 Mg/0.3 Ml Syringe) 30 mg SUBCUT Q24H [facility] Last Admin: 03/06/21 06:36 Dose: 30 mg Documented by: MT Famotidine (Famotidine 20 Mg Tab) 20 mg PO DAILY [facility] Ferrous Sulfate (Ferrous Sulfate 325 Mg Tab) 325 mg PO DAILY [facility] Last Admin: 03/06/21 08:39 Dose: 325 mg Documented by: EDDA Furosemide (Furosemide 40 Mg Tab) 40 mg PO DAILY [facility] Last Admin: 03/06/21 08:39 Dose: 40 mg Documented by: EDDA Gabapentin (Gabapentin 100 Mg Cap) 100 mg PO BID [facility] Last Admin: 03/06/21 08:39 Dose: 100 mg Documented by: EDDA Glucagon (Glucagon,Human Recombinant 1 Mg Vial) 1 mg IM ASDIRECTED PRN PRN Reason: Hypoglycemia Insulin Glargine (Insulin Glargine,Human Rec. Analog 100 Units/Ml 3 Ml Pen) 25 units SUBCUT BEDTIME [facility] Levothyroxine Sodium (Levothyroxine 125 Mcg Tab) 125 mcg PO DAILY@1200 [facility] Losartan Potassium (Losartan 100 Mg Tab) 100 mg PO DAILY [facility] Last Admin: 03/06/21 08:39 Dose: 100 mg Documented by: EDDA Magnesium Hydroxide (Magnesium Hydroxide 400 Mg/5 Ml Susp 30 Ml Cup) 30 ml PO Q12H PRN PRN Reason: Constipation Non-Formulary Medication (Estradiol Acetate [Femring]) 10 mcg .XX TuTh@2100 [facility] Ondansetron HCl (Ondansetron 4 Mg/2 Ml Sdv) 4 mg IV Q4H PRN PRN Reason: Nausea/Vomiting Polyethylene Glycol (Polyethylene Glycol 3350 Powder 17 Gm Packet) 17 gm PO DAILY [facility] Last Admin: 03/06/21 08:39 Dose: 17 gm Documented by: EDDA Assessment/Plan Comment:: I've admitted for treatment of CHF, with Lasix. We'll also treat him with Rocephin for the urinary tract infection. A white cell count is 20,000, and a BNP is 1400. I will repeat labs tomorrow, I anticipate possibly discharging her back to the snf the next 1-2 days.
[2021-03-06] MEDS ORDERED: Insulin Lispro 100 Unit/ML 3 ML KwikPen SUBCUT ONE (10:32)
[2021-03-06] MEDS: Insulin Lispro 100 Unit/ML 3 ML KwikPen SUBCUT SCH ×2 (10:41→12:52)
[2021-03-06] MEDS: Famotidine 20 MG Tab PO SCH (10:43)
--- NOTE | 2021-03-06 11:14 | CR ---
INDICATION: Chest pain. CHEST, ONE VIEW: AP portable upright view of the chest 04/06/21 was compared with 11/12/20 and 09/27/20. Recurrent pneumonia is again seen in the right upper lung field and to a lesser extent in the right lower lung field and left lung base. The infiltrates on the left are relatively minimal compared with the previous study of 09/27/20. However, these findings are new compared with the more recent study of 11/12/20 and likely represent bilateral pneumonia. The possibility of aspiration pneumonia would be a consideration. There is some thickening of the minor fissure suggested which is compatible with a mild degree of pleuritis. The heart remains normal in size and shape. The aorta is tortuous with calcification in the arch. Overlying EKG leads are noted. Degenerative change is noted in the lower thoracic spine with hypertrophic lipping. IMPRESSION: 1. Bilateral pneumonia but much more severe on the right than left on the current study. 2. ASD aorta. 3. Exogenous obesity. MTDD
[2021-03-06] MEDS ORDERED: Levothyroxine 125 MCG Tab PO SCH (12:00)
[2021-03-06] MEDS ORDERED: Insulin Lispro 100 Unit/ML 3 ML KwikPen SUBCUT SCH ×2 (12:00→18:00)
[2021-03-06] MEDS: Sodium Chloride 0.9% 10 ML Syringe FLUSH PRN (17:13)
[2021-03-06] MEDS ORDERED: atorvaSTATin 10 MG Tab PO SCH (18:00)
[2021-03-06] MEDS ORDERED: Insulin Glargine,Human Rec. Analog 100 Units/ML 3 ML Pen SUBCUT SCH (21:00)
[2021-03-06] MEDS ORDERED: Insulin Glargine,Human Rec. Analog 100 Units/ML 3 ML Pen SUBCUT ONE (22:22)
[2021-03-07 06:12] VITALS: PULSE 64
[2021-03-07] MEDS: Enoxaparin 30 MG/0.3 ML Syringe SUBCUT SCH (06:14)
[2021-03-07] MEDS: Sodium Chloride 0.9% 10 ML Syringe FLUSH PRN (06:19)
[2021-03-07] MEDS ORDERED: cefTRIAXone 1 GM Vial IVPUSH SCH (06:30)
[2021-03-07] MEDS: Insulin Lispro 100 Unit/ML 3 ML KwikPen SUBCUT SCH (07:42)
[2021-03-07 07:53] VITALS: BP 142/47
[2021-03-07] MEDS: Aspirin 81 MG Tab.Chew PO SCH (08:57)
[2021-03-07] MEDS: Losartan 100 MG Tab PO SCH (08:58)
[2021-03-07] MEDS: Furosemide 40 MG Tab PO SCH (08:59)
[2021-03-07] MEDS: Ferrous Sulfate 325 MG Tab PO SCH (08:59)
[2021-03-07] MEDS: Carboxymethylcellulose Sodium 1% Ophth Gel 15 ML Bottle EYEBOTH SCH (09:00)
[2021-03-07] MEDS: Acetaminophen 500 MG Tab PO SCH (09:00)
[2021-03-07] MEDS: Famotidine 20 MG Tab PO SCH (09:00)
[2021-03-07] MEDS: Gabapentin 100 MG Cap PO SCH (09:00)
[2021-03-07] MEDS: Allopurinol 100 MG Tab PO SCH (09:00)
[2021-03-07] MEDS: Polyethylene Glycol 3350 Powder 17 GM Packet PO SCH (09:00)
[2021-03-07] MEDS: amLODIPine 5 MG Tab PO SCH (09:00)
--- NOTE | 2021-03-07 13:41 | DISCH ---
DISCHARGE DATE: 03/07/2021 REASON FOR VISIT: 1. Urinary tract infection. 2. Angina pectoris. 3. CKD. 4. Congestive heart failure exacerbation. BRIEF HISTORY: This is an 85-year-old female who was admitted to the ER with dysuria, frequency of urination along with chest pain. She does have a history of coronary artery disease. Initial EKG was negative. Troponin was also negative x3. BNP however was 1494 and 2551 on . She was given 40 mg of IV Lasix and Rocephin to treat the urinary tract infection. Urine was positive and grew 50,000 to 100,000 gram-negative rods. She improved markedly. She was off fluids and oxygen and was ready for discharge on the . I discharged her home on cephalexin and increased the dose of Lasix to 20 mg twice a day. The rest of her prescriptions were continued. I spent more than 35 minutes in the discharge of the patient. /[id number] LUNA/ALLIE
[2021-03-10] MEDS ORDERED: ESTRADIOL ACETATE SCH (21:00)
== END 2021-03-07 11:00 | DRG 291 ==
LOC: FB.ED 03:42 → FB.MS 05:56
PROVIDERS: ADMIT Student in an Organized Health Care Education/Training Program; ATTEND Family Medicine
DX: I13.0 Hypertensive heart and chronic kidney disease with heart failure and stage 1 through stage 4 chronic kidney disease, or unspecified chronic kidney disease (principal); I50.1 Left ventricular failure, unspecified; R07.9 Chest pain, unspecified; I50.23 Acute on chronic systolic (congestive) heart failure; D72.829 Elevated white blood cell count, unspecified; N39.0 Urinary tract infection, site not specified; I25.119 Atherosclerotic heart disease of native coronary artery with unspecified angina pectoris; E88.09 Other disorders of plasma-protein metabolism, not elsewhere classified; E78.5 Hyperlipidemia, unspecified; H04.129 Dry eye syndrome of unspecified lacrimal gland; I25.2 Old myocardial infarction; G47.33 Obstructive sleep apnea (adult) (pediatric); K21.9 Gastro-esophageal reflux disease without esophagitis; G47.30 Sleep apnea, unspecified; F32.9 Major depressive disorder, single episode, unspecified; R32 Unspecified urinary incontinence; M06.9 Rheumatoid arthritis, unspecified; M47.9 Spondylosis, unspecified; E11.65 Type 2 diabetes mellitus with hyperglycemia; E03.9 Hypothyroidism, unspecified; E66.9 Obesity, unspecified; Z88.4 Allergy status to anesthetic agent; Z79.82 Long term (current) use of aspirin; Z79.890 Hormone replacement therapy; N18.9 Chronic kidney disease, unspecified; Z79.899 Other long term (current) drug therapy; E11.22 Type 2 diabetes mellitus with diabetic chronic kidney disease; Z79.4 Long term (current) use of insulin; Z66 Do not resuscitate; I48.91 Unspecified atrial fibrillation; Z79.01 Long term (current) use of anticoagulants; Z87.01 Personal history of pneumonia (recurrent); Z98.42 Cataract extraction status, left eye; Z98.41 Cataract extraction status, right eye; Z90.710 Acquired absence of both cervix and uterus; Z90.49 Acquired absence of other specified parts of digestive tract; Z98.890 Other specified postprocedural states
CPT/HCPCS: 36415; 71045; 80048; 80053; 81001; 82947; 83880; 84484; 85025; 86140; 87086; 87088; 87186; 93005; 94150; 94760; 99285-25; A9270-GY; J0696; J1650; J1815; J1815-GY; J1940; J2405

== ENCOUNTER 2021-03-24 02:47 | Emergency (ER) | payer MEDICARE ==
--- NOTE | 2021-03-24 03:32 | EDM.PDOC ---
ED HPI GENERAL MEDICAL PROBLEM - General Chief Complaint: General Stated Complaint: upset stomach Time Seen by Provider: 03/24/21 03:22 Source of Information: Reports: Patient, Custodial Records History Limitations: Reports: Other (Patient does have some dementia. She is quite talkative and is able to give a fairly good history. She remembers being here recently with a similar presentation but is unable to pinpoint exactly when (it was about a 2 weeks ago).) - History of Present Illness INITIAL COMMENTS - FREE TEXT/NARRATIVE: 85-year-old female who reports that she awoke with pain in her epigastrium and it moved into her chest. She apparently complained to the [facility] staff and they gave her some milk at her request. She reports that the pain really did not subside and she had vomiting 1 and apparently following this she was complaining of some more pain in her epigastrium and into her chest but she also had bilateral arm pain. She had another episode of emesis and they called the patient's primary doctor (Dr. Petersen) and he advised them to bring her to the emergency department for evaluation. The patient was brought over from [facility] to the emergency department and once here, she was denying any chest or abdominal pain. Her nausea and resolved as well and she was reported that she felt better. He denies any pain at present. She states earlier she had a burning and pressure type pain in her epigastrium and in her chest and she states it was a "terrible pain". She is really not able to describe it any better than that but she did state it radiated to her back and to both arms. She also tells me that this pain was exactly like the pain she had when she was in the emergency department before which was 2 weeks ago. No shortness of breath now. No pain now. She rates her pain is 0/10. She also states that she is incontinent of urine and that it gentile when she urinates. No reports of fevers. Apparently she ate and drank normally yesterday. This occurred approximately 1 AM. There are no other associated signs or symptoms. There are no other modifying factors. Onset: Today Duration: Resolved Prior to Arrival Location: Reports: Chest, Abdomen, Back, Upper Extremity, Left, Upper Extremity, Right Quality: Reports: Ache, Burning Severity: Moderate (to severe when she had it. It is currently gone now.) Improves with: Reports: None Worsens with: Reports: None Context: Reports: Other (As above.) Associated Symptoms: Reports: No Other Symptoms (Except as above.) Treatments [employer]ER: Reports: Other (see below) (Nothing.) - Related Data Allergies Allergy/AdvReac Type Severity Reaction Status Date / Time aspartame Allergy Cannot Verified 03/24/21 03:21 Remember procaine HCl [From Novocain] Allergy Cannot Verified 10/17/20 10:41 Remember Home Meds: Home Meds Famotidine [Pepcid] 40 mg PO DAILY 09/21/20 [History] Gabapentin [Neurontin] 100 mg PO BID 09/21/20 [History] Losartan Potassium 100 mg PO DAILY 09/21/20 [History] Levothyroxine 125 mcg PO DAILY 09/22/20 [History] Aspirin 81 mg PO DAILY 10/07/20 [History] Carboxymethylcellulose Sodium [Refresh Liquigel 1%] 1 drop EYEBOTH QID 10/07/20 [History] Diclofenac Sodium [Voltaren 1% Gel] 2 g TOP TID PRN 10/07/20 [History] allopurinoL [Zyloprim] 50 mg PO DAILY 10/07/20 [History] atorvaSTATin [Lipitor] 10 mg PO WITHDINNER 10/07/20 [History] polyethylene glycoL 3350 [Miralax] 17 g PO DAILY 10/07/20 [History] amLODIPine [Norvasc] 5 mg PO DAILY 30 Days #30 tablet 10/20/20 [Rx] Acetaminophen [Tylenol Extra Strength] 1,000 mg PO BID 03/06/21 [History] Estradiol Acetate [Femring] 10 mcg [facility]@2100 03/06/21 [History] Ferrous Sulfate 324 mg PO DAILY 03/06/21 [History] Insulin Glarg,Human.Rec.Analog [Lantus Solostar] 20 unit SUBCUT BEDTIME 03/06/21 [History] Insulin Lispro [HumaLOG] 10 unit SQ ASDIRECTED PRN 03/06/21 [History] Insulin Lispro [HumaLOG] 28 unit SQ 1700 03/06/21 [History] Insulin Lispro [HumaLOG] 30 unit SQ 1100 03/06/21 [History] Insulin Lispro [HumaLOG] 44 unit SQ 0800 03/06/21 [History] Furosemide [Lasix] 20 mg PO BID #30 03/07/21 [Rx] Ciprofloxacin [Ciprofloxacin HCl] 500 mg PO BID 10 Days #20 tab 03/24/21 [Rx] Omeprazole 20 mg PO DAILY 03/24/21 [History] Ondansetron [Zofran ODT] 4 mg PO Q6H PRN #10 tab.dis 03/24/21 [Rx] Past Medical History HEENT History: Reports: Other (See Below) Other HEENT History: dry eye syndrome Cardiovascular History: Reports: Afib, CAD, Heart Failure, High Cholesterol, Hypertension, PA Respiratory History: Reports: Sleep Apnea Gastrointestinal History: Reports: GERD Genitourinary History: Reports: Chronic Renal Insuffiency, Urinary Incontinence, UTI, Recurrent Musculoskeletal History: Reports: RA Psychiatric History: Reports: Dementia, Depression Endocrine/Metabolic History: Reports: Diabetes, Type II, Hypothyroidism, Obesity/BMI 30+ Oncologic (Cancer) History: Reports: Other (See Below) Other Oncologic History: Tongue. Dermatologic History: Reports: Decubitus Ulcer Other Dermatologic History: stage II ulcer to L heel & coccyx - Infectious Disease History Infectious Disease History: Reports: Scarlet Fever - Past Surgical History Head Surgeries/Procedures: Reports: None HEENT Surgical History: Reports: Cataract Surgery, Other (See Below) Other HEENT Surgeries/Procedures: partial glossectomy GI Surgical History: Reports: Appendectomy, Cholecystectomy Female Surgical History: Reports: Hysterectomy Social & Family History - Tobacco Use Tobacco Use Status *Q: Never Tobacco User - Caffeine Use Caffeine Use: Reports: Coffee - Alcohol Use Alcohol Use History: No - Recreational Drug Use Recreational Drug Use: No - Living Situation & Occupation Living situation: Reports: Extended Care Facility (She is a resident of [facility]) Occupation: Retired ED ROS GENERAL - Review of Systems Review Of Systems: See Below Constitutional: Denies: Fever, Chills HEENT: Reports: Other (Dry mouth.). Denies: Throat Pain Respiratory: Denies: Shortness of Breath, Cough Cardiovascular: Reports: Chest Pain. Denies: Lightheadedness, Syncope GI/Abdominal: Reports: Abdominal Pain (With this episode), Nausea, Vomiting : Reports: Dysuria, Frequency Musculoskeletal: Reports: Arm Pain (Bilateral) Neurological: Denies: Dizziness, Headache Hematologic/Lymphatic: Denies: Easy Bleeding, Easy Bruising ED EXAM, GENERAL - Physical Exam Exam: See Below Exam Limited By: No Limitations General Appearance: Alert, No Apparent Distress, Obese Eye Exam: Bilateral Eye: EOMI, Normal Inspection (Sclerae are anicteric) Ears: Normal External Exam, Hearing Grossly Normal Ear Exam: Bilateral Ear: Auricle Normal Nose: Normal Inspection, Normal Mucosa, No Blood Throat/Mouth: Normal Voice, No Airway Compromise, Other (Dry mouth.) Head: Atraumatic, Normocephalic Neck: Normal Inspection, Supple, Non-Tender, Full Range of Motion Respiratory/Chest: No Respiratory Distress, Lungs Clear, Normal Breath Sounds, No Accessory Muscle Use, Chest Non-Tender Cardiovascular: Normal Peripheral Pulses, Regular Rate, Rhythm, No Gallop, No Murmur, Tachycardia (Mildly tachycardic) Peripheral Pulses: 2+: Radial (L), Radial (R), Dorsalis Pedis (L), Dorsalis Pedis (R) GI/Abdominal: Normal Bowel Sounds, Soft, Non-Tender, No Mass Back Exam: Normal Inspection. No: CVA Tenderness (R), CVA Tenderness (L) Extremities: Normal Range of Motion, Non-Tender, Normal Capillary Refill ( laterally), Pedal Edema (Trace bilaterally), Other (Warm hands and warm feet.) Neurological: Alert, Oriented, CN II-XII Intact, No Motor/Sensory Deficits, Other (Remembers recent events but is unsure of exactly when the did occur.) Psychiatric: Normal Affect Skin Exam: Warm, Dry, Intact, Normal Color, No Rash #1 Interpretation EKG Date: 03/24/21 Time: 03:02 Rhythm: NSR Rate (Beats/Min): 100 [place]: LAD-Left [place] Deviation P-Wave: Present QRS: Normal ST-T: Depressed (Anterolateral leads. There is also poor R-wave progression.) QT: Normal Comparison: No Change (No change from EKG performed on 03/06/2021.) #2 Interpretation EKG Date: 03/24/21 Time: 04:17 Rhythm: NSR Rate (Beats/Min): 87 [place]: LAD-Left [place] Deviation P-Wave: Present QRS: Normal ST-T: Depressed (Anterior and lateral. Poor R-wave progression.) QT: Normal Comparison: No Change (No change from the EKG that was performed just one hour prior.) Course - Vital Signs Last Recorded V/S: Last Vital Signs Temp 36.8 C 03/24/21 03:11 Pulse 99 03/24/21 03:11 Resp 20 03/24/21 03:11 BP 177/65 H 03/24/21 03:11 Pulse Ox 99 03/24/21 03:11 - Orders/Labs/Meds Orders: Active Orders 24 hr Category Date Time Status Bladder Scan [RC] ONETIME Care 03/24/21 03:41 Active EKG Documentation Completion [RC] ASDIRECTED Care 03/24/21 03:43 Active EKG Documentation Completion [RC] ASDIRECTED Care 03/24/21 04:19 Active Insert Urinary Catheter [OM.PC] ONETIME Care 03/24/21 03:45 Ordered Chest 1V Frontal [CR] Stat Exams 03/24/21 03:41 Taken CULTURE URINE [RM] Stat Lab 03/24/21 04:05 Received Ciprofloxacin in D5W [Cipro in D5W 400 MG/200 ML] 400 Med 03/24/21 04:59 Active mg Premix Bag 1 bag IV ONETIME Sodium Chloride 0.9% [Saline Flush] Med 03/24/21 03:41 Active 10 ml FLUSH ASDIRECTED PRN Peripheral IV Insertion Adult [OM.PC] Routine Oth 03/24/21 03:41 Ordered EKG 12 Lead [EK] Routine Ther 03/24/21 03:41 Ordered EKG 12 Lead [EK] Routine Ther 03/24/21 04:18 Ordered Medication Orders Ciprofloxacin/Dextrose 400 mg/ (Premix) 200 mls @ 200 mls/hr IV ONETIME ONE Stop: 03/24/21 05:58 Last Admin: 03/24/21 05:03 Dose: 200 mls/hr Documented by: ALMA Sodium Chloride (Sodium Chloride 0.9% 10 Ml Syringe) 10 ml FLUSH ASDIRECTED PRN PRN Reason: Keep Vein Open Last Admin: 03/24/21 04:08 Dose: 10 ml Documented by: ALMA Labs: Laboratory Tests 03/24/21 03/24/21 03/24/21 Range/Units 04:05 04:05 04:05 WBC 16.1 H (3.0-10.3) x10-3/uL RBC 3.45 L (3.60-5.20) x10(6)uL Hgb 10.4 L (11.4-15.5) g/dL Hct 31.9 L (34.2-48.2) % MCV 92.6 (76.7-100.5) fL MCH 30.2 (23.9-33.9) pg MCHC 32.6 (31.9-34.8) g/dL RDW 13.7 (12.3-16.5) % Plt Count 336 (151-488) x10(3)uL MPV 8.1 (7.1-12.4) fL Add Manual Diff Yes Neutrophils % (Manual) 77 (46-82) % Band Neutrophils % 7 H (0-6) % Lymphocytes % (Manual) 10 L (13-37) % Monocytes % (Manual) 4 (4-12) % Eosinophils % (Manual) 1 (0-5) % Basophils % (Manual) 1 (0-2) % Sodium 143 (135-145) mmol/L Potassium 4.9 (3.5-5.3) mmol/L Chloride 108 (100-110) mmol/L Carbon Dioxide 24 (21-32) mmol/L BUN 59 H (7-18) mg/dL Creatinine 1.8 H (0.55-1.02) mg/dL Est Cr Clr Drug Dosing TNP Estimated GFR (MDRD) 27 L (>60) BUN/Creatinine Ratio 32.8 H (9-20) Glucose 202 H (80-116) mg/dL Calcium 8.4 L (8.6-10.2) mg/dL Magnesium 1.9 (1.8-2.5) mg/dL Total Bilirubin 0.2 (0.1-1.3) mg/dL AST 30 H D (5-25) IU/L ALT 36 (12-36) U/L Alkaline Phosphatase 107 (56-112) IU/L Troponin I (4.0-60.3) pg/mL C-Reactive Protein (0.5-0.9) mg/dL NT-Pro-B Natriuret Pep (<=450) pg/mL Total Protein 6.7 (6.0-8.0) g/dL Albumin 2.9 L (3.2-4.6) g/dL Globulin 3.8 g/dL Albumin/Globulin Ratio 0.8 Lipase (73-393) U/L Urine Color Yellow (YELLOW) Urine Appearance Cloudy (CLEAR) Urine pH 5.0 (5.0-6.5) Ur Specific [place] 1.020 (1.010-1.025) Urine Protein 100 H (NEGATIVE) mg/dL Urine Glucose (UA) Normal (NORMAL) mg/dL Urine Ketones Negative (NEGATIVE) mg/dL Urine Occult Blood Moderate H (NEGATIVE) Urine Nitrite Negative (NEGATIVE) Urine Bilirubin Negative (NEGATIVE) Urine Urobilinogen Normal (NEGATIVE) mg/dL Ur Leukocyte Esterase Moderate H (NEGATIVE) Urine RBC 5-10 H (0-5) Urine WBC 40-50 H (0-5) Ur Squamous Epith Cells Few H (NS,R,O) Urine Bacteria Moderate H (NS) 03/24/21 03/24/21 Range/Units 04:05 04:05 WBC (3.0-10.3) x10-3/uL RBC (3.60-5.20) x10(6)uL Hgb (11.4-15.5) g/dL Hct (34.2-48.2) % MCV (76.7-100.5) fL MCH (23.9-33.9) pg MCHC (31.9-34.8) g/dL RDW (12.3-16.5) % Plt Count (151-488) x10(3)uL MPV (7.1-12.4) fL Add Manual Diff Neutrophils % (Manual) (46-82) % Band Neutrophils % (0-6) % Lymphocytes % (Manual) (13-37) % Monocytes % (Manual) (4-12) % Eosinophils % (Manual) (0-5) % Basophils % (Manual) (0-2) % Sodium (135-145) mmol/L Potassium (3.5-5.3) mmol/L Chloride (100-110) mmol/L Carbon Dioxide (21-32) mmol/L BUN (7-18) mg/dL Creatinine (0.55-1.02) mg/dL Est Cr Clr Drug Dosing Estimated GFR (MDRD) (>60) BUN/Creatinine Ratio (9-20) Glucose (80-116) mg/dL Calcium (8.6-10.2) mg/dL Magnesium (1.8-2.5) mg/dL Total Bilirubin (0.1-1.3) mg/dL AST (5-25) IU/L ALT (12-36) U/L Alkaline Phosphatase (56-112) IU/L Troponin I 41.0 (4.0-60.3) pg/mL C-Reactive Protein 1.6 H (0.5-0.9) mg/dL NT-Pro-B Natriuret Pep 944 H (<=450) pg/mL Total Protein (6.0-8.0) g/dL Albumin (3.2-4.6) g/dL Globulin g/dL Albumin/Globulin Ratio Lipase 313 (73-393) U/L Urine Color (YELLOW) Urine Appearance (CLEAR) Urine pH (5.0-6.5) Ur Specific [place] (1.010-1.025) Urine Protein (NEGATIVE) mg/dL Urine Glucose (UA) (NORMAL) mg/dL Urine Ketones (NEGATIVE) mg/dL Urine Occult Blood (NEGATIVE) Urine Nitrite (NEGATIVE) Urine Bilirubin (NEGATIVE) Urine Urobilinogen (NEGATIVE) mg/dL Ur Leukocyte Esterase (NEGATIVE) Urine RBC (0-5) Urine WBC (0-5) Ur Squamous Epith Cells (NS,R,O) Urine Bacteria (NS) Meds: Medications Generic Name Dose Route Start Last Admin Trade Name Freq PRN Reason Stop Dose Admin Ciprofloxacin/Dextrose 400 mg/ 200 mls @ 200 mls/hr 03/24/21 04:59 03/24/21 05:03 Premix IV 03/24/21 05:58 200 mls/hr ONETIME ONE Administration Sodium Chloride 10 ml 03/24/21 03:41 03/24/21 04:08 Sodium Chloride 0.9% 10 Ml Syringe FLUSH 10 ml ASDIRECTED PRN Administration Keep Vein Open Discontinued Medications Generic Name Dose Route Start Last Admin Trade Name Freq PRN Reason Stop Dose Admin Sodium Chloride 500 mls @ 999 mls/hr 03/24/21 03:46 03/24/21 04:08 Normal Saline IV 03/24/21 04:16 999 mls/hr .BOLUS ONE Administration Metoclopramide HCl 10 mg 03/24/21 04:24 03/24/21 04:28 Metoclopramide 10 Mg/2 Ml Sdv IVPUSH 03/24/21 04:25 10 mg ONETIME ONE Administration Ondansetron HCl 4 mg 03/24/21 03:46 03/24/21 04:05 Ondansetron 4 Mg/2 Ml Sdv IVPUSH 03/24/21 03:47 4 mg ONETIME ONE Administration - Radiology Interpretation Free Text/Narrative:: Portable chest x-ray shows no acute disease per my read. The bilateral increased airspace disease that was present 2 weeks ago has now resolved. - Re-Assessments/Exams Free Text/Narrative Re-Assessment/Exam: 03/24/21 04:15: Initial EKG was unchanged from previous EKG 2 weeks ago. The patient was completely pain-free when I initially evaluated her and she is now complaining of recurrent epigastric and chest burning. Labs have been drawn. She has been given Zofran 4 mg IV. I will have her EKG repeated. 03/24/21 04:45: Patient's repeat EKG was completely unchanged from the initial EKG. She was given Reglan 10 mg IV and now she is resting comfortably without any further pain. Her labs are all reassuring and essentially unchanged from previous. She does have a UTI but she specifically has a normal troponin and an EKG was unchanged from previous. She will need treatment for her recurrent/persistent UTI but I will discuss all this with the patient's family and see what their wishes are as for as for treatment for other things. 03/24/21 05:07: I discussed all of this with the patient's family and if the patient were to be having something related to her heart (and this now seems unlikely as the family tells me that they have gotten calls over the past few days of the patient having "reflux like symptoms" and today her troponin is normal and her EKG is unchanged), and they would not really want anything aggressive to be done. And they would want her to be treated for her urinary tract infection but they are feeling that they would want her to go back to the [facility] to have this treatment. She didn't appear to be mildly dehydrated now but the 500 and a bolus of normal saline should help with that and she should be able to take oral well as she has been doing that thus far. He apparently was on Rocephin before in today I will give the patient ciprofloxacin [address] her on Cipro 500 mg twice daily for 10 days in the [facility]. I feel that this is appropriate and plan will be to discharge her back to the [facility] with therapy as above. I will also provide a prescription for Zofran for any nausea she may have. Departure - Departure Time of Disposition: 06:30 Disposition: DC/Tfer to SNF 03 Condition: Fair (Stable.) Clinical Impression: Recurrent UTI, Dehydration Vomiting Qualifiers: Vomiting type: unspecified Vomiting Intractability: non-intractable Nausea presence: with nausea Qualified Code(s): R11.2 - Nausea with vomiting, unspecified GERD (gastroesophageal reflux disease) Qualifiers: Esophagitis presence: without esophagitis Qualified Code(s): K21.9 - Gastro- esophageal reflux disease without esophagitis Abdominal pain Qualifiers: Abdominal location: epigastric Qualified Code(s): R10.13 - Epigastric pain - Discharge Information Prescriptions: Ciprofloxacin [Ciprofloxacin HCl] 500 mg PO BID 10 Days #20 tab Ondansetron [Zofran ODT] 4 mg PO Q6H PRN #10 tab.dis PRN Reason: Nausea/Vomiting Instructions: Nausea and Vomiting, Adult, [id number], Urinary Tract Infection, Adult, [id number], Gastroesophageal Reflux Disease, Adult, Easy-to- Read, Dehydration, Elderly, [id number] Referrals: Eron Petersen MD [Primary Care Provider] - Forms: ED Department Discharge Additional Instructions: The patient has either a persistent recurrent urinary tract infection. All of her other lab tests are unchanged or reassuringly normal. EKG is unchanged from previous. Patient did appear to be dehydrated and she was given 500 mL of normal saline to help correct this we discussed treatment options with the family and they would want her urinary tract infection treated but they want her to go back to the [facility] wanted her admitted. They have stated that they would not want anything aggressive to be done at this time and feel that she would get the care she needs at the [facility]. She will be treated with ciprofloxacin 500 mg by mouth twice daily for 10 days. She can also have Zofran 4 mg ODT every 6 hours as needed for nausea or vomiting. Follow-up with primary doctor as per usual for the patient [facility] follow-up. Sepsis Event Note (ED) - Evaluation Sepsis Screening Result: No Definite Risk - Focused Exam Vital Signs: Vital Signs Temp Pulse Resp BP Pulse Ox 03/24/21 03:11 36.8 C 99 20 177/65 H 99 - My Orders Last 24 Hours: My Active Orders 03/24/21 03:41 Bladder Scan [RC] ONETIME Chest 1V Frontal [CR] Stat Sodium Chloride 0.9% [Saline Flush] 10 ml FLUSH ASDIRECTED PRN Peripheral IV Insertion Adult [OM.PC] Routine EKG 12 Lead [EK] Routine 03/24/21 03:43 EKG Documentation Completion [RC] ASDIRECTED 03/24/21 03:45 Insert Urinary Catheter [OM.PC] ONETIME 03/24/21 04:05 CULTURE URINE [RM] Stat 03/24/21 04:18 EKG 12 Lead [EK] Routine 03/24/21 04:19 EKG Documentation Completion [RC] ASDIRECTED 03/24/21 04:59 Ciprofloxacin in D5W [Cipro in D5W 400 MG/200 ML] 400 mg Premix Bag 1 bag IV ONETIME - Assessment/Plan Last 24 Hours: My Active Orders 03/24/21 03:41 Bladder Scan [RC] ONETIME Chest 1V Frontal [CR] Stat Sodium Chloride 0.9% [Saline Flush] 10 ml FLUSH ASDIRECTED PRN Peripheral IV Insertion Adult [OM.PC] Routine EKG 12 Lead [EK] Routine 03/24/21 03:43 EKG Documentation Completion [RC] ASDIRECTED 03/24/21 03:45 Insert Urinary Catheter [OM.PC] ONETIME 03/24/21 04:05 CULTURE URINE [RM] Stat 03/24/21 04:18 EKG 12 Lead [EK] Routine 03/24/21 04:19 EKG Documentation Completion [RC] ASDIRECTED 03/24/21 04:59 Ciprofloxacin in D5W [Cipro in D5W 400 MG/200 ML] 400 mg Premix Bag 1 bag IV ONETIME
[2021-03-24] MEDS: Ondansetron 4 MG/2 ML SDV IVPUSH ONE (04:05)
[2021-03-24] MEDS: Sodium Chloride 0.9% 500 ML IV ONE (04:08)
[2021-03-24] MEDS: Sodium Chloride 0.9% 10 ML Syringe FLUSH PRN (04:08)
[2021-03-24] MEDS: Metoclopramide 10 MG/2 ML SDV IVPUSH ONE (04:28)
[2021-03-24] MEDS: Ciprofloxacin in D5W 400 MG in Premix Bag 1 BAG IV ONE ×2 (05:03)
[2021-03-24 06:03] VITALS: BP 134/57; PULSE 92
--- NOTE | 2021-03-24 10:42 | CR ---
INDICATION: Chest, abdominal and arm pain. CHEST ONE VIEW: AP upright portable view of the chest 03/24/21 was compared with 03/06/21 and 11/12/20 again revealing the heart to be within normal limits in size. The aorta is tortuous with calcification in the arch and descending portion. Overlying EKG leads are noted. There appears to be decreased density in the upper middle lung field on the right suggesting resolution of edema in that area versus resolution of a pneumonia. Interstitial markings appear less prominent on the left as well as on the right compared with the previous study compatible with improved appearance of the chest. No definite consolidating pneumonia or effusion was seen at this time. Evidence of exogenous obesity is again noted. IMPRESSION: 1. No definite acute process. 2. When possible, PA and lateral views of the chest may be helpful for further evaluation. MTDD
== END 2021-03-24 06:20 ==
LOC: FB.ED 02:47
DX: N39.0 Urinary tract infection, site not specified (principal); K21.9 Gastro-esophageal reflux disease without esophagitis; E86.0 Dehydration; I11.0 Hypertensive heart disease with heart failure; I50.9 Heart failure, unspecified; I25.10 Atherosclerotic heart disease of native coronary artery without angina pectoris; I25.2 Old myocardial infarction; E11.9 Type 2 diabetes mellitus without complications; E66.9 Obesity, unspecified; Z68.30 Body mass index [BMI] 30.0-30.9, adult; Z79.82 Long term (current) use of aspirin; Z79.4 Long term (current) use of insulin; Z91.018 Allergy to other foods; Z88.8 Allergy status to other drugs, medicaments and biological substances
CPT/HCPCS: 36415; 71045; 80053; 81001; 83690; 83735; 83880; 84484; 85025; 86140; 87086; 87088; 93005; 96365; 96375; 99285; J0744; J2405; J2765; J7040

== ENCOUNTER 2021-04-22 10:11 | Day surgery (SDC) | payer MEDICARE ==
[~2021-04-22 10:11] MED LIST: Lactated Ringers 1,000 ML IV SCH; Sodium Chloride 0.9% 10 ML Syringe FLUSH PRN
[2021-04-22] MEDS ORDERED: Glycopyrrolate 0.2 MG/ML 5 ML MDV IV ONE (10:12)
[2021-04-22] MEDS ORDERED: Metoclopramide 10 MG/2 ML SDV IVPUSH ONE (10:12)
[2021-04-22] MEDS ORDERED: Ondansetron 4 MG/2 ML SDV IVPUSH ONE (10:12)
[2021-04-22] MEDS ORDERED: Lidocaine 2% 5 ML SDV INJECT ONE (10:12)
[2021-04-22] MEDS ORDERED: Propofol 200 MG/20 ML SDV IV ONE (10:12)
--- NOTE | 2021-04-22 12:07 | PCM.OPNOTE ---
- General Post-Op/Procedure Note Date of Surgery/Procedure: 04/22/21 Operative Procedure(s): EGD with Biopsy Findings: Mild erythema of antrum without ulceration Exam otherwise normal Pre Op Diagnosis: Chest pain Post-Op Diagnosis: Gastritis Anesthesia Technique: MAC Primary Surgeon: Nirmal Farley Pathology: Biopsies of antrum and duodenum EBL in mLs: 2 Complications: None Condition: Good
--- NOTE | 2021-04-22 13:13 | OR ---
DATE OF OPERATION: 04/22/2021 SURGEON: Nirmal Farley MD PREOPERATIVE DIAGNOSIS: Chest pain. POSTOPERATIVE DIAGNOSIS: Gastritis. OPERATION PERFORMED: Esophagogastroduodenoscopy with biopsy. INDICATIONS FOR SURGERY: This 86-year-old female has been having symptoms of postprandial chest and upper abdominal pain. Cardiac workup is negative for a cause for this pain, and upper endoscopy is planned. FINDINGS: The patient's esophagus appears normal without visible inflammation or stenosis. She does have mild hyperemia of the gastric mucosa in the antrum, but no ulcerations are seen. The patient's stomach otherwise appears normal. The patient's duodenum also appears normal to the third portion. An accessory ampulla is noted in the first portion of the duodenum, but no inflammation or ulcers are seen. PROCEDURE IN DETAIL: The patient was taken to the procedure room. She was given intravenous sedation and her throat was topically anesthetized. With her in the sitting position and after a mouth guard had been inserted, the Olympus gastroscope was advanced into the oral cavity and then carefully under direct visualization through the oropharynx into the esophagus. The scope was then carefully advanced through the esophagus, stomach, and into the duodenum where examination to the third portion was performed. Full examination of the duodenum was carried out and because of the patient's symptoms, random biopsies of the duodenal bulb were taken. The scope was withdrawn back into the stomach where full examination including retroflexed examination of the fundus was performed. Random biopsies of the antrum were taken to rule out H pylori. The GE junction and esophagus were then re-examined as the scope was removed. After the procedure was completed, the scope was removed, and the patient was then taken from the procedure room in satisfactory condition. ESTIMATED BLOOD LOSS: 2 mL. COMPLICATIONS: None. PROGNOSIS: Good. /[id number] JL/ALLIE
--- NOTE | 2021-04-22 13:19 | PREOP ---
ADMISSION DATE: 04/22/2021 This 86-year-old patient comes today for upper endoscopy. She has been having some unexplained symptoms of chest pain and diagnostic exam is planned. She did demonstrate transient difficulty with some spitting up while in the preoperative area, but after the patient relaxed, symptoms improved, and she was stable to proceed with upper endoscopy under IV sedation. I again discussed the proposed procedure with the patient and she agrees to have this performed. /[id number] LJ/ALLIE
[2021-04-23 09:09] VITALS: BP 169/75; PULSE 93
== END 2021-04-22 13:15 ==
LOC: FB.SDS 10:11
PROVIDERS: ATTEND Surgery
DX: K29.50 Unspecified chronic gastritis without bleeding (principal); K31.89 Other diseases of stomach and duodenum; K29.80 Duodenitis without bleeding; I25.10 Atherosclerotic heart disease of native coronary artery without angina pectoris; G47.30 Sleep apnea, unspecified; Z88.8 Allergy status to other drugs, medicaments and biological substances; Z90.49 Acquired absence of other specified parts of digestive tract; Z87.891 Personal history of nicotine dependence; Z79.899 Other long term (current) drug therapy; I48.91 Unspecified atrial fibrillation; I25.2 Old myocardial infarction; E11.22 Type 2 diabetes mellitus with diabetic chronic kidney disease; I13.0 Hypertensive heart and chronic kidney disease with heart failure and stage 1 through stage 4 chronic kidney disease, or unspecified chronic kidney disease; I50.9 Heart failure, unspecified
CPT/HCPCS: 00731-QZ; 88305; 88342; J2405; J2704; J2765; J3490; J7120

== ENCOUNTER 2021-04-22 14:25 | Emergency (ER) | payer MEDICARE ==
[2021-04-22] MEDS ORDERED: Insulin Lispro 100 Unit/ML 3 ML KwikPen SUBCUT ONE ×2 (14:26→15:35)
[2021-04-22] MEDS ORDERED: Furosemide 40 MG/4 ML VIAL IVPUSH ONE ×2 (14:39→15:50)
[2021-04-22] MEDS ORDERED: Albuterol/Ipratropium 3.0-0.5 MG/3 ML Neb Soln NEB ONE (14:39)
--- NOTE | 2021-04-22 14:43 | EDM.PDOC ---
ED HPI GENERAL MEDICAL PROBLEM - General Stated Complaint: POST OP COMPLICATIONS Time Seen by Provider: 04/22/21 14:40 Source of Information: Reports: Patient History Limitations: Reports: No Limitations - History of Present Illness INITIAL COMMENTS - FREE TEXT/NARRATIVE: Vania is seen in the ED,room 212,for respiratory distress. She was in OR earlier for an EGD. [facility],she developed shortness of breath,tachycardia,with O2 Sats down to 60%. There s a question of whether she aspirated.Vania has a h/o CHF,DM,GERD and Mild Intermittent Asthma. - Related Data Allergies Allergy/AdvReac Type Severity Reaction Status Date / Time aspartame Allergy Cannot Verified 04/22/21 10:29 Remember procaine HCl [From Novocain] Allergy Cannot Verified 04/22/21 10:29 Remember Home Meds: Home Meds Famotidine [Pepcid] 40 mg PO BEDTIME 09/21/20 [History] Losartan Potassium 100 mg PO DAILY 09/21/20 [History] Levothyroxine 125 mcg PO DAILY 09/22/20 [History] Aspirin 81 mg PO DAILY 10/07/20 [History] Carboxymethylcellulose Sodium [Refresh Liquigel 1%] 1 drop EYEBOTH QID 10/07/20 [History] Diclofenac Sodium [Voltaren 1% Gel] 2 g TOP TID PRN 10/07/20 [History] allopurinoL [Zyloprim] 50 mg PO DAILY 10/07/20 [History] atorvaSTATin [Lipitor] 10 mg PO WITHDINNER 10/07/20 [History] polyethylene glycoL 3350 [Miralax] 17 g PO DAILY 10/07/20 [History] amLODIPine [Norvasc] 5 mg PO DAILY 30 Days #30 tablet 10/20/20 [Rx] Acetaminophen [Tylenol Extra Strength] 1,000 mg PO TID 03/06/21 [History] Estradiol Acetate [Femring] 10 mcg VG TUTH@2100 03/06/21 [History] Ferrous Sulfate 324 mg PO DAILY 03/06/21 [History] Insulin Glarg,Human.Rec.Analog [Lantus Solostar] 20 unit SUBCUT BEDTIME 03/06/21 [History] Insulin Lispro [HumaLOG] 10 unit SQ ASDIRECTED PRN 03/06/21 [History] Insulin Lispro [HumaLOG] 20 unit SQ 1100 05/28/21 [History] Insulin Lispro [HumaLOG] 28 unit SQ 1700 03/06/21 [History] Insulin Lispro [HumaLOG] 44 unit SQ 0800 03/06/21 [History] Omeprazole 40 mg PO DAILY 03/24/21 [History] Ondansetron [Zofran ODT] 4 mg PO Q6H PRN #10 tab.dis 03/24/21 [Rx] Ascorbic Acid [Vitamin C] 1,000 mg PO DAILY 04/21/21 [History] Furosemide [Lasix] 20 mg PO BID 04/21/21 [History] Gabapentin [Neurontin] 100 mg PO BID 04/21/21 [History] Acetaminophen [Tylenol] 325 mg PO Q4H PRN 04/22/21 [History] Past Medical History HEENT History: Reports: Other (See Below) Other HEENT History: dry eye syndrome Cardiovascular History: Reports: Afib, CAD, Heart Failure, High Cholesterol, Hypertension, [place] Respiratory History: Reports: Sleep Apnea Other Respiratory History: Pleural effusion. Pneumonia. Gastrointestinal History: Reports: GERD Genitourinary History: Reports: Chronic Renal Insuffiency, Urinary Incontinence, UTI, Recurrent [employer] History: Reports: Musculoskeletal History: Reports: RA Other Musculoskeletal History: Right index finger fracture. Spinal arthritis. Neurological History: Reports: Other (See Below) Other Neuro History: History of memory loss. Psychiatric History: Reports: Dementia, Depression Endocrine/Metabolic History: Reports: Diabetes, Type II, Hypothyroidism, Obesity/BMI 30+ Hematologic History: Reports: None Immunologic History: Reports: None Oncologic (Cancer) History: Reports: Other (See Below) Other Oncologic History: Tongue. Dermatologic History: Reports: Decubitus Ulcer Other Dermatologic History: stage II ulcer to L heel & coccyx - Infectious Disease History Infectious Disease History: Reports: Scarlet Fever - Past Surgical History Head Surgeries/Procedures: Reports: None HEENT Surgical History: Reports: Cataract Surgery, Other (See Below) Other HEENT Surgeries/Procedures: partial glossectomy Respiratory Surgical History: Reports: None GI Surgical History: Reports: Appendectomy, Cholecystectomy Female Surgical History: Reports: Hysterectomy Endocrine Surgical History: Reports: None Neurological Surgical History: Reports: None Musculoskeletal Surgical History: Reports: None Oncologic Surgical History: Reports: None Social & Family History - Family History Family Medical History: No Pertinent Family History - Caffeine Use Caffeine Use: Reports: Coffee - Living Situation & Occupation Living situation: Reports: Extended Care Facility (She is a resident of [facility]) Occupation: Retired ED ROS GENERAL - Review of Systems Review Of Systems: Comprehensive ROS is negative, except as noted in HPI. ED EXAM, GENERAL - Physical Exam Exam: See Below Exam Limited By: Respiratory Distress General Appearance: Alert, Moderate Distress Ear Exam: Bilateral Ear: Auricle Normal, Canal Normal, TM normal Nose: Normal Inspection Throat/Mouth: Normal Inspection Head: Atraumatic Neck: Supple Respiratory/Chest: Crackles, Rhonchi Cardiovascular: No JVD GI/Abdominal: Normal Bowel Sounds, Soft Rectal (Female) Exam: Deferred Neurological: Alert, Oriented Psychiatric: Normal Affect Skin Exam: Warm #1 Interpretation EKG Date: 04/22/21 Rhythm: NSR Rate (Beats/Min): 118 Reading: Normal P-Wave: Present QRS: LBBB Course - Orders/Labs/Meds Orders: Active Orders 24 hr Category Date Time Status EKG Documentation Completion [RC] ASDIRECTED Care 04/22/21 14:39 Active Bolton Catheter Insertion [Insert Urinary Catheter] [OM. Care 04/22/21 15:30 Ordered PC] Q24H RT Aerosol Therapy [RC] ASDIRECTED Care 04/22/21 14:39 Active Urinary Catheter Assessment [RC] QSHIFT Care 04/22/21 15:21 Active Chest 1V Frontal [CR] Stat Exams 04/22/21 14:39 Taken Dextrose 50% in Water Med 04/22/21 15:35 Active 50 ml IVPUSH ASDIRECTED PRN Glucagon,Human Recombinant [GlucaGen] Med 04/22/21 15:35 Active 1 mg IM ASDIRECTED PRN Nitroglycerin/D5W [Nitroglycerin 25 MG/D5W 250 ML] Med 04/22/21 15:30 Active 25 mg in 250 ml IV TITRATE Piperacillin/Tazobactam [Zosyn] 4.5 gm Med 04/22/21 16:00 Active Sodium Chloride 0.9% [Normal Saline] 100 ml IV Q6H Sodium Chloride 0.9% [Saline Flush] Med 04/22/21 14:39 Active 10 ml FLUSH ASDIRECTED PRN Peripheral IV Insertion Adult [OM.PC] Routine Oth 04/22/21 14:39 Ordered EKG 12 Lead [EK] Routine Ther 04/22/21 14:39 Ordered Medication Orders Dextrose/Water (50% Dextrose In Water 50 Ml Syringe) 50 ml IVPUSH ASDIRECTED PRN PRN Reason: Hypoglycemia Glucagon (Glucagon,Human Recombinant 1 Mg Vial) 1 mg IM ASDIRECTED PRN PRN Reason: Hypoglycemia Nitroglycerin/Dextrose (Nitroglycerin 25 Mg/D5w 250 Ml) 25 mg in 250 mls @ 6 mls/hr IV TITRATE BENITO; Protocol Last Admin: 04/22/21 15:22 Dose: 10 mcg/min, 6 mls/hr Documented by: GERRY Piperacillin Sod/Tazobactam (Sod 4.5 gm/ Sodium Chloride) 100 mls @ 200 mls/hr IV Q6H BENITO Last Admin: 04/22/21 16:06 Dose: 200 mls/hr Documented by: GERRY Sodium Chloride (Sodium Chloride 0.9% 10 Ml Syringe) 10 ml FLUSH ASDIRECTED PRN PRN Reason: Keep Vein Open Last Admin: 04/22/21 14:46 Dose: 10 ml Documented by: GERRY Labs: Laboratory Tests 04/22/21 04/22/21 04/22/21 Range/Units 14:45 14:45 14:45 WBC 21.3 H (3.0-10.3) x10-3/uL RBC 3.46 L (3.60-5.20) x10(6)uL Hgb 10.8 L (11.4-15.5) g/dL Hct 34.8 (34.2-48.2) % MCV 100.7 H (76.7-100.5) fL MCH 31.2 (23.9-33.9) pg MCHC 31.0 L (31.9-34.8) g/dL RDW 14.6 (12.3-16.5) % Plt Count 339 (151-488) x10(3)uL MPV 8.5 (7.1-12.4) fL Neut % (Auto) 57.1 (30.8-76.2) % Lymph % (Auto) 35.8 (18.4-52.1) % White % (Auto) 5.4 (4.4-15.7) % Eos % (Auto) 1.1 (0.6-8.1) % Baso % (Auto) 0.6 (0.2-1.5) % Neut # (Auto) 12.2 H (1.5-6.3) x10-3/uL Lymph # (Auto) 7.6 H (1.0-4.4) x10-3/uL White # (Auto) 1.2 H (0.3-1.0) x10-3/uL Eos # (Auto) 0.2 (0.0-0.8) x10-3/uL Baso # (Auto) 0.1 (0.0-0.1) x10-3/uL Sodium 141 (135-145) mmol/L Potassium 4.8 (3.5-5.3) mmol/L Chloride 103 (100-110) mmol/L Carbon Dioxide 17 L (21-32) mmol/L BUN 45 H (7-18) mg/dL Creatinine 2.2 H* (0.55-1.02) mg/dL Est Cr Clr Drug Dosing TNP Estimated GFR (MDRD) 21 L (>60) BUN/Creatinine Ratio 20.5 H (9-20) Glucose 576 H* D (80-116) mg/dL Calcium 9.0 (8.6-10.2) mg/dL Troponin I 44.2 (4.0-60.3) pg/mL C-Reactive Protein (0.5-0.9) mg/dL NT-Pro-B Natriuret Pep 1619 H* (<=450) pg/mL SARS-CoV-2 RNA (MARK) (NEGATIVE) 04/22/21 04/22/21 Range/Units 14:45 15:29 WBC (3.0-10.3) x10-3/uL RBC (3.60-5.20) x10(6)uL Hgb (11.4-15.5) g/dL Hct (34.2-48.2) % MCV (76.7-100.5) fL MCH (23.9-33.9) pg MCHC (31.9-34.8) g/dL RDW (12.3-16.5) % Plt Count (151-488) x10(3)uL MPV (7.1-12.4) fL Neut % (Auto) (30.8-76.2) % Lymph % (Auto) (18.4-52.1) % White % (Auto) (4.4-15.7) % Eos % (Auto) (0.6-8.1) % Baso % (Auto) (0.2-1.5) % Neut # (Auto) (1.5-6.3) x10-3/uL Lymph # (Auto) (1.0-4.4) x10-3/uL White # (Auto) (0.3-1.0) x10-3/uL Eos # (Auto) (0.0-0.8) x10-3/uL Baso # (Auto) (0.0-0.1) x10-3/uL Sodium (135-145) mmol/L Potassium (3.5-5.3) mmol/L Chloride (100-110) mmol/L Carbon Dioxide (21-32) mmol/L BUN (7-18) mg/dL Creatinine (0.55-1.02) mg/dL Est Cr Clr Drug Dosing Estimated GFR (MDRD) (>60) BUN/Creatinine Ratio (9-20) Glucose (80-116) mg/dL Calcium (8.6-10.2) mg/dL Troponin I (4.0-60.3) pg/mL C-Reactive Protein 1.0 H (0.5-0.9) mg/dL NT-Pro-B Natriuret Pep (<=450) pg/mL SARS-CoV-2 RNA (MARK) Negative (NEGATIVE) Meds: Medications Generic Name Dose Route Start Last Admin Trade Name Freq PRN Reason Stop Dose Admin Dextrose/Water 50 ml 04/22/21 15:35 50% Dextrose In Water 50 Ml Syringe IVPUSH ASDIRECTED PRN Hypoglycemia Glucagon 1 mg 04/22/21 15:35 Glucagon,Human Recombinant 1 Mg Vial IM ASDIRECTED PRN Hypoglycemia Nitroglycerin/Dextrose 25 mg in 250 mls @ 6 mls/hr 04/22/21 15:30 04/22/21 15:22 Nitroglycerin 25 Mg/D5w 250 Ml IV 10 mcg/min TITRATE BENITO 6 mls/hr Administration Protocol 10 MCG/MIN Piperacillin Sod/Tazobactam 100 mls @ 200 mls/hr 04/22/21 16:00 04/22/21 16:06 Sod 4.5 gm/ Sodium Chloride IV 200 mls/hr Q6H BENITO Administration Sodium Chloride 10 ml 04/22/21 14:39 04/22/21 14:46 Sodium Chloride 0.9% 10 Ml Syringe FLUSH 10 ml ASDIRECTED PRN Administration Keep Vein Open Discontinued Medications Generic Name Dose Route Start Last Admin Trade Name Freq PRN Reason Stop Dose Admin Albuterol/Ipratropium 3 ml 04/22/21 14:39 04/22/21 14:45 Albuterol/Ipratropium 3.0-0.5 Mg/3 Ml Neb Soln NEB 04/22/21 14:40 3 ml ONETIME ONE Administration Furosemide 40 mg 04/22/21 14:39 04/22/21 14:45 Furosemide 40 Mg/4 Ml Vial IVPUSH 04/22/21 14:40 40 mg NOW ONE Administration Furosemide 20 mg 04/22/21 15:01 04/22/21 15:20 Furosemide 20 Mg/2 Ml Vial IVPUSH 04/22/21 15:02 20 mg ONETIME ONE Administration Furosemide 20 mg 04/22/21 15:50 04/22/21 16:06 Furosemide 40 Mg/4 Ml Vial IVPUSH 04/22/21 15:51 20 mg NOW ONE Administration Insulin Human Lispro 10 unit 04/22/21 15:35 04/22/21 15:41 Insulin Lispro 100 Unit/Ml 3 Ml Kwikpen SUBCUT 04/22/21 15:36 10 unit ONETIME ONE Administration Morphine Sulfate 2 mg 04/22/21 14:59 04/22/21 15:04 Morphine 2 Mg/Ml Syringe IVPUSH 04/22/21 15:00 2 mg ONETIME ONE Administration Morphine Sulfate Confirm 04/22/21 15:08 04/22/21 15:21 Morphine 2 Mg/Ml Syringe Administered 04/22/21 15:09 Not Given Dose 2 mg .ROUTE .STK-MED ONE Morphine Sulfate 2 mg 04/22/21 15:50 04/22/21 16:09 Morphine 2 Mg/Ml Syringe IVPUSH 04/22/21 15:51 2 mg ONETIME ONE Administration Departure - Departure Time of Disposition: 16:30 Disposition: DC/Tfer to Acute Hospital 02 Condition: Serious Clinical Impression: Acute exacerbation of congestive heart failure Qualifiers: Heart failure type: systolic Qualified Code(s): I50.23 - Acute on chronic systolic (congestive) heart failure - Discharge Information Referrals: Eron Petersen MD [Primary Care Provider] - - Problem List & Annotations (1) SOB (shortness of breath) SNOMED Code(s): 319349583 Code(s): R06.02 - SHORTNESS OF BREATH Status: Acute Current Visit: No - Problem List Review Problem List Initiated/Reviewed/Updated: Yes - My Orders Last 24 Hours: My Active Orders 04/22/21 14:39 EKG Documentation Completion [RC] ASDIRECTED RT Aerosol Therapy [RC] ASDIRECTED Chest 1V Frontal [CR] Stat Sodium Chloride 0.9% [Saline Flush] 10 ml FLUSH ASDIRECTED PRN Peripheral IV Insertion Adult [OM.PC] Routine EKG 12 Lead [EK] Routine 04/22/21 15:21 Urinary Catheter Assessment [RC] QSHIFT 04/22/21 15:30 Bolton Catheter Insertion [Insert Urinary Catheter] [OM.PC] Q24H Nitroglycerin/D5W [Nitroglycerin 25 MG/D5W 250 ML] 25 mg in 250 ml IV TITRATE 04/22/21 15:35 Dextrose 50% in Water 50 ml IVPUSH ASDIRECTED PRN Glucagon,Human Recombinant [GlucaGen] 1 mg IM ASDIRECTED PRN 04/22/21 16:00 Piperacillin/Tazobactam [Zosyn] 4.5 gm Sodium Chloride 0.9% [Normal Saline] 100 ml IV Q6H - Assessment/Plan Last 24 Hours: My Active Orders 04/22/21 14:39 EKG Documentation Completion [RC] ASDIRECTED RT Aerosol Therapy [RC] ASDIRECTED Chest 1V Frontal [CR] Stat Sodium Chloride 0.9% [Saline Flush] 10 ml FLUSH ASDIRECTED PRN Peripheral IV Insertion Adult [OM.PC] Routine EKG 12 Lead [EK] Routine 04/22/21 15:21 Urinary Catheter Assessment [RC] QSHIFT 04/22/21 15:30 Bolton Catheter Insertion [Insert Urinary Catheter] [OM.PC] Q24H Nitroglycerin/D5W [Nitroglycerin 25 MG/D5W 250 ML] 25 mg in 250 ml IV TITRATE 04/22/21 15:35 Dextrose 50% in Water 50 ml IVPUSH ASDIRECTED PRN Glucagon,Human Recombinant [GlucaGen] 1 mg IM ASDIRECTED PRN 04/22/21 16:00 Piperacillin/Tazobactam [Zosyn] 4.5 gm Sodium Chloride 0.9% [Normal Saline] 100 ml IV Q6H Plan: CXR showed bilateral opacities. WBC is high,so is BNP. I gave her a total of 80 mg of Lasix,4 mg of Morphine,and a Duneb x 1. I started her on Zosyn and will transfer to [facility] in [place] for more definitive treatment.
[2021-04-22] MEDS: Sodium Chloride 0.9% 10 ML Syringe FLUSH PRN ×2 (14:46→16:22)
[2021-04-22] MEDS ORDERED: Morphine 2 MG/ML SYRINGE IVPUSH ONE ×2 (14:59→15:50)
[2021-04-22] MEDS ORDERED: Furosemide 20 MG/2 ML VIAL IVPUSH ONE (15:01)
[2021-04-22] MEDS ORDERED: Morphine 2 MG/ML SYRINGE ONE (15:08)
[2021-04-22] MEDS ORDERED: Nitroglycerin/D5W 25 MG/250 ML BOTTLE IV SCH (15:30)
[2021-04-22] MEDS ORDERED: 50% Dextrose in Water 50 ML Syringe IVPUSH PRN (15:35)
[2021-04-22] MEDS ORDERED: Glucagon,Human Recombinant 1 MG Vial IM PRN (15:35)
[2021-04-22] MEDS ORDERED: Piperacillin/Tazobactam 4.5 GM in Sodium Chloride 0.9% 100 ML IV SCH (16:00)
[2021-04-22 16:29] VITALS: BP 136/76; PULSE 119
== END 2021-04-22 18:20 ==
LOC: FB.ED 14:25
DX: I13.0 Hypertensive heart and chronic kidney disease with heart failure and stage 1 through stage 4 chronic kidney disease, or unspecified chronic kidney disease (principal); E11.22 Type 2 diabetes mellitus with diabetic chronic kidney disease; N18.9 Chronic kidney disease, unspecified; I50.23 Acute on chronic systolic (congestive) heart failure; I48.91 Unspecified atrial fibrillation; I25.10 Atherosclerotic heart disease of native coronary artery without angina pectoris; I25.2 Old myocardial infarction; K21.9 Gastro-esophageal reflux disease without esophagitis; E66.9 Obesity, unspecified; E03.9 Hypothyroidism, unspecified; Z91.09 Other allergy status, other than to drugs and biological substances; Z68.30 Body mass index [BMI] 30.0-30.9, adult; Z88.4 Allergy status to anesthetic agent; Z79.82 Long term (current) use of aspirin; Z79.899 Other long term (current) drug therapy; Z79.4 Long term (current) use of insulin; Z20.822 Contact with and (suspected) exposure to COVID-19
CPT/HCPCS: 36415; 51702; 71045; 80048; 83880; 84484; 85025; 86140; 93005; 93010; 94640; 96365; 96366; 96368; 96375; 96376; 99285; J1815; J1940; J2270; J2543; J3490; U0002; J7620-GY